=== PATIENT | male | born 1970 ===

== ENCOUNTER 2020-04-12 13:55 | Outpatient (REF) | payer OTHER, SELFPAY ==
[2020-04-12 14:50] LABS: MANUAL DIFF FLAG NO
[2020-04-12 15:10] LABS: Basophils Absolute Auto 0.1 X10*3/uL (0.0-0.2); Basophils Percent Auto 1.5 % (0-2); Eosinophils Absolute Auto 0.2 X10*3/uL (0.0-0.4); Eosinophils Percent Auto 3.7 % (0-4); Hematocrit 50.3 % (42-52); Hemoglobin 16.8 g/dl (14.0-18.0); Imm Gran Abs Auto 0.01 X10*3/uL (0.00-0.03); Imm Gran Pct Auto 0.2 % (0.0-0.4); Lymphocytes Absolute Auto 1.8 X10*3/uL (1.2-4.9); Lymphocytes Percent Auto 34.4 % (20-40); Mean Corpuscular HGB Conc 33.4 g/dl (31.0-36.0); Mean Corpuscular Hemoglobin 29.3 pg (27.0-33.0); Mean Corpuscular Volume 87.6 fL (80-98); Mean Platelet Volume 10.3 fL (9.4-12.4); Monocytes Absolute Auto 0.5 X10*3/uL (0.1-1.2); Neutrophils Absolute Auto 2.6 X10*3/uL (2.0-8.3); Neutrophils Percent Auto 50.2 % (45-73); Platelet Count 242 X10*3/uL (160-400); Red Blood Count 5.74 X10*6/uL (4.60-5.80); Red Cell Distribution Width 12.9 % (11.0-16.0); White Blood Count 5.2 X10*3/uL (4.8-10.8)
[2020-04-12 15:46] LABS: Alanine Aminotransferase 24 U/L (0-40); Albumin Level 4.2 g/dL (3.5-5.0); Alkaline Phosphatase 53 U/L (39-117); Aspartate Amino Transferase 18 U/L (5-37); Bilirubin Direct 0.3 mg/dL (0.0-0.5); Bilirubin Total 0.7 mg/dL (0.0-1.0); Iron 194 mcg/dL (45-160); Percent Iron Saturation 61 % (15-50); Total Iron Binding Capacity 320 mcg/dL (228-428); Total Protein 6.6 g/dL (6.5-8.0); Unsaturated Iron Binding 126 ug/dL
[2020-04-12 16:08] LABS: Ferritin 58 ng/mL (20-250)
== END 2020-04-12 13:56 | disposition home or self-care (01) ==
LOC: HO.BBR 13:55
PROVIDERS: Internal Medicine Gastroenterology; Visit Provider Physician Assistant
DX: E83.110 Hereditary hemochromatosis (principal)
CPT/HCPCS: 36415; 80076; 82728; 83540; 85025

== ENCOUNTER 2020-04-12 14:50 | Outpatient (REF) | payer SELFPAY ==
[2020-04-12 19:21] LABS: Cholesterol 223 mg/dL
== END 2020-04-12 14:51 | disposition home or self-care (01) ==
LOC: HO.LNC 14:50
PROVIDERS: Visit Provider Pathology Anatomic Pathology & Clinical Pathology
DX: Z13.89 Encounter for screening for other disorder (principal)
CPT/HCPCS: 36415; 82465

== ENCOUNTER 2020-09-19 12:17 | Outpatient (REF) | payer OTHER, SELFPAY | END 2020-09-19 12:18 | disposition home or self-care (01) | LOC: HO.BBR 12:17 | PROVIDERS: Visit Provider Physician Assistant | DX: Z13.89 Encounter for screening for other disorder (principal) ==

== ENCOUNTER 2020-12-13 14:31 | Outpatient (REF) | payer OTHER, SELFPAY ==
[2020-12-13 13:11] LABS: MANUAL DIFF FLAG NO
[2020-12-13 13:13] LABS: Basophils Absolute Auto 0.1 X10*3/uL (0.0-0.2); Basophils Percent Auto 1.7 % (0-2); Eosinophils Absolute Auto 0.2 X10*3/uL (0.0-0.4); Eosinophils Percent Auto 3.6 % (0-4); Hematocrit 49.1 % (42-52); Hemoglobin 16.9 g/dl (14.0-18.0); Imm Gran Abs Auto 0.01 X10*3/uL (0.00-0.03); Imm Gran Pct Auto 0.2 % (0.0-0.4); Lymphocytes Absolute Auto 1.5 X10*3/uL (1.2-4.9); Lymphocytes Percent Auto 32.2 % (20-40); Mean Corpuscular HGB Conc 34.4 g/dl (31.0-36.0); Mean Corpuscular Hemoglobin 29.8 pg (27.0-33.0); Mean Corpuscular Volume 86.4 fL (80-98); Mean Platelet Volume 9.8 fL (9.4-12.4); Monocytes Absolute Auto 0.5 X10*3/uL (0.1-1.2); Monocytes Percent Auto 10.8 % (2-11); Neutrophils Absolute Auto 2.4 X10*3/uL (2.0-8.3); Neutrophils Percent Auto 51.5 % (45-73); Platelet Count 200 X10*3/uL (160-400); Red Blood Count 5.68 X10*6/uL (4.60-5.80); White Blood Count 4.7 X10*3/uL (4.8-10.8)
[2020-12-13 14:44] LABS: Appearance Urine CLEAR; Color Urine YELLOW; Glucose Urine UA NEG (NEG); Leukocyte Esterase Urine NEG (NEG); Nitrite Urine NEG (NEG); Specific Gravity - Urine 1.025 (1.005-1.025); Urine Blood NEG (NEG); Urine Ketones NEG (NEG); Urine Protein NEG (NEG-TRACE)
[2020-12-13 14:58] LABS: Alanine Aminotransferase 18 U/L (0-40); Albumin Level 4.3 g/dL (3.5-5.0); Alkaline Phosphatase 52 U/L (39-117); Anion Gap 11 (12-20); Aspartate Amino Transferase 13 U/L (5-37); Bilirubin Direct 0.2 mg/dL (0.0-0.5); Bilirubin Total 0.5 mg/dL (0.0-1.0); Blood Urea Nitrogen 18 mg/dL (9-16); Calcium 9.1 mg/dL (8.4-10.2); Carbon Dioxide 25 mmol/L (22-29); Chloride 109 mmol/L (96-108); Cholesterol 192 mg/dL; Estimated Glomerular Filt Rate > 60; Glucose Random 93 mg/dL (60-115); HDL Cholesterol 37 mg/dL; Iron 87 mcg/dL (45-160); LDL Cholesterol Calculated 144 mg/dl; Percent Iron Saturation 29 % (15-50); Potassium 4.3 mmol/L (3.3-5.1); Sodium 141 mmol/L (135-145); Total Iron Binding Capacity 297 mcg/dL (228-428); Total Protein 6.7 g/dL (6.5-8.0); Triglycerides 56 mg/dL; Unsaturated Iron Binding 210 ug/dL
[2020-12-13 15:11] LABS: Creatinine Urine 214.04 mg/dL; Microalbum/Creatinine Ratio Ur 3.2 ug/mg cr
[2020-12-13 15:19] LABS: Ferritin 51 ng/mL (20-250); Prostate Specific Antigen 2.01 ng/mL (<0.05-4.0); Thyroid Stimulating Hormone 1.34 uIU/mL (0.32-4.0)
== END 2020-12-13 14:32 | disposition home or self-care (01) ==
LOC: HO.BBR 14:31
PROVIDERS: PCP Internal Medicine; Referring Provider Internal Medicine Gastroenterology; Visit Provider Physician Assistant
DX: Z12.5 Encounter for screening for malignant neoplasm of prostate (principal); E83.110 Hereditary hemochromatosis; R79.89 Other specified abnormal findings of blood chemistry; E07.9 Disorder of thyroid, unspecified
CPT/HCPCS: 36415; 80048; 80061; 80076; 81003; 82043; 82728; 83540; 84153; 84443; 85025

== ENCOUNTER → 2021-04-07 15:10 | Outpatient (BNVA) | payer OTHER, SELFPAY | PROVIDERS: PCP Internal Medicine; Visit Provider Hospitalist ==

== ENCOUNTER 2021-04-11 11:44 | Outpatient (REF) | payer OTHER, SELFPAY | END 2021-04-11 11:45 | disposition home or self-care (01) | LOC: HO.BBR 11:44 | PROVIDERS: Visit Provider Internal Medicine Gastroenterology | DX: Z13.89 Encounter for screening for other disorder (principal) ==

== ENCOUNTER 2021-07-03 14:00 | Outpatient (REF) | payer OTHER, SELFPAY ==
[2021-07-03 14:30] LABS: Hematocrit 52.3 % (42.0-52.0); Hemoglobin 17.4 g/dl (14.0-18.0); Mean Corpuscular HGB Conc 33.3 g/dl (31.0-36.0); Mean Corpuscular Volume 87.2 fL (80.0-98.0); Mean Platelet Volume 9.9 fL (9.4-12.4); Platelet Count 230 X10*3/uL (160-400); Red Cell Distribution Width 12.4 % (11.0-16.0)
[2021-07-03 15:01] LABS: Alanine Aminotransferase 32 U/L (0-40); Albumin Level 4.4 g/dL (3.5-5.0); Alkaline Phosphatase 53 U/L (39-117); Anion Gap 11 (12-20); Aspartate Amino Transferase 20 U/L (5-37); Bilirubin Direct 0.2 mg/dL (0.0-0.5); Bilirubin Total 0.6 mg/dL (0.0-1.0); Blood Urea Nitrogen 18 mg/dL (9-16); Calcium 9.5 mg/dL (8.4-10.2); Carbon Dioxide 24 mmol/L (22-29); Chloride 106 mmol/L (96-108); Estimated Glomerular Filt Rate 59; Glucose Random 151 mg/dL (60-115); Iron 56 mcg/dL (45-160); Percent Iron Saturation 14 % (15-50); Potassium 4.4 mmol/L (3.3-5.1); Sodium 137 mmol/L (135-145); Total Iron Binding Capacity 388 mcg/dL (228-428); Total Protein 7.1 g/dL (6.5-8.0); Unsaturated Iron Binding 332 ug/dL
[2021-07-03 15:22] LABS: Ferritin 10 ng/mL (20-250)
[2021-07-03 17:02] LABS: Appearance Urine CLEAR; Color Urine YELLOW; Glucose Urine UA NEG (NEG); Leukocyte Esterase Urine NEG (NEG); Nitrite Urine NEG (NEG); Specific Gravity - Urine 1.015 (1.005-1.025); Urine Blood NEG (NEG); Urine Ketones NEG (NEG); Urine Protein NEG (NEG-TRACE)
[2021-07-04 03:55] LABS: HBsAGNum1 0.19 S/CO (0.00-0.99); Hepatitis B Surface Antigen Negative (Negative); ~HepC Num1 0.09 S/CO (0.00-0.79); ~Hepatitis C Antibody Nonreactive (Nonreactive)
[2021-07-06 13:41] LABS: Anti Nuclear Antibody Screen NEGATIVE (NEGATIVE)
== END 2021-07-03 14:01 | disposition home or self-care (01) ==
LOC: HO.BBR 14:00
PROVIDERS: Visit Provider Internal Medicine Gastroenterology
DX: E83.110 Hereditary hemochromatosis (principal); R94.5 Abnormal results of liver function studies
CPT/HCPCS: 36415; 80048; 80076; 81003; 82728; 83540; 85027; 86038; 86039; 86803; 87340

== ENCOUNTER 2021-07-14 13:54 | Outpatient (REF) | payer OTHER, SELFPAY ==
--- NOTE | ~2021-07-14 | XR_ITS ---
EXAMINATION: XR KNEE, RIGHT CLINICAL INFORMATION: Pain. COMPARISON: None TECHNIQUE: AP, lateral and sunrise views of the right knee. FINDINGS: Bony alignment and mineralization are normal. The lateral, medial patellofemoral joint space compartment are well-maintained. There is minimal peripheral osteophyte formation of the medial joint space compartment, and very mild peripheral osteophyte formation is seen of the lateral joint space compartment. No fracture or dislocation is seen. There is a small left knee joint effusion. No foreign body is seen. XR/XR knee RT 3V IMPRESSION: 1. No fracture or dislocation is seen. 2. There is a small left knee joint effusion. 3. There is very mild osteoarthritic change of the patellofemoral compartment, and minimal osteoarthritic change is seen of the medial joint space compartment. EXAMINATION: XR SACROILIAC JOINTS CLINICAL INFORMATION: Pain. COMPARISON: None TECHNIQUE: AP and bilateral Judet views of the sacroiliac joints FINDINGS: Bones and soft tissues are normal. No fracture. Alignment is anatomic. Sacroiliac joint spaces are well-maintained without erosions or surrounding sclerosis. IMPRESSION: Normal sacroiliac joints.
--- NOTE | ~2021-07-14 | XR_ITS ---
EXAMINATION: XR KNEE, RIGHT CLINICAL INFORMATION: Pain. COMPARISON: None TECHNIQUE: AP, lateral and sunrise views of the right knee. FINDINGS: Bony alignment and mineralization are normal. The lateral, medial patellofemoral joint space compartment are well-maintained. There is minimal peripheral osteophyte formation of the medial joint space compartment, and very mild peripheral osteophyte formation is seen of the lateral joint space compartment. No fracture or dislocation is seen. There is a small left knee joint effusion. No foreign body is seen. XR/XR sacroiliac joint min 3V IMPRESSION: 1. No fracture or dislocation is seen. 2. There is a small left knee joint effusion. 3. There is very mild osteoarthritic change of the patellofemoral compartment, and minimal osteoarthritic change is seen of the medial joint space compartment. EXAMINATION: XR SACROILIAC JOINTS CLINICAL INFORMATION: Pain. COMPARISON: None TECHNIQUE: AP and bilateral Judet views of the sacroiliac joints FINDINGS: Bones and soft tissues are normal. No fracture. Alignment is anatomic. Sacroiliac joint spaces are well-maintained without erosions or surrounding sclerosis. IMPRESSION: Normal sacroiliac joints.
[2021-07-14 16:25] LABS: Baso%MD 1.2 %; Eos%MD 2.2 %; Hematocrit 49.4 % (42.0-52.0); Hemoglobin 16.4 g/dl (14.0-18.0); IG%MD 0.3 %; Lymph%MD 20.4 %; Mean Corpuscular HGB Conc 33.2 g/dl (31.0-36.0); Mean Corpuscular Hemoglobin 28.7 pg (27.0-33.0); Mean Corpuscular Volume 86.5 fL (80.0-98.0); Mono%MD 10.9 %; Platelet Count 310 X10*3/uL (160-400); Red Blood Count 5.71 X10*6/uL (4.60-5.80); Red Cell Distribution Width 11.9 % (11.0-16.0); White Blood Count 9.1 X10*3/uL (4.8-10.8)
[2021-07-14 16:36] LABS: Alanine Aminotransferase 17 U/L (0-40); Albumin Level 4.3 g/dL (3.5-5.0); Alkaline Phosphatase 51 U/L (39-117); Anion Gap 12 (12-20); Aspartate Amino Transferase 13 U/L (5-37); Bilirubin Total 0.6 mg/dL (0.0-1.0); Blood Urea Nitrogen 22 mg/dL (9-16); C Reactive Protein 0.17 mg/dL (< or = 0.50); Calcium 9.9 mg/dL (8.4-10.2); Carbon Dioxide 24 mmol/L (22-29); Chloride 107 mmol/L (96-108); Estimated Glomerular Filt Rate 55; Glucose Random 93 mg/dL (60-115); Potassium 4.7 mmol/L (3.3-5.1); Sodium 138 mmol/L (135-145); Total Protein 7.1 g/dL (6.5-8.0)
[2021-07-14 16:59] LABS: Thyroid Stimulating Hormone 1.28 uIU/mL (0.32-4.0)
[2021-07-14 17:07] LABS: Erythrocyte Sedimentation Rate 2 MM/HR (0-15)
[2021-07-14 18:30] LABS: Band Neutrophils Percent 0 % (3-5); Basophils Abs Manual 0.2 X10*3/uL (0.0-0.2); Basophils Percent Manual 2 % (0-2); Eosinophils Absolute Manual 0.1 X10*3/uL (0.0-0.4); Eosinophils Percent Manual 1 % (0-4); Lymphocytes Absolute Manual 1.5 X10*3/uL (1.2-4.9); Lymphocytes Percent Manual 17 % (20-40); Monocytes Absolute Manual 0.6 X10*3/uL (0.1-1.2); Monocytes Percent Manual 7 % (2-11); Neutrophils Absolute Manual 6.6 X10*3/uL (2.0-8.3); Neutrophils Percent Manual 73 % (45-73); Platelet Estimate NORMAL (NORMAL); RBC Morphology NORMAL
[2021-07-14 18:31] LABS: Platelet Morphology Comment NORMAL
== END 2021-07-14 13:55 | disposition home or self-care (01) ==
LOC: HO.XRAY 13:54
PROVIDERS: PCP Family Medicine; Visit Provider Internal Medicine Rheumatology
DX: M47.812 Spondylosis without myelopathy or radiculopathy, cervical region (principal); M54.50 Low back pain, unspecified; M25.562 Pain in left knee; M25.561 Pain in right knee; M47.816 Spondylosis without myelopathy or radiculopathy, lumbar region; R63.5 Abnormal weight gain
CPT/HCPCS: 36415; 72202; 73562; 80053; 84443; 85007; 85027; 85652; 86140; 99202

== ENCOUNTER 2022-01-07 13:02 | Outpatient (REF) | payer OTHER, SELFPAY | END 2022-01-07 13:03 | disposition home or self-care (01) | LOC: HO.BBR 13:02 | PROVIDERS: Visit Provider Internal Medicine Gastroenterology | DX: Z13.89 Encounter for screening for other disorder (principal) ==

== ENCOUNTER 2022-07-10 11:31 | Outpatient (REF) | payer OTHER, SELFPAY | END 2022-07-10 11:32 | disposition home or self-care (01) | LOC: HO.BBR 11:31 | PROVIDERS: Visit Provider Internal Medicine Gastroenterology | DX: Z13.89 Encounter for screening for other disorder (principal) ==

== ENCOUNTER 2022-12-18 11:46 | Outpatient (REF) | payer OTHER, SELFPAY | END 2022-12-18 11:47 | disposition home or self-care (01) | LOC: HO.BBR 11:46 | PROVIDERS: Visit Provider Internal Medicine Gastroenterology | DX: Z13.89 Encounter for screening for other disorder (principal) ==

== ENCOUNTER 2023-03-16 11:53 | Outpatient (AMB) | payer OTHER, SELFPAY ==
[2023-03-16 11:56] VITALS: BP 142/78; PULSE 68; O2SAT 96; BMI 29.7
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
== END 2023-03-16 12:18 | disposition home or self-care (01) ==
PROVIDERS: PCP Internal Medicine; Visit Provider Hospitalist
DX: R91.8 Other nonspecific abnormal finding of lung field (principal); R05.3 Chronic cough
CPT/HCPCS: 99214

== ENCOUNTER 2023-03-16 12:37 | Outpatient (REF) | payer OTHER, SELFPAY | END 2023-03-16 12:38 | disposition home or self-care (01) | LOC: HO.BBR 12:37 | PROVIDERS: Visit Provider Internal Medicine Gastroenterology | DX: Z13.89 Encounter for screening for other disorder (principal) ==

== ENCOUNTER 2023-06-15 11:51 | Outpatient (REF) | payer OTHER, SELFPAY | END 2023-06-15 11:52 | disposition home or self-care (01) | LOC: HO.BBR 11:51 | PROVIDERS: Visit Provider Internal Medicine Gastroenterology | DX: Z13.89 Encounter for screening for other disorder (principal) ==

== ENCOUNTER 2023-08-18 13:15 | Outpatient (REF) | payer OTHER, SELFPAY | END 2023-08-18 13:16 | disposition home or self-care (01) | LOC: HO.BBR 13:15 | PROVIDERS: PCP Internal Medicine; Visit Provider Internal Medicine Gastroenterology | DX: Z13.89 Encounter for screening for other disorder (principal) ==

== ENCOUNTER 2023-10-08 12:56 | Outpatient (REF) | payer OTHER, SELFPAY ==
[2023-10-08 13:05] LABS: MANUAL DIFF FLAG NO
[2023-10-08 13:21] LABS: Basophils Absolute Auto 0.1 X10*3/uL (0.0-0.2); Basophils Percent Auto 1.6 % (0-2); Eosinophils Absolute Auto 0.4 X10*3/uL (0.0-0.4); Eosinophils Percent Auto 4.6 % (0-4); Hematocrit 51.7 % (42.0-52.0); Hemoglobin 16.8 g/dl (14.0-18.0); Imm Gran Abs Auto 0.03 X10*3/uL (0.00-0.03); Imm Gran Pct Auto 0.4 % (0.0-0.4); Mean Corpuscular HGB Conc 32.5 g/dl (31.0-36.0); Mean Corpuscular Hemoglobin 27.1 pg (27.0-33.0); Mean Corpuscular Volume 83.4 fL (80.0-98.0); Monocytes Percent Auto 12.4 % (2-11); Neutrophils Absolute Auto 4.5 x10*3/uL (2.0-8.3); Platelet Count 236 X10*3/uL (160-400); Red Cell Distribution Width 14.3 % (11.0-16.0); White Blood Count 8.1 X10*3/uL (4.8-10.8)
[2023-10-08 13:56] LABS: Parathyroid Hormone Intact 19.1 pg/mL (8.7-77.1)
[2023-10-08 14:02] LABS: Anion Gap 9 (12-20); Blood Urea Nitrogen 23 mg/dL (9-16); Calcium 9.5 mg/dL (8.4-10.2); Carbon Dioxide 25 mmol/L (22-29); Chloride 107 mmol/L (96-108); Estimated Glomerular Filt Rate 54; Phosphorus 2.5 mg/dL (2.7-4.5); Potassium 4.2 mmol/L (3.3-5.1); Sodium 137 mmol/L (135-145)
[2023-10-08 14:09] LABS: Vitamin D 25-OH Total 44.9 ng/mL (>30)
[2023-10-08 14:10] LABS: Appearance Urine Clear; Color Urine Yellow; Glucose Urine UA Negative (Negative); Leukocyte Esterase Urine Negative (Negative); Nitrite Urine Negative (Negative); PH 6.5 (5.0-9.0); Specific Gravity - Urine 1.015 (1.005-1.025); Urine Blood Negative (Negative); Urine Ketones Negative (Negative); Urine Protein Negative (Neg-Trace)
[2023-10-08 14:51] LABS: Creatinine Urine 82.07 mg/dL; Total Protein Urine Random < 7 mg/dL (<12)
== END 2023-10-08 12:57 | disposition home or self-care (01) ==
LOC: HO.LAB 12:56
PROVIDERS: PCP Internal Medicine; Visit Provider Internal Medicine Nephrology
DX: N18.31 Chronic kidney disease, stage 3a (principal); I10 Essential (primary) hypertension
CPT/HCPCS: 36415; 80051; 81003; 82306; 82310; 82565; 82570; 83970; 84100; 84156; 84520; 85025

== ENCOUNTER 2023-10-14 15:55 | Outpatient (AMB) | payer OTHER, SELFPAY ==
--- NOTE | 2023-10-14 16:20 | HO.NEPHOV ---
Vital Signs 10/14/23 16:22 Height 6 ft 1 in Weight 221 lb 8 oz BMI 29.2 BP 112/80 Blood Pressure Location Lt brachial Position Sitting Pulse 77 Pulse Source Pulse Oximeter Pulse Oximetry (%) 97 Oxygen Delivery Method Room Air Intake Visit Reasons: Continuing care/ Conf Cytology Technologist Required: No Accompanied by: Self / Same As Patient Allergies No Known Allergies Allergy (Verified 10/14/23 16:24) HPI Comments Details: I had the pleasure of seeing Mr. Mcdonald who is 53 years age in follow-up of his CKD and hypertension. 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 He has history of hemochromatosis and undergoes phlebotomy regularly. He has hypertension for long time and has been on benazepril and amlodipine. His blood pressure has been at goal. He does not take any nonsteroidal anti-inflammatory medications and keep himself well hydrated. He is not a diabetic. He does not have any proteinuria or retinopathy. He is also on PPI. He has no history of CAD, CVA, carotid stenosis, CHF, SHIMA or peripheral arterial disease. He has no history of drug use. His last serum creatinine was 1.37 [facility] Medical History (Updated 10/14/23 @ 16:42 by Srinivas Mcdowell MD) Osteoarthritis of lumbar spine Lower back pain Weight gain Cervical osteoarthritis Pain of multiple sites Cough Pulmonary nodules Surgical History (Updated 10/14/23 @ 16:25 by Amber Carranza MA) H/O wrist surgery Hx of shoulder surgery History of nasal surgery History of hand surgery Hx of appendectomy Social History Household Members Other:: staying with a friend Are you a primary healthcare insurance sales agent to a significant other at home: No Do you presently have visiting nurse or other home services: No 75 years or older and lives alone: No Alcohol intake: never Patient Tobacco Use Status: Never used Tobacco e-Cigarette/Vaping Use: Never Used service: Yes Current occupational status: employed 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 Review of Systems Const All systems reviewed & are unremarkable except as noted in HPI and below Physical Exam Vital Signs: Last Vital Signs Pulse 77 10/14/23 16:22 BP 112/80 10/14/23 16:22 Pulse Ox 97 10/14/23 16:22 Oxygen Delivery Method Room Air 10/14/23 16:22 BMI result Body Mass Index 29.2 Const General: comfortable and no acute distress Orientation/consciousness: patient oriented x3 HEENT Head: Yes normocephalic Mouth: Normal oral and palatal mucosa present Eyes EOM: EOMs intact bilaterally Neck Neck: Yes supple Resp Auscultation: clear to auscultation bilaterally Cardio Jugular venous distension: no JVD Rate: regular rate GI Palpation (GI): Soft to palpation Auscultation: normal bowel sounds General: Yes no CVA tenderness Back/Spine/Pelvis Back: no CVA tenderness Skin General skin exam: no rashes or lesions noted Neuro General: patient oriented x3 and moves all extremities Extrem General: Yes no pedal edema Results Reviewed Nephrology Results: Hgb 16.8 g/dl (14.0-18.0) 10/08/23 WBC 8.1 X10*3/uL (4.8-10.8) 10/08/23 Plt Count 236 X10*3/uL (160-400) 10/08/23 Sodium 137 mmol/L (135-145) 10/08/23 Potassium 4.2 mmol/L (3.3-5.1) 10/08/23 Chloride 107 mmol/L (96-108) 10/08/23 Carbon Dioxide 25 mmol/L (22-29) 10/08/23 BUN 23 mg/dL (9-16) H 10/08/23 Creatinine 1.37 mg/dL (0.5-1.4) 10/08/23 Calcium 9.5 mg/dL (8.4-10.2) 10/08/23 Phosphorus 2.5 mg/dL (2.7-4.5) L 10/08/23 PTH Intact 19.1 pg/mL (8.7-77.1) 10/08/23 Urine Protein Negative mg/dL (Neg-Trace) 10/08/23 Urine Creatinine 82.07 mg/dL 10/08/23 Protein/Creatinin Ratio TNP 10/08/23 Assessment & Plan Assessment & Plan (1) CKD stage 3a, GFR 45-59 ml/min: Code(s): N18.31 - Chronic kidney disease, stage 3a Category: Medical (2) Hypertension: Code(s): I10 - Essential (primary) hypertension Category: Medical Qualifiers: Hypertension type: primary hypertension Qualified Code(s): I10 - Essential (primary) hypertension Plan His serum creatinine is 1.37. His highest serum creatinine was 1.6. His blood pressure is at goal. He is on LORA inhibitor. He has no proteinuria , LVH or retinopathy. He should maintain good hydration. He never had renal biopsy. He should avoid nonsteroidal anti-inflammatories. I would not make any medication changes today. I asked him to lose some weight. I ordered follow-up lab work including creatinine clearance. I answered all his questions. Follow-up appointment given. Orders: Orders Creatinine Clearance Urine 24U Today I10 - Essential (primary) hypertension, N18.31 - Chronic kidney disease, stage 3a Electrolytes Today I10 - Essential (primary) hypertension, N18.31 - Chronic kidney disease, stage 3a Blood Urea Nitrogen Today I10 - Essential (primary) hypertension, N18.31 - Chronic kidney disease, stage 3a Creatinine Today I10 - Essential (primary) hypertension, N18.31 - Chronic kidney disease, stage 3a Coding Level of Care Code Est Pt Level 4 (29035) Diagnoses CKD stage 3a, GFR 45-59 ml/min N18.31 Primary hypertension I10 Hypertension type: primary hypertension
[2023-10-14 16:22] VITALS: BP 112/80; PULSE 77; O2SAT 97; BMI 29.2
== END 2023-10-14 16:43 | disposition home or self-care (01) ==
PROVIDERS: Visit Provider Internal Medicine Nephrology
DX: N18.31 Chronic kidney disease, stage 3a (principal); I10 Essential (primary) hypertension
CPT/HCPCS: 99214

== ENCOUNTER → 2023-10-14 15:55 | Outpatient (BNVA) | payer OTHER, SELFPAY | PROVIDERS: Visit Provider Internal Medicine Nephrology ==

== ENCOUNTER 2023-11-09 14:44 | Outpatient (REF) | payer OTHER, SELFPAY | END 2023-11-09 14:45 | disposition home or self-care (01) | LOC: HO.BBR 14:44 | PROVIDERS: Visit Provider Internal Medicine Gastroenterology | DX: Z13.89 Encounter for screening for other disorder (principal) ==

== ENCOUNTER 2024-01-05 11:39 | Outpatient (REF) | payer OTHER, SELFPAY | END 2024-01-05 11:40 | disposition home or self-care (01) | LOC: HO.BBR 11:39 | PROVIDERS: Visit Provider Internal Medicine Gastroenterology | DX: Z13.89 Encounter for screening for other disorder (principal) ==

== ENCOUNTER 2024-04-20 13:28 | Outpatient (REF) | payer OTHER, SELFPAY ==
--- OUTSIDE RECORDS SUMMARY | 2024-04-20 14:26 | XMS_ITS ---
Author Name [facility] Organization [facility] Address [address] [place] [id number] Care Team Providers Care Branding Machine Tender Name Role Phone GAGAN WHITESIDE Primary Care Provider Unavailjose miguel e Insurance Providers: All historical and current Section Date Range: From patient's date of to the date document was created. This section includes the names of all active insurance providers for the patient. Insurance Provider Type of Coverage Plan Name Start of Policy Coverage End of Policy Coverage Group Number Member ID Insurance Provider's Telephone Number Policy Olivares's Name Patient's Relationship to Policy Olivares CAREMARK PRESCRIPT ION [facility] Aug 29, 2022 [id number] ROSSISTEPHANIE ERT PATIENT [employer] ([id number]) PRESCRIPT ION [facility] Aug 29, 2017 [id number] STEPHANIE ROSSI ERT PATIENT [employer] PREFERRED PROVIDER ORGANIZAT ION (PPO) [place] RE STATE INDEM N Mar 01, 2006 [id number] STEPHANIE ROSSI ERT PATIENT [employer] PREFERRED PROVIDER ORGANIZAT ION (PPO) [employer] RE STATE INDEM * Mar 01, 2006 [id number] STEPHANIE ROSSI ERT PATIENT Selected Encounter This section includes the information on record at [place] for the Encounter. Date/Time Encounter Type Encounter Description Reason Pro vider Source Mar 29, 2024 03:00 PM Outpatient Encounter ADMIN PAT ACTIVTIES (MASNONCT) IHE Encounter Template Text not used by [place] Plan of Treatment: Future Appointments (+ 6 months) and Future Tests (+/- 45 days) The Plan of Treatment section includes future care activities for the patient from all [place] [facility]. This section includes future appointments and future orders which are active, pending or scheduled. Future Appointments This section includes appointments that were scheduled to occur 6 months from the date of the Encounter, up to a maximum of 20 appointments. The data comes from all [place] treatment facilities. Appointment Date/Time Appointment Type Appointme nt Facility Name Apr 04, 2024 10:30 AM [facility]INE [facility] Apr 25, 2024 02:30 PM [facility]ULAT[facility] - MEDICINE [place] [facility] [facility] May 02, 2024 12:45 PM [facility] May 15, 2024 03:00 PM [facility] Active, Pending, and Scheduled Orders This section includes a listing of several types of active, pending, and scheduled orders, including clinic medications orders, diagnostic test orders, procedure orders and consult orders; where the start date of the order is 45 days before the date of the Encounter or 45 days after the date of theEncounter. The data comes from all [facility]. Test Date/Time Test Type Test Details Facility Name Mar 02, 2024 04:34 PM Consult Order [facility] Cons [employer] Sales[employer] Choice [facility] Lab Results: +/- 30 days of the encounter This section includes the Chemistry and Hematology Lab Results on record with [place] for the patient. Radiology Reports and Pathology Reports are provided separately, in subsequent sections. Lab Results This section contains the Chemistry/Hematology Results that were resulted 30 days before or 30 daysafter the date of the Encounter. Date/Time Source Result Type Result - Unit Interpretation Reference Range Comment Mar 27, 2024 12:38 PM [facility] LIPID PANEL FASTING Specimen Type: SERUM No comment entered. Ordering Provider: GAGAN WHITESIDE Report Released Date/Time: Mar 17, 2024 02:18 PM Reporting Lab: [address] [address] Performing Lab: [address] [address] CHOLESTEROL 217 mg/dL H TRIGLYCERIDE 58 mg/dL 0-150 LDL calculated 163 mg/dL H 0-129 CHOL/HDL 5.2 HDL CHOLESTEROL 42 mg/dL 40-60 Mar 27, 2024 12:38 PM [facility] LIVER FUNCTION Specimen Type: SERUM No comment entered. Ordering Provider: GAGAN WHITESIDE Report Released Date/Time: Mar 17, 2024 02:18 PM Reporting Lab: [address] [address] Performing Lab: [address] [address] PROTEIN,TOTAL 6.9 g/dL 6.0-8.3 ALBUMIN 4.0 g/dL 3.5-5.0 ALKALINE PHOSPHATASE 42 U/L 40-150 AST 12 U/L 5-34 ALT 16 U/L BILIRUBIN, TOTAL 0.6 mg/dL 0.2-1.2 Mar 27, 2024 12:38 PM [facility] BASIC METABOLIC PANEL (fasting) Specimen Type: SERUM No comment entered. Ordering Provider: GAGAN WHITESIDE Report Released Date/Time: Mar 17, 2024 02:18 PM Reporting Lab: [address] [address] Performing Lab: [address] [address] UREA NITROGEN 23 mg/dL 7-25 GLUCOSE 103 mg/dL H 65-100 SODIUM 137 mmol/L 135-145 POTASSIUM 4.7 mmol/L 3.5-5.0 CHLORIDE 108 mmol/L 100-110 CO2 22 meq/L 20-30 CREATININE, Serum 1.35 mg/dL 0.50-1.40 eGFR(CKD-EPI 2020) 62 mL/min >60 Mar 27, 2024 12:38 PM [facility] PSA Specimen Type: SERUM No comment entered. Ordering Provider: GAGAN WHITESIDE Report Released Date/Time: Mar 17, 2024 02:18 PM Reporting Lab: [address] [address] Performing Lab: [facility] [address] [facility] [address] PSA 2.13 ng/mL 0.00-4.00 Mar 27, 2024 12:38 PM [facility] TSH Specimen Type: SERUM No comment entered. Ordering Provider: GAGAN WHITESIDE Report Released Date/Time: Mar 17, 2024 02:18 PM Reporting Lab: [facility] [address] [facility] [address] Performing Lab: [facility] [address] TSH 1.20 u[IU]/mL 0.35-5.00 Mar 27, 2024 12:38 PM [facility] HEMOGLOBIN A1C PANEL Specimen Type: BLOOD Comment: Values obtained from A1C measurements can vary. For atypical A1C assays, a reported value of 7.0 could actually be between 6.72 and 7.28 if measured by a reference method. A reported value of 9.0 could actually be between 8.73 and 9.27. Ref: http://www.ngs p.org/CAPdata. asp Ordering Provider: GAGAN WHITESIDE Report Released Date/Time: Mar 17, 2024 02:18 PM Reporting Lab: [facility] [address] [address] Performing Lab: [address] [address] HEMOGLOBIN A1C 5.2 4.0-5.6 Mar 27, 2024 12:38 PM [facility] CBC AND DIFF (AUTO) Specimen Type: BLOOD No comment entered. Ordering Provider: GAGAN WHITESIDE Report Released Date/Time: Mar 17, 2024 02:18 PM Reporting Lab: [address] [address] Performing Lab: [address] [address] WBC 6.51 10*3/uL 4.50-11.00 RBC 6.31 10*6/uL H 4.23-5.66 HGB 16.4 g/dL 12.8-17 HCT 51.2 H 39.2-50.4 MCV 81.1 fL L 82-99 MCHC 32.0 g/dL 30.8-35.1 PLT 242 10*3/uL 140-360 RDW-CV 15.0 12.0-16.0 MONO, ABS 0.66 10*3/uL 0.30-1.10 MCH 26.0 pg L 26.2-32.6 NEUT % 58.4 43.7-75.8 LYMPH % 25.8 14.0-42.3 MONO % 10.1 5.1-13.7 EOS % 4.0 0.4-6.8 BASO % 1.4 0.1-2.0 NEUT, ABS 3.80 10*3/uL 2.20-7.60 LYMPH, ABS 1.68 10*3/uL 1.00-3.20 EOS, ABS 0.26 10*3/uL 0.03-0.44 BASO, ABS 0.09 10*3/uL 0.01-0.13 IMMATURE GRAN % 0.3 0.0-0.7 IMMATURE GRAN, ABS 0.02 10*3/uL 0.00-0.06 NRBC % 0.0 0.0-0.0 NRBC, ABS 0.00 10*3/uL 0.00-0.00 Mar 10, 2024 01:52 PM [facility] H PYLORI ANTIBODY Specimen Type: SERUM No comment entered. Ordering Provider: GAGAN WHITESIDE Report Released Date/Time: Mar 10, 2024 12:50 PM Reporting Lab: [facility] [address] [facility] [address] Performing Lab: [facility] [address] [facility] [address] H PYLORI IgG NEGATIVE NEGATIVE Social History: Smoking Status (Most current) and Tobacco Use (All prior to encounter date) This section includes the most current, and the historical, smoking and tobacco- related health factors from the [place] facility where the Encounter took place. Current Smoking Status This section includes the most current smoking, or tobacco-related health factor, from the [place] facility where the Encounter took place. Date/Time Current Smoking Status Comment Facil ity May 16, 2020 04:13 PM VA-TOBACCO NEVER USED [place] [facility] [facility] Advance Directives: All historical and current Section Date Range: From patient's date of to the date document was created. This section includes ALL of a patient's completed or amended VA Advance and Rescinded Directives. The entries below indicate that a directive exists for the patient, but an actual copy is not included with this document. The data comes from all [place] facilities. Date Advance Directives Provider Source Nov 26, 2016 ADVANCE DIRECTIVE TORY [facility] Encounter Notes: All associated encounter notes This section contains the clinical notes associated to the Encounter. Date/Time Encounter Note(s) Provider Source Mar 03, 2024 09:06 AM LETTERS: LOCAL TITLE: PATIENT LETTER (T) STANDARD TITLE: LETTERS DATE OF NOTE: MAR 03, 2024@09:06 ENTRY DATE: MAR 03, 2024@09:06:28 AUTHOR: YENNY CASIANO EXP COSIGNER: URGENCY: STATUS: COMPLETED PATIENT LETTER (T) Has ADDENDA DEPARTMENT OF [facility] Toll Free Number Primary Care Telephone Assistance can be reached at extension [phone] [facility] scheduling can be reached at extension [phone] [facility] scheduling can be reached at ext [phone] MERVIN ROSSI [address] [place] [address], [phone] Dear , The Referral Coordination Team at [facility] has attempted to contact you on 03.03.2024 to discuss a Gastroenterology referral that was requested by your healthcare provider. We would appreciate hearing from you so that we can assist in coordinating this care. Please call MARIE Carrillo,RN-BC at [phone] Ext [phone] at your earliest convenience. It's important that we process this request as soon as possible to make sure you receive the care your provider requested. Unfortunately if you do not hear from you by 03.17.2024 your healthcare provider will be informed and the request may be discontinued. We look forward to your call and thank you for the opportunity to serve you. 03/07/2024 ADDENDUM STATUS: COMPLETED LETTER MAILED TODAY 03/07/2024. Gastro. /christina/ ISMAEL RUTHERFORD Signed: 03/07/2024 10:04 Sincerely, Your Primary Care Team [facility] [address] [facility] [address] [place] [address] [place] [address] [phone] [place] [facility] [address] [place] [address] [place] [address] [facility] [address] [facility] [place] [address] [place] [address] [phone] YENNY CASIANO [place] CN[facility]
--- OUTSIDE RECORDS SUMMARY | 2024-04-20 14:26 | XMS_ITS | Encounter Summary ---
Author Name [facility] Organization [facility] [place] Address [address] [place] [address] Care Team Providers Care Ammunition And Explosives Handler Name Role Phone GAGAN WHITESIDE Primary Care [...] Relationship to Policy Olivares CAREMARK PRESCRIPT ION [facility] Aug 29, 2022 [id number] ROSSISTEPHANIE ERT PATIENT [employer] S[employer]IP[employer] ([id number]) PRESCRIPT ION [facility] Aug 29, 2017 [id number] STEPHANIE ROSSI ERT PATIENT UNICARE PREFERRED PROVIDER ORGANIZAT ION (PPO) [facility] INDEM N Mar 01, 2006 [id number] STEPHANIE ROSSI ERT PATIENT WELLPOINT PREFERRED PROVIDER ORGANIZAT ION (PPO) [facility] [employer] [facility] * Mar 01, 2006 [id number] [phone] STEPHANIE ROSSI ERT PATIENT Selected Encounter This section includes the information on record at CT for the Encounter. Date/Time Encounter Type Encounter Description Reason Pro vider Source Mar 27, 2024 12:43 PM Outpatient Encounter ADMIN PAT ACTIVTIES (MASNONCT) IHE Encounter Template Text not used by CT Plan of Treatment: Future Appointments (+ 6 months) and Future Tests (+/- 45 days) The Plan of Treatment section includes future care activities for the patient [facility] This section includes future appointments and future orders which are active, pending or scheduled. Future Appointments This section includes appointments that were scheduled to occur 6 months from the date of the Encounter, up to a maximum of 20 appointments. The data comes from all CT treatment facilities. Appointment Date/Time Appointment Type Appointme nt Facility Name Apr 04, 2024 10:30 AM AMBULATORY - MEDICINE [facility] Apr 25, 2024 02:30 PM AMBULATORY - MEDIC[facility]L [facility] [place] [facility] May 02, 2024 12:45 PM [facility] May 15, 2024 03:00 PM AMBULATORY - MEDICINE [facility] Active, Pending, and Scheduled Orders This section includes a listing of several types of active, pending, and scheduled orders, including clinic medications orders, diagnostic test orders, procedure orders and consult orders; where the start date of the order is 45 days before the date of the Encounter or 45 days after the date of theEncounter. The data comes from all [facility]. Test Date/Time Test Type Test Details Facility Name Mar 02, 2024 04:34 PM Consult Order [facility]ITY [facility]ARE-GI GENERAL Cons Continuous Yarn Dyeing Machine Operator's Choice [facility] Lab Results: +/- 30 days of the encounter This section includes the Chemistry and Hematology Lab Results on record with CT for the patient. Radiology Reports and Pathology Reports are provided separately, in subsequent sections. Lab Results This section contains the Chemistry/Hematology Results that were resulted 30 days before or 30 daysafter the date of the Encounter. Date/Time Source Result Type Result - Unit Interpretation Reference Range Comment Mar 27, 2024 12:38 PM [facility] LIPID PANEL FASTING Specimen Type: SERUM No comment entered. Ordering Provider: GAGAN WHITESIDE Report Released Date/Time: Mar 17, 2024 02:18 PM Reporting Lab: [address] [address] Performing Lab: [address] [address] CHOLESTEROL 217 mg/dL H TRIGLYCERIDE 58 mg/dL 0-150 LDL calculated 163 mg/dL H 0-129 CHOL/HDL 5.2 HDL CHOLESTEROL 42 mg/dL 40-60 Mar 27, 2024 12:38 PM [facility] LIVER FUNCTION Specimen Type: SERUM No comment entered. Ordering Provider: GAGAN WHITESIDE Report Released Date/Time: Mar 17, 2024 02:18 PM Reporting Lab: [address] [address] Performing Lab: [address] [address] PROTEIN,TOTAL 6.9 g/dL 6.0-8.3 ALBUMIN 4.0 g/dL 3.5-5.0 ALKALINE PHOSPHATASE 42 U/L 40-150 AST 12 U/L 5-34 ALT 16 U/L BILIRUBIN, TOTAL 0.6 mg/dL 0.2-1.2 Mar 27, 2024 12:38 PM [facility] BASIC METABOLIC PANEL (fasting) Specimen Type: SERUM No comment entered. Ordering Provider: GAGAN WHITESIDE Report Released Date/Time: Mar 17, 2024 02:18 PM Reporting Lab: [address] [address] Performing Lab: [address] [address] UREA NITROGEN 23 mg/dL 7-25 GLUCOSE 103 mg/dL H 65-100 SODIUM 137 mmol/L 135-145 POTASSIUM 4.7 mmol/L 3.5-5.0 CHLORIDE 108 mmol/L 100-110 CO2 22 meq/L 20-30 CREATININE, Serum 1.35 mg/dL 0.50-1.40 eGFR(CKD-EPI 2020) 62 mL/min >60 Mar 27, 2024 12:38 PM [facility] PSA Specimen Type: SERUM No comment entered. Ordering Provider: GAGAN WHITESIDE Report Released Date/Time: Mar 17, 2024 02:18 PM Reporting Lab: [address] [address] Performing Lab: [facility] [address] [address] PSA 2.13 ng/mL 0.00-4.00 Mar 27, 2024 12:38 PM [facility] TSH Specimen Type: SERUM No comment entered. Ordering Provider: GAGAN WHITESIDE Report Released Date/Time: Mar 17, 2024 02:18 PM Reporting Lab: [facility] [address] [address] Performing Lab: [facility] [address] TSH 1.20 u[IU]/mL 0.35-5.00 Mar 27, 2024 12:38 PM [facility] HEMOGLOBIN A1C PANEL Specimen Type: BLOOD [...] Mar 17, 2024 02:18 PM Reporting Lab: [facility] [address] [address] Performing Lab: [address] [address] HEMOGLOBIN A1C 5.2 4.0-5.6 Mar 27, 2024 12:38 PM [facility] CBC AND DIFF (AUTO) Specimen Type: BLOOD No comment entered. Ordering Provider: GAGAN WHITESIDE Report Released Date/Time: Mar 17, 2024 02:18 PM Reporting Lab: [address] [address] Performing Lab: [address] [address] WBC 6.51 10*3/uL 4.50-11.00 RBC 6.31 10*6/uL [...] 10*3/uL 0.00-0.00 Mar 10, 2024 01:52 PM [facility] H PYLORI ANTIBODY Specimen Type: SERUM No comment entered. Ordering Provider: GAGAN WHITESIDE Report Released Date/Time: Mar 10, 2024 12:50 PM Reporting Lab: [facility] [address] [address] Performing Lab: [facility] [address] [facility] [address] H PYLORI IgG NEGATIVE NEGATIVE Social History: Smoking Status (Most current) and Tobacco Use (All prior to encounter date) This section includes the most current, and the historical, smoking and tobacco- related health factors from the [place] facility where the Encounter took place. Current Smoking Status This section includes the most current smoking, or tobacco-related health factor, from the [place] facility where the Encounter took place. Date/Time Current Smoking Status Comment Facil ity May 16, 2020 04:13 PM VA-TOBACCO NEVER USED [facility] Advance Directives: All historical and current Section Date Range: From patient's date of to the date document was created. This section includes ALL of a patient's completed or amended CT Advance and Rescinded Directives. The entries below indicate that a directive exists for the patient, but an actual copy is not included with this document. The data comes from all CT facilities. Date Advance Directives Provider Source Nov 26, 2016 ADVANCE DIRECTIVE TORY WONG [facility] Encounter Notes: All associated encounter notes This section contains the clinical notes associated to the Encounter. Date/Time Encounter Note(s) Provider Source Mar 27, 2024 12:43 PM MEDICATION MGT NOT E: LOCAL TITLE: OUTPATIENT MEDICATION REQUEST STANDARD TITLE: MEDICATION MGT NOTE DATE OF NOTE: MAR 27, 2024@12:43 ENTRY DATE: MAR 27, 2024@12:43:42 AUTHOR: ANDREW MALDONADO EXP COSIGNER: URGENCY: STATUS: COMPLETED Medication Request Date of Request: Mar Is this a New Medication? No [id number] CHOLECALCIF 25MCG (D3-1,000UNIT) TAB E 0 03-03-23 04-02-23 QTY: 30 SIG: TAKE ONE TABLET BY MOUTH ONCE DAILY FOR VITAMIN SUPPLEMENTATION The following actions were performed: PACT Team RN and Provider added as additional Signers to this request *Please let patient know that this request may take up to 72 hours to process.* /christina/ ANDREW MALDONADO Signed: 03/27/2024 12:44 Receipt Acknowledged By: 03/27/2024 13:00 /christina/ AZIZA DIEZ RN REGISTERED NURSE 03/28/2024 05:44 /es/ GAGAN WHITESIDE MD Primary Care Physician ANDREW MALDONADO [facility]
--- OUTSIDE RECORDS SUMMARY | 2024-04-20 14:26 | XMS_ITS | Encounter Summary ---
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 [place] [facility] Address [address] [place] [address] Care Team Providers Care Mechanic General Operational Test Name Role Phone RIZWAN WHITESIDEA Primary Care Provider Puneet huber Insurance Providers: All historical and current Section [...] Relationship to Policy Olivares CAREMARK PRESCRIPT ION [facility] Aug 29, 2022 [id number] STEPHANIE ROSSI ERT PATIENT [employer] ([id number]) PRESCRIPT ION [facility] Aug 29, 2017 [id number] STEPHANIE ROSSI ERT PATIENT UNICARE PREFERRED PROVIDER ORGANIZAT ION (PPO) [place] [employer] N Mar 01, 2006 [id number] STEPHANIE ROSSI ERT PATIENT WELLPOINT PREFERRED PROVIDER ORGANIZAT ION (PPO) [place] [employer] * Mar 01, 2006 [id number] ROSSISTEPHANIE ERT PATIENT Selected Encounter This section includes the information on record at [place] for the Encounter. Date/Time Encounter Type Encounter Description Reason Pro vider Source Mar 29, 2024 03:00 PM Outpatient Encounter TELEPHONE/MEDICINE IHE Encounter Template Text not used by [place] Plan of Treatment: Future Appointments (+ 6 months) and Future Tests (+/- 45 days) The Plan of Treatment section includes future care activities for the [facility] This section includes future appointments and future orders which are active, pending or scheduled. Future Appointments This section includes appointments that were scheduled to occur 6 months from the date of the Encounter, up to a maximum of 20 appointments. The data comes from all [facility]. Appointment Date/Time Appointment Type Appointme nt Facility Name Apr 04, 2024 10:30 AM [facility] Apr 25, 2024 02:30 PM AMBULATORY - MEDICINE [facility]L [facility] May 02, 2024 12:45 PM [facility] May 15, 2024 03:00 PM AMBULATORY - MEDICINE [facility] Active, Pending, and Scheduled Orders This section includes a listing of several types of active, pending, and scheduled orders, including clinic medications orders, diagnostic test orders, procedure orders and consult orders; where the start date of the order is 45 days before the date of the Encounter or 45 days after the date of theEncounter. The data comes from all [facility]. Test Date/Time Test Type Test Details Facility Name Mar 02, 2024 04:34 PM Consult Order COMMUNITY CARE-GI GENERAL Cons Rug Touch Up Painter's Choice [facility] Lab Results: +/- 30 days of the encounter This section includes the Chemistry and Hematology Lab Results on record with [place] for the patient. Radiology Reports and Pathology Reports are provided separately, in subsequent sections. Lab Results This section contains the Chemistry/Hematology Results that were resulted 30 days before or 30 daysafter the date of the Encounter. Date/Time Source Result Type Result - Unit Interpretation Reference Range Comment Mar 27, 2024 12:38 PM [facility] LIPID PANEL FASTING Specimen Type: SERUM No comment entered. Ordering Provider: GAGAN WHITESIDE Report Released Date/Time: Mar 17, 2024 02:18 PM Reporting Lab: [address] [address] Performing Lab: [address] [address] CHOLESTEROL 217 mg/dL H TRIGLYCERIDE 58 mg/dL 0-150 LDL calculated 163 mg/dL H 0-129 CHOL/HDL 5.2 HDL CHOLESTEROL 42 mg/dL 40-60 Mar 27, 2024 12:38 PM [facility] LIVER FUNCTION Specimen Type: SERUM No comment entered. Ordering Provider: GAGAN WHITESIDE Report Released Date/Time: Mar 17, 2024 02:18 PM Reporting Lab: [facility] [address] [address] Performing Lab: [address] [address] PROTEIN,TOTAL 6.9 g/dL 6.0-8.3 ALBUMIN 4.0 g/dL 3.5-5.0 ALKALINE PHOSPHATASE 42 U/L 40-150 AST 12 U/L 5-34 ALT 16 U/L BILIRUBIN, TOTAL 0.6 mg/dL 0.2-1.2 Mar 27, 2024 12:38 PM [facility] BASIC METABOLIC PANEL (fasting) Specimen Type: SERUM No comment entered. Ordering Provider: GAGAN WHITESIDE Report Released Date/Time: Mar 17, 2024 02:18 PM Reporting Lab: [address] [address] Performing Lab: [address] [address] UREA NITROGEN 23 mg/dL 7-25 GLUCOSE 103 mg/dL H 65-100 SODIUM 137 mmol/L 135-145 POTASSIUM 4.7 mmol/L 3.5-5.0 CHLORIDE 108 mmol/L 100-110 CO2 22 meq/L 20-30 CREATININE, Serum 1.35 mg/dL 0.50-1.40 eGFR(CKD-EPI 2020) 62 mL/min >60 Mar 27, 2024 12:38 PM [facility] PSA Specimen Type: SERUM No comment entered. Ordering Provider: GAGAN WHITESIDE Report Released Date/Time: Mar 17, 2024 02:18 PM Reporting Lab: [address] [address] Performing Lab: [address] [address] PSA 2.13 ng/mL 0.00-4.00 Mar 27, 2024 12:38 PM [facility] TSH Specimen Type: SERUM No comment entered. Ordering Provider: GAGAN WHITESIDE Report Released Date/Time: Mar 17, 2024 02:18 PM Reporting Lab: [address] [address] Performing Lab: [address] [address] TSH 1.20 u[IU]/mL 0.35-5.00 Mar 27, 2024 12:38 PM [facility] HEMOGLOBIN A1C PANEL Specimen Type: BLOOD Comment: [...] Mar 17, 2024 02:18 PM Reporting Lab: [address] [address] Performing Lab: [address] [address] HEMOGLOBIN A1C 5.2 4.0-5.6 Mar 27, 2024 12:38 PM [facility] CBC AND DIFF (AUTO) Specimen Type: BLOOD No comment entered. Ordering Provider: GAGAN WHITESIDE Report Released Date/Time: Mar 17, 2024 02:18 PM Reporting Lab: [address] [address] Performing Lab: [address] [address] WBC 6.51 10*3/uL 4.50-11.00 RBC 6.31 10*6/uL [...] 10*3/uL 0.00-0.00 Mar 10, 2024 01:52 PM [facility] H PYLORI ANTIBODY Specimen Type: SERUM No comment entered. Ordering Provider: GAGAN WHITESIDE Report Released Date/Time: Mar 10, 2024 12:50 PM Reporting Lab: [facility] [address] [address] Performing Lab: [facility] [address] [facility] [address] H PYLORI IgG NEGATIVE NEGATIVE Social History: Smoking Status (Most current) and Tobacco Use (All prior to encounter date) This section includes the most current, and the historical, smoking and tobacco- related health factors from the [place] facility where the Encounter took place. Current Smoking Status This section includes the most current smoking, or tobacco-related health factor, from the [place] facility where the Encounter took place. Date/Time Current Smoking Status Comment Yair dumont May 16, 2020 04:13 PM VA-TOBACCO NEVER USED [facility] Advance Directives: All historical and current Section Date Range: From patient's date of to the date document was created. This section includes ALL of a patient's completed or amended [place] Advance and Rescinded Directives. The entries below indicate that a directive exists for the patient, but an actual copy is not included with this document. The data comes from all [place] facilities. Date Advance Directives Provider Source Nov 26, 2016 ADVANCE DIRECTIVE TORY WONG Encounter Notes: All associated encounter notes This section contains the clinical notes associated to the Encounter. Date/Time Encounter Note(s) Provider Source Mar 03, 2024 04:06 PM NURSING NOTE: LOCAL TITLE: NURSING NOTE STANDARD TITLE: NURSING NOTE DATE OF NOTE: MAR 03, 2024@16:06 ENTRY DATE: MAR 03, 2024@16:06:39 AUTHOR: YENNY CASIANO COSIGNER: URGENCY: STATUS: COMPLETED RCI Gastroenterology: Care coordination 03.03.2024 reports 1 year history of worsening dysphagia. denies weight loss, denies N/V, denies abdominal or epigastric pain, [place] is taking Famotidine. [place] is avoiding triggers (proteins) adhering to soft diet. [place] is asking for colonoscopy, positive for rectal bleed on toilet paper, denies change of bowel habits, denies rectal pain and denies black stool. [place] denies family history of colon cancer. reports previous colonoscopy long time ago [place] is unsure where colonoscopy was done or clinical indication for endoscopy. System Architect explained options for care. [place] has requested to return to community. System Architect has updated [facility] and alerted [facility] Department of [place] preferences. System Architect requested [facility] expedite request. /christina/ MARIE Page, RN- Referral Coordination Initiative Nurse Signed: 03/03/2024 16:12 YENNY CASIANO [facility]
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
--- OUTSIDE RECORDS SUMMARY | 2024-04-20 14:26 | XMS_ITS | Encounter Summary ---
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 [place] [facility] Address [address] [place] [id number] Care Team Providers Care Director Of Casework Name Role Phone STEVOGAGAN Primary Care Provider Puneet huber Insurance Providers: [...] Relationship to Policy Olivares CAREMARK PRESCRIPT ION [facility] Aug 29, 2022 [id number] ROSSI,STEPHANIE ERT PATIENT [employer] ([id number]) PRESCRIPT ION [facility] Aug 29, 2017 [id number] STEPHANIE ROSSI ERT PATIENT [employer] PREFERRED PROVIDER ORGANIZAT ION (PPO) [facility] N Mar 01, 2006 [id number] STEPHANIE ROSSI ERT PATIENT [employer] PREFERRED PROVIDER ORGANIZAT ION (PPO) [facility] RE [facility] * Mar 01, 2006 [id number] STEPHANIE ROSSI ERT PATIENT Selected Encounter This section includes the information on record at [place] for the Encounter. Date/Time Encounter Type Encounter Description Reason Pro vider Source Mar 24, 2024 04:03 PM Outpatient Encounter PRIMARY CARE/MEDICINE IHE Encounter Template Text not used by [facility] Plan of Treatment: Future Appointments (+ 6 months) and Future Tests (+/- 45 days) The Plan of Treatment section includes [facility] care [facility] This section includes future appointments and future orders which are active, pending or scheduled. Future Appointments This section includes appointments that were scheduled to occur 6 months from the date of the Encounter, up to a maximum of 20 appointments. The data comes from all [facility]. Appointment Date/Time Appointment Type Appointme nt Facility Name Apr 04, 2024 10:30 AM [facility] Apr 25, 2024 02:30 PM [facility] May 02, 2024 12:45 PM [facility] May 15, 2024 03:00 PM [facility] - MEDICINE [facility] Active, Pending, and Scheduled Orders This section includes a listing of several types of active, pending, and scheduled orders, including clinic medications orders, diagnostic test orders, procedure orders and consult orders; where the start date of the order is 45 days before the date of the Encounter or 45 days after the date of theEncounter. The data comes from all [facility]. Test Date/Time Test Type Test Details Facility Name Mar 02, 2024 04:34 PM Consult Order COMMUNITY CARE-GI GENERAL Cons [facility] Lab Results: +/- 30 days of the encounter This section includes the Chemistry and Hematology Lab Results on record with [place] for the patient. Radiology Reports and Pathology Reports are provided separately, in subsequent sections. Lab Results This section contains the Chemistry/Hematology Results that were resulted 30 days before or 30 daysafter the date of the Encounter. Date/Time Source Result Type Result - Unit Interpretation Reference Range Comment Mar 27, 2024 12:38 PM [facility] LIPID PANEL FASTING Specimen Type: SERUM No comment entered. Ordering Provider: GAGAN WHITESIDE Report Released Date/Time: Mar 17, 2024 02:18 PM Reporting Lab: [address] [address] Performing Lab: [address] [address] CHOLESTEROL 217 mg/dL H TRIGLYCERIDE 58 mg/dL 0-150 LDL calculated 163 mg/dL H 0-129 CHOL/HDL 5.2 HDL CHOLESTEROL 42 mg/dL 40-60 Mar 27, 2024 12:38 PM [facility] LIVER FUNCTION Specimen Type: SERUM No comment entered. Ordering Provider: GAGAN WHITESIDE Report Released Date/Time: Mar 17, 2024 02:18 PM Reporting Lab: [address] [address] Performing Lab: [address] [address] PROTEIN,TOTAL 6.9 g/dL 6.0-8.3 ALBUMIN 4.0 g/dL 3.5-5.0 ALKALINE PHOSPHATASE 42 U/L 40-150 AST 12 U/L 5-34 ALT 16 U/L BILIRUBIN, TOTAL 0.6 mg/dL 0.2-1.2 Mar 27, 2024 12:38 PM [facility] BASIC METABOLIC PANEL (fasting) Specimen Type: SERUM No comment entered. Ordering Provider: GAGAN WHITESIDE Report Released Date/Time: Mar 17, 2024 02:18 PM Reporting Lab: [address] [address] Performing Lab: [address] [address] UREA NITROGEN 23 mg/dL 7-25 GLUCOSE 103 mg/dL H 65-100 SODIUM 137 mmol/L 135-145 POTASSIUM 4.7 mmol/L 3.5-5.0 CHLORIDE 108 mmol/L 100-110 CO2 22 meq/L 20-30 CREATININE, Serum 1.35 mg/dL 0.50-1.40 eGFR(CKD-EPI 2020) 62 mL/min >60 Mar 27, 2024 12:38 PM [facility] PSA Specimen Type: SERUM No comment entered. Ordering Provider: GAGAN WHITESIDE Report Released Date/Time: Mar 17, 2024 02:18 PM Reporting Lab: [address] [address] Performing Lab: [address] [address] PSA 2.13 ng/mL 0.00-4.00 Mar 27, 2024 12:38 PM [facility] TSH Specimen Type: SERUM No comment entered. Ordering Provider: GAGAN WHITESIDE Report Released Date/Time: Mar 17, 2024 02:18 PM Reporting Lab: [address] [address] Performing Lab: [address] [address] TSH 1.20 u[IU]/mL 0.35-5.00 Mar 27, 2024 12:38 PM [facility] HEMOGLOBIN A1C PANEL Specimen Type: BLOOD [...] Mar 17, 2024 02:18 PM Reporting Lab: [address] [address] Performing Lab: [address] [address] HEMOGLOBIN A1C 5.2 4.0-5.6 Mar 27, 2024 12:38 PM [facility] CBC AND DIFF (AUTO) Specimen Type: BLOOD No comment entered. Ordering Provider: GAGAN WHITESIDE Report Released Date/Time: Mar 17, 2024 02:18 PM Reporting Lab: [address] [address] Performing Lab: [address] [address] WBC 6.51 10*3/uL 4.50-11.00 RBC 6.31 10*6/uL [...] 10*3/uL 0.00-0.00 Mar 10, 2024 01:52 PM [facility] H PYLORI ANTIBODY Specimen Type: SERUM No comment entered. Ordering Provider: GAGAN WHITESIDE Report Released Date/Time: Mar 10, 2024 12:50 PM Reporting Lab: [facility] [address] [facility] [address] Performing Lab: [facility] [address] [facility] [address] H PYLORI IgG NEGATIVE NEGATIVE Feb 24, 2024 12:00 AM [facility] OCCULT BLOOD FIT X1 SCREEN (MFP ONLY) Specimen Type: FECES No comment entered. Ordering Provider: GAGAN WHITESIDE Report Released Date/Time: Jan 31, 2024 11:07 AM Reporting Lab: [address] [address] Performing Lab: [facility] [address] [facility] [address] OCCULT BLOOD (FIT)#1 OF 1 Negative NEG Social History: Smoking Status (Most current) and Tobacco Use (All prior to encounter date) This section includes the most current, and the historical, smoking and tobacco- related health factors from the [place] facility where the Encounter took place. Current Smoking Status This section includes the most current smoking, or tobacco-related health factor, from the [place] facility where the Encounter took place. Date/Time Current Smoking Status Comment Facil itmichela May 16, 2020 04:13 PM VA-TOBACCO NEVER USED [facility] Advance Directives: All historical and current Section Date Range: From patient's date of to the date document was created. This section includes ALL of a patient's completed or amended [place] Advance and Rescinded Directives. The entries below indicate that a directive exists for the patient, but an actual copy is not included with this document. The data comes from all [place] facilities. Date Advance Directives Provider Source Nov 26, 2016 ADVANCE DIRECTIVE [facility] Encounter Notes: All associated encounter notes This section contains the clinical notes associated to the Encounter. Date/Time Encounter Note(s) Provider Source Mar 24, 2024 04:03 PM PRIMARY CARE TELEP PRABHAKAR ENCOUNTER NOTE: LOCAL TITLE: TELEPHONE NOTE/PRIMARY CARE STANDARD TITLE: PRIMARY CARE TELEPHONE ENCOUNTER NOTE DATE OF NOTE: MAR 24, 2024@16:03 ENTRY DATE: MAR 24, 2024@16:03:37 AUTHOR: JOEL KRAMER COSIGNER: URGENCY: STATUS: COMPLETED This is a reminder call for your upcoming PCP appt with GAGAN WHITESIDE and the need for a lab appointment for bloodwork prior to your upcoming appt. (X)Fasting blood work Action taken: [X] Spoke to /day care home provider to remind them of upcoming appt/bloodwork Upcoming Appointments: 03/29/2024 15:00 CWM/SO/PACT 10 04/04/2024 10:30 COM CARE-GI GENERAL 04/25/2024 14:30 [facility] OPTOMETRY 2 PM 05/02/2024 12:45 [facility] DENTAL RDH 1 PM /es/ JOEL KRAMER [employer]ED [employer] Signed: 03/24/2024 16:04 JOEL KRAMER
--- OUTSIDE RECORDS SUMMARY | 2024-04-20 14:26 | XMS_ITS | Continuity of Care Document ---
Author Organization [facility] [address] [place] [address] Phone [phone] Care Team Providers Care Front Desk Representative Name Role Phone Andrea Christina M.D. Care Team Information Recei justin [phone] Problems Active Problems Provider Date Essential hypertension Eric Craig M.D. O nset: 12/18/2021 Hemochromatosis Eric Craig M.D. Onset: 1 Social History Type Date Description Comments Sex Unknown Tobacco Use Start: Unknown Never Smoked Cigarettes ETOH Use Never used alcohol Allergies and adverse reactions Description No Known Drug Allergies Medications Active Medications SIG Qnty Indications Ordering Provider Date Amlodipine [id number] Tablets 1 by mouth every day Andrea Christina M.D. Vital Signs Date Vital Result Comment 12/18/2021 10:34am BP Systolic 124 mmHg BP Diastolic 84 mmHg Heart Rate 68 /min Height 73 inches 6'1 Weight 225.00 lb BMI (Body Mass Index) 29.7 kg/m2 Results Test Acquired Date Facility Test Result H/L Range Note Laboratory test finding 12/24/2021 [facility] Osmolality, Urine Random 753 MOSM/KG (50-1400 ) Osmolality, Serum 297 MOS/KG High (280-290 ) Basic Metabolic Panel 12/24/2021 [facility] Glucose 87 mg/dL (70-99) BUN 29 mg/dL High (6-20) Creatinine 1.4 mg/dL High (0.7-1.2 ) Sodium 141 mmol/L (133-145 ) Potassium 4.5 mmol/L (3.6-5.2 ) Chloride 103 mmol/L (98-107) Bicarbonate 26 mmol/L (22-29) Anion Gap 12 (4-17) Calcium 9.6 mg/dL (8.6-10. 5) Estimated GFR Creatinine 63 ML/MIN/1.7 3M2 1 Laboratory test finding 12/24/2021 [facility] FSH 2.6 MIU/ML (1.5-12. 4) 2 LH 7.9 MIU/ML (1.5-12. 4) 3 Free Testosterone 12/24/2021 [facility] Testosterone, Total, LC/MS 477.9 4 Percent Free Testosterone 3.27 5 Free Testosterone, Equilibrium 15.63 6 Somatomedin C 12/24/2021 [facility] Somatomedin C 175 NG/ML 7 Z Score 0.5 8 Laboratory test finding 12/24/2021 [facility] Cortisol 10.2 g /dL 9 Free T4 1.19 ng/dL (0.70-1. 80) Laboratory test finding 12/18/2021 Inhouse Glucose Fingerstick 113 1 Creatinine based est imated glomerular filtration (eGFR) in adults is calculated using the National [employer] recommended 2020 CKD-EPI equation. Estimates GFR from serum creatinine, age and sex. 2 Reference Range: Follicular: 3.5-12.5 mIU/mL Ovulation: 4.7-21.5 mIU/mL Luteal: 1.7-7.7 mIU/mL Postmenopausal: 25.8-134.8 mIU/mL 3 Reference Range: Follicular: 2.4-12.6 mIU/mL Ovulation: 14.0-95.6 mIU/mL Luteal: 1.0-11.4 mIU/mL Postmenopausal: 7.7-58.5 mIU/mL 4 Reference range: 264 .0 to 916.0 Unit: ng/dL (NOTE) This [facility] LC/MS-MS method is currently certified by the CDC Hormone Standardization Program (HoSt). Adult male reference interval is based on a population of healthy nonobese males (BMI <30) between 19 and 39 years old. Carol et.al. JCEM 2017,102;4076-7163. PMID: 14460859. This test was developed and its performance characteristics determined by [employer] It has not been cleared or approved by the Food and Drug Administration. 5 Reference range: 1.5 0 to 4.20 Unit: % 6 Reference range: 5.0 0 to 21.00 Unit: ng/dL Test performed at [facility], [address] [place] [address] 7 Reference range: 74 to 255 8 Reference range: NEG 2.0 to +2.0 Unit: S.D. Test performed at [facility], [address] [place] [address] 9 Reference Range: 6-10 am: 6.0-18.4 ug/dL 4-8 pm: 2.7-10.5 ug/dL Procedures Date Code Description Status 04/07/2022 NSHOWOFF No Show Office Visit Complet ed 12/18/2021 [id number] Additional suppl ies, materials, staff time over and above usual Completed Medical Devices Description No Information Available Encounters Type Date Location Provider Dx Diagnosis Office Visit 12/18/2021 10:45a Main Office Eric Craig M.D. 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 12/24/2021 E83.119 Hemochromatosis, unspecified Eric Craig M.D. 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 12/18/2021 E11.9 Type 2 diabetes mellitus without complications Eric Craig M.D. Plan of Treatment No Information Available Functional Status Description No Information Available Mental Status Description No Information Available Referrals Description No Information Available
--- OUTSIDE RECORDS SUMMARY | 2024-04-20 14:26 | XMS_ITS | Continuity of Care Document ---
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 0.02 10*3/uL 0.00 - 0.06 03/27 Specimen Type: BLOOD No comment entered. Ordering Provider: GAGAN WHITESIDE Report Released Date/Time: Mar 17, 2024 02:18 PM Reporting Lab: [facility] [address] [facility] [address] Performing Lab: [facility] [address] [place] [phone] [facility] CBC AND DIFF (AUTO) NRBC % 0.0 0.0 - 0.0 01/27 /2025 Specimen Type: BLOOD No comment entered. Ordering Provider: GAGAN WHITESIDE Report Released Date/Time: Mar 17, 2024 02:18 PM Reporting Lab: [facility]N [facility] [address] [facility] [address] Performing Lab: [facility]RL TRN [facility]ENTERUSEBEL[facility] [address] [facility] [address] [facility]RL [facility]ENTERUSE [facility] CBC AND DIFF (AUTO) NRBC, ABS 0.00 10*3/uL 0.00 - 0.00 03/27 Specimen Type: BLOOD No comment entered. Ordering Provider: GAGAN WHITESIDE Report Released Date/Time: Mar 17, 2024 02:18 PM Reporting Lab: [facility]ITALRUSA [facility]PITALN [facility] [address] [facility] [address] Performing Lab: [facility]ITALR[facility] HOSPITALN [address] [address] [facility] ANTIBODY [facility]ITAL[facility] ER [place]I IGG AB [PRESENCE] IN SERUM NEGATIVE 03/10 Specimen Type: SERUM No comment entered. Ordering Provider: GAGAN WHITESIDE Report Released Date/Time: Mar 10, 2024 12:50 PM Reporting Lab: [facility]ITALR[facility]OSPITALN [facility] [address] [facility] [address] Performing Lab: [facility]ITALR[facility]OSPITALN [facility] [address] [address] [facility]ITALR[facility]OSPITALN [facility]USE [facility] OCCULT BLOOD FIT X1 SCREEN (MFP ONLY) HEMOGLOBIN .GASTROINT ESTINAL.LO WER [PRESENCE] IN STOOL BY IMMUNOASSA Y Negative 02/23 Specimen Type: FECES No comment entered. Ordering Provider: GAGAN WHITESIDE Report Released Date/Time: Jan 31, 2024 11:07 AM Reporting Lab: [facility]OSPITALRDCH [facility] CENTERTRN [facility]ENTERUSEBEL[facility] [address] [facility] [address] Performing Lab: [facility]ITALRUSA [facility]OSPITALN [address] [address] [facility]ITALRUSA [facility]OSPITALN [facility]ENTERUSE [facility] HEPATITI S B SURFACE ANTIBODY (HBsAb)- WH HEPATITIS B VIRUS SURFACE AB [PRESENCE] IN SERUM BY IMMUNOASSA Y REACTIVE 03/23 Specimen Type: SERUM Comment: A 'Reactive' result indicates HBsAb results >/= 12.0 mIU/mL and immunity to HBV infection. Ordering Provider: GAGAN WHITESIDE Report Released Date/Time: Mar 19, 2023 01:13 PM Reporting Lab: [facility] [place] [facility] [address] [facility] [address] Performing Lab: [facility] [place] [facility] [address] [facility] [address] [facility] Encounters Combined list of: 1) Encounters from Department of Veterans Affairs facilities going backup to the last 18 months, not all VA inpatient encounters are included; 2) Encounters from the Department of Defense facilities going backup to 280 months. Location Location Details Encounter Type Encounter Number Reason For Visit Attending Provider ADM Date DC Date Status Disposition Source [facility] Encounter [id number] 10/26 [facility] En[facility] [id number] 10/26 [facility] En[facility] [id number] 10/27 [facility] En[facility] [id number] 12/09 [facility] [id number] 12/09 [facility] [id number] 12/11 [facility] Encounter [id number] 12/25 [facility] [id number] 01/01 [facility]counter [id number] 02/25 [facility] [id number] 03/02 [facility] Encounter [id number] 03/19 [facility] En[facility] [id number] 03/29 [facility] OFFICE O/P EST MOD 30 MIN [id number] Diagnos is: ICD-10- CM E78.5 Hyperli pidemia , unspeci fied RIZWAN WHITESIDE 03/29 [facility] COMPRE OPH EXAM EST PT 1/> [id number] Diagnos is: ICD-10- CM H52.4 Presbyo james TANK HASSAN 04/06 [facility] FIT SPECTACLES MONOFOCAL [id number] Diagnos is: ICD-10- CM Z46.0 Encount er for fit/adj st of spectac les and contact lenses TANK HASSAN 04/06 [facility] Out[facility] Encounter [id number] 04/07 [facility] Encounter [id number] 04/08 [facility] CASE MGMT-ORAL HEALTH LIT [id number] Diagnos is: ICD-10- CM K03.6 Deposit s [accret ions] on teeth MYNOR,HANG RENATA K 04/08 [facility] INTRAORAL PERIAPICAL EA ADD [id number] Diagnos is: ICD-10- CM K08.9 Disorde r of teeth and support ing structu res, unspeci ИВАН Santos 04/08 [facility] Out[facility] Encounter [id number] 04/22 [facility] Out[facility] Encounter [id number] 06/07 [facility] Out[facility] Encounter [id number] 08/29 [facility] Encounter [id number] 09/20 [facility] Encounter [id number] 10/27 [facility] Encounter [id number] 10/27 [facility] Encounter [id number] 11/01 [facility] CASE MGMT-ORAL HEALTH LIT [id number] Diagnos is: ICD-10- CM K03.6 Deposit s [accret ions] on teeth MYNOR,HANG RENATA K 11/02 [facility] Encounter [id number] 12/19 [facility] Encounter [id number]/02 [facility] Encounter [id number] 03/08 [facility]counter [id number] 03/24 [facility] Encounter [id number] 03/27 [facility] Encounter [id number] 03/29 [facility] Encounter [id number] 03/29 [facility] Social History Combined list of available smoking, tobacco, and other social history from Department of Defense and Veterans Affairs facilities. Social History Type Response Date Comment Source Tobacco smoking status [facility] VA-TOBACCO NEVER USED 03/29/2023 [place] History of tobacco use CO-TOBACCO NEVER USED 07/15/2021 [place] History of tobacco use CO-TOBACCO NEVER USED 05/16/2020 [facility] [place] History of tobacco use CO-TOBACCO NEVER USED 02/14/2018 [place] History of tobacco use QUIT TOBACCO USE > 7 YEARS AGO 10/23/2016 quit 20 years ago [place] Plan of Care List of future care activities from [facility] facilities. Additional future care activities may be listed in the Assessment and Plan section. Date/Time Care Activity Care Activity Detail Facili ty 04/25/2024 AMBULATORY - MEDICINE AMBULATORY - MEDICI NE [facility] 05/02/2024 AMBULATORY - NONE AMBULATORY - NONE [facility] 05/15/2024 AMBULATORY - MEDICINE AMBULATORY - MEDICI NE [facility] Advance Directives List of completed, amended, or rescinded Advance Directives on record at [facility] facilities. An actual copy of the Directive is not included. Date Advance Directive Provider Source 11/26/2016 ADVANCE DIRECTIVE TORY WONG
== END 2024-04-20 13:29 | disposition home or self-care (01) ==
LOC: HO.BBR 13:28
PROVIDERS: PCP Internal Medicine; Visit Provider Internal Medicine Gastroenterology
DX: Z13.89 Encounter for screening for other disorder (principal)

== ENCOUNTER 2024-06-13 14:52 | Outpatient (REF) | payer OTHER, SELFPAY ==
--- OUTSIDE RECORDS SUMMARY | 2024-06-13 18:09 | XMS_ITS | Continuity of Care Document ---
Author Organization [facility] [address] [place] [address] Phone [phone] Care Team Providers Care Trust Advisor Name Role Phone Andrea Christina M.D. Care Team Information Recei justin [phone] Problems Active Problems Provider Date Essential hypertension Eric Craig M.D. O nset: 12/18/2021 Hemochromatosis Eric Craig M.D. Onset: 1 Social History Type Date Description Comments Sex Unknown Tobacco Use Start: Unknown Never Smoked Cigarettes ETOH Use Never used alcohol Allergies and adverse reactions Description No Known Drug Allergies Medications Active Medications SIG Qnty Indications Ordering Provider Date Amlodipine [id number] Tablets 1 by mouth every day Andrea Christina M.D. Vital Signs Date Vital Result Comment 12/18/2021 10:34am BP Systolic 124 mmHg BP Diastolic 84 mmHg Heart Rate 68 /min Height 73 inches 6'1 Weight 225.00 lb BMI (Body Mass Index) 29.7 kg/m2 Results Test Acquired Date Facility Test Result H/L Range Note Osmolality, Urine Random 12/24/2021 [facility] Osmolality, Urine Random 753 MOSM/KG (50-1400 ) Osmolality, Serum 12/24/2021 [facility] Osmolality, Serum 297 MOS/KG High (280-290 ) Basic Metabolic Panel 12/24/2021 [facility] Glucose 87 mg/dL (70-99) BUN 29 mg/dL High (6-20) Creatinine 1.4 mg/dL High (0.7-1.2 ) Sodium 141 mmol/L (133-145 ) Potassium 4.5 mmol/L (3.6-5.2 ) Chloride 103 mmol/L (98-107) Bicarbonate 26 mmol/L (22-29) Anion Gap 12 (4-17) Calcium 9.6 mg/dL (8.6-10. 5) Estimated GFR Creatinine 63 ML/MIN/1.7 3M2 1 FSH 12/24/2021 [facility] FSH 2.6 MIU/ML (1.5-12. 4) 2 LH 12/24/2021 [facility] LH 7.9 MIU/ML (1.5-12. 4) 3 Free Testosterone 12/24/2021 [facility] Testosterone, Total, LC/MS 477.9 4 Percent Free Testosterone 3.27 5 Free Testosterone, Equilibrium 15.63 6 [place] C 12/24/2021 [facility] Som[place] C 175 NG/ML 7 Z Score 0.5 8 Cortisol 12/24/2021 [facility] Cortisol 10.2 g /dL 9 Free T4 12/24/2021 [facility] Free T4 1.19 ng/dL (0.70-1. 80) Glucose Fingerstick 12/18/2021 Inhouse Glucose Fingerstick 113 1 Creatinine [...] .0 to 916.0 Unit: ng/dL (NOTE) This [facility] LC/MS-MS method is currently certified by the CDC Hormone Standardization Program (HoSt). Adult male reference interval is based on a population of healthy nonobese males (BMI <30) between 19 and 39 years old. ivy Medina.al. JCEM 2017,102;8262-6836. PMID: 54304974. This test was developed and its performance characteristics determined by [facility]. It has not been cleared or approved by the Food and Drug Administration. 5 Reference range: 1.5 0 to 4.20 Unit: % 6 Reference range: 5.0 0 to 21.00 Unit: ng/dL [place] [address] 7 Reference range: 74 to 255 8 Reference range: NEG 2.0 to +2.0 Unit: S.D. [place] [address] 9 Reference Range: 6-10 am: 6.0-18.4 ug/dL 4-8 pm: 2.7-10.5 ug/dL Procedures Date Code Description Status 04/07/2022 NSHOWOFF No Show Office Visit Complet ed 12/18/2021 [id number] Additional suppl ies, materials, staff time over and above usual Completed Medical Devices Description No Information Available Encounters Type Date Location Provider Dx Diagnosis Office Visit 12/18/2021 10:45a Main Office Eric Craig M.D. 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 12/24/2021 E83.119 Hemochromatosis, unspecified Eric Craig M.D. 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 12/18/2021 E11.9 Type 2 diabetes mellitus without complications Eric Craig M.D. Plan of Treatment No Information Available Functional Status Description No Information Available Mental Status Description No Information Available Referrals Description No Information Available
--- OUTSIDE RECORDS SUMMARY | 2024-06-13 18:09 | XMS_ITS | Clinical Summary ---
Author Organization [facility] Address [address] [place] [address] Phone Care Team Providers Care Value Advisor Name Role Phone Farida Munroe MD Primary Care Provider [phone] Allergies No known active allergies Medications acetaminophen (TYLENOL) 500 mg tablet Take 1 tablet (500 mg total) by mouth every 6 (six) hours if needed. Active fluticasone furoate (Arnuity Ellipta) 50 mcg/actuation [...] mouth 1 (one) time each day. Active famotidine (PEPCID) 20 mg tablet Take 1 tablet (20 mg total) by mouth 2 (two) times a day. 10/28/2023 Active amLODIPine-corrie zepril (LOTREL) 5-10 mg per capsule Take 1 capsule by mouth 1 (one) time each day. 05/08/2024 Active Active Problems Problem Noted Date Diagnosed Date Lower esophageal ring (Schatzki) 05/25/2024 Eosinophilic esophagitis 05/02/2024 Gastroesophageal reflux disease without esophagi tis 05/02/2024 Arthralgia 07/03/2020 Overview (2024): Multiple joints Bilateral pes planus 07/03/2020 Erectile dysfunction 07/03/2020 Esophageal dysphagia 07/03/2020 Essential hypertension 07/03/2020 Hyperlipidemia 07/03/2020 Insomnia 07/03/2020 Plantar fasciitis 07/03/2020 Encounters Date Type Department Care Team Description 05/25/2024 3:15 PM EDT Office Visit Gastroenterology [facility] [address] [phone] Eric Longoria MD Esophageal dysphagia (Primary Dx); Lower esophageal ring (Schatzki) 05/19/2024 Telephone Gastroenterology [facility] [address] [phone] Eric Longoria MD Appointment 05/11/2024 10:31 AM EDT Anesthesia Event [facility] Endoscopy [address] [place] [phone] Augustine Causey MD 05/11/2024 9:33 AM EDT - 05/11/2024 11:59 PM EDT Hospital Encounter [facility] Endoscopy [address] [place] [phone] Eric Longoria MD Couture, Alison, CRNA Spencer, Mark A, MD Esophageal dysphagia Discharge Disposition: Home or Self Care 05/02/2024 11:00 AM EST Consult Gastroenterology [facility] [address] [place] [address] [phone] Eric Longoria MD Esophageal dysphagia (Primary Dx); Eosinophilic esophagitis; Gastroesophageal reflux disease without esophagitis from Last 3 Months Surgical History Surgery Date Site/Laterality Comments APPENDECTOMY SHOULDER SURGERY HAND SURGERY COLOSTOMY Medical History Medical History Date Comments History [...] dysfunction 07/03/2020 DX:Erectile dysfunction Insomnia 07/03/2020 DX:Insomnia Gastroesophageal reflux dise ase without esophagitis 05/02/2024 Family History Medical History Relation Name Comments Blindness Neg Hx Cataracts Neg Hx Glaucoma Neg Hx Macular degeneration Neg Hx Strabismus Neg Hx Social History Tobacco Use Types Packs/Day Years Used Date Smoking Tobacco: Never Alcohol Use Standard Drinks/Week Comments Never 0 (1 standard drink = 0.6 oz pur e alcohol) Interpersonal Safety Answer Date Record ed Physical Abuse 05/11/2024 Verbal Abuse 05/11/2024 Sex and Gender Information Value Date Recorded Sex Assigned at Male 05/10/2024 10:54 AM EDT Legal Sex Male 4:03 PM EST Gender Identity Male 05/10/2024 10:54 AM EDT Sexual Orientation Straight 05/10/2024 10 :56 AM EDT Obstetrics History Last Filed Vital Signs Vital Sign Reading Time Taken Comments Blood Pressure 128/74 05/25/2024 3:07 PM EDT Pulse 76 05/25/2024 3:07 PM EDT Temperature 36.2 ??C (97.1 ??F) 05/11/2024 11:00 AM E DT Respiratory Rate 15 05/11/2024 11:10 AM EDT Oxygen Saturation 99% 05/11/2024 11:10 AM EDT Inhaled Oxygen Concentration - - Weight 101 kg (222 lb) 05/25/2024 3:07 PM EDT Height 185.4 cm (6' 1 ) 05/25/2024 3:07 PM EDT Body Mass Index 29.29 05/25/2024 3:07 PM EDT Plan of Treatment Health Maintenance Due Date Last Done Comments Hepatitis B Vaccines (1 of 3 - 19+ 3-dose series) 1987 Pneumococcal Vaccine: 50+ Years (1 of 1 - PCV) 2018 Zoster Vaccines (1 of 2) 2018 Cholesterol Screening (Lipid Panel) 01/28/2022 Colorectal Cancer Screening: Colonoscopy 01/28/2022 Depression Screening 01/28/2022 HIV Screening 01/28/2022 Hepatitis C Screening 01/28/2022 Social Influencers of Health Screening 01/28/2022 Hypertension/CHF/CAD Annual BMP Blood Test 02/14/2022 COVID-19 Vaccine (1 - 2023-2 5 season) 2023 DTaP,Tdap,and Td Vaccines (3 - Td or Tdap) 03/01/2024 03/01/2014, 07/30/2012 Influenza Vaccine (Season Ended) 2024 HIB Vaccines Aged Out No longer eligi [...] age to complete this topic Meningococcal B Vaccine Aged Out No l onger eligible based on patient's age to complete this topic Pneumococcal Vaccine: Pediatrics (0 to 5 Years) and At-Risk Patients (6 to 64 Years) Aged Out No longer eligible b ased on patient's age to complete this topic RSV Immunization Patients Under 20 months Aged Out No longer eligible b ased on patient's age to complete this topic Varicella Vaccines Aged Out No longer eligible based on patient's age to complete this topic Procedures Procedure Name Priority Date/Time Associated Diagnosis Comments EGD Routine 05/11/2024 10:49 AM EDT Esophageal dysphagia TISSUE EXAM Routine 05/11/2024 10:46 AM EDT Esophageal dysphagia EXTERNAL CLINICAL LAB 04/21/2024 from Last 3 Months Results * EGD Anesthesia - MAC; [facility] END[facility]COPY (05/11/2024 10:49 AM EDT) Anatomical Region Laterality Modality Other 05/11/2024 10:3 4 AM EDT Impressions 05/11/2024 10:51 AM EDT - Small hiatal hernia. ? - Mild Schatzki ring. Biopsied. ? - Mild Schatzki ring. Dilated. Recommendation: ?- Observe patient's clinical course. ? - Await pathology results. Narrative 05/11/2024 10:51 AM EDT [facility] GI Patient Name: Braxton Mcdonald Procedure Date: 05/11/2024 10:34 AM Date of : 1970 Age: 54 Gender: Male Note Status: Finalized Attending MD: Eric Longoria MD, Procedure Date No Time: 05/11/2024 Procedure: ? Upper GI endoscopy Indications: ? Dysphagia, Suspected eosinophilic esophagitis Providers: ? Eric Longoria MD Referring MD: ?Eric Longoria MD Medicines: ? Propofol per Anesthesia Complications: ? No immediate complications. Estimated Blood Loss: ? Estimated blood loss was minimal. Procedure: ? Pre-Anesthesia Assessment: ? - ASA Grade Assessment: II - A patient with mild ? systemic disease. ? After obtaining informed consent, the endoscope was ? passed under direct vision. Throughout the procedure, ? the patient's blood pressure, pulse, and oxygen ? saturations were monitored continuously.The Olympus ? Gastroscope was introduced through the mouth, and ? advanced to the second part of duodenum. The upper GI ? endoscopy was accomplished without difficulty. The ? patient tolerated the procedure well. Findings: ?A small hiatal hernia was present. ? A mild Schatzki ring was found at the gastroesophageal ? junction. Biopsies were taken with a cold forceps for ? histology. Estimated blood loss was minimal. ? A mild Schatzki ring was found at the gastroesophageal ? junction. A TTS dilator was passed through the scope. ? Dilation with an 18-19-20 mm balloon dilator was ? performed to 20 mm. The dilation site was examined ? following endoscope reinsertion and showed mild ? mucosal disruption. Estimated blood loss was minimal. Procedure Code(s): ? --- Professional --- ? 73793, Esophagogastroduodenoscopy, flexible, ? transoral; with transendoscopic balloon dilation of ? esophagus (less than 30 mm diameter) ? 79833, 59, Esophagogastroduodenoscopy, flexible, ? transoral; with biopsy, single or multiple Diagnosis Code(s): ? --- Professional --- ? K44.9, Diaphragmatic hernia without obstruction or ? gangrene ? K22.2, Esophageal obstruction ? R13.10, Dysphagia, unspecified CPT copyright 2020 [employer]. All rights reserved. The codes documented in this report are preliminary and upon elevator serviceman review may be revised to meet current compliance requirements. Eric Longoria MD 05/11/2024 10:50:49 AM This report has been signed electronically.Eric Longoria MD Number of Addenda: 0 Note Initiated On: 05/11/2024 10:34 AM Scope In: Scope Out: ? Endoscopy Department at [facility] - [address] [place] [address], ? [place] [phone] Procedure Note Eric Longoria MD - 05/11/2024 [facility] GI Patient Name: Braxton Mcdonald Procedure Date: 05/11/2024 10:34 AM Date of : 1970 Age: 54 Gender: Male Note Status: Finalized Attending MD: Eric Longoria MD, Procedure Date No Time: 05/11/2024 Procedure: Upper GI endoscopy Indications: Dysphagia, Suspected eosinophilic esophagitis Providers: Eric Longoria MD Referring MD: Eric Longoria MD Medicines: Propofol per Anesthesia Complications: No immediate complications. Estimated Blood Loss: Estimated blood loss was minimal. Procedure: Pre-Anesthesia Assessment: - ASA Grade Assessment: II - A patient with mild systemic disease. After obtaining informed consent, the endoscope was passed under direct vision. Throughout theprocedure, the patient's blood pressure, pulse, and oxygen saturations were monitored continuously.The Olympus Gastroscope was introduced through the mouth, and advanced to the second part of duodenum. The upperGI endoscopy was accomplished without difficulty. The patient tolerated the procedure well. Findings: A small hiatal hernia was present. A mild Schatzki ring was found at thegastroesophageal junction. Biopsies were taken with a cold forcepsfor histology. Estimated blood loss was minimal. A mild Schatzki ring was found at thegastroesophageal junction. A TTS dilator was passed through thescope. Dilation with an 18-19-20 mm balloon dilator was performed to 20 mm. The dilation site was examined following endoscope reinsertion and showed mild mucosal disruption. Estimated blood loss wasminimal. Procedure Code(s): --- Professional --- 52377, Esophagogastroduodenoscopy, flexible, transoral; with transendoscopic balloon dilation of esophagus (less than 30 mm diameter) 64492, 59, Esophagogastroduodenoscopy, flexible, transoral; with biopsy, single or multiple Diagnosis Code(s): --- Professional --- K44.9, Diaphragmatic hernia without obstruction or gangrene K22.2, Esophageal obstruction R13.10, Dysphagia, unspecified CPT copyright 2020 [employer]. All rights reserved. The codes documented in this report are preliminary and upon elevator serviceman reviewmay be revised to meet current compliance requirements. Eric Longoria MD 05/11/2024 10:50:49 AM This report has been signed electronically.Eric Longoria MD Number of Addenda: 0 Note Initiated On: 05/11/2024 10:34 AM Scope In: Scope Out: Endoscopy Department at [facility] - [address] [place] [phone] IMPRESSION: - Small hiatal hernia. - Mild Schatzki ring. Biopsied. - Mild Schatzki ring. Dilated. Recommendation: - Observe patient's clinical course. - Await pathology results. Eric Longoria MD GI~PROCEDURE ORDERABLES Final Re sult * Tissue exam (05/11/2024 10:46 AM EDT) Final Diagnosis A. Esophagus, distal, biopsies: Chronic esophagitis with increased intraepithelial eosinophils (up to 15/hpf) and reactive changes. B. Esophagus, mid, biopsies: Chronic esophagitis with scattered intraepithelial eosinophils (up to 6/hpf) and reactive changes. 05/12/2024 10:39 AM EDT [facility] Comment These findings are nonspecific but are compatible with GERD in the correct clinical setting. 05/12/2024 10:39 AM EDT [facility] Gross Description A. Esophagus, distal biopsies: Labeled distal esophagus . Received in formalin are two irregular pink-white mucosal tissue fragments, each measuring approximately 0.1 cm in greatest dimension, which are wrapped in paper and submitted in toto in one cassette, two pieces, multiple levels on one slide. B. Esophagus, mid biopsies: Labeled midesophagus . Received in formalin are three irregular pink-white mucosal tissue fragments, ranging from less than 0.1 cm to 0.3 cm in greatest dimension, which are wrapped in paper and submitted in toto in one cassette, three pieces, multiple levels on one slide. JOHNSON 05/12/2024 10:39 AM EDT [facility] Disclaimer Unless otherwise specified, all tissue is 10% NB formalin fixed and paraffin embedded. 05/12/2024 10:39 AM EDT [facility] Tissue Esophageal structure / Unknown 05/11/2024 10:46 AM EDT 05/11/2024 12:08 PM EDT Tissue specimen (specimen) Esophageal structure / Unknown 05/11/2024 10:47 AM EDT 05/11/2024 12:08 PM EDT Eric Longoria MD LAB PATHOLOGY ORDERABLES Final R esult [facility] [address] [place] [address], * External clinical lab (04/21/2024) Provider [facility] BLOOD ORDERABLES Fin al Result from Last 3 Months Insurance [facility] Advance Directives * Full Code - Default (Latest Code Status on File) Date Activated Date Inactivated Comments 05/11/2024 10:59 AM 05/15/2024 3:18 AM This is ord er is used when code status has not been discussed with the patient, or code status is otherwise unknown/unconfirmed To update the patient's code status, place a code status order. Do not modify or discontinue any currently active code status orders. Care Teams Value Advisor Relationship Specialty Start Date End Date Farida Munroe MD [address] [place] [address] PCP - General Internal Medicine 03/06/24
--- OUTSIDE RECORDS SUMMARY | 2024-06-13 18:09 | XMS_ITS | Encounter Summary ---
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 [place] [facility] Address [address] [place] [id number] Care Team Providers Care Supervisor Covering And Lining Name Role Phone GAGAN WHITESIDE Primary Care [...] [facility] Aug 29, 2022 [id number] STEPHANIE ROSSI ERT PATIENT [employer] PREFERRED PROVIDER ORGANIZAT ION (PPO) [facility] N Mar 01, 2006 [id number] FOLSTEPHANIE ERT PATIENT [place] PREFERRED PROVIDER ORGANIZAT ION (PPO) [facility] * Mar 01, 2006 [id number] ROSSISTEPHANIE ERT PATIENT Selected Encounter This section includes the information on record at [place] for the Encounter. Date/Time Encounter Type Encounter [...] 10:44 AM SECONDARY Insomnia, unspecified GAGAN WHITESIDE [place] May 31, 2024 10:44 AM SECONDARY Nasal congestion GAGAN WHITESIDE [place] May 31, 2024 10:44 AM SECONDARY Other fatigue GAGAN WHITESIDE [place] May 31, 2024 10:44 AM SECONDARY Pain in unspecified hip GAGAN WHITESIDE [place] Plan of Treatment: Future Appointments (+ 6 months) and Future Tests (+/- 45 days) The Plan of Treatment section includes future care activities for the patient from all [place] [facility]. This section includes future appointments and future orders which are active, pending or scheduled. Future Appointments This section includes appointments that were scheduled to occur 6 months from the date of the Encounter, up to a maximum of 20 appointments. The data comes from all [facility] facilities. Appointment Date/Time Appointment Type Appointme nt Facility Name May 25, 2024 09:00 AM [place] [facility] [place] [facility] July 06, 2024 12:30 PM AMBULATORY - NONE [place] [facility] [place] [facility] July 21, 2024 02:00 PM [place] [facility] [place] [facility] July 27, 2024 10:30 AM [place] [facility] [place] [facility] July 27, 2024 10:31 AM [place] [facility] [place] [facility] Aug 02, 2024 11:00 AM [place] [facility] [place] [facility] Nov 02, 2024 12:45 PM AMBULATORY - NONE [place] [facility] [place] [facility] Nov 14, 2024 03:30 PM [place]ORY [place] [facility] [place] [facility] Active, Pending, and Scheduled Orders This section includes a listing of several types of active, pending, and scheduled orders, including clinic medications orders, diagnostic test orders, procedure orders and consult orders; where the start date of the order is 45 days before the date of the Encounter or 45 days after the date of theEncounter. The data comes from all [facility]. Test Date/Time Test Type Test Details Facility Name May 15, 2024 04:01 PM Consult Order HOME SLEEP STUDY NOX/SPOPC OUTPT Cons Saw Handle Assembler's Choice [place] [facility] [place] [facility] May 15, 2024 04:01 PM Consult Order OTOLARYNGO LOGY/ENT ONE Cons Saw Handle Assembler's Choice [place] [facility] Social History: Smoking Status (Most current) and Tobacco Use (All prior to encounter date) This section includes the most current, and the historical, smoking and tobacco- related health factors from the [place] facility where the Encounter took place. Current Smoking Status This section includes the most current smoking, or tobacco-related health factor, from the [place] facility where the Encounter took place. Date/Time Current Smoking Status Comment Facil ity Mar 29, 2023 03:00 PM VA-TOBACCO NEVER USED [facility] Tobacco Use History This section includes a history of the smoking, or tobacco-related health factors, that were collected on or before the date of the Encounter. The data comes from the [place] facility where the Encounter took place. Date/Time Smoking Status/Tobacco Use Comment F acility July 15, 2021 10:30 AM VA-TOBACCO NEVER USED [facility] [place] Feb 27, 2019 11:50 AM VA-TOBACCO NEVER USED [place] [place] Feb 14, 2018 12:54 PM VA-TOBACCO NEVER USED [facility] [place] Oct 23, 2016 02:25 PM QUIT TOBACCO USE > 7 YEARS AGO quit 20 years ago [facility] Advance Directives: All historical and current Section Date Range: From patient's date of to the date document was created. This section includes ALL of a patient's completed or amended [place] Advance and Rescinded Directives. The entries below indicate that a directive exists for the patient, but an actual copy is not included with this document. The data comes from all [place] facilities. Date Advance Directives Provider Source Nov 26, 2016 ADVANCE DIRECTIVE TORY [facility] Radiology Reports: +/- 30 days of [...] the Encounter. The data comes from all [place] treatment facilities. Date/Time Radiology Report Provider Source May 17, 2024 02:10 PM HIPS BILATERAL(3-4 VIEWS) WITH/WITHOUT PELVI: MERVIN ROSSI [id number] -[id number] M Exm Date: MAY 17, 2024@14:10 Req Phys: GAGAN WHITESIDE Loc: [facility] PACT 10 MD (Req'g Loc) Img Loc: [facility]/BUILDING 1 Service: Unknown [place] [address] (Case [id number] COMPLETE) HIPS BILATERAL(3-4 VIEWS) WITH/WI(RAD Detailed) CPT:51519 Reason for Study: Bilateral Hip pain Clinical History: Report Status: Verified Date Reported: MAY 17, 2024 Date Verified: MAY 17, 2024 Food And Beverage Controller E-Sig:/ES/ANGELA EMERSON JR Report: Study: AP view [...] Primary Interpreting Staff: ANGELA EMERSON JR, Radiologist (Food And Beverage Controller) /ANGELA JACOBS JR [facility] Encounter Notes: All associated encounter notes This section contains the clinical notes associated to the Encounter. Date/Time Encounter Note(s) Provider Source May 15, 2024 02:57 PM PREVENTIVE MEDICIN E NURSING NOTE: LOCAL TITLE: CLINICAL REMINDERS/NURSING STANDARD TITLE: PREVENTIVE MEDICINE NURSING NOTE DATE OF NOTE: MAY 15, 2024@14:57 ENTRY DATE: MAY 15, 2024@14:57:07 AUTHOR: BRENT MONDRAGON COSIGNER: URGENCY: STATUS: COMPLETED Advance Directive Screen MH AD: Patient has an Advance Directive on file at this [facility]. No updates are needed at this time. [...] Not worried about housing near future The reports the following: Within the past 12 [...] you were unable to say no Never ?? The HITS tool (items 1-4 above) is [place] copyright protected by Eyal Gifford MD, and the user has full rights to use it throughout the [place] system. PRIMARY SCREEN RESULT: The Primary Screen [...] observed or identified. /christina/ BRENT MONDRAGON LPN PACNestor 10 Signed: 05/15/2024 14:59 BRENT MONDRAGON May 15, 2024 01:15 PM PHYSICIAN NOTE: LOCAL TITLE: MD NOTE STANDARD TITLE: PHYSICIAN NOTE DATE OF NOTE: MAY 15, 2024@13:15 ENTRY DATE: MAY 15, 2024@13:15:07 AUTHOR: GAGAN WHITESIDE EXP COSIGNER: URGENCY: STATUS: COMPLETED HISTORY OF PRESENT ILLNESS: MERVIN ROSSI is a 54 yo MALE who presents at the [facility] for his annual wellness exam. 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 Insomnia: on [...] FBW prior ========= UPCOMING APPOINTMENTS: 07/06/2024 12:30 [facility] DENTAL DMD 2 11/02/2024 12:45 [facility] DENTAL RDH 1 PM 05/03/2025 15:00 [facility] OPTOMETRY 2 PM No barriers; Patient [...] Remote Allergy/ADR Data available for this patient [place] [facility] [place] [facility] No Known Allergies Med Recon NoGlossary (Tool [...] the patient into personal health records (i.e. [facility]) are NOT included in this list. Non-VA medications documented outside this VA, remote inpatient orders (regardless of status) and remote clinic medications are NOT included in this list. The patient and provider must always discuss medications the patient is taking, regardless of where the medication was dispensed or obtained. ------ OUTPT ACETAMINOPHEN 500MG TAB (Status = ) TAKE TWO TABLETS BY MOUTH THREE TIMES DAILY NEEDED FOR PAIN Rx# [id number] Last Released: 11/02/23 Qty/Days Supply: Rx Expiration Date: 03/29/24 Refills Remainin OUTPT CHOLECALCIF 25MCG (D3-1,000UNIT) TAB (Status = Active) TAKE ONE TABLET BY MOUTH ONCE DAILY FOR VITAMIN SUPPLEMENTATION Rx# [id number] Last Released: 03/30/24 Qty/Days Supply: Rx Expiration Date: 03/29/25 Refills Remainin Indication: FOR SUPPLEMENTATION OUTPT DULOXETINE HCL 60MG EC CAP (Status = ) TAKE ONE CAPSULE BY MOUTH ONCE DAILY Rx# [id number] Last Released: Qt Supply: Rx Expiration Date: 03/29/24 Refills Remainin OUTPT FAMOTIDINE 20MG TAB (Status = Active) TAKE ONE TABLET BY MOUTH TWICE DAILY FOR HEARTBURN Rx# [id number] Last Released: 01/08/24 Qty/Days Supply: Rx Expiration Date: 10/28/24 Refills Remainin Indication: FOR HEARTBURN OUTPT FLUTICASONE PROP 50MCG 120D NASAL INHL (Status = Active) INSTILL 2 SPRAYS INTO EACH NOSTRIL EVERY EVENING FOR NASAL IRRITATION/INFLAMMATION Rx# [id number] Last Released: 12/29/23 Qty/Days Supply: Rx Expiration Date: 08/31/24 Refills Remainin Indication: FOR NASAL IRRITATION/INFLAMMATION OUTPT LIDOCAINE 5% PATCH (Status = Active) APPLY 2 PATCHES TOPICALLY EVERY 24 HOURS NEEDED FOR NERVE PAIN (LEAVE PATCH ON FOR 12 HOURS, THEN REMOVE PATCH) FOR LOWER BACK Rx# [id number] Last Released: 04/11/24 Qty/Days Supply: 60 Rx Expiration Date: 12/28/24 Refills Remainin Indication: FOR NERVE PAIN OUTPT LORATADINE 10MG TAB (Status = ) TAKE ONE TABLET BY MOUTH ONCE DAILY FOR ALLERGY Rx# [id number] Last Released: QtyDays Supply: 90 Rx Expiration Date: 03/29/24 Refills Remainin Indication: FOR ALLERGY OUTPT NAPROXEN 500MG TAB (Status = Active) TAKE ONE TABLET BY MOUTH TWICE DAILY FOR PAIN TAKE WITH FOOD Rx# [id number] Last Released: 02/25/24 Qty/Days Supply: 180 Rx Expiration Date: 12/21/24 Refills Remainin Indication: FOR PAIN OUTPT SILDENAFIL CITRATE 100MG TAB (Status = Active) TAKE ONE TABLET BY MOUTH ONCE DAILY NEEDED TAKE 1 HOUR PRIOR TO SEXUAL ACTIVITY Rx# [id number] Last Released: 04/12/24 Qty/Days Supply: 08/28 Rx Expiration Date: 12/21/24 Refills Remainin OUTPT TRAZODONE HCL 100MG TAB (Status = Active) TAKE ONE AND ONE-HALF TABLETS BY MOUTH AT BEDTIME FOR INSOMNIA ASSOCIATED WITH DEPRESSION Rx# [id number] Last Released: 02/25/24 Qty/Days Supply: 135 Rx [...] MD Primary Care Physician Signed: 05/15/2024 16:03 GAGAN WHITESIDE
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
--- OUTSIDE RECORDS SUMMARY | 2024-06-13 18:09 | XMS_ITS | Continuity of Care Document ---
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 05/11/2024: small hiatal hernia, mild schatzki ring found at the gastroesophageal junction. [facility] Diagnosis: ICD-10-CM F52.21 Male erectile disorder Active Diagnosis [facility] Diagnosis: ICD-10-CM M70.70 Other bursitis of hip, unspecified hip Active Diagnosis [facility] Diagnosis: ICD-10-CM E78.5 Hyperlipidemia, unspecified Active Diagnosis [facility] Diagnosis: ICD-10-CM K03.6 Deposits [accretions] on teeth Active Diagnosis [facility] Diagnosis: ICD-10-CM Z87.820 Personal history of traumatic brain injury [facility] Diagnosis: ICD-10-CM K08.9 Disorder of teeth and supporting structures, unspecified Active [facility] [place] [facility] Diagnosis: ICD-10-CM Z46.0 Encounter for fit/adjst of spectacles and contact lenses [facility] Diagnosis: ICD-10-CM H52.4 Presbyopia Active Diagnosis [facility] Medications Combined list of outpatient medications from [...] TIMES DAILY NEEDED FOR PAIN ORAL 03/29/2024 [id number] TENISHA WHITESIDE SA 2023 200 [place] CARBOXYMETH YLCELLULOSE NA 0.5% SOLN,OPH INSTILL 1 DROP INTO EACH EYE FOUR TIMES A DAY OPHTHA LMIC 08/29/2023 [id number] 4 KSENIA ROTHMAN 2022 45 [facility] CHOLECALCIF VADIM 25MCG (1,000UNIT) TAB TAKE ONE TABLET BY MOUTH ONCE DAILY FOR VITAMIN SUPPLEME NTATION ORAL ACTIVE 03/29/2025 [id number] 5 TENISHA WHITESIDE SA 2024 90 [place] CHOLECALCIF VADIM 25MCG (1,000UNIT) TAB TAKE ONE TABLET BY MOUTH ONCE DAILY FOR VITAMIN SUPPLEME NTATION ORAL 04/02/2023 [id number] 4 TENISHA WHITESIDE SA 2023 30 [place] DULOXETINE HCL 60MG CAP,EC TAKE ONE CAPSULE BY MOUTH ONCE DAILY ORAL 03/29/2024 [id number] 4 TENISHA WHITESIDE SA 2023 90 [place] FAMOTIDINE 20MG TAB TAKE ONE TABLET BY MOUTH TWICE DAILY FOR HEARTBUR N ORAL SUSPEND ED 05/16/2025 [id number] 5 TENISHA WHITESIDE SA 2024 180 [place] FAMOTIDINE 20MG TAB TAKE ONE TABLET BY MOUTH TWICE DAILY FOR HEARTBUR N ORAL DISCONT INUED 10/28/2024 [id number] TENISHA WHITESIDE SA 2023 180 [facility] FLUTICASONE PROPIONATE 50MCG/SPRAY SOLN,NASAL, 16GM INSTILL 2 SPRAYS INTO EACH NOSTRIL EVERY EVENING FOR NASAL IRRITATI ON/INFLA MMATION NASAL ACTIVE 05/16/2025 [id number] 5 TENISHA WHITESIDE SA 2024 3 [place] FLUTICASONE PROPIONATE 50MCG/SPRAY SOLN,NASAL, 16GM INSTILL 2 SPRAYS INTO EACH NOSTRIL EVERY EVENING FOR NASAL IRRITATI ON/INFLA MMATION NASAL DISCONT INUED 08/31/2024 [id number] 4 Ephraim HUDSON 2023 3 [place] FLUTICASONE PROPIONATE 50MCG/SPRAY SOLN,NASAL, 16GM INSTILL 2 SPRAYS INTO EACH NOSTRIL EVERY EVENING FOR NASAL IRRITATI ON/INFLA MMATION NASAL DISCONT INUED 04/27/2024 [id number] 4 TENISHA WHITESIDE SA 2023 3 [place] FLUTICASONE PROPIONATE 50MCG/SPRAY SOLN,NASAL, 16GM INSTILL 2 SPRAYS INTO EACH NOSTRIL EVERY EVENING FOR NASAL IRRITATI ON/INFLA MMATION NASAL DISCONT INUED 03/29/2024 [id number] 4 TENISHA WHITESIDE SA 2023 1 [place] LIDOCAINE 5% PATCH APPLY 2 PATCHES TOPICALL Y EVERY 24 HOURS NEEDED FOR NERVE PAIN (LEAVE PATCH ON FOR 12 HOURS, THEN REMOVE PATCH) FOR LOWER BACK TOPICA L ACTIVE 12/28/2024 [id number] 5 TENISHA WHITESIDE SA 2023 60 [facility] LIDOCAINE 5% PATCH APPLY 2 PATCHES TOPICALL Y EVERY 12 HOURS NEEDED FOR NERVE PAIN (LEAVE PATCH ON FOR 12 HOURS, THEN REMOVE PATCH) FOR LOWER BACK TOPICA L DISCONT INUED 03/29/2024 [id number] 4 TENISHA WHITESIDE SA 2023 60 [place] LIDOCAINE 5% PATCH APPLY 2 PATCHES TOPICALL Y EVERY 12 HOURS NEEDED FOR NERVE PAIN (LEAVE PATCH ON FOR 12 HOURS, THEN REMOVE PATCH) FOR LOWER BACK TOPICA L DISCONT INUED (EDIT) 12/21/2024 [id number] 4 TENISHA WHITESIDE SA 2023 60 [facility] LIDOCAINE 5% PATCH APPLY 1 PATCH TOPICALL Y EVERY 12 HOURS NEEDED (LEAVE PATCH ON FOR 12 HOURS, THEN REMOVE PATCH) FOR LOWER BACK TOPICA L DISCONT INUED (EDIT) 12/10/2023 [id number] 4 TENISHA WHITESIDE SA 2022 30 [facility] LORATADINE 10MG TAB TAKE ONE TABLET BY MOUTH ONCE DAILY FOR ALLERGY ORAL 03/29/2024 [id number] 4 TENISHA WHITESIDE SA 2023 90 [place] NAPROXEN 500MG TAB TAKE ONE TABLET BY MOUTH TWICE DAILY FOR PAIN TAKE WITH FOOD ORAL SUSPEND ED 05/16/2025 [id number] 5 TENISHA WHITESIDE SA 2024 180 [place] NAPROXEN 500MG TAB TAKE ONE TABLET BY MOUTH TWICE DAILY FOR PAIN TAKE WITH FOOD ORAL DISCONT INUED 12/21/2024 [id number] 5 TENISHA WHITESIDE SA 2024 180 [facility] NAPROXEN 500MG TAB TAKE ONE TABLET BY MOUTH TWICE DAILY FOR PAIN TAKE WITH FOOD ORAL DISCONT INUED 08/31/2024 [id number] 4 Ephraim HUDSON 2023 180 [place] NAPROXEN 500MG TAB TAKE ONE TABLET BY MOUTH TWICE DAILY FOR PAIN TAKE WITH FOOD ORAL DISCONT INUED 03/29/2024 [id number] 4 TENISHA WHITESIDE SA 2023 180 [place] OMEPRAZOLE 20MG CAP,EC TAKE ONE CAPSULE BY MOUTH TWICE DAILY FOR HEARTBUR N ORAL DISCONT INUED BY PROVIDE R 08/31/2024 [id number] 4 Ephraim HUDSON 2023 180 [place] OMEPRAZOLE 20MG CAP,EC TAKE ONE CAPSULE BY MOUTH TWICE DAILY FOR HEARTBUR N ORAL DISCONT INUED 03/29/2024 [id number] 4 TENISHA WHITESIDE SA 2023 180 [place] SILDENAFIL CITRATE 100MG TAB TAKE ONE TABLET BY MOUTH ONCE DAILY NEEDED TAKE 1 HOUR PRIOR TO SEXUAL ACTIVITY ORAL DISCONT INUED BY PROVIDE R 12/21/2024 [id number] 5 TENISHA WHITESIDE SA 2023 6 [facility] SILDENAFIL CITRATE 100MG TAB TAKE ONE TABLET BY MOUTH ONCE DAILY NEEDED TAKE 1 HOUR PRIOR TO SEXUAL ACTIVITY ORAL DISCONT INUED 03/29/2024 [id number] 4 TENISHA WHITESIDE SA 2023 6 [place] SODIUM FLUORIDE 1.1% TOOTHPASTE BRUSH SMALL AMOUNT TO TEETH TWICE DAILY FOR TOOTH DECAY PREVENTI ON DENTAL 12/11/2023 [id number] ИВАН CARCAMO 2022 51 [facility] TADALAFIL 10MG TAB TAKE ONE TABLET BY MOUTH ONCE DAILY NEEDED FOR ERECTILE DYSFUNCT ION ORAL ACTIVE 06/02/2025 [id number] 5 TENISHA WHITESIDE SA 2024 18 [place] TAMSULOSIN HCL 0.4MG CAP TAKE ONE CAPSULE BY MOUTH AT BEDTIME FOR ENLARGED PROSTATE ORAL ACTIVE 05/26/2025 [id number] 5 KAMILLA KHAN 2024 90 [facility] TRAZODONE HCL 100MG TAB TAKE TWO TABLETS BY MOUTH AT BEDTIME FOR INSOMNIA ASSOCIAT ED WITH DEPRESSI ON ORAL SUSPEND ED 05/16/2025 [id number] 5 TENISHA WHITESIDE SA 2024 180 [place] TRAZODONE HCL 100MG TAB TAKE ONE AND ONE-HALF TABLETS BY MOUTH AT BEDTIME FOR INSOMNIA ASSOCIAT ED WITH DEPRESSI ON ORAL DISCONT INUED (EDIT) 12/21/2024 [id number] 5 TENISHA WHITESIDE SA 2024 135 [facility] [place] TRAZODONE HCL 100MG TAB TAKE ONE AND ONE-HALF TABLETS BY MOUTH AT BEDTIME FOR INSOMNIA ASSOCIAT ED WITH DEPRESSI ON ORAL DISCONT INUED 08/31/2024 [id number] 4 Ephraim HUDSON 2023 135 [place] TRAZODONE HCL 100MG TAB TAKE ONE AND ONE-HALF TABLETS BY MOUTH AT BEDTIME FOR INSOMNIA ASSOCIAT ED WITH DEPRESSI ON ORAL DISCONT INUED 03/29/2024 [id number] TENISHA WHITESIDE SA 2023 135 [facility] IELD Immunizations Combined list of available immunizations from the Department of Defense and Veterans Affairs facilities. 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 Order Name Results Value Reference Range Date Interpretation Specimen Comments Source PSA PROSTATE SPECIFIC AG [MASS/VOLU ME] IN SERUM OR PLASMA 2.13 ng/mL 0.00 - 4.00 03/27 Specimen Type: SERUM No comment entered. Ordering Provider: GAGAN WHITESIDE Report Released Date/Time: Mar 17, 2024 02:18 PM Reporting Lab: [facility] [place] [employer] [facility] [address] [facility] [address] Performing Lab: [facility] [place] [address] [address] [facility] LIPID PANEL FASTING CHOLESTERO L [MASS/VOLU ME] IN SERUM OR PLASMA 217 mg/dL 03/27 H Specimen Type: SERUM No comment entered. Ordering Provider: GAGAN WHITESIDE Report Released Date/Time: Mar 17, 2024 02:18 PM Reporting Lab: [facility] [place] [facility] [address] [facility] [address] Performing Lab: [facility] [place] [facility] [address] [facility] [address] [facility] [facility] LIPID PANEL FASTING TRIGLYCERI DE [MASS/VOLU ME] IN SERUM OR PLASMA 58 mg/dL 0 - 150 03/27 Specimen Type: SERUM No comment entered. Ordering Provider: GAGAN WHITESIDE Report Released Date/Time: Mar 17, 2024 02:18 PM Reporting Lab: [facility] [place] [facility] [address] [facility] [address] Performing Lab: [facility] [place] [address] [address] [facility] [facility] LIPID PANEL FASTING CHOLESTERO L IN LDL [MASS/VOLU ME] IN SERUM OR PLASMA BY CALCULATIO N 163 mg/dL 0 - 129 03/27 H Specimen Type: SERUM No comment entered. Ordering Provider: GAGAN WHITESIDE Report Released Date/Time: Mar 17, 2024 02:18 PM Reporting Lab: [facility] [place] [address] [address] Performing Lab: [facility] [place] [facility] [address] [facility] [address] [facility] [place] [facility] LIPID PANEL FASTING CHOLESTERO L.TOTAL/CH OLESTEROL IN HDL [MASS RATIO] IN SERUM OR PLASMA 5.2 03/27 Specimen Type: SERUM No comment entered. Ordering Provider: GAGAN WHITESIDE Report Released Date/Time: Mar 17, 2024 02:18 PM Reporting Lab: [facility] [place] [facility] [address] [facility] [address] Performing Lab: [facility] [place] [facility] [address] [facility] [address] [facility] [facility] LIPID PANEL FASTING CHOLESTERO L IN HDL [MASS/VOLU ME] IN SERUM OR PLASMA 42 mg/dL 40 - 60 03/27 Specimen Type: SERUM No comment entered. Ordering Provider: GAGAN WHITESIDE Report Released Date/Time: Mar 17, 2024 02:18 PM Reporting Lab: [facility] [place] [facility] [address] [facility] [address] Performing Lab: [facility] [place] [facility] [address] [facility] [address] [facility] LIVER FUNCTION PROTEIN [MASS/VOLU ME] IN SERUM OR PLASMA 6.9 g/dL 6.0 - 8.3 03/27 Specimen Type: SERUM No comment entered. Ordering Provider: GAGAN WHITESIDE Report Released Date/Time: Mar 17, 2024 02:18 PM Reporting Lab: [facility] [place] [address] [address] Performing Lab: [facility] [place] [facility] [address] [facility] [address] [facility] LIVER FUNCTION ALBUMIN [MASS/VOLU ME] IN SERUM OR PLASMA 4.0 g/dL 3.5 - 5.0 03/27 Specimen Type: SERUM No comment entered. Ordering Provider: GAGAN WHITESIDE Report Released Date/Time: Mar 17, 2024 02:18 PM Reporting Lab: [facility] [place] [address] [address] Performing Lab: [facility] [place] [facility] [address] [facility] [address] [facility] [place] [facility] LIVER FUNCTION ALKALINE PHOSPHATAS E [ENZYMATIC ACTIVITY/V OLUME] IN SERUM OR PLASMA 42 U/L 40 - 150 03/27 Specimen Type: SERUM No comment entered. Ordering Provider: GAGAN WHITESIDE Report Released Date/Time: Mar 17, 2024 02:18 PM Reporting Lab: [facility] [place] [address] [address] Performing Lab: [facility] [place] [facility] [address] [facility] [address] [facility] [place] [facility] LIVER FUNCTION ASPARTATE AMINOTRANS FERASE [ENZYMATIC ACTIVITY/V OLUME] IN SERUM OR PLASMA 12 U/L 5 - 34 03/27 Specimen Type: SERUM No comment entered. Ordering Provider: GAGAN WHITESIDE Report Released Date/Time: Mar 17, 2024 02:18 PM Reporting Lab: [facility] [place] [facility] [address] [facility] [address] Performing Lab: [facility] [place] [facility] [address] [facility] [address] [facility] [place] [facility] LIVER FUNCTION ALANINE AMINOTRANS FERASE [ENZYMATIC ACTIVITY/V OLUME] IN SERUM OR PLASMA 16 U/L 03/27 Specimen Type: SERUM No comment entered. Ordering Provider: GAGAN WHITESIDE Report Released Date/Time: Mar 17, 2024 02:18 PM Reporting Lab: [facility] [place] [facility] [address] [facility] [address] Performing Lab: [facility] [place] [address] [address] [facility] [place] [facility] LIVER FUNCTION BILIRUBIN. TOTAL [MASS/VOLU ME] IN SERUM OR PLASMA 0.6 mg/dL 0.2 - 1.2 03/27 Specimen Type: SERUM No comment entered. Ordering Provider: GAGAN WHITESIDE Report Released Date/Time: Mar 17, 2024 02:18 PM Reporting Lab: [facility] [place] [facility] [address] [facility] [address] Performing Lab: [facility] [place] [facility] [address] [facility] [address] [facility] [place] [facility] BASIC METABOLI C PANEL (fasting ) UREA NITROGEN [MASS/VOLU ME] IN SERUM OR PLASMA 23 mg/dL 7 - 25 03/27 Specimen Type: SERUM No comment entered. Ordering Provider: GAGAN WHITESIDE Report Released Date/Time: Mar 17, 2024 02:18 PM Reporting Lab: [facility] [place] [facility] [address] [facility] [address] Performing Lab: [facility] [place] [facility] [address] [facility] [address] [facility] [place] [facility] BASIC METABOLI C PANEL (fasting ) GLUCOSE [MASS/VOLU ME] IN SERUM OR PLASMA 103 mg/dL 65 - 100 03/27 H Specimen Type: SERUM No comment entered. Ordering Provider: GAGAN WHITESIDE Report Released Date/Time: Mar 17, 2024 02:18 PM Reporting Lab: [facility] [place] [facility] [address] [facility] [address] Performing Lab: [facility] [address] [facility] BASIC METABOLI C PANEL (fasting ) SODIUM [MOLES/VOL UME] IN SERUM OR PLASMA 137 mmol/L 135 - 145 03/27 Specimen Type: SERUM No comment entered. Ordering Provider: GAGAN WHITESIDE Report Released Date/Time: Mar 17, 2024 02:18 PM Reporting Lab: [facility] [place] [address] [address] Performing Lab: [facility] [address] [facility] BASIC METABOLI C PANEL (fasting ) POTASSIUM [MOLES/VOL UME] IN SERUM OR PLASMA 4.7 mmol/L 3.5 - 5.0 03/27 Specimen Type: SERUM No comment entered. Ordering Provider: GAGAN WHITESIDE Report Released Date/Time: Mar 17, 2024 02:18 PM Reporting Lab: [facility] [place] [facility] [address] [facility] [address] Performing Lab: [facility] [address] [address] [facility] BASIC METABOLI C PANEL (fasting ) CHLORIDE [MOLES/VOL UME] IN SERUM OR PLASMA 108 mmol/L 100 - 110 03/27 Specimen Type: SERUM No comment entered. Ordering Provider: GAGAN WHITESIDE Report Released Date/Time: Mar 17, 2024 02:18 PM Reporting Lab: [facility] [place] [facility] [address] [facility] [address] Performing Lab: [facility] [place] [facility] [address] [facility] [address] [facility] [place] [facility] BASIC METABOLI C PANEL (fasting ) CARBON DIOXIDE, TOTAL [MOLES/VOL UME] IN SERUM OR PLASMA 22 meq/L 20 - 30 03/27 Specimen Type: SERUM No comment entered. Ordering Provider: GAGAN WHITESIDE Report Released Date/Time: Mar 17, 2024 02:18 PM Reporting Lab: [facility] [place] [facility] [address] [facility] [address] Performing Lab: [facility] [place] [address] [address] [facility] [place] [facility] BASIC METABOLI C PANEL (fasting ) CREATININE [MASS/VOLU ME] IN SERUM OR PLASMA 1.35 mg/dL 0.50 - 1.40 03/27 Specimen Type: SERUM No comment entered. Ordering Provider: GAGAN WHITESIDE Report Released Date/Time: Mar 17, 2024 02:18 PM Reporting Lab: [facility] [place] [facility] [address] [facility] [address] Performing Lab: [facility] [place] [address] [address] [facility] [place] [facility] BASIC METABOLI C PANEL (fasting ) GLOMERULAR FILTRATION RATE/1.73 SQ M.PREDICTE D [VOLUME RATE/AREA] IN SERUM, PLASMA OR BLOOD BY CREATININE -BASED FORMULA (CKD-EPI 2020) 62 mL/min 60 03/27 Specimen Type: SERUM No comment entered. Ordering Provider: GAGAN WHITESIDE Report Released Date/Time: Mar 17, 2024 02:18 PM Reporting Lab: [facility] [place] [address] [address] Performing Lab: [facility] [place] [address] [address] [facility] TSH THYROTROPI N [UNITS/VOL UME] IN SERUM OR PLASMA 1.20 u[IU]/mL 0.35 - 5.00 03/27 Specimen Type: SERUM No comment entered. Ordering Provider: GAGAN WHITESIDE Report Released Date/Time: Mar 17, 2024 02:18 PM Reporting Lab: [address] [address] Performing Lab: [facility] [address] [address] [facility] HEMOGLOB IN A1C PANEL HEMOGLOBIN A1C/HEMOGL [...] Mar 17, 2024 02:18 PM Reporting Lab: [address] [address] Performing Lab: [address] [address] [facility] CBC AND DIFF (AUTO) LEUKOCYTES [#/VOLUME] IN BLOOD BY AUTOMATED COUNT 6.51 10*3/uL 4.50 - 11.00 03/27 Specimen Type: BLOOD No comment entered. Ordering Provider: GAGAN WHITESIDE Report Released Date/Time: Mar 17, 2024 02:18 PM Reporting Lab: [facility] [address] [facility] [address] Performing Lab: [address] [address] [facility] CBC AND DIFF (AUTO) ERYTHROCYT ES [#/VOLUME] IN BLOOD BY AUTOMATED COUNT 6.31 10*6/uL 4.23 - 5.66 03/27 H Specimen Type: BLOOD No comment entered. Ordering Provider: GAGAN WHITESIDE Report Released Date/Time: Mar 17, 2024 02:18 PM Reporting Lab: [facility] [place] [address] [address] Performing Lab: [facility] [place] [facility] [address] [facility] [address] [facility] [place] [facility] CBC AND DIFF (AUTO) HEMOGLOBIN [MASS/VOLU ME] IN BLOOD 16.4 g/dL 12.8 - 17 03/27 Specimen Type: BLOOD No comment entered. Ordering Provider: GAGAN WHITESIDE Report Released Date/Time: Mar 17, 2024 02:18 PM Reporting Lab: [facility] [place] [address] [address] Performing Lab: [facility] [place] [address] [address] [facility] [place] [facility] CBC AND DIFF (AUTO) HEMATOCRIT [VOLUME FRACTION] OF BLOOD BY AUTOMATED COUNT 51.2 39.2 - 50.4 03/27 H Specimen Type: BLOOD No comment entered. Ordering Provider: GAGAN WHITESIDE Report Released Date/Time: Mar 17, 2024 02:18 PM Reporting Lab: [facility] [place] [address] [address] Performing Lab: [facility] [place] [address] [address] [facility] [place] [facility] CBC AND DIFF (AUTO) MCV [ENTITIC VOLUME] BY AUTOMATED COUNT 81.1 fL 82 - 99 03/27 L Specimen Type: BLOOD No comment entered. Ordering Provider: GAGAN WHITESIDE Report Released Date/Time: Mar 17, 2024 02:18 PM Reporting Lab: [facility] [place] [address] [address] Performing Lab: [facility] [place] [address] [address] [facility] [place] [facility] CBC AND DIFF (AUTO) MCHC [MASS/VOLU ME] BY AUTOMATED COUNT 32.0 g/dL 30.8 - 35.1 03/27 Specimen Type: BLOOD No comment entered. Ordering Provider: GAGAN WHITESIDE Report Released Date/Time: Mar 17, 2024 02:18 PM Reporting Lab: [facility] [place] [facility] [address] [facility] [address] Performing Lab: [facility] [place] [facility] [address] [facility] [address] [facility] [place] [facility] CBC AND DIFF (AUTO) PLATELETS [#/VOLUME] IN BLOOD BY AUTOMATED COUNT 242 10*3/uL 140 - 360 03/27 Specimen Type: BLOOD No comment entered. Ordering Provider: GAGAN WHITESIDE Report Released Date/Time: Mar 17, 2024 02:18 PM Reporting Lab: [facility] [address] [address] Performing Lab: [facility] [facility] [address] [facility] [address] [facility] CBC AND DIFF (AUTO) ERYTHROCYT E DISTRIBUTI ON WIDTH [RATIO] BY AUTOMATED COUNT 15.0 12.0 - 16.0 03/27 Specimen Type: BLOOD No comment entered. Ordering Provider: GAGAN WHITESIDE Report Released Date/Time: Mar 17, 2024 02:18 PM Reporting Lab: [facility] [address] [facility] [address] Performing Lab: [facility] [facility] [address] [facility] [address] [facility] CBC AND DIFF (AUTO) MONOCYTES [#/VOLUME] IN BLOOD BY AUTOMATED COUNT 0.66 10*3/uL 0.30 - 1.10 03/27 Specimen Type: BLOOD No comment entered. Ordering Provider: GAGAN WHITESIDE Report Released Date/Time: Mar 17, 2024 02:18 PM Reporting Lab: [facility] [facility] [address] [facility] [address] Performing Lab: [facility] [address] [facility] [address] [facility] CBC AND DIFF (AUTO) MCH [ENTITIC MASS] BY AUTOMATED COUNT 26.0 pg 26.2 - 32.6 03/27 L Specimen Type: BLOOD No comment entered. Ordering Provider: GAGAN WHITESIDE Report Released Date/Time: Mar 17, 2024 02:18 PM Reporting Lab: [facility] [address] [facility] [address] Performing Lab: [facility] [address] [facility] [address] [facility] CBC AND DIFF (AUTO) NEUTROPHIL S/100 LEUKOCYTES IN BLOOD BY AUTOMATED COUNT 58.4 43.7 - 75.8 03/27 Specimen Type: BLOOD No comment entered. Ordering Provider: GAGAN WHITESIDE Report Released Date/Time: Mar 17, 2024 02:18 PM Reporting Lab: [facility] [address] [facility] [address] Performing Lab: [facility] [address] [facility] [address] [facility] CBC AND DIFF (AUTO) LYMPHOCYTE S/100 LEUKOCYTES IN BLOOD BY AUTOMATED COUNT 25.8 14.0 - 42.3 03/27 Specimen Type: BLOOD No comment entered. Ordering Provider: GAGAN WHITESIDE Report Released Date/Time: Mar 17, 2024 02:18 PM Reporting Lab: [facility] [address] [facility] [address] Performing Lab: [facility] [address] [facility] [address] [facility] CBC AND DIFF (AUTO) MONOCYTES/ 100 LEUKOCYTES IN BLOOD BY AUTOMATED COUNT 10.1 5.1 - 13.7 03/27 Specimen Type: BLOOD No comment entered. Ordering Provider: GAGAN WHITESIDE Report Released Date/Time: Mar 17, 2024 02:18 PM Reporting Lab: [facility] [address] [facility] [address] Performing Lab: [facility] [address] [facility] [address] [facility] CBC AND DIFF (AUTO) EOSINOPHIL S/100 LEUKOCYTES IN BLOOD BY AUTOMATED COUNT 4.0 0.4 - 6.8 03/27 Specimen Type: BLOOD No comment entered. Ordering Provider: GAGAN WHITESIDE Report Released Date/Time: Mar 17, 2024 02:18 PM Reporting Lab: [facility] [address] [facility] [address] Performing Lab: [facility] [address] [facility] [address] [facility] CBC AND DIFF (AUTO) BASOPHILS/ 100 LEUKOCYTES IN BLOOD BY AUTOMATED COUNT 1.4 0.1 - 2.0 03/27 Specimen Type: BLOOD No comment entered. Ordering Provider: GAGAN WHITESIDE Report Released Date/Time: Mar 17, 2024 02:18 PM Reporting Lab: [facility] [address] [address] Performing Lab: [facility] [address] [facility] [address] [facility] CBC AND DIFF (AUTO) NEUTROPHIL S [#/VOLUME] IN BLOOD BY AUTOMATED COUNT 3.80 10*3/uL 2.20 - 7.60 03/27 Specimen Type: BLOOD No comment entered. Ordering Provider: GAGAN WHITESIDE Report Released Date/Time: Mar 17, 2024 02:18 PM Reporting Lab: [facility] [address] [facility] [address] Performing Lab: [facility] [address] [facility] [address] [facility] CBC AND DIFF (AUTO) LYMPHOCYTE S [#/VOLUME] IN BLOOD BY AUTOMATED COUNT 1.68 10*3/uL 1.00 - 3.20 03/27 Specimen Type: BLOOD No comment entered. Ordering Provider: GAGAN WHITESIDE Report Released Date/Time: Mar 17, 2024 02:18 PM Reporting Lab: [facility] [address] [facility] [address] Performing Lab: [facility] [address] [facility] [address] [facility] CBC AND DIFF (AUTO) EOSINOPHIL S [#/VOLUME] IN BLOOD BY AUTOMATED COUNT 0.26 10*3/uL 0.03 - 0.44 03/27 Specimen Type: BLOOD No comment entered. Ordering Provider: GAGAN WHITESIDE Report Released Date/Time: Mar 17, 2024 02:18 PM Reporting Lab: [facility] [address] [facility] [address] Performing Lab: [facility] [address] [facility] [address] [facility] CBC AND DIFF (AUTO) BASOPHILS [#/VOLUME] IN BLOOD BY AUTOMATED COUNT 0.09 10*3/uL 0.01 - 0.13 03/27 Specimen Type: BLOOD No comment entered. Ordering Provider: GAGAN WHITESIDE Report Released Date/Time: Mar 17, 2024 02:18 PM Reporting Lab: [facility] [address] [address] Performing Lab: [facility] [address] [facility] [address] [facility] CBC AND DIFF (AUTO) IMMATURE GRANULOCYT ES/100 LEUKOCYTES IN BLOOD BY AUTOMATED COUNT 0.3 0.0 - 0.7 03/27 Specimen Type: BLOOD No comment entered. Ordering Provider: GAGAN WHITESIDE Report Released Date/Time: Mar 17, 2024 02:18 PM Reporting Lab: [facility] [address] [address] Performing Lab: [facility] [address] [address] [facility] CBC AND DIFF (AUTO) IMMATURE GRANULOCYT ES [#/VOLUME] IN BLOOD 0.02 10*3/uL 0.00 - 0.06 03/27 Specimen Type: BLOOD No comment entered. Ordering Provider: GAGAN WHITESIDE Report Released Date/Time: Mar 17, 2024 02:18 PM Reporting Lab: [facility] [address] [facility] [address] Performing Lab: [facility] [address] [facility] [address] [facility] CBC AND DIFF (AUTO) NRBC % 0.0 0.0 - 0.0 03/27 Specimen Type: BLOOD No comment entered. Ordering Provider: GAGAN WHITESIDE Report Released Date/Time: Mar 17, 2024 02:18 PM Reporting Lab: [facility] [address] [address] Performing Lab: [facility] [address] [address] [facility] CBC AND DIFF (AUTO) NRBC, ABS 0.00 10*3/uL 0.00 - 0.00 03/27 Specimen Type: BLOOD No comment entered. Ordering Provider: GAGAN WHITESIDE Report Released Date/Time: Mar 17, 2024 02:18 PM Reporting Lab: [facility] [address] [address] Performing Lab: [facility] [address] [address] [facility] H PYLORI ANTIBODY HELICOBACT ER PYLORI IGG AB [PRESENCE] IN SERUM NEGATIVE 03/10 Specimen Type: SERUM No comment entered. Ordering Provider: GAGAN WHITESIDE Report Released Date/Time: Mar 10, 2024 12:50 PM Reporting Lab: [facility] [address] [address] Performing Lab: [facility] [address] [facility] [address] [facility] OCCULT BLOOD FIT X1 SCREEN (MFP ONLY) HEMOGLOBIN .GASTROINT ESTINAL.LO WER [PRESENCE] IN STOOL BY IMMUNOASSA Y Negative 02/23 Specimen Type: FECES No comment entered. Ordering Provider: GAGAN WHITESIDE Report Released Date/Time: Jan 31, 2024 11:07 AM Reporting Lab: [facility] [address] [facility] [address] Performing Lab: [facility] [address] [facility] [address] [facility] HEPATITI S B SURFACE ANTIBODY (HBsAb)- WH HEPATITIS B VIRUS SURFACE AB [PRESENCE] IN SERUM BY IMMUNOASSA Y REACTIVE 03/23 Specimen Type: SERUM Comment: A 'Reactive' result indicates HBsAb results >/= 12.0 mIU/mL and immunity to HBV infection. Ordering Provider: GAGAN WHITESIDE Report Released Date/Time: Mar 19, 2023 01:13 PM Reporting Lab: [facility] [address] [facility] [address] Performing Lab: [facility] [address] [facility] [address] [facility] Vital Signs Combined list of inpatient and outpatient Vital Signs from Department of Defense and Veterans Affairs, ranging from 12 months to all on record, depending upon the facility. Vital Sign Value Date Comments Source SYSTOLIC BLOOD PRESSURE 120 05/26/19 09:05:59 [facility] DIASTOLIC BLOOD PRESSURE 70 025 09:05:59 [facility] PAIN 3 05/25/2024 09:05:59 [facility] SYSTOLIC BLOOD PRESSURE 127 05/16/19 25 14:56:27 [facility] DIASTOLIC BLOOD PRESSURE 84 025 14[facility]56:27 [facility] PULSE OXIMETRY 79 05/15/2024 14:56:27 [facility] WEIGHT 226.2 05/15/2024 14:56:27 [facility] BMI 32 kg/m2 05/15/2024 14:56:27 [facility] PAIN 0 05/15/2024 14:56:27 [facility] HEIGHT 71 05/15/2024 14:56:27 [facility] TEMPERATURE 97.9 05/15/2024 14:56:27 [facility] PULSE 63 05/15/2024 14:56:27 [facility] RESPIRATION 18 05/15/2024 14:56:27 [facility] Encounters Combined list of: 1) Encounters from Department of Veterans Affairs facilities going backup to the last 18 months, not all VA inpatient encounters are included; 2) Encounters from the Department of [facility] facilities going backup to 280 months. Location Location Details Encounter Type Encounter Number Reason For Visit Attending Provider ADM Date DC Date Status Disposition Source [facility] Outpatient Encounter [id number] 12/25 [facility] Out[facility]counter [id number] 01/01 [facility] Out[facility]counter [id number] 02/25 [facility] Out[facility]counter [id number] 03/02 [facility] Out[facility]counter [id number] 03/19 [facility] Encounter [id number] 03/29 [facility] LD OFFICE O/P EST MOD 30 MIN [id number] Diagnos is: ICD-10- CM E78.5 Hyperli pidemia , unspeci RIZWAN Sutlana Tiffanie SHEYLA 03/29 [place] [facility] COMPRE OPH EXAM EST PT 1/> [id number] Diagnos is: ICD-10- CM H52.4 Presbyo james TANK HASSAN 04/06 [facility] FIT SPECTACLES MONOFOCAL [id number] Diagnos is: ICD-10- CM Z46.0 Encount er for fit/adj st of spectac les and contact lenses SONYATANK 04/06 [facility] Outpatient Encounter [id number] 04/07 [facility] Out[facility] Encounter [id number] 04/08 [facility] CASE MGMT-ORAL HEALTH LIT [id number] Diagnos is: ICD-10- CM K03.6 Deposit s [accret ions] on teeth MYNOR,HANG RENATA K 04/08 [facility] INTRAORAL PERIAPICAL EA ADD [id number] Diagnos is: ICD-10- CM K08.9 Disorde r of teeth and support ing structu res, unspeci ИВАН Santos 04/08 [facility] Outpatient Encounter [id number] 04/22 [facility] Out[facility] Encounter [id number] 06/07 [facility] Out[facility] Encounter [id number] 08/29 [facility] Out[facility] Encounter [id number] 09/20 [facility] Out[facility] Encounter [id number] 10/27 [facility] Out[facility] Encounter [id number] 10/27 [facility] Outpatient Encounter [id number] 11/01 [facility] CASE MGMT-ORAL HEALTH LIT [id number] Diagnos is: ICD-10- CM K03.6 Deposit s [accret ions] on teeth MYNOR,HANG RENATA K 11/02 [facility] Out[facility] Encounter [id number] 12/19 [facility] Out[facility] Encounter [id number] 03/02 [facility] Out[facility] Encounter [id number] 03/08 [facility] Out[facility] Encounter [id number] 03/24 [facility] Out[facility] Encounter [id number] 03/27 [facility] Out[facility] Encounter [id number] 03/29 [facility] Out[facility] Encounter [id number] [facility] Out[facility] Encounter [id number] 04/04 [facility] OFFICE O/P EST MOD 30 MIN [id number] Diagnos is: ICD-10- CM Z87.820 Persona l history of traumat ic brain injury TANK HASSAN 04/25 [facility] Out[facility] Encounter [id number] 05/01 [facility] Out[facility] Encounter [id number] 05/02 [facility] CASE MGMT-ORAL HEALTH LIT [id number] Diagnos is: ICD-10- CM K03.6 Deposit s [accret ions] on teeth MYNOR,HANG RENATA K 05/02 [facility] DENTAL BITEWING FOUR IMAGES [id number] 1. Diagnos is: ICD-10- CM K03.6 Deposit s [accret ions] on teeth ASHLEY KO 05/02 [facility] Out[facility] Encounter [id number] 05/03 [facility] Outpatient Encounter [id number] [facility] [place] OFFICE O/P EST MOD 30 MIN [id number] 1BY. Diagnos is: ICD-10- CM E78.5 Hyperli pidemia , unspeci fied RIZWAN WHITESIDE 05/15 [place] [facility] Outpatient Encounter [id number] 05/17 [facility] Outpatient Encounter [id number] [facility] OFFICE O/P [place] 60 MIN [id number] Diagnos is: ICD-10- CM M70.70 Other bursiti s of hip, unspeci fied hip Ephraim KHAN 05/25 [facility] Out[facility] Encounter [id number] [facility] Out[facility]counter [id number] 05/25 [facility] Out[facility] Encounter [id number] 05/31 [facility] [place] LD NQHP OL DIG ASSMT&MGMT 5-10 [id number] Diagnos is: ICD-10- CM F52.21 Male erectil e disorde r JAMATABITHA IE 05/31 [facility] [place] Social History Combined list of available smoking, tobacco, and other social history from Department of Defense and Veterans Affairs facilities. Social History Type Response Date Comment Source Tobacco smoking status [facility]-TOBACCO NEVER USED 03/29/2023 [facility] History of tobacco use [facility] NEVER USED 07/15/2021 [facility] History of tobacco use [facility] NEVER USED 05/16/2020 [facility] History of tobacco use MS-TOBACCO NEVER USED 02/27/2019 [facility] History of tobacco use [facility]-TOBACCO NEVER USED 02/14/2018 [facility] History of tobacco use QUIT TOBACCO USE > 7 YEARS AGO 10/23/2016 quit 20 years ago [facility] Plan of Care List of future care activities from [facility] facilities. Additional future care activities may be listed in the Assessment and Plan section. Date/Time Care Activity Care Activity Detail Facili ty 07/06/2024 AMBULATORY - NONE [facility] Advance Directives List of completed, amended, or rescinded Advance Directives on record at Department of Veterans Affairs facilities. An actual copy of the Directive is not included. Date Advance Directive Provider Source 11/26/2016 ADVANCE DIRECTIVE TORY WONG
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
--- OUTSIDE RECORDS SUMMARY | 2024-06-13 18:09 | XMS_ITS ---
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 ([place]) Organization [facility] of [facility] ([place]) Address [address] [place] [address] Care Team Providers Care Transportation Equipment Painter Name Role Phone GAGAN WHITESIDE Primary Care [...] Relationship to Policy Olivares CAREMARK PRESCRIPT ION [facility] Aug 29, 2022 [id number] STEPHANIE ROSSI ERT PATIENT UNICARE PREFERRED PROVIDER ORGANIZAT ION (PPO) UNICA RE STATE INDEM N Mar 01, 2006 [id number] STEPHANIE ROSSI ERT PATIENT WELLPOINT PREFERRED PROVIDER ORGANIZAT ION (PPO) UNICA RE STATE INDEM * Mar 01, 2006 [id number] STEPHANIE ROSSI ERT PATIENT Selected Encounter This section includes the information on record at NH for the Encounter. Date/Time Encounter Type Encounter Description Reason Provider Source May 25, 2024 09:00 AM OFFICE O/P NEW HI 60 MIN PM&RS PHYSICIAN ICD-10-CM M70.70 Other bursitis of hip, unspecified hip CARI SIMS IHE Encounter Template Text not used by NH Assessments - Encounter Diagnoses This section includes the primary and secondary diagnoses documented for the Encounter. Date/Time Primary/Secondary Diagnosis Diagnosis Name Provider Source May 25, 2024 10:31 AM PRIMARY Other bursitis of hip, unspecified hip CARI SIMS [place] [facility] [place] [facility] May 25, 2024 10:31 AM SECONDARY Congenital pes planus, left foot CARI SIMS [facility] [place] [facility] May 25, 2024 10:31 AM SECONDARY Nocturia CARI SIMS [facility] [place] [facility] May 25, 2024 10:31 AM SECONDARY Pain in unspecified joint CARI SIMS [facility] Plan of Treatment: Future Appointments (+ 6 months) and Future Tests (+/- 45 days) The Plan of Treatment section includes future care activities for the patient from all [facility]. This section includes future appointments and future orders which are active, pending or scheduled. Future Appointments This section includes appointments that were scheduled to occur 6 months from the date of the Encounter, up to a maximum of 20 appointments. The data comes from all NH treatment facilities. Appointment Date/Time Appointment Type Appointme nt Facility Name July 06, 2024 12:30 PM AMBULATORY - NONE [facility] [place] [facility] July 21, 2024 02:00 PM AMBULATORY - MEDICINE [facility] [place] [facility] July 27, 2024 10:30 AM AMBULATORY - MEDICINE [facility] [place] [facility] July 27, 2024 10:31 AM AMBULATORY - MEDICINE [facility] [place] [facility] Aug 02, 2024 11:00 AM AMBULATORY - MEDICINE [facility] [place] [facility] Nov 02, 2024 12:45 PM AMBULATORY - NONE [facility] [place] [facility] Nov 14, 2024 03:30 PM AMBULATORY - MEDICINE [place] [facility] [place] [facility] Active, Pending, and Scheduled Orders This section includes a listing of several types of active, pending, and scheduled orders, including clinic medications orders, diagnostic test orders, procedure orders and consult orders; where the start date of the order is 45 days before the date of the Encounter or 45 days after the date of theEncounter. The data comes from all [facility]. Test Date/Time Test Type Test Details Facility Name May 15, 2024 04:01 PM Consult Order HOME SLEEP STUDY NOX/SPOPC OUTPT Cons Physician Gynecologist's Choice [facility] [place] [facility] May 15, 2024 04:01 PM Consult Order OTOLARYNGO LOGY/ENT ONE [facility] Physician Gynecologist's Choice [facility] Vital Signs: All taken on the encounter date This section contains inpatient and outpatient Vital Signs collected on the date of the Encounter. Date/Time Temperature Pulse Blood Pressure Respiratory Rate SP02 Pain Height Weight Body Mass Index Source May 25, 2024 09:05 AM 120/70 3 [facility] Social History: Smoking Status (Most current) and Tobacco Use (All prior to encounter date) This section includes the most current, and the historical, smoking and tobacco- related health factors from the NH facility where the Encounter took place. Current Smoking Status This section includes the most current smoking, or tobacco-related health factor, from the NH facility where the Encounter took place. Date/Time Current Smoking Status Comment Facil ity May 16, 2020 04:13 PM VA-TOBACCO NEVER USED [facility] Advance Directives: All historical and current Section Date Range: From patient's date of to the date document was created. This section includes ALL of a patient's completed or amended VA Advance and Rescinded Directives. The entries below indicate that a directive exists for the patient, but an actual copy is not included with this document. The data comes from all NH facilities. Date Advance Directives Provider Source Nov 26, 2016 ADVANCE DIRECTIVE TORY WONG [facility] Radiology Reports: +/- 30 days of [...] the Encounter. The data comes from all [place] treatment facilities. Date/Time Radiology Report Provider Source May 17, 2024 02:10 PM HIPS BILATERAL(3-4 VIEWS) WITH/WITHOUT PELVI: MERVIN ROSSI [id number] -[id number] M Exm Date: MAY 17, 2024@14:10 Req Phys: GAGAN WHITESIDE Pat Loc: [facility] PACT 10 (Req'g Loc) Img Loc: [facility]/BUILDING 1 Service: Unknown [facility] TORIBIO, TAMRA [address] (Case [id number] COMPLETE) HIPS BILATERAL(3-4 VIEWS) WITH/WI(RAD Detailed) CPT:66378 Reason for Study: Bilateral Hip pain Clinical History: Report Status: Verified Date Reported: MAY 17, 2024 Date Verified: MAY 17, 2024 Hospice Physician E-Sig:/ES/ANGELA EMERSON JR Report: Study: AP view [...] Primary Interpreting Staff: ANGELA EMERSON JR, Radiologist (Hospice Physician) /ANGELA JACOBS JR [facility] Encounter Notes: All associated encounter notes This section contains the clinical notes associated to the Encounter. Date/Time Encounter Note(s) Provider Source May 25, 2024 10:32 AM PHYSICAL MEDICINE REHAB NOTE: LOCAL TITLE: PM&R BACK/JOINT PROCEDURE NOTE STANDARD TITLE: PHYSICAL MEDICINE REHAB NOTE DATE OF NOTE: MAY 25, 2024@10:32 ENTRY DATE: MAY 25, 2024@10:32:14 AUTHOR: JEREMIAS SIMS COSIGNER: URGENCY: STATUS: COMPLETED PROCEDURE: Trochanteric bursa injection INDICATION: Lateral hip pain, trochanteric bursitis, greater trochanteric syndrome. INFORMED CONSENT: Obtained verbally, and through IMED. The procedure as well as potential risks and benefits of trigger point injections were discussed with patient, who agreed to proceed. TIME OUT NOTE TIME:Apr@09:50 [place] correctly stated: [X]Full name: ROSSIMERVIN MEREDITH [X]Last 4 of SS#: [id number] [X]: Mar PROVIDER NAME: Jeremias Sims PA-c STAFF NAME: Yaima Toledo RN PROCEDURE: [...] OF SITES: Site 2: Other: Lot #: [id number] Exp: January 2025 No complications. Scant blood [...] Post-procedure pain level: 03/10 /christina/ JEREMIAS SIMS [facility] Signed: 05/25/2024 10:35 JEREMIAS SIMS [facility] May 25, 2024 09:14 AM PHYSICAL MEDICINE REHAB CONSULT: LOCAL TITLE: CONSULT REPORT/PM&R STANDARD TITLE: PHYSICAL MEDICINE REHAB CONSULT DATE OF NOTE: MAY 25, 2024@09:14 ENTRY DATE: MAY 25, 2024@09:14:17 AUTHOR: JEREMIAS SIMS EXP COSIGNER: URGENCY: STATUS: COMPLETED MAY 25, 2024 MERVIN ROSSI is a 54 y/o RHD DECLINED TO ANSWER MALE, previously in [place] FROM Apr TO Aug from PERIOD OF SERVICE - [facility], who was seen today for [...] has some moderate numbness. 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 Temporary relief. Lidocaine patches applied to [...] Hx: Noncontributory. Soc Hx: MARITAL STATUS - [place] FROM Apr TO Aug Service Connected Disabilities [...] 5.2 Diagnostic Studies: X-rays of the hips NH 05/17/2024 show prominent superior acetabular overhanging bony [...] will also improve discogenic low back pain. [place] has additionally significant nocturia with awakenings 4-5 [...] any medication(s) prescribed today was reviewed with [place]. Patient had many excellent questions, which I answered to the best of my ability and to patient's apparent satisfaction. MDM: 60 minutes which includes reviewing records, evaluating patient, documenting in medical record, educating, counseling and coordinating care. /christina/ JEREMIAS VIDALGrace Signed: 05/25/2024 10:30 JEREMIAS SIMS [facility]
--- OUTSIDE RECORDS SUMMARY | 2024-06-13 18:09 | XMS_ITS ---
Author Name [facility] Organization [facility] Address [address] [place] [address] Care Team Providers Care Network Internship Name Role Phone STEVOGAGAN Primary Care Provider [...] Relationship to Policy Olivares CAREMARK PRESCRIPT ION [facility] Aug 29, 2022 [id number] STEPHANIE ORSSI ERT PATIENT UNICARE PREFERRED PROVIDER ORGANIZAT ION (PPO) UN[place] RE STATE INDEM N Mar 01, 2006 [id number] STEPHANIE ROSSI ERT PATIENT WELLPOINT PREFERRED PROVIDER ORGANIZAT ION (PPO) [employer] RE STATE INDEM * Mar 01, 2006 [id number] STEPHANIE ROSSI ERT PATIENT Selected Encounter This section includes the information on record at ID for the Encounter. Date/Time Encounter Type Encounter Description Reason Pro vider Source Mar 29, 2024 03:00 PM Outpatient Encounter ADMIN PAT ACTIVTIES (MASNONCT) IHE Encounter Template Text not used by ID Plan of Treatment: Future Appointments (+ 6 [...] 20 appointments. The data comes from all ID treatment facilities. Appointment Date/Time Appointment Type Appointme nt Facility Name Apr 25, 2024 02:30 PM AMBULATORY - MEDICINE [facility] [place] [facility] May 02, 2024 11:00 AM AMBULATORY - MEDICINE [facility] [place] [facility] May 02, 2024 12:45 PM AMBULATORY - NONE [facility] [place] [facility] May 02, 2024 01:00 PM AMBULATORY - NONE [facility] [place] [facility] May 15, 2024 03:00 PM AMBULATORY - MEDICINE [facility] [place] [facility] May 25, 2024 09:00 AM AMBULATORY - MEDICINE [facility] [place] [facility] July 06, 2024 12:30 PM AMBULATORY - NONE [facility] [place] [facility] July 21, 2024 02:00 PM AMBULATORY - MEDICINE [place] [facility] [place] [facility] July 27, 2024 10:30 AM AMBULATORY - MEDICINE ID [facility] [facility] July 27, 2024 10:31 AM AMBULATORY - MEDICINE ID [facility] [place] [facility] Aug 02, 2024 11:00 AM AMBULATORY - MEDICINE ID [facility] [place] [facility] Lab Results: +/- 30 days of the encounter This section includes the Chemistry and Hematology Lab Results on record with ID for the patient. Radiology Reports and Pathology Reports are provided separately, in subsequent sections. Lab Results This section contains the Chemistry/Hematology Results that were resulted 30 days before or 30 daysafter the date of the Encounter. Date/Time Source Result Type Result - Unit Interpretation Reference Range Specimen Type Comment Mar 27, 2024 12:38 PM [place] [facility] [place] [facility] PSA SERUM Specimen Type: SERUM No comment entered. Ordering Provider: GAGAN WHITESIDE Report Released Date/Time: Mar 17, 2024 02:18 PM Reporting Lab: [place] [facility] [place] [address] [address] Performing Lab: [facility] [address] [address] PSA 2.13 ng/mL 0.00-4.00 Mar 27, 2024 12:38 PM [facility] LIPID PANEL FASTING SERUM Specimen Type: SERU M No comment entered. Ordering Provider: GAGAN WHITESIDE Report Released Date/Time: Mar 17, 2024 02:18 PM Reporting Lab: [address] [address] Performing Lab: [address] [address] CHOLESTEROL 217 mg/dL H TRIGLYCERIDE 58 mg/dL 0-150 LDL calculated 163 mg/dL H 0-129 CHOL/HDL 5.2 HDL CHOLESTEROL 42 mg/dL 40-60 Mar 27, 2024 12:38 PM [facility] LIVER FUNCTION SERUM Specimen Type: SERUM No comment entered. Ordering Provider: GAGAN WHITESIDE Report Released Date/Time: Mar 17, 2024 02:18 PM Reporting Lab: [address] [address] Performing Lab: [address] [address] PROTEIN,TOTAL 6.9 g/dL 6.0-8.3 ALBUMIN 4.0 g/dL 3.5-5.0 ALKALINE PHOSPHATASE 42 U/L 40-150 AST 12 U/L 5-34 ALT 16 U/L BILIRUBIN, TOTAL 0.6 mg/dL 0.2-1.2 Mar 27, 2024 12:38 PM [facility] BASIC METABOLIC PANEL (fasting) SERUM Specime n Type: SERUM No comment entered. Ordering Provider: GAGAN WHITESIDE Report Released Date/Time: Mar 17, 2024 02:18 PM Reporting Lab: [address] [address] Performing Lab: [address] [address] UREA NITROGEN 23 mg/dL 7-25 GLUCOSE 103 mg/dL H 65-100 SODIUM 137 mmol/L 135-145 POTASSIUM 4.7 mmol/L 3.5-5.0 CHLORIDE 108 mmol/L 100-110 CO2 22 meq/L 20-30 CREATININE, Serum 1.35 mg/dL 0.50-1.40 eGFR(CKD-EPI 2020) 62 mL/min >60 Mar 27, 2024 12:38 PM [facility] TSH SERUM Specimen Type: SERUM No comment entered. Ordering Provider: GAGAN WHITESIDE Report Released Date/Time: Mar 17, 2024 02:18 PM Reporting Lab: [facility] [place] [facility] [address] [facility] [address] Performing Lab: [facility] [address] [facility] [address] TSH 1.20 u[IU]/mL 0.35-5.00 Mar 27, 2024 12:38 PM [facility] HEMOGLOBIN A1C PANEL BLOOD Specimen Type: [...] Mar 17, 2024 02:18 PM Reporting Lab: [facility] [address] [facility] [address] Performing Lab: [facility] [address] [facility] [address] HEMOGLOBIN A1C 5.2 4.0-5.6 Mar 27, 2024 12:38 PM [facility] CBC AND DIFF (AUTO) BLOOD Specimen Type: BLOO D No comment entered. Ordering Provider: GAGAN WHITESIDE Report Released Date/Time: Mar 17, 2024 02:18 PM Reporting Lab: [facility] [address] [facility] [address] Performing Lab: [facility] [address] WBC 6.51 10*3/uL 4.50-11.00 RBC 6.31 10*6/uL [...] 10*3/uL 0.00-0.00 Mar 10, 2024 01:52 PM [facility] H PYLORI ANTIBODY SERUM Specimen Type: SERUM No comment entered. Ordering Provider: GAGAN WHITESIDE Report Released Date/Time: Mar 10, 2024 12:50 PM Reporting Lab: [facility] [address] [facility] [address] Performing Lab: [facility] [address] [facility] [address] H PYLORI IgG NEGATIVE NEGATIVE Social History: Smoking Status (Most current) and Tobacco Use (All prior to encounter date) This section includes the most current, and the historical, smoking and tobacco- related health factors from the ID facility where the Encounter took place. Current Smoking Status This section includes the most current smoking, or tobacco-related health factor, from the ID facility where the Encounter took place. Date/Time Current Smoking Status Comment Yair dumont May 16, 2020 04:13 PM VA-TOBACCO NEVER USED [place] [facility] [place] [facility] Advance Directives: All historical and current Section Date Range: From patient's date of to the date document was created. This section includes ALL of a patient's completed or amended VA Advance and Rescinded Directives. The entries below indicate that a directive exists for the patient, but an actual copy is not included with this document. The data comes from all ID facilities. Date Advance Directives Provider Source Nov 26, 2016 ADVANCE DIRECTIVE TORY WONG [facility] Encounter Notes: All associated encounter notes This section contains the clinical notes associated to the Encounter. Date/Time Encounter Note(s) Provider Source Mar 03, 2024 09:06 AM LETTERS: LOCAL TITLE: PATIENT LETTER (T) STANDARD TITLE: LETTERS DATE OF NOTE: MAR 03, 2024@09:06 ENTRY DATE: MAR 03, 2024@09:06:28 AUTHOR: YENNY CASIANO EXP COSIGNER: URGENCY: STATUS: COMPLETED PATIENT LETTER (T) Has ADDENDA DEPARTMENT [facility] Toll Free Number Primary Care Telephone Assistance can be reached at extension [phone] [facility] scheduling can be reached at extension [phone] [facility] scheduling can be reached at ext [phone] MERVIN ROSSI [address] [place] [address], [address] [place], The Referral Coordination Team at [facility] has attempted to contact you on 03.03.2024 to discuss a Gastroenterology referral that was requested by your healthcare provider. We would appreciate hearing from you so that we can assist in coordinating this care. Please call MARIE Carrillo,RN-BC at [phone] Ext [phone] at your earliest convenience. It's important that [...] 03/07/2024 10:04 Sincerely, Your Primary Care Team [facility] [address] [address] [place] [address] [phone] [facility] [address] [place] [address] [place] [address] [facility] 403 [facility],[address]st Floor [address] [place] [phone] [place] [address] YENNY CASIANO ID [facility]L [facility]
== END 2024-06-13 14:53 | disposition home or self-care (01) ==
LOC: HO.BBR 14:52
PROVIDERS: Visit Provider Internal Medicine Gastroenterology
DX: Z13.89 Encounter for screening for other disorder (principal)

== ENCOUNTER 2024-06-20 15:41 | Outpatient (REF) | payer OTHER, SELFPAY ==
--- OUTSIDE RECORDS SUMMARY | 2024-06-20 18:30 | XMS_ITS | Clinical Summary ---
Author Organization 175 [facility] Address [address] [place] [address] Phone Care Team Providers Care Product Examiner Name Role Phone Farida Munroe MD Primary Care Provider [phone] Allergies No known active allergies Medications acetaminophen [...] 05/25/2024 3:15 PM EDT Office Visit Gastroenterology [facility] [address] [phone] Eric Longoria MD Esophageal dysphagia (Primary Dx); Lower esophageal ring (Schatzki) 05/19/2024 Telephone Gastroenterology [facility] [address] [phone] Eric Longoria MD Appointment 05/11/2024 10:31 AM EDT Anesthesia Event [facility] Endoscopy [address] [place] [phone] Augustine Causey MD 05/11/2024 9:33 AM EDT - 05/11/2024 11:59 PM EDT Hospital Encounter [facility] Endoscopy [address] [place] [phone] Eric Longoria MD Couture, Alison, CRNA Spencer, Mark A, MD Esophageal dysphagia Discharge Disposition: Home or Self Care 05/02/2024 11:00 AM EST Consult Gastroenterology [facility] [address] [place] [address] [address] Eric Longoria MD Esophageal dysphagia [...] Procedure Name Priority Date/Time Associated Diagnosis Comments EXTERNAL CLINICAL LAB 06/13/2024 EGD Routine 05/11/2024 10:49 AM EDT Esophageal dysphagia TISSUE EXAM Routine 05/11/2024 10:46 AM EDT Esophageal dysphagia EXTERNAL CLINICAL LAB 04/21/2024 from Last 3 Months Results * External clinical lab (06/13/2024) Only the most recent of2 resultswithin the time period is included. us Provider [facility] BLOOD ORDERABLES Fin al Result * EGD Anesthesia - MAC; [facility] ENDOSCOPY (05/11/2024 10:49 AM EDT) Anatomical Region Laterality Modality Other 05/11/2024 10:3 4 AM EDT Impressions 05/11/2024 10:51 AM EDT - Small hiatal hernia. ? - Mild Schatzki ring. Biopsied. ? - Mild Schatzki ring. Dilated. Recommendation: ?- Observe patient's clinical course. ? - Await pathology results. Narrative 05/11/2024 10:51 AM EDT [facility] GI Patient Name: Braxton Mcdonald [...] Procedure Code(s): ? --- Professional --- ? 47427, Esophagogastroduodenoscopy, flexible, ? transoral; with transendoscopic balloon dilation of ? esophagus (less than 30 mm diameter) ? 73531, 59, Esophagogastroduodenoscopy, flexible, ? transoral; with biopsy, single or multiple Diagnosis Code(s): ? --- Professional --- ? K44.9, Diaphragmatic hernia without obstruction or ? gangrene ? K22.2, Esophageal obstruction ? R13.10, Dysphagia, unspecified CPT copyright 202 [employer]. All rights reserved. The codes documented in this report are preliminary and upon fire tower keeper review may be revised to meet current compliance requirements. Eric Longoria MD 05/11/2024 10:50:49 AM This report has been signed electronically.Eric Longoria MD Number of Addenda: 0 Note Initiated On: 05/11/2024 10:34 AM Scope In: Scope Out: ? Endoscopy Department at [facility] - [address] [place] [address], ? [place] [address] Procedure Note Eric Longoria MD - 05/11/2024 [facility] GI Patient Name: Braxton Mcdonald [...] loss wasminimal. Procedure Code(s): --- Professional --- 76818, Esophagogastroduodenoscopy, flexible, transoral; with transendoscopic balloon dilation of esophagus (less than 30 mm diameter) 15839, 59, Esophagogastroduodenoscopy, flexible, transoral; with biopsy, single or multiple Diagnosis Code(s): --- Professional --- K44.9, Diaphragmatic hernia without obstruction or gangrene K22.2, Esophageal obstruction R13.10, Dysphagia, unspecified CPT copyright 2020 [employer]. All rights reserved. The codes documented in this report are preliminary and upon fire tower keeper reviewmay be revised to meet current compliance requirements. Eric Longoria MD 05/11/2024 10:50:49 AM This report has been signed electronically.Eric Longoria MD Number of Addenda: 0 Note Initiated On: 05/11/2024 10:34 AM Scope In: Scope Out: Endoscopy Department at [facility] - [address] [place] [phone] IMPRESSION: - Small hiatal hernia. - Mild [...] and reactive changes. 05/12/2024 10:[address] [facility] Comment These findings are nonspecific but are compatible with GERD in the correct clinical setting. 05/12/2024 10:[address] [facility] Gross Description A. Esophagus, distal biopsies: [...] one slide. JOHNSON 05/12/2024 10:[address] [facility] Disclaimer Unless otherwise specified, all tissue is 10% NB formalin fixed and paraffin embedded. 05/12/2024 10:[address] [facility] Tissue Esophageal structure / Unknown 05/11/2024 10:46 AM EDT 05/11/2024 12:08 PM EDT Tissue specimen (specimen) Esophageal structure / Unknown 05/11/2024 10:47 AM EDT 05/11/2024 12:08 PM EDT us Eric Longoria MD LAB PATHOLOGY ORDERABLES Final R esult [facility] [address] [place] [address], from Last 3 Months Insurance [facility] Advance Directives * Full Code - Default [...] currently active code status orders. Care Teams Product Examiner Relationship Specialty Start Date End Date Farida Munroe MD [address] [place] [address] PCP - General Internal Medicine 03/06/24
--- OUTSIDE RECORDS SUMMARY | 2024-06-20 18:30 | XMS_ITS | Continuity of Care Document ---
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 [place] 05/11/2024: small hiatal hernia, mild schatzki ring found at the gastroesophageal junction. [facility] Diagnosis: ICD-10-CM F52.21 Male erectile disorder Active Diagnosis [facility] Diagnosis: ICD-10-CM M70.70 Other bursitis of hip, unspecified hip Active Diagnosis [facility] Diagnosis: ICD-10-CM E78.5 Hyperlipidemia, unspecified Active Diagnosis [facility] Diagnosis: ICD-10-CM K03.6 Deposits [accretions] on teeth Active Diagnosis [facility] Diagnosis: ICD-10-CM Z87.820 Personal history of traumatic brain injury Active [facility] Diagnosis: ICD-10-CM K08.9 Disorder of teeth and supporting structures, unspecified Active [facility] Diagnosis: ICD-10-CM Z46.0 Encounter for fit/adjst of spectacles and contact lenses [facility] Diagnosis: ICD-10-CM H52.4 Presbyopia Active [facility] Medications Combined list of outpatient medications from [...] TIMES DAILY NEEDED FOR PAIN ORAL 03/29/2024 [id number] 4 TENISHA WHITESIDE SA 2023 200 [place] CARBOXYMETH YLCELLULOSE NA 0.5% SOLN,OPH INSTILL 1 DROP INTO EACH EYE FOUR TIMES A DAY OPHTHA LMIC 08/29/2023 [id number] 4 KSENIA ROTHMAN 2022 45 [facility] CHOLECALCIF VADIM 25MCG (1,000UNIT) TAB TAKE ONE TABLET BY MOUTH ONCE DAILY FOR VITAMIN SUPPLEME NTATION ORAL SUSPEND ED 03/29/2025 [id number] 5 TENISHA WHITEISDE SA 2024 90 [place] CHOLECALCIF VADIM 25MCG (1,000UNIT) TAB TAKE ONE TABLET BY MOUTH ONCE DAILY FOR VITAMIN SUPPLEME NTATION ORAL 04/02/2023 [id number] 4 TENISHA WHITESIDE SA 2023 30 [place] DULOXETINE HCL 60MG CAP,EC TAKE ONE CAPSULE BY MOUTH ONCE DAILY ORAL 03/29/2024 [id number] 4 TENISHA WHITESIDE SA 2023 90 [place] FAMOTIDINE 20MG TAB TAKE ONE TABLET BY MOUTH TWICE DAILY FOR HEARTBUR N ORAL SUSPEND ED 05/16/2025 [id number] 5 TENISHA WHITESIDE SA 2024 180 [place] FAMOTIDINE 20MG TAB TAKE ONE TABLET BY MOUTH TWICE DAILY FOR HEARTBUR N ORAL DISCONT INUED 10/28/2024 [id number] 4 TENISHA WHITESIDE SA 2023 180 [facility] FLUTICASONE PROPIONATE 50MCG/SPRAY SOLN,NASAL, 16GM INSTILL 2 SPRAYS INTO EACH NOSTRIL EVERY EVENING FOR NASAL IRRITATI ON/INFLA MMATION NASAL SUSPEND ED 05/16/2025 [id number] 5 TENISHA WHITESIDE SA 2024 3 [place] FLUTICASONE PROPIONATE 50MCG/SPRAY SOLN,NASAL, 16GM INSTILL 2 SPRAYS INTO EACH NOSTRIL EVERY EVENING FOR NASAL IRRITATI ON/INFLA MMATION NASAL DISCONT INUED 08/31/2024 [id number] 4 Ephraim HUDSON 2023 3 [place] FLUTICASONE PROPIONATE 50MCG/SPRAY SOLN,NASAL, 16GM INSTILL 2 SPRAYS INTO EACH NOSTRIL EVERY EVENING FOR NASAL IRRITATI ON/INFLA MMATION NASAL DISCONT INUED 04/27/2024 [id number] TENISHA WHITESIDE SA 2023 3 [place] FLUTICASONE PROPIONATE 50MCG/SPRAY SOLN,NASAL, 16GM INSTILL 2 SPRAYS INTO EACH NOSTRIL EVERY EVENING FOR NASAL IRRITATI ON/INFLA MMATION NASAL DISCONT INUED 03/29/2024 [id number] 4 TENISHA WHITESIDE SA 2023 1 [place] LIDOCAINE 5% PATCH APPLY 2 PATCHES TOPICALL Y EVERY 24 HOURS NEEDED FOR NERVE PAIN (LEAVE PATCH ON FOR 12 HOURS, THEN REMOVE PATCH) FOR LOWER BACK TOPICA L ACTIVE 12/28/2024 [id number] 5 TENISHA WHITESIDE SA 2023 60 [facility] LIDOCAINE 5% PATCH APPLY 2 PATCHES TOPICALL Y EVERY 12 HOURS NEEDED FOR NERVE PAIN (LEAVE PATCH ON FOR 12 HOURS, THEN REMOVE PATCH) FOR LOWER BACK TOPICA L DISCONT INUED 03/29/2024 [id number] 4 TENISHA WHITESIDE SA 2023 60 [place] LIDOCAINE 5% PATCH APPLY 2 PATCHES TOPICALL Y EVERY 12 HOURS NEEDED FOR NERVE PAIN (LEAVE PATCH ON FOR 12 HOURS, THEN REMOVE PATCH) FOR LOWER BACK TOPICA L DISCONT INUED (EDIT) 12/21/2024 [id number] 4 TENISHA WHITESIDE SA 2023 60 [facility] LIDOCAINE 5% PATCH APPLY 1 PATCH TOPICALL Y EVERY 12 HOURS NEEDED (LEAVE PATCH ON FOR 12 HOURS, THEN REMOVE PATCH) FOR LOWER BACK TOPICA L DISCONT INUED (EDIT) 12/10/2023 [id number] 4 TENISHA WHITESIDE SA 2022 30 [facility] LORATADINE 10MG TAB TAKE ONE TABLET BY MOUTH ONCE DAILY FOR ALLERGY ORAL 03/29/2024 [id number] 4 TENISHA WHITESIDE SA 2023 90 [place] NAPROXEN 500MG TAB TAKE ONE TABLET BY MOUTH TWICE DAILY FOR PAIN TAKE WITH FOOD ORAL SUSPEND ED 05/16/2025 [id number] 5 TENISHA WHITESIDE SA 2024 180 [place] NAPROXEN 500MG TAB TAKE ONE TABLET BY MOUTH TWICE DAILY FOR PAIN TAKE WITH FOOD ORAL DISCONT INUED 12/21/2024 [id number] 5 TENISHA WHITESIDE SA 2024 180 [facility] NAPROXEN 500MG TAB TAKE ONE TABLET BY MOUTH TWICE DAILY FOR PAIN TAKE WITH FOOD ORAL DISCONT INUED 08/31/2024 [id number] 4 Ephraim HUDSON 2023 180 [place] NAPROXEN 500MG TAB TAKE ONE TABLET BY MOUTH TWICE DAILY FOR PAIN TAKE WITH FOOD ORAL DISCONT INUED 03/29/2024 [id number] 4 TENISHA WHITESIDE SA 2023 180 [place] OMEPRAZOLE 20MG CAP,EC TAKE ONE CAPSULE BY MOUTH TWICE DAILY FOR HEARTBUR N ORAL DISCONT INUED BY PROVIDE R 08/31/2024 [id number] 4 Ephraim HUDSON 2023 180 [place] OMEPRAZOLE 20MG CAP,EC TAKE ONE CAPSULE BY MOUTH TWICE DAILY FOR HEARTBUR N ORAL DISCONT INUED 03/29/2024 [id number] 4 TENISHA WHITESIDE SA 2023 180 [place] SILDENAFIL CITRATE 100MG TAB TAKE ONE TABLET BY MOUTH ONCE DAILY NEEDED TAKE 1 HOUR PRIOR TO SEXUAL ACTIVITY ORAL DISCONT INUED BY PROVIDE R 12/21/2024 [id number] 5 TENISHA WHITESIDE SA 2023 6 [facility] SILDENAFIL CITRATE 100MG TAB TAKE ONE TABLET BY MOUTH ONCE DAILY NEEDED TAKE 1 HOUR PRIOR TO SEXUAL ACTIVITY ORAL DISCONT INUED 03/29/2024 [id number] 4 TENISHA WHITESIDE SA 2023 6 [place] SODIUM FLUORIDE 1.1% TOOTHPASTE BRUSH SMALL AMOUNT TO TEETH TWICE DAILY FOR TOOTH DECAY PREVENTI ON DENTAL 12/11/2023 [id number] 4 ИВАН CARCAMO 2022 51 [facility] TADALAFIL 10MG TAB TAKE ONE TABLET BY MOUTH ONCE DAILY NEEDED FOR ERECTILE DYSFUNCT ION ORAL SUSPEND ED 06/02/2025 [id number] 5 TENISHA WHITESIDE SA 2024 18 [place] TAMSULOSIN HCL 0.4MG CAP TAKE ONE CAPSULE BY MOUTH AT BEDTIME FOR ENLARGED PROSTATE ORAL SUSPEND ED 05/26/2025 [id number] KAMILLA KHAN 2024 90 [facility] TRAZODONE HCL 100MG TAB TAKE TWO TABLETS BY MOUTH AT BEDTIME FOR INSOMNIA ASSOCIAT ED WITH DEPRESSI ON ORAL SUSPEND ED 05/16/2025 [id number] 5 TENISHA WHITESIDE SA 2024 180 [place] TRAZODONE HCL 100MG TAB TAKE ONE AND ONE-HALF TABLETS BY MOUTH AT BEDTIME FOR INSOMNIA ASSOCIAT ED WITH DEPRESSI ON ORAL DISCONT INUED (EDIT) 12/21/2024 [id number] 5 TENISHA WHITESIDE SA 2024 135 [facility] TRAZODONE HCL 100MG TAB TAKE ONE AND ONE-HALF TABLETS BY MOUTH AT BEDTIME FOR INSOMNIA ASSOCIAT ED WITH DEPRESSI ON ORAL DISCONT INUED 08/31/2024 [id number] 4 Ephraim HUDSON A 2023 135 [place] TRAZODONE HCL 100MG TAB TAKE ONE AND ONE-HALF TABLETS BY MOUTH AT BEDTIME FOR INSOMNIA ASSOCIAT ED WITH DEPRESSI ON ORAL DISCONT INUED 03/29/2024 [id number] 4 TENISHA WHITESIDE SA 2023 135 [place] Immunizations Combined list of available immunizations from the Department of Defense and Veterans Affairs facilities. Immunization Series Date Given Administered By Site Reaction Lot Number CVX Code Drug Command And Control Status Comments Source TDAP 2014 115 complet ed per [facility] TD(ADULT) UNSPECIFIED FORMULATION 2012 139 complet ed emergency room [facility] Results Combined list [...] Mar 17, 2024 02:18 PM Reporting Lab: [facility] [address] [address] Performing Lab: [facility] [address] [address] [facility] [place] [facility] LIPID PANEL FASTING TRIGLYCERI DE [MASS/VOLU ME] IN SERUM OR PLASMA 58 mg/dL 0 - 150 03/27 Specimen Type: SERUM No comment entered. Ordering Provider: GAGAN WHITESIDE Report Released Date/Time: Mar 17, 2024 02:18 PM Reporting Lab: [facility] [place] [facility] [address] [facility] [address] Performing Lab: [facility] [place] [facility] [address] [facility] [address] [facility] [place] [facility] LIPID PANEL FASTING CHOLESTERO L IN LDL [MASS/VOLU ME] IN SERUM OR PLASMA BY CALCULATIO N 163 mg/dL 0 - 129 03/27 H Specimen Type: SERUM No comment entered. Ordering Provider: GAGAN WHITESIDE Report Released Date/Time: Mar 17, 2024 02:18 PM Reporting Lab: [facility] [place] [address] [address] Performing Lab: [facility] [place] [facility] [address] [facility] [address] [facility] [place] [facility] LIPID PANEL FASTING CHOLESTERO L.TOTAL/CH OLESTEROL IN HDL [MASS RATIO] IN SERUM OR PLASMA 5.2 03/27 Specimen Type: SERUM No comment entered. Ordering Provider: GAGAN WHITESIDE Report Released Date/Time: Mar 17, 2024 02:18 PM Reporting Lab: [facility] [place] [address] [address] Performing Lab: [facility] [place] [facility] [address] [facility] [address] [facility] LIPID PANEL FASTING CHOLESTERO L IN HDL [MASS/VOLU ME] IN SERUM OR PLASMA 42 mg/dL 40 - 60 03/27 Specimen Type: SERUM No comment entered. Ordering Provider: GAGAN WHITESIDE Report Released Date/Time: Mar 17, 2024 02:18 PM Reporting Lab: [facility] [place] [facility] [address] [facility] [address] Performing Lab: [facility] [place] [facility] [address] [facility] [address] [facility] PSA PROSTATE SPECIFIC AG [MASS/VOLU ME] IN SERUM OR PLASMA 2.13 ng/mL 0.00 - 4.00 03/27 Specimen Type: SERUM No comment entered. Ordering Provider: GAGAN WHITESIDE Report Released Date/Time: Mar 17, 2024 02:18 PM Reporting Lab: [facility] [place] [facility] [address] [facility] [address] Performing Lab: [facility] [place] [facility] [address] [facility] [address] [place] [facility] [place] [facility] LIVER FUNCTION PROTEIN [MASS/VOLU ME] IN SERUM OR PLASMA 6.9 g/dL 6.0 - 8.3 03/27 Specimen Type: SERUM No comment entered. Ordering Provider: GAGAN WHITESIDE Report Released Date/Time: Mar 17, 2024 02:18 PM Reporting Lab: [facility] [place] [address] [address] Performing Lab: [facility] [place] [facility] [address] [facility] [address] [facility] [place] [facility] LIVER FUNCTION ALBUMIN [MASS/VOLU ME] IN SERUM OR PLASMA 4.0 g/dL 3.5 - 5.0 03/27 Specimen Type: SERUM No comment entered. Ordering Provider: GAGAN WHITESIDE Report Released Date/Time: Mar 17, 2024 02:18 PM Reporting Lab: [facility] [place] [address] [address] Performing Lab: [facility] [place] [address] [address] [facility] [place] [facility] LIVER FUNCTION ALKALINE PHOSPHATAS E [ENZYMATIC ACTIVITY/V OLUME] IN SERUM OR PLASMA 42 U/L 40 - 150 03/27 Specimen Type: SERUM No comment entered. Ordering Provider: GAGAN WHITESIDE Report Released Date/Time: Mar 17, 2024 02:18 PM Reporting Lab: [facility] [place] [address] [address] Performing Lab: [facility] [place] [facility] [address] [facility] [address] [facility] [place] [facility] LIVER FUNCTION ASPARTATE AMINOTRANS FERASE [ENZYMATIC ACTIVITY/V OLUME] IN SERUM OR PLASMA 12 U/L 5 - 34 03/27 Specimen Type: SERUM No comment entered. Ordering Provider: GAGAN WHITESIDE Report Released Date/Time: Mar 17, 2024 02:18 PM Reporting Lab: [facility] [place] [facility] [address] [facility] [address] Performing Lab: [facility] [place] [facility] [address] [facility] [address] [facility] [place] [facility] LIVER FUNCTION ALANINE AMINOTRANS FERASE [ENZYMATIC ACTIVITY/V OLUME] IN SERUM OR PLASMA 16 U/L 03/27 Specimen Type: SERUM No comment entered. Ordering Provider: GAGAN WHITESIDE Report Released Date/Time: Mar 17, 2024 02:18 PM Reporting Lab: [facility] [place] [facility] [address] [facility] [address] Performing Lab: [facility] [place] [facility] [address] [facility] [address] [facility] [place] [facility] LIVER FUNCTION BILIRUBIN. TOTAL [MASS/VOLU ME] IN SERUM OR PLASMA 0.6 mg/dL 0.2 - 1.2 03/27 Specimen Type: SERUM No comment entered. Ordering Provider: GAGAN WHITESIDE Report Released Date/Time: Mar 17, 2024 02:18 PM Reporting Lab: [facility] [place] [facility] [address] [facility] [address] Performing Lab: [facility] [place] [facility] [address] [facility] [address] [facility] [place] [facility] BASIC METABOLI C PANEL (fasting ) UREA NITROGEN [MASS/VOLU ME] IN SERUM OR PLASMA 23 mg/dL 7 - 25 03/27 Specimen Type: SERUM No comment entered. Ordering Provider: AGGAN WHITESIDE Report Released Date/Time: Mar 17, 2024 02:18 PM Reporting Lab: [facility] [place] [facility] [address] [facility] [address] Performing Lab: [facility] [place] [facility] [address] [facility] [address] [facility] [place] [facility] BASIC METABOLI C PANEL (fasting ) GLUCOSE [MASS/VOLU ME] IN SERUM OR PLASMA 103 mg/dL 65 - 100 03/27 H Specimen Type: SERUM No comment entered. Ordering Provider: GAGAN WHITESIDE Report Released Date/Time: Mar 17, 2024 02:18 PM Reporting Lab: [facility] [place] [facility] [address] [facility] [address] Performing Lab: [facility] [place] [facility] [address] [facility] [address] [facility] BASIC METABOLI C PANEL (fasting ) SODIUM [MOLES/VOL UME] IN SERUM OR PLASMA 137 mmol/L 135 - 145 03/27 Specimen Type: SERUM No comment entered. Ordering Provider: GAGAN WHITESIDE Report Released Date/Time: Mar 17, 2024 02:18 PM Reporting Lab: [facility] [place] [facility] [address] [facility] [address] Performing Lab: [facility] [place] [facility] [address] [facility] [address] [facility] BASIC METABOLI C PANEL (fasting ) POTASSIUM [MOLES/VOL UME] IN SERUM OR PLASMA 4.7 mmol/L 3.5 - 5.0 03/27 Specimen Type: SERUM No comment entered. Ordering Provider: GAGAN WHITESIDE Report Released Date/Time: Mar 17, 2024 02:18 PM Reporting Lab: [facility] [place] [facility] [address] [facility] [address] Performing Lab: [facility] [facility] [address] [facility] [address] [facility] [place] [facility] BASIC METABOLI C PANEL (fasting ) CHLORIDE [MOLES/VOL UME] IN SERUM OR PLASMA 108 mmol/L 100 - 110 03/27 Specimen Type: SERUM No comment entered. Ordering Provider: GAGAN WHITESIDE Report Released Date/Time: Mar 17, 2024 02:18 PM Reporting Lab: [facility] [place] [address] [address] Performing Lab: [facility] [facility] [address] [facility] [address] [facility] [facility] BASIC METABOLI C PANEL (fasting ) CARBON DIOXIDE, TOTAL [MOLES/VOL UME] IN SERUM OR PLASMA 22 meq/L 20 - 30 03/27 Specimen Type: SERUM No comment entered. Ordering Provider: GAGAN WHITESIDE Report Released Date/Time: Mar 17, 2024 02:18 PM Reporting Lab: [facility] [place] [address] [address] Performing Lab: [facility] [address] [address] [facility] BASIC METABOLI C PANEL (fasting ) CREATININE [MASS/VOLU ME] IN SERUM OR PLASMA 1.35 mg/dL 0.50 - 1.40 03/27 Specimen Type: SERUM No comment entered. Ordering Provider: GAGAN WHITESIDE Report Released Date/Time: Mar 17, 2024 02:18 PM Reporting Lab: [facility] [place] [address] [address] Performing Lab: [facility] [place] [address] [address] [facility] BASIC METABOLI C PANEL (fasting ) GLOMERULAR FILTRATION RATE/1.73 SQ M.PREDICTE D [VOLUME RATE/AREA] IN SERUM, PLASMA OR BLOOD BY CREATININE -BASED FORMULA (CKD-EPI 2020) 62 mL/min 60 03/27 Specimen Type: SERUM No comment entered. Ordering Provider: GAGAN WHITESIDE Report Released Date/Time: Mar 17, 2024 02:18 PM Reporting Lab: [facility] [place] [address] [address] Performing Lab: [facility] [address] [address] [facility] [place] [facility] TSH THYROTROPI N [UNITS/VOL UME] IN SERUM OR PLASMA 1.20 u[IU]/mL 0.35 - 5.00 03/27 Specimen Type: SERUM No comment entered. Ordering Provider: GAGAN WHITESIDE Report Released Date/Time: Mar 17, 2024 02:18 PM Reporting Lab: [facility] [facility] [address] [facility] [address] Performing Lab: [facility] [place] [facility] [address] [facility] [address] [facility] [place] [facility] HEMOGLOB IN A1C PANEL HEMOGLOBIN A1C/HEMOGL [...] Mar 17, 2024 02:18 PM Reporting Lab: [facility] [address] [facility] [address] Performing Lab: [facility]N [facility] [address] [facility] CBC AND DIFF (AUTO) LEUKOCYTES [#/VOLUME] IN BLOOD BY AUTOMATED COUNT 6.51 10*3/uL 4.50 - 11.00 03/27 Specimen Type: BLOOD No comment entered. Ordering Provider: GAGAN WHITESIDE Report Released Date/Time: Mar 17, 2024 02:18 PM Reporting Lab: [facility] [address] [facility] [address] Performing Lab: [facility]ITALRINFIRMARY WESTN [facility] [address] [facility]ITAL[facility] WESTN [facility] CBC AND DIFF (AUTO) ERYTHROCYT ES [#/VOLUME] IN BLOOD BY AUTOMATED COUNT 6.31 10*6/uL 4.23 - 5.66 03/27 H Specimen Type: BLOOD No comment entered. Ordering Provider: GAGAN WHITESIDE Report Released Date/Time: Mar 17, 2024 02:18 PM Reporting Lab: [facility] [place] [address] [address] Performing Lab: [facility] [place] [facility] [address] [facility] [address] [facility] [place] [facility] CBC AND DIFF (AUTO) HEMOGLOBIN [MASS/VOLU ME] IN BLOOD 16.4 g/dL 12.8 - 17 03/27 Specimen Type: BLOOD No comment entered. Ordering Provider: GAGAN WHITESIDE Report Released Date/Time: Mar 17, 2024 02:18 PM Reporting Lab: [facility] [place] [place] [address] [address] Performing Lab: [place] [facility] [place] [address] [address] [facility] [facility] CBC AND DIFF (AUTO) HEMATOCRIT [VOLUME FRACTION] OF BLOOD BY AUTOMATED COUNT 51.2 39.2 - 50.4 03/27 H Specimen Type: BLOOD No comment entered. Ordering Provider: GAGAN WHITESIDE Report Released Date/Time: Mar 17, 2024 02:18 PM Reporting Lab: [facility] [place] [address] [address] Performing Lab: [place] [facility] [place] [address] [address] [facility] [place] [facility] CBC AND DIFF (AUTO) MCV [ENTITIC VOLUME] BY AUTOMATED COUNT 81.1 fL 82 - 99 03/27 L Specimen Type: BLOOD No comment entered. Ordering Provider: GAGAN WHITESIDE Report Released Date/Time: Mar 17, 2024 02:18 PM Reporting Lab: [facility] [place] [address] [address] Performing Lab: [facility] [place] [facility] [address] [facility] [address] [facility] [place] [facility] CBC AND DIFF (AUTO) MCHC [MASS/VOLU ME] BY AUTOMATED COUNT 32.0 g/dL 30.8 - 35.1 03/27 Specimen Type: BLOOD No comment entered. Ordering Provider: GAGAN WHITESIDE Report Released Date/Time: Mar 17, 2024 02:18 PM Reporting Lab: [facility] [place] [facility] [address] [facility] [address] Performing Lab: [facility] [place] [facility] [address] [facility] [address] [place] [facility] [place] [facility] CBC AND DIFF (AUTO) PLATELETS [#/VOLUME] IN BLOOD BY AUTOMATED COUNT 242 10*3/uL 140 - 360 03/27 Specimen Type: BLOOD No comment entered. Ordering Provider: GAGAN WHITESIDE Report Released Date/Time: Mar 17, 2024 02:18 PM Reporting Lab: [facility] [place] [address] [address] Performing Lab: [facility] [place] [facility] [address] [facility] [address] [place] [facility] [place] [facility] CBC AND DIFF (AUTO) ERYTHROCYT E DISTRIBUTI ON WIDTH [RATIO] BY AUTOMATED COUNT 15.0 12.0 - 16.0 03/27 Specimen Type: BLOOD No comment entered. Ordering Provider: GAGAN WHITESIDE Report Released Date/Time: Mar 17, 2024 02:18 PM Reporting Lab: [facility] [place] [facility] [address] [facility] [address] Performing Lab: [facility] [place] [facility] [address] [facility] [address] [facility] [place] [facility] CBC AND DIFF (AUTO) MONOCYTES [#/VOLUME] IN BLOOD BY AUTOMATED COUNT 0.66 10*3/uL 0.30 - 1.10 03/27 Specimen Type: BLOOD No comment entered. Ordering Provider: GAGAN WHITESIDE Report Released Date/Time: Mar 17, 2024 02:18 PM Reporting Lab: [facility] [place] [facility] [address] [facility] [address] Performing Lab: [facility] [place] [facility] [address] [facility] [address] [facility] [place] [facility] CBC AND DIFF (AUTO) MCH [ENTITIC MASS] BY AUTOMATED COUNT 26.0 pg 26.2 - 32.6 03/27 L Specimen Type: BLOOD No comment entered. Ordering Provider: GAGAN WHITESIDE Report Released Date/Time: Mar 17, 2024 02:18 PM Reporting Lab: [facility] [place] [facility] [address] [facility] [address] Performing Lab: [facility] [place] [facility] [address] [facility] [address] [facility] [place] [facility] CBC AND DIFF (AUTO) NEUTROPHIL S/100 LEUKOCYTES IN BLOOD BY AUTOMATED COUNT 58.4 43.7 - 75.8 03/27 Specimen Type: BLOOD No comment entered. Ordering Provider: GAGAN WHITESIDE Report Released Date/Time: Mar 17, 2024 02:18 PM Reporting Lab: [facility] [place] [facility] [address] [facility] [address] Performing Lab: [facility] [place] [facility] [address] [facility] [address] [facility] [place] [facility] CBC AND DIFF (AUTO) LYMPHOCYTE S/100 LEUKOCYTES IN BLOOD BY AUTOMATED COUNT 25.8 14.0 - 42.3 03/27 Specimen Type: BLOOD No comment entered. Ordering Provider: GAGAN WHITESIDE Report Released Date/Time: Mar 17, 2024 02:18 PM Reporting Lab: [facility] [place] [facility] [address] [facility] [address] Performing Lab: [facility] [place] [facility] [address] [facility] [address] [facility] [place] [facility] CBC AND DIFF (AUTO) MONOCYTES/ 100 LEUKOCYTES IN BLOOD BY AUTOMATED COUNT 10.1 5.1 - 13.7 03/27 Specimen Type: BLOOD No comment entered. Ordering Provider: GAGAN [facility] Report Released Date/Time: Mar 17, 2024 02:18 PM Reporting Lab: [facility] [address] [facility] [address] Performing Lab: [facility] [address] [facility] [address] [facility] CBC AND DIFF (AUTO) EOSINOPHIL S/100 LEUKOCYTES IN BLOOD BY AUTOMATED COUNT 4.0 0.4 - 6.8 03/27 Specimen Type: BLOOD No comment entered. Ordering Provider: GAGAN WHITESIDE Report Released Date/Time: Mar 17, 2024 02:18 PM Reporting Lab: [facility] [address] [facility] [address] Performing Lab: [facility] [address] [facility] [address] [facility] CBC AND DIFF (AUTO) BASOPHILS/ 100 LEUKOCYTES IN BLOOD BY AUTOMATED COUNT 1.4 0.1 - 2.0 03/27 Specimen Type: BLOOD No comment entered. Ordering Provider: GAGAN WHITESIDE Report Released Date/Time: Mar 17, 2024 02:18 PM Reporting Lab: [facility] [address] [facility] [address] Performing Lab: [facility] [address] [facility] [address] [facility] CBC AND DIFF (AUTO) NEUTROPHIL S [#/VOLUME] IN BLOOD BY AUTOMATED COUNT 3.80 10*3/uL 2.20 - 7.60 03/27 Specimen Type: BLOOD No comment entered. Ordering Provider: GAGAN WHITESIDE Report Released Date/Time: Mar 17, 2024 02:18 PM Reporting Lab: [facility] [address] [facility] [address] Performing Lab: [facility] [address] [facility] [address] [facility] CBC AND DIFF (AUTO) LYMPHOCYTE S [#/VOLUME] IN BLOOD BY AUTOMATED COUNT 1.68 10*3/uL 1.00 - 3.20 03/27 Specimen Type: BLOOD No comment entered. Ordering Provider: GAGAN WHITESIDE Report Released Date/Time: Mar 17, 2024 02:18 PM Reporting Lab: [facility] [address] [facility] [address] Performing Lab: [facility] [address] [facility] [address] [facility] CBC AND DIFF (AUTO) EOSINOPHIL S [#/VOLUME] IN BLOOD BY AUTOMATED COUNT 0.26 10*3/uL 0.03 - 0.44 03/27 Specimen Type: BLOOD No comment entered. Ordering Provider: GAGAN [facility]IT[facility]IDE Report Released Date/Time: Mar 17, 2024 02:18 PM Reporting Lab: [facility] [address] [address] Performing Lab: [facility] [address] [facility] [address] [facility] CBC AND DIFF (AUTO) BASOPHILS [#/VOLUME] IN BLOOD BY AUTOMATED COUNT 0.09 10*3/uL 0.01 - 0.13 03/27 Specimen Type: BLOOD No comment entered. Ordering Provider: GAGAN WHITESIDE Report Released Date/Time: Mar 17, 2024 02:18 PM Reporting Lab: [facility] [address] [address] Performing Lab: [facility] [address] [facility] [address] [facility] CBC AND DIFF (AUTO) IMMATURE GRANULOCYT ES/100 LEUKOCYTES IN BLOOD BY AUTOMATED COUNT 0.3 0.0 - 0.7 03/27 Specimen Type: BLOOD No comment entered. Ordering Provider: GAGAN WHITESIDE Report Released Date/Time: Mar 17, 2024 02:18 PM Reporting Lab: [facility] [address] [address] Performing Lab: [facility] [address] [address] [facility] CBC AND DIFF (AUTO) IMMATURE GRANULOCYT ES [#/VOLUME] IN BLOOD 0.02 10*3/uL 0.00 - 0.06 03/27 Specimen Type: BLOOD No comment entered. Ordering Provider: GAGAN WHITESIDE Report Released Date/Time: Mar 17, 2024 02:18 PM Reporting Lab: [facility] [address] [facility] [address] Performing Lab: [facility] [address] [facility] [address] [facility] CBC AND DIFF (AUTO) NRBC % 0.0 0.0 - 0.0 03/27 Specimen Type: BLOOD No comment entered. Ordering Provider: GAGAN WHITESIDE Report Released Date/Time: Mar 17, 2024 02:18 PM Reporting Lab: [facility] [address] [address] Performing Lab: [facility] [address] [address] [facility] CBC AND DIFF (AUTO) NRBC, ABS 0.00 10*3/uL 0.00 - 0.00 03/27 Specimen Type: BLOOD No comment entered. Ordering Provider: GAGAN WHITESIDE Report Released Date/Time: Mar 17, 2024 02:18 PM Reporting Lab: [facility] [address] [address] Performing Lab: [facility] [address] [address] [facility] H PYLORI ANTIBODY HELICOBACT ER PYLORI IGG AB [PRESENCE] IN SERUM NEGATIVE 03/10 Specimen Type: SERUM No comment entered. Ordering Provider: GAGAN WHITESIDE Report Released Date/Time: Mar 10, 2024 12:50 PM Reporting Lab: [facility] [place] [facility] [address] [facility] [address] Performing Lab: [facility] [place] [facility] [address] [facility] [address] [facility] OCCULT BLOOD FIT X1 SCREEN (MFP ONLY) HEMOGLOBIN .GASTROINT ESTINAL.LO WER [PRESENCE] IN STOOL BY IMMUNOASSA Y Negative 02/23 Specimen Type: FECES No comment entered. Ordering Provider: GAGAN WHITESIDE Report Released Date/Time: Jan 31, 2024 11:07 AM Reporting [facility] [place] [facility] [address] [facility] [address] Performing Lab: [facility] [place] [facility] [address] [facility] [address] [place] [facility] HEPATITI S B SURFACE ANTIBODY (HBsAb)- WH HEPATITIS B VIRUS SURFACE AB [PRESENCE] IN SERUM BY IMMUNOASSA Y REACTIVE 03/23 Specimen Type: SERUM Comment: A 'Reactive' result indicates HBsAb results >/= 12.0 mIU/mL and immunity to HBV infection. Ordering Provider: GAGAN WHITESIDE Report Released Date/Time: Mar 19, 2023 01:13 PM Reporting [facility] [place] [facility] [address] [facility] [address] Performing Lab: [facility] [facility] [address] [facility] [address] [facility] [place] [facility] Vital Signs Combined list of inpatient and outpatient Vital Signs from Department of Defense and Veterans Affairs, ranging from 12 months to all on record, depending upon the facility. Vital Sign Value Date Comments Source SYSTOLIC BLOOD PRESSURE 120 05/26/19 25 09:05:59 [facility] DIASTOLIC BLOOD PRESSURE 70 025 09:05:59 [facility] PAIN 3 05/25/2024 09:05:59 [facility] [place] [facility] SYSTOLIC BLOOD PRESSURE 127 05/16/19 25 14:56:27 [facility] DIASTOLIC BLOOD PRESSURE 84 025 14:56:27 [facility] [place] [facility] PULSE OXIMETRY 79 05/15/2024 14:56:27 [facility] [...] included; 2) Encounters from the Department of [facility] facilities going backup to 280 months. Location Location Details Encounter Type Encounter Number Reason For Visit Attending Provider ADM Date DC Date Status Disposition Source [facility] Out[facility]counter [id number] 12/25 [facility]counter [id number] 01/01 [facility] Out[facility] Encounter [id number] 02/25 [facility] Out[facility] Encounter [id number] 03/02 [facility] Out[facility]counter [id number] 03/19 [facility] Out[facility] Encounter [id number] 03/29 [facility] [place] OFFICE O/P EST MOD 30 MIN [id number] Diagnos is: ICD-10- CM E78.5 Hyperli pidemia , unspeci RIZWAN Sultana 03/29 [place] [facility] COMPRE OPH EXAM EST PT 1/> [id number] Diagnos is: ICD-10- CM H52.4 Presbyo james TANK HASSAN 04/06 [facility] FIT SPECTACLES MONOFOCAL [id number] Diagnos is: ICD-10- CM Z46.0 Encount er for fit/adj st of spectac les and contact lenses TANK HASSAN 04/06 [facility] Outpatient Encounter [id number] 04/07 [facility] Outpatient Encounter [id number] 04/08 [facility] CASE MGMT-ORAL HEALTH LIT [id number] Diagnos is: ICD-10- CM K03.6 Deposit s [accret ions] on teeth MYNOR,HANG RENATA K 04/08 [facility] INTRAORAL [place]IAPICAL [place] ADD [id number] Diagnos is: ICD-10- CM K08.9 Disorde r of teeth and support ing structu res, unspeci ИВАН Santos 04/08 [facility] Out[facility] Encounter [id number] 04/22 [facility] Out[facility] Encounter [id number] 06/07 [facility] Encounter [id number] 08/29 [facility] Encounter [id number] 09/20 [facility] Encounter [id number] 10/27 [facility] Out[facility] Encounter [id number] 10/27 [facility] Out[facility] Encounter [id number] 11/01 [facility] CASE MGMT-ORAL HEALTH LIT [id number] Diagnos is: ICD-10- CM K03.6 Deposit s [accret ions] on teeth MYNOR,HANG RENATA K 11/02 [facility] Out[facility] Encounter [id number] 12/19 [facility] Encounter [id number] 03/02 [facility] Out[facility] Encounter [id number] 03/08 [facility] Out[facility] Encounter [id number] 03/24 [facility] Encounter [id number] 03/27 [facility] Out[facility] Encounter [id number] 03/29 [facility] Out[facility] Encounter [id number] [facility] Out[facility] Encounter [id number] 04/04 [facility] OFFICE O/P EST MOD 30 MIN [id number] Diagnos is: ICD-10- CM Z87.820 Persona l history of traumat ic brain injury TANK HASSAN 04/25 [facility] Out[facility] Encounter [id number] 05/01 [facility] Out[facility] Encounter [id number] 05/02 [facility] CASE MGMT-ORAL HEALTH LIT [id number] Diagnos is: ICD-10- CM K03.6 Deposit s [accret ions] on teeth MYNOR,HANG RENATA K 05/02 [facility] DENTAL BITEWING FOUR IMAGES [id number] 1. Diagnos is: ICD-10- CM K03.6 Deposit s [accret ions] on teeth ASHLEY KO 05/02 [facility] Out[facility] Encounter [id number] 05/03 [facility] Out[facility] Encounter [id number] [facility] [place] OFF[place] O/P EST MOD 30 MIN [id number] 1BY. Diagnos is: ICD-10- CM E78.5 Hyperli pidemia , unspeci fied RIZWAN WHITESIDE 05/15 [place] [facility] Out[facility] Encounter [id number] [facility] Out[facility] Encounter [id number] [facility] OFFICE O/P NEW HI 60 MIN [id number] Diagnos is: ICD-10- CM M70.70 Other bursiti s of hip, unspeci fied hip Ephraim KHAN 05/25 [facility] Out[facility] En[facility] [id number] [facility] Out[facility] Encounter [id number] 05/25 [facility] Out[facility] Encounter [id number] 05/31 [facility] [place] [place] NQHP OL DIG ASSMT&MGMT 5-10 [id number] Diagnos is: ICD-10- CM F52.21 Male erectil e disorde r JAMA,TABITHA IE 05/31 [facility] [place] Social History Combined list of available smoking, tobacco, and other social history from Department of Defense and Veterans Affairs facilities. Social History Type Response Date Comment Source Tobacco smoking status [facility] NEVER USED 03/29/2023 [facility] History of tobacco use [facility]TO[facility] NEVER USED 07/15/2021 [facility] History of tobacco use [facility] NEVER USED 05[facility]16[facility] of tobacco use [place] NEVER USED 02/27/2019 [facility] History of tobacco use [facility] NEVER USED 02/14/2018 [facility] History of tobacco use QUIT TOBACCO USE > 7 YEARS AGO 10/23/2016 quit 20 years ago [facility] Plan of Care List of future care activities from [facility] facilities. Additional future care activities may be listed in the Assessment and Plan section. Date/Time Care Activity Care Activity Detail Facili ty 07/06/2024 AMBULAT[facility] - NONE [facility] Advance Directives List of completed, amended, or rescinded Advance Directives on record at [facility] facilities. An actual copy of the Directive is not included. Date Advance Directive Provider Source 11/26/2016 ADVANCE DIRECTIVE TORY WONG
--- OUTSIDE RECORDS SUMMARY | 2024-06-20 18:30 | XMS_ITS | Continuity of Care Document ---
Author Organization [facility] [address] [facility] [address] [place] [address] Phone [phone] Care Team Providers Care Dictating Transcribing Machine Servicer Name Role Phone Andrea Christina M.D. Care Team Information Recei justin [phone] Problems Active Problems Provider Date Essential hypertension Eric Craig M.D. O nset: 12/18/2021 Hemochromatosis Eric Craig M.D. Onset: 1 Social History Type Date Description Comments Sex Unknown Tobacco Use Start: Unknown Never Smoked Cigarettes ETOH Use Never used alcohol Allergies and adverse reactions Description No Known Drug Allergies Medications Active Medications SIG Qnty Indications Ordering Provider Date Amlodipine Jzaztgcs2uf Tablets 1 by mouth every day Andrea Christina M.D. Vital Signs Date Vital Result Comment 12/18/2021 10:34am BP Systolic 124 mmHg BP Diastolic 84 mmHg Heart Rate 68 /min Height 73 inches 6'1 Weight 225.00 lb BMI (Body Mass Index) 29.7 kg/m2 Results Test Acquired Date Facility Test Result H/L Range Note Osmolality, Urine Random 12/24/2021 [facility] Osmolality, Urine Random 753 MOSM/KG (50-1400 ) Osmolality, Serum 12/24/2021 [facility] Osmolality, Serum 297 MOS/KG High (280-290 ) Basic Metabolic Panel 12/24/2021 [facility] Glucose 87 mg/dL (70-99) BUN 29 mg/dL High (6-20) Creatinine 1.4 mg/dL High (0.7-1.2 ) Sodium 141 mmol/L (133-145 ) Potassium 4.5 mmol/L (3.6-5.2 ) Chloride 103 mmol/L (98-107) Bicarbonate 26 mmol/L (22-29) Anion Gap 12 (4-17) Calcium 9.6 mg/dL (8.6-10. 5) Estimated GFR Creatinine 63 ML/MIN/1.7 3M2 1 FSH 12/24/2021 [facility] FSH 2.6 MIU/ML (1.5-12. 4) 2 LH 12/24/2021 [facility] LH 7.9 MIU/ML (1.5-12. 4) 3 Free Testosterone 12/24/2021 [facility] Testosterone, Total, LC/MS 477.9 4 Percent Free Testosterone 3.27 5 Free Testosterone, Equilibrium 15.63 6 Somatomedin C 12/24/2021 [facility] Somatomedin C 175 NG/ML 7 Z Score 0.5 8 Cortisol 12/24/2021 [facility] Cortisol 10.2 g /dL 9 Free T4 12/24/2021 [facility] Free T4 1.19 ng/dL [...] and 37 years old. ivy Medina.al. JCEM 2017,102;6555-2906. PMID: [id number]. This test was developed and its performance characteristics determined by [facility]. It has not been cleared or approved by the Food and Drug Administration. 5 Reference range: 1.5 0 to 4.20 Unit: % 6 Reference range: 5.0 0 to 21.00 Unit: ng/[place] [address] 7 Reference range: 74 to 255 8 Reference range: NEG 2.0 to +2.0 Unit: S.D[place] [address] 9 Reference Range: 6-10 am: 6.0-18.4 ug/dL 4-8 pm: 2.7-10.5 ug/dL Procedures Date Code Description Status 04/07/2022 NSHOWOFF No Show Office Visit Complet ed 12/18/2021 [id number] Additional suppl ies, materials, staff time over [...]
--- OUTSIDE RECORDS SUMMARY | 2024-06-20 18:30 | XMS_ITS | Clinical Summary ---
Author Organization [facility] Address [address] [address] Phone Care Team Providers Care Automotive Starter Repairer Name Role Phone Andrea Christina MD Primary Care Provider Allergies No known active allergies Medications amLODIPine [...] Ended) 2024 Insurance Un[employer]are Un[employer]are Care Teams Automotive Starter Repairer Relationship Specialty Start Date End Date Andrea Christina MD [address] [place] [address] PCP - General Internal Medicine 12/16/21
== END 2024-06-20 15:42 | disposition home or self-care (01) ==
LOC: HO.CT 15:41
PROVIDERS: PCP Internal Medicine; Visit Provider Hospitalist
DX: R91.8 Other nonspecific abnormal finding of lung field (principal)
CPT/HCPCS: 71250

== ENCOUNTER → 2024-06-20 15:43 | Outpatient (BNV) | payer OTHER, SELFPAY | PROVIDERS: PCP Internal Medicine; Visit Provider Radiology Diagnostic Radiology | DX: R91.8 Other nonspecific abnormal finding of lung field (principal) | CPT/HCPCS: 71250 ==

== ENCOUNTER 2024-06-27 14:22 | Outpatient (AMB) | payer OTHER, SELFPAY ==
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
[2024-06-27 14:50] VITALS: BP 120/76; PULSE 100; O2SAT 95; BMI 29.1
--- OUTSIDE RECORDS SUMMARY | 2024-06-27 16:34 | XMS_ITS ---
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 ([place]) Organization [facility] ([place] Address [address] [place] [id number] Care Team Providers Care Blasting Contract Man Name Role Phone GAGAN WHITESIDE Primary Care [...] Relationship to Policy Olivares CAREMARK PRESCRIPT ION [facility] Aug 29, 2022 [id number] STEPHANIE ROSSI ERT PATIENT [employer] PREFERRED PROVIDER ORGANIZAT ION (PPO) [facility] N Mar 01, 2006 [id number] ROSSISTEPHANIE ERT PATIENT WELLPOINT PREFERRED PROVIDER ORGANIZAT ION (PPO) [employer] [employer] [facility] * Mar 01, 2006 [id number] STEPHANIE ROSSI ERT PATIENT Selected Encounter This section includes the information on record at OR for the Encounter. Date/Time Encounter Type Encounter Description Reason Pro vider Source Jun 22, 2024 08:59 AM Outpatient Encounter TELEPHONE TRIAGE IHE Encounter Template Text not used by [...] 20 appointments. The data comes from all OR treatment facilities. Appointment Date/Time Appointment Type Appointme nt Facility Name Jun 23, 2024 10:00 AM AMBULATORY - MEDICINE [place] [facility] [place] [facility] July 06, 2024 12:30 PM AMBULATORY - NONE [facility] [place] [facility] July 21, 2024 02:00 PM AMBULATORY - MEDICINE OR [facility] [place] [facility] July 27, 2024 10:30 AM AMBULATORY - MEDICINE OR [facility] [place] [facility] July 27, 2024 10:31 AM AMBULATORY - MEDICINE OR [facility] [place] [facility] Aug 02, 2024 11:00 AM AMBULATORY - MEDICINE OR [facility] [place] [facility] Nov 02, 2024 12:45 PM AMBULATORY - NONE [facility] [place] [facility] Nov 14, 2024 03:30 PM [facility]UL[facility] Active, Pending, and Scheduled Orders This section includes a listing of several types of active, pending, and scheduled orders, including clinic medications orders, diagnostic test orders, procedure orders and consult orders; where the start date of the order is 45 days before the date of the Encounter or 45 days after the date of theEncounter. The data comes from all [place] treatment facilities. 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 May 15, 2024 04:01 PM Consult Order OTOLARYNGO LOGY/ENT ONE Cons Billiard Table Repairer's [facility] Social History: Smoking Status (Most current) and Tobacco Use (All prior to encounter date) This section includes the most current, and the historical, smoking and tobacco- related health factors from the VA facility where the Encounter took place. Current Smoking Status This section includes the most current smoking, or tobacco-related health factor, from the VA facility where the Encounter took place. Date/Time Current Smoking Status Comment Facil ity May 16, 2020 04:13 PM [facility]TOBACCO [facility] USED [facility] Advance Directives: All historical and current Section Date Range: From patient's date of to the date document was created. This section includes ALL of a patient's completed or amended VA Advance and Rescinded Directives. The entries below indicate that a directive exists for the patient, but an actual copy is not included with this document. The data comes from all OR facilities. Date Advance Directives Provider Source Nov 26, 2016 ADVANCE DIRECTIVE TORY OWNG Encounter Notes: All associated encounter notes This section contains the clinical notes associated to the Encounter. Date/Time Encounter Note(s) Provider Source Jun 22, 2024 08:59 AM RN PROGRESS NOTE: LOCAL TITLE: CCC: CLINICAL TRIAGE STANDARD TITLE: RN PROGRESS NOTE DATE OF NOTE: JUN 22, 2024@08:59:06 ENTRY DATE: JUN 22, 2024@08:59:06 AUTHOR: ROGELIO OLIVARES COSIGNER: URGENCY: STATUS: COMPLETED CCC: CLINICAL TRIAGE Has ADDENDA Caller Verification Caller/Recipient Relation to Patient: Self Caller Name: MERVIN ROSSI Triage Summary Chief Complaint: Cough System WHEN: Within 3 Days Nurse's Recommendation / WHEN: Within 3 Days System WHERE: Clinic Nurse's Recommendation / WHERE: Clinic/[facility] Patient Disposition Patient/Caregiver agrees to plan of care: Yes Nursing Plan and Disposition Referred for [facility] Virtual Clinic Visit Transferred patient to Sched & Admin-VCV Referred Patient for In-Person Appt Transferred patient to Sched & Admin-Apt Other course(s) of action Generated msg to PACT/Provider Provided guidance for worsening symptoms: *Caller/Patient* advised to call facilities OR Clinical Contact Center or seek immediate medical attention for new or worsening symptoms Nurse Summary Nurse Summary: is calling in reporting: Onset 10 days ago of: Tickle in throat, then very sore throat -which is mild today and he reports overall improving Cough productive ,light brown White tongue worried he may have thrush/cannot see the back of his throat to assess for white spots or redness +Sinus, runny nose - clear +PND Grandson had strep recently Nyquil at night helps R Transferred to [facility] for rec scheduling per [facility] Advised CCC is available 21/09 for questions, concerns or new or worsening symptoms Advised if [facility] unable to find any appointment that a note will be forwarded to PACT team for review, recommendations and scheduling Advised to please unblock spam thong if anticipating a call back from OR Clinical Contact Center Codes Clinic/Location: V1 CWM PHONE DONOVAN RN Decision Support System Output: Triage Complete Triage Date: 06/22/2024, 08:53 AM Triage Note: Decision Support Tool Used: TX[facility] Phone Triage Alondra, 22 Jun 2024 12:45:40 +0000 [place] Demographics 54 y/o Male Results CC: Cough Software suggested: Within 3 Days Software suggested follow-up location: Clinic, consider [facility] care Values and Measures Duration of CC: 10 Days Positive Responses HPI: cough, purulent sputum HPI: nasal congestion, duration longer than 2 days HPI: rhinorrhea, yellow or brown HPI: sore throat VS: respiratory rate not taken VS: temperature not taken Negative Responses Denies: HPI: breathing more rapidly than usual Denies: HPI: chest pain, pleuritic Denies: HPI: confusion, new or worsening Denies: HPI: cough, duration longer than 2 weeks Denies: HPI: cough, severe, onset within past 3 hours Denies: HPI: cough, worsening for more than 1 week Denies: HPI: dyspnea, new or worsening Denies: HPI: fever, subjective Denies: HPI: pain, maxillary or frontal sinuses Denies: HPI: sore throat, moderate to severe Denies: HPI: vomiting Denies: HPI: wheezing, new or worsening Denies: MEDS: antibiotic Denies: MEDS: chemotherapy Denies: MEDS: home oxygen Denies: PMH: CHF Denies: PMH: diabetes Denies: PMH: heart disease Denies: PMH: HIV positive Denies: PSH: organ transplant Denies: PSH: spleen removed IMPORTANT: This note was created by [facility] Clinical Contact Center staff. Please do not alert the staff member by adding them as a signer for future communications. Alerts are not monitored by this user. /christina/ ROGELIO REILLY 1 DONOVAN RN Signed: 06/22/2024 08:59 Receipt Acknowledged By: 06/22/2024 09:55 /christina/ BRENT MONDRAGON LPN PACT 10 for LEODAN CORONADOYUMIKO 06/22/2024 09:55 /christina/ BRENT MONDRAGON LPN PACT 10 06/22/2024 ADDENDUM STATUS: COMPLETED Vet has a phone visit booked on 06/23/24 /christina/ MICHAEL GALVEZT 10 Signed: 06/22/2024 09:56 R[facility]IO OLIVARES [facility]
--- OUTSIDE RECORDS SUMMARY | 2024-06-27 16:34 | XMS_ITS | Clinical Summary ---
Author Organization [address] [facility] Address [address] [place] [address] Phone Care Team Providers Care Plate Gauger Name Role Phone Farida Munroe MD Primary Care Provider [phone] Allergies No known active allergies Medications acetaminophen [...] 05/25/2024 3:15 PM EDT Office Visit Gastroenterology [facility] [address] [phone] Eric Longoria MD Esophageal dysphagia (Primary Dx); Lower esophageal ring (Schatzki) 05/19/2024 Telephone Gastroenterology [facility] [address] [phone] Eric Longoria MD Appointment 05/11/2024 10:31 AM EDT Anesthesia Event [facility] Endoscopy [address] [place] [phone] Augustine Causey MD 05/11/2024 9:33 AM EDT - 05/11/2024 11:59 PM EDT Hospital Encounter [facility] Endoscopy [address] [place] [phone] Eric Longoria MD Couture, Alison, CRNA Spencer, Mark A, MD Esophageal dysphagia Discharge Disposition: Home or Self Care 05/02/2024 11:00 AM EST Consult Gastroenterology [facility] [address] [phone] Eric Longoria MD Esophageal dysphagia [...] al Result * EGD Anesthesia - MAC; [facility] ENDOSCOPY (05/11/2024 10:49 AM EDT) Anatomical Region Laterality Modality Other 05/11/2024 10:3 4 AM EDT Impressions 05/11/2024 10:51 AM EDT - Small hiatal hernia. ? - Mild Schatzki ring. Biopsied. ? - Mild Schatzki ring. Dilated. Recommendation: ?- Observe patient's clinical course. ? - Await pathology results. Narrative 05/11/2024 10:51 AM EDT [facility] GI Patient Name: Braxton Mcdonald [...] Procedure Code(s): ? --- Professional --- ? 52300, Esophagogastroduodenoscopy, flexible, ? transoral; with transendoscopic balloon dilation of ? esophagus (less than 30 mm diameter) ? 81929, 59, Esophagogastroduodenoscopy, flexible, ? transoral; with biopsy, single or multiple Diagnosis Code(s): ? --- Professional --- ? K44.9, Diaphragmatic hernia without obstruction or ? gangrene ? K22.2, Esophageal obstruction ? R13.10, Dysphagia, unspecified CPT copyright 202 [employer]. All rights reserved. The codes documented in this report are preliminary and upon installation drafter review may be revised to meet current compliance requirements. Eric Longoria MD 05/11/2024 10:50:49 AM This report has been signed electronically.Eric Longoria MD Number of Addenda: 0 Note Initiated On: 05/11/2024 10:34 AM Scope In: Scope Out: ? Endoscopy Department at [facility] - [address] [place] [address], ? [place] [address] Procedure Note Eric Longoria MD - 05/11/2024 [facility] GI Patient Name: Braxton Mcdonald [...] loss wasminimal. Procedure Code(s): --- Professional --- 05175, Esophagogastroduodenoscopy, flexible, transoral; with transendoscopic balloon dilation of esophagus (less than 30 mm diameter) 46327, 59, Esophagogastroduodenoscopy, flexible, transoral; with biopsy, single or multiple Diagnosis Code(s): --- Professional --- K44.9, Diaphragmatic hernia without obstruction or gangrene K22.2, Esophageal obstruction R13.10, Dysphagia, unspecified CPT copyright 2020 [employer]. All rights reserved. The codes documented in this report are preliminary and upon installation drafter reviewmay be revised to meet current compliance requirements. Eric Longoria MD 05/11/2024 10:50:49 AM This report has been signed electronically.Eric Longoria MD Number of Addenda: 0 Note Initiated On: 05/11/2024 10:34 AM Scope In: Scope Out: Endoscopy Department at [facility] - [address] [place] [phone] IMPRESSION: - Small hiatal hernia. - Mild [...] and reactive changes. 05/12/2024 10:39 AM EDT [facility] Comment These findings are nonspecific but are compatible with GERD in the correct clinical setting. 05/12/2024 10:39 AM EDT [facility] Gross Description A. Esophagus, distal [...] one slide. JOHNSON 05/12/2024 10:39 AM EDT [facility] Disclaimer Unless otherwise specified, all tissue is 10% NB formalin fixed and paraffin embedded. 05/12/2024 10:39 AM EDT [facility] Tissue Esophageal structure / Unknown 05/11/2024 10:46 AM EDT 05/11/2024 12:08 PM EDT Tissue specimen (specimen) Esophageal structure / Unknown 05/11/2024 10:47 AM EDT 05/11/2024 12:08 PM EDT us Eric Longoria MD LAB PATHOLOGY ORDERABLES Final R esult [facility] [address] [place] [address], from Last 3 Months Insurance [facility] Advance Directives * Full Code - Default [...] currently active code status orders. Care Teams Plate Gauger Relationship Specialty Start Date End Date Farida Munroe MD [address] [place] [address] PCP - General Internal Medicine 03/06/24
--- OUTSIDE RECORDS SUMMARY | 2024-06-27 16:34 | XMS_ITS | Clinical Summary ---
Author Organization [facility] Address [address] [phone] Phone Care Team Providers Care Hardness Tester Name Role Phone Andrea Christina MD Primary Care Provider [phone] Allergies No known active allergies Medications amLODIPine [...] Ended) 2024 Insurance [employer] Un[employer] Care Teams Hardness Tester Relationship Specialty Start Date End Date Andrea Christina MD [address] [place] [address] PCP - General Internal Medicine 12/16/21
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
--- OUTSIDE RECORDS SUMMARY | 2024-06-27 16:35 | XMS_ITS | Continuity of Care Document ---
Author Name [facility] Organization [facility] Care Team Providers Care Intensive Care Specialist Name Role Phone [facility] Unavailable Unavailable Problems Combined list of problems [...] HCS [facility] Active Condition [place] Pes planus Active Condition Oct 23 Entered By: GAGAN WHITESIDE Comment: Bilaterally [facility] Primary erectile dysfunction Active Condition [facility] Upper Gi Endoscopy Active Condition May 11, 2024 Entered By: GAGAN WHITESIDE Comment: [facility] Dr. [place] 05/11/2024: small hiatal hernia, mild schatzki ring found at the gastroesophageal junction. [place] Diagnosis: ICD-10-CM R05.3 Chronic cough Active Diagnosis [facility] Diagnosis: ICD-10-CM F52.21 Male erectile disorder Active Diagnosis [place] Diagnosis: ICD-10-CM M70.70 Other bursitis of hip, unspecified hip Active Diagnosis [facility] Diagnosis: ICD-10-CM E78.5 Hyperlipidemia, unspecified Active Diagnosis [place] Diagnosis: ICD-10-CM K03.6 Deposits [accretions] on teeth Active Diagnosis [facility] Diagnosis: ICD-10-CM Z87.820 Personal history of traumatic brain injury Active Diagnosis [facility] Diagnosis: ICD-10-CM K08.9 Disorder of teeth and supporting structures, unspecified Active Diagnosis [facility] Diagnosis: ICD-10-CM Z46.0 Encounter for fit/adjst of spectacles and contact lenses Active [facility] Diagnosis: ICD-10-CM H52.4 Presbyopia Active Diagnosis [facility] Medications Combined list of outpatient medications from [...] TIMES DAILY NEEDED FOR PAIN ORAL 03/29/2024 [id number] TENISHA WHITESIDE SA 2023 200 [place] BENZONATATE 100MG CAP TAKE ONE CAPSULE BY MOUTH EVERY 8 HOURS NEEDED FOR COUGH ORAL ACTIVE 07/23/2024 [id number] DARRICK AKBAR PYRIDINE OPERATOR 2024 30 [facility] CARBOXYMETH YLCELLULOSE NA 0.5% SOLN,OPH INSTILL 1 DROP INTO EACH EYE FOUR TIMES A DAY OPHTHA LMIC 08/29/2023 [id number] ROTHMAN,LAC EY J 2022 45 [facility] CHOLECALCIF VADIM 25MCG (1,000UNIT) TAB TAKE ONE TABLET BY MOUTH ONCE DAILY FOR VITAMIN SUPPLEME NTATION ORAL SUSPEND ED 03/29/2025 [id number] 5 TENISHA WHITESIDE SA 2024 90 [place] CHOLECALCIF VADIM 25MCG (1,000UNIT) TAB TAKE ONE TABLET BY MOUTH ONCE DAILY FOR VITAMIN SUPPLEME NTATION ORAL 04/02/2023 [id number] 4 TENISHA WHITESIDE SA 2023 30 [place] DULOXETINE HCL 60MG CAP,EC TAKE ONE CAPSULE BY MOUTH ONCE DAILY ORAL 03/29/2024 [id number] 4 TENISHA WHITESIDE SA 2023 90 [place] FAMOTIDINE 20MG TAB TAKE ONE TABLET BY MOUTH TWICE DAILY FOR HEARTBUR N ORAL SUSPEND ED 05/16/2025 [id number] 5 TENISHA WHITESIDE SA 2024 180 [place] FAMOTIDINE 20MG TAB TAKE ONE TABLET BY MOUTH TWICE DAILY FOR HEARTBUR N ORAL DISCONT INUED 10/28/2024 [id number] TENISHA WHITESIDE SA 2023 180 [facility] FLUTICASONE PROPIONATE 50MCG/SPRAY SOLN,NASAL, 16GM INSTILL 2 SPRAYS INTO EACH NOSTRIL EVERY EVENING FOR NASAL IRRITATI ON/INFLA MMATION NASAL SUSPEND ED 05/16/2025 [id number] 5 TENISHA WHITESIDE SA 2024 3 [place] FLUTICASONE PROPIONATE 50MCG/SPRAY SOLN,NASAL, 16GM INSTILL 2 SPRAYS INTO EACH NOSTRIL EVERY EVENING FOR NASAL IRRITATI ON/INFLA MMATION NASAL DISCONT INUED 08/31/2024 [id number] 4 Ephraim HUDSON 2023 3 [place] FLUTICASONE PROPIONATE 50MCG/SPRAY SOLN,NASAL, 16GM INSTILL 2 SPRAYS INTO EACH NOSTRIL EVERY EVENING FOR NASAL IRRITATI ON/INFLA MMATION NASAL DISCONT INUED 04/27/2024 [id number] TENISHA WHITESIDE SA 2023 3 [place] FLUTICASONE PROPIONATE 50MCG/SPRAY SOLN,NASAL, 16GM INSTILL 2 SPRAYS INTO EACH NOSTRIL EVERY EVENING FOR NASAL IRRITATI ON/INFLA MMATION NASAL DISCONT INUED 03/29/2024 [id number] TENISHA WHITESIDE SA 2023 1 [place] GUAIFENESIN 600MG TAB,SA TAKE ONE TO TWO TABLET(S ) BY MOUTH EVERY 12 HOURS NEEDED FOR COUGH FOLLOW DOSE WITH FULL GLASS OF WATER ORAL ACTIVE 07/23/2024 [id number] 5 AKBAR,DARRICK PYRIDINE OPERATOR 2024 40 [facility] IPRATROPIUM BR 0.06% SOLN,SPRAY, NASAL INSTILL 2 SPRAYS INTO EACH NOSTRIL EVERY 8 HOURS NEEDED FOR RUNNY NOSE NASAL ACTIVE 07/23/2024 [id number] 5 AKBAR,DARRICK PYRIDINE OPERATOR 2024 15 [facility] LIDOCAINE 5% PATCH APPLY 2 PATCHES TOPICALL Y EVERY 24 HOURS NEEDED FOR NERVE PAIN (LEAVE PATCH ON FOR 12 HOURS, THEN REMOVE PATCH) FOR LOWER BACK TOPICA L ACTIVE 12/28/2024 [id number] 5 TENISHA WHITESIDE SA 2023 60 [facility] LIDOCAINE 5% PATCH APPLY 2 PATCHES TOPICALL Y EVERY 12 HOURS NEEDED FOR NERVE PAIN (LEAVE PATCH ON FOR 12 HOURS, THEN REMOVE PATCH) FOR LOWER BACK TOPICA L DISCONT INUED (EDIT) 12/21/2024 [id number] 4 TENISHA WHITESIDE SA 2023 60 [facility] LIDOCAINE 5% PATCH APPLY 2 PATCHES TOPICALL Y EVERY 12 HOURS NEEDED FOR NERVE PAIN (LEAVE PATCH ON FOR 12 HOURS, THEN REMOVE PATCH) FOR LOWER BACK TOPICA L DISCONT INUED 03/29/2024 [id number] 4 TENISHA WHITESIDE SA 2023 60 [place] LORATADINE 10MG TAB TAKE ONE TABLET BY MOUTH ONCE DAILY NEEDED FOR ALLERGY ORAL ACTIVE 07/23/2024 [id number] DARRICK AKBAR NP 2024 30 [facility] LORATADINE 10MG TAB TAKE ONE TABLET BY MOUTH ONCE DAILY FOR ALLERGY ORAL 03/29/2024 [id number] 4 TENISHA WHITESIDE SA 01/30/ 2024 90 [place] NAPROXEN 500MG TAB TAKE ONE TABLET BY MOUTH TWICE DAILY FOR PAIN TAKE WITH FOOD ORAL SUSPEND ED 05/16/2025 [id number] 5 TENISHA WHITESIDE SA 2024 180 [place] NAPROXEN 500MG TAB TAKE ONE TABLET BY MOUTH TWICE DAILY FOR PAIN TAKE WITH FOOD ORAL DISCONT INUED 12/21/2024 [id number] 5 TENISHA WHITESIDE SA 2024 180 [facility] NAPROXEN 500MG TAB TAKE ONE TABLET BY MOUTH TWICE DAILY FOR PAIN TAKE WITH FOOD ORAL DISCONT INUED 08/31/2024 [id number] 4 Ephraim HUDSON A 2023 180 [facility] [place] NAPROXEN 500MG TAB TAKE ONE TABLET BY MOUTH TWICE DAILY FOR PAIN TAKE WITH FOOD ORAL DISCONT INUED 03/29/2024 [id number] 4 TENISHA WHITESIDE SA 2023 180 [facility] [place] NYSTATIN 121313RTJ/M L SUSP,ORAL TAKE 5ML (1 TEASPOON ) BY MOUTH EVERY 6 HOURS FOR LEE INFECTIO N OF MOUTH ORAL ACTIVE 07/23/2024 [id number] 5 DARRICK AKBAR PYRIDINE OPERATOR 2024 60 [facility] OMEPRAZOLE 20MG CAP,EC TAKE ONE CAPSULE BY MOUTH TWICE DAILY FOR HEARTBUR N ORAL DISCONT INUED BY PROVIDE R 08/31/2024 [id number] 4 Ephraim HUDSON A 2023 180 [place] OMEPRAZOLE 20MG CAP,EC TAKE ONE CAPSULE BY MOUTH TWICE DAILY FOR HEARTBUR N ORAL DISCONT INUED 03/29/2024 [id number] TENISHA WHITESIDE SA 2023 180 [facility] [place] SILDENAFIL CITRATE 100MG TAB TAKE ONE TABLET BY MOUTH ONCE DAILY NEEDED TAKE 1 HOUR PRIOR TO SEXUAL ACTIVITY ORAL DISCONT INUED BY PROVIDE R 12/21/2024 [id number] 5 TENISHA WHITESIDE SA 2023 6 [facility] SILDENAFIL CITRATE 100MG TAB TAKE ONE TABLET BY MOUTH ONCE DAILY NEEDED TAKE 1 HOUR PRIOR TO SEXUAL ACTIVITY ORAL DISCONT INUED 03/29/2024 [id number] 4 TENISHA WHITESIDE SA 2023 6 [place] SODIUM FLUORIDE 1.1% TOOTHPASTE BRUSH SMALL AMOUNT TO TEETH TWICE DAILY FOR TOOTH DECAY PREVENTI ON DENTAL 12/11/2023 [id number] 4 ИВАН CARCAMO 2022 51 [facility] TADALAFIL 10MG TAB TAKE ONE TABLET BY MOUTH ONCE DAILY NEEDED FOR ERECTILE DYSFUNCT ION ORAL SUSPEND ED 06/02/2025 [id number] 5 TENISHA WHITESIDE SA 2024 18 [place] TAMSULOSIN HCL 0.4MG CAP TAKE ONE CAPSULE BY MOUTH AT BEDTIME FOR ENLARGED PROSTATE ORAL SUSPEND ED 05/26/2025 [id number] KAMILLA KHAN 2024 90 [facility] TRAZODONE HCL 100MG TAB TAKE TWO TABLETS BY MOUTH AT BEDTIME FOR INSOMNIA ASSOCIAT ED WITH DEPRESSI ON ORAL SUSPEND ED 05/16/2025 [id number] 5 TENISHA WHITESIDE SA 2024 180 [place] TRAZODONE HCL 100MG TAB TAKE ONE AND ONE-HALF TABLETS BY MOUTH AT BEDTIME FOR INSOMNIA ASSOCIAT ED WITH DEPRESSI ON ORAL DISCONT INUED (EDIT) 12/21/2024 [id number] 5 TENISHA WHITESIDE SA 2024 135 [facility] TRAZODONE HCL 100MG TAB TAKE ONE AND ONE-HALF TABLETS BY MOUTH AT BEDTIME FOR INSOMNIA ASSOCIAT ED WITH DEPRESSI ON ORAL DISCONT INUED 08/31/2024 [id number] 4 Ephraim HUDSON 2023 135 [place] TRAZODONE HCL 100MG TAB TAKE ONE AND ONE-HALF TABLETS BY MOUTH AT BEDTIME FOR INSOMNIA ASSOCIAT ED WITH DEPRESSI ON ORAL DISCONT INUED 03/29/2024 [id number] TENISHA WHITESIDE SA 2023 135 [place] Immunizations Combined list of available immunizations from the Department of Defense and Veterans Affairs facilities. Immunization Series Date Given Administered By Site Reaction Lot Number CVX Code Drug Student Accounts Manager Status Comments Source TDAP 2014 115 complet ed per Vet [facility] TD(ADULT) UNSPECIFIED FORMULATION 2012 139 complet ed emergency [facility] Results Combined list of [...] Mar 17, 2024 02:18 PM Reporting Lab: [facility] [address] [facility] [address] Performing Lab: [facility] [place] [facility] [address] [facility] [address] [facility] LIPID PANEL FASTING TRIGLYCERI DE [MASS/VOLU ME] IN SERUM OR PLASMA 58 mg/dL 0 - 150 03/27 Specimen Type: SERUM No comment entered. Ordering Provider: GAGAN WHITESIDE Report Released Date/Time: Mar 17, 2024 02:18 PM Reporting Lab: [facility] [place] [facility] [address] [facility] [address] Performing Lab: [facility] [place] [facility] [address] [facility] [address] [facility] LIPID PANEL FASTING CHOLESTERO L IN LDL [MASS/VOLU ME] IN SERUM OR PLASMA BY CALCULATIO N 163 mg/dL 0 - 129 03/27 H Specimen Type: SERUM No comment entered. Ordering Provider: GAGAN WHITESIDE Report Released Date/Time: Mar 17, 2024 02:18 PM Reporting Lab: [facility] [facility] [address] [facility] [address] Performing Lab: [facility] [place] [facility] [address] [facility] [address] [place] [facility] LIPID PANEL FASTING CHOLESTERO L.TOTAL/CH OLESTEROL IN HDL [MASS RATIO] IN SERUM OR PLASMA 5.2 03/27 Specimen Type: SERUM No comment entered. Ordering Provider: GAGAN WHITESIDE Report Released Date/Time: Mar 17, 2024 02:18 PM Reporting Lab: [facility] [place] [facility] [address] [facility] [address] Performing Lab: [facility] [place] [facility] [address] [facility] [address] [place] [facility] LIPID PANEL FASTING CHOLESTERO L IN HDL [MASS/VOLU ME] IN SERUM OR PLASMA 42 mg/dL 40 - 60 03/27 Specimen Type: SERUM No comment entered. Ordering Provider: GAGAN WHITESIDE Report Released Date/Time: Mar 17, 2024 02:18 PM Reporting Lab: [facility] [place] [facility] [address] [facility] [address] Performing Lab: [facility] [place] [facility] [address] [facility] [address] [facility] PSA PROSTATE SPECIFIC AG [MASS/VOLU ME] IN SERUM OR PLASMA 2.13 ng/mL 0.00 - 4.00 03/27 Specimen Type: SERUM No comment entered. Ordering Provider: GAGAN WHITESIDE Report Released Date/Time: Mar 17, 2024 02:18 PM Reporting Lab: [facility] [place] [facility] [address] [facility] [address] Performing Lab: [facility] [place] [address] [address] [facility] LIVER FUNCTION PROTEIN [MASS/VOLU ME] IN SERUM OR PLASMA 6.9 g/dL 6.0 - 8.3 03/27 Specimen Type: SERUM No comment entered. Ordering Provider: GAGAN WHITESIDE Report Released Date/Time: Mar 17, 2024 02:18 PM Reporting Lab: [facility] [place] [facility] [address] [facility] [address] Performing Lab: [facility] [place] [facility] [address] [facility] [address] [place] [facility] LIVER FUNCTION ALBUMIN [MASS/VOLU ME] IN SERUM OR PLASMA 4.0 g/dL 3.5 - 5.0 03/27 Specimen Type: SERUM No comment entered. Ordering Provider: GAGAN WHITESIDE Report Released Date/Time: Mar 17, 2024 02:18 PM Reporting Lab: [facility] [place] [facility] [address] [facility] [address] Performing Lab: [facility] [place] [facility] [address] [facility] [address] [facility] LIVER FUNCTION ALKALINE PHOSPHATAS E [ENZYMATIC ACTIVITY/V OLUME] IN SERUM OR PLASMA 42 U/L 40 - 150 03/27 Specimen Type: SERUM No comment entered. Ordering Provider: GAGAN WHITESIDE Report Released Date/Time: Mar 17, 2024 02:18 PM Reporting Lab: [facility] [place] [facility] [address] [facility] [address] Performing Lab: [facility] [place] [facility] [address] [facility] [address] [facility] LIVER FUNCTION ASPARTATE AMINOTRANS FERASE [ENZYMATIC ACTIVITY/V OLUME] IN SERUM OR PLASMA 12 U/L 5 - 34 03/27 Specimen Type: SERUM No comment entered. Ordering Provider: GAGAN WHITESIDE Report Released Date/Time: Mar 17, 2024 02:18 PM Reporting Lab: [facility] [place] [facility] [address] [facility] [address] Performing Lab: [facility] [place] [facility] [address] [facility] [address] [place] [facility] LIVER FUNCTION ALANINE AMINOTRANS FERASE [ENZYMATIC ACTIVITY/V OLUME] IN SERUM OR PLASMA 16 U/L 03/27 Specimen Type: SERUM No comment entered. Ordering Provider: GAGAN WHITESIDE Report Released Date/Time: Mar 17, 2024 02:18 PM Reporting Lab: [facility] [address] [facility] [address] Performing Lab: [facility] [address] [facility] [address] [facility] LIVER FUNCTION BILIRUBIN. TOTAL [MASS/VOLU ME] IN SERUM OR PLASMA 0.6 mg/dL 0.2 - 1.2 03/27 Specimen Type: SERUM No comment entered. Ordering Provider: GAGAN WHITESIDE Report Released Date/Time: Mar 17, 2024 02:18 PM Reporting Lab: [facility] [place] [facility] [address] [facility] [address] Performing Lab: [facility] [place] [facility] [address] [facility] [address] [facility] [place] [facility] TSH THYROTROPI N [UNITS/VOL UME] IN SERUM OR PLASMA 1.20 u[IU]/mL 0.35 - 5.00 03/27 Specimen Type: SERUM No comment entered. Ordering Provider: GAGAN WHITESIDE Report Released Date/Time: Mar 17, 2024 02:18 PM Reporting Lab: [facility] [place] [facility] [address] [facility] [address] Performing Lab: [facility] [place] [facility] [address] [facility] [address] [facility] [place] [facility] BASIC METABOLI C PANEL (fasting ) UREA NITROGEN [MASS/VOLU ME] IN SERUM OR PLASMA 23 mg/dL 7 - 25 03/27 Specimen Type: SERUM No comment entered. Ordering Provider: GAGAN WHITESIDE Report Released Date/Time: Mar 17, 2024 02:18 PM Reporting Lab: [facility] [address] [facility] [address] Performing Lab: [facility] [address] [facility] [address] [facility] [place] [facility] BASIC METABOLI C PANEL (fasting ) GLUCOSE [MASS/VOLU ME] IN SERUM OR PLASMA 103 mg/dL 65 - 100 03/27 H Specimen Type: SERUM No comment entered. Ordering Provider: GAGAN WHITESIDE Report Released Date/Time: Mar 17, 2024 02:18 PM Reporting Lab: [place] [facility] [place] [facility] [address] [facility] [address] Performing Lab: [place] [facility] [address] [facility] [address] [facility] BASIC METABOLI C PANEL (fasting ) SODIUM [MOLES/VOL UME] IN SERUM OR PLASMA 137 mmol/L 135 - 145 03/27 Specimen Type: SERUM No comment entered. Ordering Provider: GAGAN WHITESIDE Report Released Date/Time: Mar 17, 2024 02:18 PM Reporting Lab: [place] [facility] [place] [address] [address] Performing Lab: [place] [facility] [place] [address] [address] [facility] BASIC METABOLI C PANEL (fasting ) POTASSIUM [MOLES/VOL UME] IN SERUM OR PLASMA 4.7 mmol/L 3.5 - 5.0 03/27 Specimen Type: SERUM No comment entered. Ordering Provider: GAGAN WHITESIDE Report Released Date/Time: Mar 17, 2024 02:18 PM Reporting Lab: [place] [facility] [place] [address] [address] Performing Lab: [place] [facility] [place] [facility] [address] [facility] [address] [facility] BASIC METABOLI C PANEL (fasting ) CHLORIDE [MOLES/VOL UME] IN SERUM OR PLASMA 108 mmol/L 100 - 110 03/27 Specimen Type: SERUM No comment entered. Ordering Provider: GAGAN WHITESIDE Report Released Date/Time: Mar 17, 2024 02:18 PM Reporting Lab: [place] [facility] [place] [address] [address] Performing Lab: [place] [facility] [place] [address] [address] [facility] BASIC METABOLI C PANEL (fasting ) CARBON DIOXIDE, TOTAL [MOLES/VOL UME] IN SERUM OR PLASMA 22 meq/L 20 - 30 03/27 Specimen Type: SERUM No comment entered. Ordering Provider: GAGAN WHITESIDE Report Released Date/Time: Mar 17, 2024 02:18 PM Reporting Lab: [address] [address] Performing Lab: [facility] [address] [facility] [address] [facility] BASIC METABOLI C PANEL (fasting ) CREATININE [MASS/VOLU ME] IN SERUM OR PLASMA 1.35 mg/dL 0.50 - 1.40 03/27 Specimen Type: SERUM No comment entered. Ordering Provider: GAGAN WHITESIDE Report Released Date/Time: Mar 17, 2024 02:18 PM Reporting Lab: [address] [address] Performing Lab: [address] [address] [facility] BASIC METABOLI C PANEL (fasting ) GLOMERULAR FILTRATION RATE/1.73 SQ M.PREDICTE D [VOLUME RATE/AREA] IN SERUM, PLASMA OR BLOOD BY CREATININE -BASED FORMULA (CKD-EPI 2020) 62 mL/min 60 03/27 Specimen Type: SERUM No comment entered. Ordering Provider: GAGAN WHITESIDE Report Released Date/Time: Mar 17, 2024 02:18 PM Reporting Lab: [address] [address] Performing Lab: [address] [address] [facility] HEMOGLOB IN A1C PANEL HEMOGLOBIN A1C/HEMOGL OBIN.TOTAL [...] Lab: [facility] [place] [address] [facility] [address] Performing Lab: [facility] [place] [facility] [address] [facility] [address] [facility] [place] [facility] CBC AND DIFF (AUTO) LEUKOCYTES [#/VOLUME] IN BLOOD BY AUTOMATED COUNT 6.51 10*3/uL 4.50 - 11.00 03/27 Specimen Type: BLOOD No comment entered. Ordering Provider: GAGAN WHITESIDE Report Released Date/Time: Mar 17, 2024 02:18 PM Reporting Lab: [facility] [address] [facility] [address] Performing Lab: [facility] [address] [facility] [address] [facility] [place] [facility] CBC AND DIFF (AUTO) ERYTHROCYT ES [#/VOLUME] IN BLOOD BY AUTOMATED COUNT 6.31 10*6/uL 4.23 - 5.66 03/27 H Specimen Type: BLOOD No comment entered. Ordering Provider: GAGAN WHITESIDE Report Released Date/Time: Mar 17, 2024 02:18 PM Reporting Lab: [facility] [address] [facility] [address] Performing Lab: [facility] [address] [facility] [address] [facility] CBC AND DIFF (AUTO) HEMOGLOBIN [MASS/VOLU ME] IN BLOOD 16.4 g/dL 12.8 - 17 03/27 Specimen Type: BLOOD No comment entered. Ordering Provider: GAGAN WHITESIDE Report Released Date/Time: Mar 17, 2024 02:18 PM Reporting Lab: [facility] [place] [facility] [address] [facility] [address] Performing Lab: [place] [facility] [place] [facility] [address] [facility] [address] [place] [facility] [place] [facility] CBC AND DIFF (AUTO) HEMATOCRIT [VOLUME FRACTION] OF BLOOD BY AUTOMATED COUNT 51.2 39.2 - 50.4 03/27 H Specimen Type: BLOOD No comment entered. Ordering Provider: GAGAN WHITESIDE Report Released Date/Time: Mar 17, 2024 02:18 PM Reporting Lab: [place] [facility] [place] [facility] [address] [facility] [address] Performing Lab: [place] [facility] [place] [facility] [address] [facility] [address] [facility] CBC AND DIFF (AUTO) MCV [ENTITIC VOLUME] BY AUTOMATED COUNT 81.1 fL 82 - 99 03/27 L Specimen Type: BLOOD No comment entered. Ordering Provider: GAGAN WHITESIDE Report Released Date/Time: Mar 17, 2024 02:18 PM Reporting Lab: [place] [facility] [place] [facility] [address] [facility] [address] Performing Lab: [place] [facility] [place] [facility] [address] [facility] [address] [facility] [place] CBC AND DIFF (AUTO) MCHC [MASS/VOLU ME] BY AUTOMATED COUNT 32.0 g/dL 30.8 - 35.1 03/27 Specimen Type: BLOOD No comment entered. Ordering Provider: GAGAN WHITESIDE Report Released Date/Time: Mar 17, 2024 02:18 PM Reporting Lab: [place] [facility] [place] [facility] [address] [facility] [address] Performing Lab: [place] [facility] [facility] [address] [facility] [address] [place] [facility] [place] [facility] CBC AND DIFF (AUTO) PLATELETS [#/VOLUME] IN BLOOD BY AUTOMATED COUNT 242 10*3/uL 140 - 360 03/27 Specimen Type: BLOOD No comment entered. Ordering Provider: GAGAN WHITESIDE Report Released Date/Time: Mar 17, 2024 02:18 PM Reporting Lab: [facility] [place] [facility] [address] [facility] [address] Performing Lab: [facility] [place] [facility] [address] [facility] [address] [facility] [place] [facility] CBC AND DIFF (AUTO) ERYTHROCYT E DISTRIBUTI ON WIDTH [RATIO] BY AUTOMATED COUNT 15.0 12.0 - 16.0 03/27 Specimen Type: BLOOD No comment entered. Ordering Provider: GAGAN WHITESIDE Report Released Date/Time: Mar 17, 2024 02:18 PM Reporting Lab: [facility] [place] [facility] [address] [facility] [address] Performing Lab: [facility] [place] [facility] [address] [facility] [address] [facility] [place] [facility] CBC AND DIFF (AUTO) MONOCYTES [#/VOLUME] IN BLOOD BY AUTOMATED COUNT 0.66 10*3/uL 0.30 - 1.10 03/27 Specimen Type: BLOOD No comment entered. Ordering Provider: GAGAN WHITESIDE Report Released Date/Time: Mar 17, 2024 02:18 PM Reporting Lab: [facility] [place] [facility] [address] [facility] [address] Performing Lab: [facility] [place] [facility] [address] [facility] [address] [facility] [place] [facility] CBC AND DIFF (AUTO) MCH [ENTITIC MASS] BY AUTOMATED COUNT 26.0 pg 26.2 - 32.6 03/27 L Specimen Type: BLOOD No comment entered. Ordering Provider: GAGAN WHITESIDE Report Released Date/Time: Mar 17, 2024 02:18 PM Reporting Lab: [facility] [place] [facility] [address] [facility] [address] Performing Lab: [facility] [place] [facility] [address] [facility] [address] [facility] [place] [facility] CBC AND DIFF (AUTO) NEUTROPHIL S/100 LEUKOCYTES IN BLOOD BY AUTOMATED COUNT 58.4 43.7 - 75.8 03/27 Specimen Type: BLOOD No comment entered. Ordering Provider: GAGAN WHITESIDE Report Released Date/Time: Mar 17, 2024 02:18 PM Reporting Lab: [facility] [address] [facility] [address] Performing Lab: [facility] [address] [facility] [address] [facility] CBC AND DIFF (AUTO) LYMPHOCYTE S/100 LEUKOCYTES IN BLOOD BY AUTOMATED COUNT 25.8 14.0 - 42.3 03/27 Specimen Type: BLOOD No comment entered. Ordering Provider: GAGAN WHITESIDE Report Released Date/Time: Mar 17, 2024 02:18 PM Reporting Lab: [facility] [address] [facility] [address] Performing Lab: [facility] [address] [facility] [address] [facility] CBC AND DIFF (AUTO) MONOCYTES/ 100 LEUKOCYTES IN BLOOD BY AUTOMATED COUNT 10.1 5.1 - 13.7 03/27 Specimen Type: BLOOD No comment entered. Ordering Provider: GAGAN WHITESIDE Report Released Date/Time: Mar 17, 2024 02:18 PM Reporting Lab: [facility] [address] [facility] [address] Performing Lab: [facility] [address] [facility] [address] [facility] CBC AND DIFF (AUTO) EOSINOPHIL S/100 LEUKOCYTES IN BLOOD BY AUTOMATED COUNT 4.0 0.4 - 6.8 03/27 Specimen Type: BLOOD No comment entered. Ordering Provider: GAGAN WHITESIDE Report Released Date/Time: Mar 17, 2024 02:18 PM Reporting Lab: [facility] [address] [facility] [address] Performing Lab: [facility] [address] [facility] [address] [facility] CBC AND DIFF (AUTO) BASOPHILS/ 100 LEUKOCYTES IN BLOOD BY AUTOMATED COUNT 1.4 0.1 - 2.0 03/27 Specimen Type: BLOOD No comment entered. Ordering Provider: GAGAN WHITESIDE Report Released Date/Time: Mar 17, 2024 02:18 PM Reporting Lab: [facility] [address] [facility] [address] Performing Lab: [facility] [address] [facility] [address] [facility] CBC AND DIFF (AUTO) NEUTROPHIL S [#/VOLUME] IN BLOOD BY AUTOMATED COUNT 3.80 10*3/uL 2.20 - 7.60 03/27 Specimen Type: BLOOD No comment entered. Ordering Provider: GAGAN WHITESIDE Report Released Date/Time: Mar 17, 2024 02:18 PM Reporting Lab: [facility] [address] [address] Performing Lab: [facility] [facility] [address] [facility] [address] [facility] CBC AND DIFF (AUTO) LYMPHOCYTE S [#/VOLUME] IN BLOOD BY AUTOMATED COUNT 1.68 10*3/uL 1.00 - 3.20 03/27 Specimen Type: BLOOD No comment entered. Ordering Provider: GAGAN WHITESIDE Report Released Date/Time: Mar 17, 2024 02:18 PM Reporting Lab: [facility] [address] [address] Performing Lab: [facility] [facility] [address] [facility] [address] [facility] CBC AND DIFF (AUTO) EOSINOPHIL S [#/VOLUME] IN BLOOD BY AUTOMATED COUNT 0.26 10*3/uL 0.03 - 0.44 03/27 Specimen Type: BLOOD No comment entered. Ordering Provider: GAGAN WHITESIDE Report Released Date/Time: Mar 17, 2024 02:18 PM Reporting Lab: [facility] [address] [address] Performing Lab: [facility] [address] [facility] [address] [facility] CBC AND DIFF (AUTO) BASOPHILS [#/VOLUME] IN BLOOD BY AUTOMATED COUNT 0.09 10*3/uL 0.01 - 0.13 03/27 Specimen Type: BLOOD No comment entered. Ordering Provider: GAGAN WHITESIDE Report Released Date/Time: Mar 17, 2024 02:18 PM Reporting Lab: [facility] [address] [facility] [address] Performing Lab: [facility] [facility] [address] [facility] [address] [facility] CBC AND DIFF (AUTO) IMMATURE GRANULOCYT ES/100 LEUKOCYTES IN BLOOD BY AUTOMATED COUNT 0.3 0.0 - 0.7 03/27 Specimen Type: BLOOD No comment entered. Ordering Provider: GAGAN WHITESIDE Report Released Date/Time: Mar 17, 2024 02:18 PM Reporting Lab: [facility] [facility] [address] [facility] [address] Performing Lab: [facility] [facility] [address] [facility] [address] [place] [facility] CBC AND DIFF (AUTO) IMMATURE GRANULOCYT ES [#/VOLUME] IN BLOOD 0.02 10*3/uL 0.00 - 0.06 03/27 Specimen Type: BLOOD No comment entered. Ordering Provider: GAGAN WHITESIDE Report Released Date/Time: Mar 17, 2024 02:18 PM Reporting Lab: [facility] [address] [facility] [address] Performing Lab: [place] [facility] [place] [facility] [address] [facility] [address] [place] [facility] CBC AND DIFF (AUTO) NRBC % 0.0 0.0 - 0.0 03/27 Specimen Type: BLOOD No comment entered. Ordering Provider: GAGAN WHITESIDE Report Released Date/Time: Mar 17, 2024 02:18 PM Reporting [facility]: [facility] [address] [facility] [address] Performing Lab: [facility] [address] [facility] [address] [facility] CBC AND DIFF (AUTO) NRBC, ABS 0.00 10*3/uL 0.00 - 0.00 03/27 Specimen Type: BLOOD No comment entered. Ordering Provider: GAGAN WHITESIDE Report Released Date/Time: Mar 17, 2024 02:18 PM Reporting Lab: [facility] [address] [facility] [address] Performing Lab: [facility] [address] [facility] [address] [facility] H PYLORI ANTIBODY HELICOBACT ER PYLORI IGG AB [PRESENCE] IN SERUM NEGATIVE 03/10 Specimen Type: SERUM No comment entered. Ordering Provider: GAGAN WHITESIDE Report Released Date/Time: Mar 10, 2024 12:50 PM Reporting Lab: [facility] [address] [facility] [address] Performing Lab: [facility] [address] [facility] [address] [facility] OCCULT BLOOD FIT X1 SCREEN (MFP ONLY) HEMOGLOBIN .GASTROINT ESTINAL.LO WER [PRESENCE] IN STOOL BY IMMUNOASSA Y Negative 02/23 Specimen Type: FECES No comment entered. Ordering Provider: GAGAN WHITESIDE Report Released Date/Time: Jan 31, 2024 11:07 AM Reporting Lab: [facility] [address] [facility] [address] Performing Lab: [facility] [address] [facility] [address] [facility] HEPATITI S B SURFACE ANTIBODY (HBsAb)- WH HEPATITIS B VIRUS SURFACE AB [PRESENCE] IN SERUM BY IMMUNOASSA Y REACTIVE 03/23 Specimen Type: SERUM Comment: A 'Reactive' result indicates HBsAb results >/= 12.0 mIU/mL and immunity to HBV infection. Ordering Provider: GAGAN WHITESIDE Report Released Date/Time: Mar 19, 2023 01:13 PM Reporting Lab: [facility] [address] [facility] [address] Performing Lab: [facility] [address] [facility] [address] [facility] Vital Signs Combined list of inpatient and outpatient Vital Signs from Department of Defense and Veterans Affairs, ranging from 12 months to all on record, depending upon the facility. Vital Sign Value Date Comments Source SYSTOLIC BLOOD PRESSURE 120 05/26/19 09:05:59 [facility] DIASTOLIC BLOOD PRESSURE 70 025 09:05:59 [facility] PAIN 3 05/25/2024 09:05:59 [facility] SYSTOLIC BLOOD PRESSURE 127 05/16/19 14:56:27 [facility] DIASTOLIC BLOOD PRESSURE 84 025 14:56:27 [facility] PULSE OXIMETRY 79 05/15/2024 14:56:27 [facility] [...] to the last 18 months, not all [place] inpatient encounters are included; 2) Encounters from the Department of Defense facilities going backup to 280 months. Location Location Details Encounter Type Encounter Number Reason For Visit Attending Provider ADM Date DC Date Status Disposition Source [facility] Outpatient Encounter [id number] 01/01 [facility]counter [id number] 02/25 [facility] Outpatient Encounter [id number] 03/02 [facility]counter [id number] 03/19 [facility] Outpatient Encounter [id number] 03/29 [facility] [place] OFFICE O/P EST MOD 30 MIN [id number] Diagnos is: ICD-10- CM E78.5 Hyperli pidemia , unspeci fied RIZWAN WHITESIDE 03/29 [place] [facility] COMPRE OPH EXAM EST PT 1/> [id number] Diagnos is: ICD-10- CM H52.4 Presbyo james TANK HASSAN 04/06 [facility] FIT SPECTACLES MONOFOCAL [id number] Diagnos is: ICD-10- CM Z46.0 Encount er for fit/adj st of spectac les and contact lenses TANK HASSAN 04/06 [facility] En[facility] [id number] 04/07 [facility] Encounter [id number] 04/08 [facility] CASE [facility]AL HEALTH LIT [id number] Diagnos is: ICD-10- CM K03.6 Deposit s [accret ions] on teeth MYNOR,HANG RENATA K 04/08 [facility] INTRAORAL PERIAPICAL EA ADD [id number] Diagnos is: ICD-10- CM K08.9 Disorde r of teeth and support ing structu res, unspeci ИВАН Santos 04/08 [facility] Out[facility] Encounter [id number] 04/22 [facility] Out[facility] Encounter [id number] 06/07 [facility] Out[facility] Encounter [id number] 08/29 [facility] Out[facility] Encounter [id number] 09/20 [facility] Encounter [id number] 10/27 [facility] Out[facility] Encounter [id number] 10/27 [facility] Out[facility] Encounter [id number] 11/01 [facility] CASE MGMT-ORAL HEALTH LIT [id number] Diagnos is: ICD-10- CM K03.6 Deposit s [accret ions] on teeth MYNOR,HANG RENATA K 11/02 [facility] Out[facility] Encounter [id number] 12/19 [facility] Encounter [id number] [facility] Encounter [id number] [facility] Out[facility] Encounter [id number] [facility] Out[facility] Encounter [id number] 03/27 [facility] Out[facility] Encounter [id number] 03/29 [facility] Out[facility] Encounter [id number] 03/29 [facility] Out[facility] Encounter [id number] 04/04 [facility] OFFICE O/P EST MOD 30 MIN [id number] Diagnos is: ICD-10- CM Z87.820 Persona l history of traumat ic brain injury TANK HASSAN 04/25 [facility] Out[facility] Encounter [id number] 05/01 [facility] Encounter [id number] 05/02 [facility] CASE MGMT-ORAL HEALTH LIT [id number] Diagnos is: ICD-10- CM K03.6 Deposit s [accret ions] on teeth MYNOR,HANG RENATA K 05/02 [facility] DENTAL BITEWING FOUR IMAGES [id number] Diagnos is: ICD-10- CM K03.6 Deposit s [accret ions] on teeth ASHLEY KO 05/02 [facility] Out[facility] En[facility] [id number] 05/03 [facility] Out[facility] Encounter [id number] [facility] [place] OFFICE O/P EST MOD 30 MIN [id number] 1BY. Diagnos is: ICD-10- CM E78.5 Hyperli pidemia , unspeci fied RIZWAN WHITESIDE 05/15 [place] [facility] Out[facility] Encounter [id number] 05/17 [facility] Outpatient Encounter [id number] [facility] OFFICE O/P [place] 60 MIN [id number] Diagnos is: ICD-10- CM M70.70 Other bursiti s of hip, unspeci fied hip Ephraim KHAN 05/25 [facility] Outpatient Encounter [id number] [facility] Outpatient Encounter [id number] 1.05/25 [facility] Outpatient Encounter [id number] [facility] [place] NQHP OL DIG ASSMT&MGMT 5-10 [id number] Diagnos is: ICD-10- CM F52.21 Male erectil e disorde r JAMA,TABITHA IE 05/31 [place] [facility] Outpatient Encounter [id number] 06/22 [facility] SYNCH AUDIO-ONLY EST LOW 20 [id number] Diagnos is: ICD-10- CM R05.3 Chronic cough 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 Social History Type Response Date Comment Source Tobacco smoking status [facility]-TOBACCO NEVER USED 03/29/2023 [place] History of tobacco use [facility]-TOBACCO NEVER USED 07/15/2021 [place] History of tobacco use [place]-TOBACCO NEVER USED 05/16/2020 [facility] History of tobacco use [facility]-TOBACCO NEVER USED 02/27/2019 [place] History of tobacco use [facility]-TOBACCO NEVER USED 02/14/2018 [place] History of tobacco use QUIT TOBACCO USE > 7 YEARS AGO 10/23/2016 quit 20 years ago [place] Plan of Care List of future care activities from Department of Veterans Affairs facilities. Additional future care activities may be listed in the Assessment and Plan section. Date/Time Care Activity Care Activity Detail Facili ty 07/06/2024 AMBULATORY - NONE AMBULATORY - NONE [facility] Advance Directives List of completed, amended, or rescinded Advance Directives on record at Department of Veterans [facility] facilities. An actual copy of the Directive is not included. Date Advance Directive Provider Source 11/26/2016 ADVANCE DIRECTIVE TORY WONG
--- OUTSIDE RECORDS SUMMARY | 2024-06-27 16:35 | XMS_ITS | Continuity of Care Document ---
Author Organization [facility] [address] [facility] [address] [place] [address] Phone [phone] Care Team Providers Care Corporate Representative Name Role Phone Andrea Christina M.D. Care Team Information Recei justin [phone] Problems Active Problems Provider Date Essential hypertension Eric Craig M.D. O nset: 12/18/2021 Hemochromatosis Eric Craig M.D. Onset: 1 Social History Type Date Description Comments Sex Unknown Tobacco Use Start: Unknown Never Smoked Cigarettes ETOH Use Never used alcohol Allergies and adverse reactions Description No Known Drug Allergies Medications Active Medications SIG Qnty Indications Ordering Provider Date Amlodipine [id number] Tablets 1 by mouth every day Andrea Christina M.D. Vital Signs Date Vital Result Comment 12/18/2021 10:34am BP Systolic 124 mmHg BP Diastolic 84 mmHg Heart Rate 68 /min Height 73 inches 6'1 Weight 225.00 lb BMI (Body Mass Index) 29.7 kg/m2 Results Test Acquired Date Facility Test Result H/L Range Note Osmolality, Urine Random 12/24/2021 [facility] Osmolality, Urine Random 753 MOSM/KG (50-1400 ) Osmolality, Serum 12/24/2021 [facility] Osmolality, Serum 297 MOS/KG High (280-290 ) Basic Metabolic Panel 12/24/2021 [facility] Glucose 87 mg/dL (70-99) BUN 29 mg/dL High (6-20) Creatinine 1.4 mg/dL High (0.7-1.2 ) Sodium 141 mmol/L (133-145 ) Potassium 4.5 mmol/L (3.6-5.2 ) Chloride 103 mmol/L (98-107) Bicarbonate 26 mmol/L (22-29) Anion Gap 12 (4-17) Calcium 9.6 mg/dL (8.6-10. 5) Estimated GFR Creatinine 63 ML/MIN/1.7 3M2 1 FSH 12/24/2021 [facility] FSH 2.6 MIU/ML (1.5-12. 4) 2 LH 12/24/2021 [facility] LH 7.9 MIU/ML (1.5-12. 4) 3 Free Testosterone 12/24/2021 [facility] Testosterone, Total, LC/MS 477.9 4 Percent Free Testosterone 3.27 5 Free Testosterone, Equilibrium 15.63 6 [place] C 12/24/2021 [facility] Som[place] C 175 NG/ML 7 Z Score 0.5 8 Cortisol 12/24/2021 [facility] Cortisol 10.2 g /dL 9 Free T4 12/24/2021 [facility] Free T4 1.19 ng/dL [...] and 37 years old. ivy Medina.al. JCEM 2017,102;9076-5734. PMID: [id number]. This test was developed and its performance characteristics determined by [facility]. It has not been cleared or approved by the Food and Drug Administration. 5 Reference range: 1.5 0 to 4.20 Unit: % 6 Reference range: 5.0 0 to 21.00 Unit: ng/[place] [address] 7 Reference range: 74 to 255 8 Reference range: NEG 2.0 to +2.0 Unit: S.D. [place] [address] 9 Reference Range: 6-10 am: 6.0-18.4 ug/dL 4-8 pm: 2.7-10.5 ug/dL Procedures Date Code Description Status 04/07/2022 NSHOWOFF No Show Office Visit Complet ed 12/18/2021 [id number] Additional suppl ies, materials, staff time over [...]
== END 2024-06-27 15:29 | disposition home or self-care (01) ==
LOC: HO.HPS 14:23
PROVIDERS: PCP Internal Medicine; Referring Provider Internal Medicine; Visit Provider Hospitalist
DX: R91.8 Other nonspecific abnormal finding of lung field (principal); R05.3 Chronic cough
CPT/HCPCS: 99214

== ENCOUNTER 2024-10-19 15:19 | Outpatient (REF) | payer OTHER, SELFPAY ==
[2024-10-20 16:42] LABS: Creatinine, mg/dL 95.28
[2024-10-20 17:15] LABS: Total Volume 24 Hour Urine 2900 mL
[2024-10-20 17:18] LABS: Creatinine (CrCl) 1.30 mg/dL (0.5-1.4)
== END 2024-10-19 15:20 | disposition home or self-care (01) ==
LOC: HO.LNP 15:19
PROVIDERS: Visit Provider Internal Medicine Nephrology
DX: I12.9 Hypertensive chronic kidney disease with stage 1 through stage 4 chronic kidney disease, or unspecified chronic kidney disease (principal); N18.31 Chronic kidney disease, stage 3a
CPT/HCPCS: 82575

== ENCOUNTER 2024-10-20 12:12 | Outpatient (REF) | payer OTHER, SELFPAY ==
--- OUTSIDE RECORDS SUMMARY | 2024-10-11 08:30 | XMS_ITS | Encounter Summary ---
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 Affairs [place] Organization Department of [place] Address [address] [place] [id number] Care Team Providers Care Complaint Operator Name Role Phone GAGAN WHITESIDE Primary Care [...] [facility] Aug 29, 2022 [id number] STEPHANIE ROSSI ERT PATIENT [employer] PREFERRED PROVIDER ORGANIZAT ION (PPO) [facility] RE [facility] N Mar 01, 2008 [id number] STEPHANIE ROSSI ERT PATIENT [employer] PREFERRED PROVIDER ORGANIZAT ION (PPO) UNICA RE [facility] * Mar 01, 2006 [id number] STEPHANIE ROSSI ERT PATIENT Selected Encounter This section includes the information on record at [place] for the Encounter. Date/Time Encounter Type Encounter Description Reason Provider Source Oct 11, 2024 12:30 PM OFFICE O/P EST LOW 20 MIN PRIMARY CARE/MEDICINE ICD-10-CM G47.33 Obstructive sleep apnea (adult) (pediatric) GAGAN WHITESIDE Encounter Template Text not used by CT Assessments - Encounter Diagnoses This section includes the primary and secondary diagnoses documented for the Encounter. Date/Time Primary/Secondary Diagnosis Diagnosis Name Provider Source Oct 11, 2024 12:48 PM PRIMARY Obstructive sleep apnea (adult) (pediatric) GAGAN WHITESIDE Plan of Treatment: Future Appointments (+ 6 months) and Future Tests (+/- 45 days) The Plan of Treatment section includes future care activities for the patient from all [place] [facility]. This section includes future appointments and future orders which are active, pending or scheduled. Future Appointments This section includes appointments that were scheduled to occur 6 months from the date of the Encounter, up to a maximum of 20 appointments. The data comes from all [facility]. Appointment Date/Time Appointment Type Appointme nt Facility Name Nov 02, 2024 12:30 PM AMBULATORY - MEDICINE [facility] Nov 03, 2024 02:00 PM AMBULATORY - NONE [facility] Nov 14, 2024 03:30 PM AMBULATORY - MEDICINE [facility] Jan 18, 2025 02:00 PM AMBULATORY - NONE [facility] Jan 22, 2025 11:00 AM AMBULATORY - NONE [facility] Mar 05, 2025 12:30 PM AMBULATORY - NONE [facility] Active, Pending, and Scheduled Orders This section includes a listing of several types of active, pending, and scheduled orders, including clinic medications orders, diagnostic test orders, procedure orders and consult orders; where the start date of the order is 45 days before the date of the Encounter or 45 days after the date of theEncounter. The data comes from all [facility]. Test Date/Time Test Type Test Details Facility Name Oct 11, 2024 12:51 PM Consult Order DENTAL CON SULT OUTPT Cons Obstetric Anaesthetist's Choice [facility] Nov 15, 2024 12:00 AM Laboratory - Chemi stry Order LIPID PANEL FASTING BLOOD (SST-SERUM) [facility] Nov 15, 2024 12:00 AM Laboratory - Chemi stry Order LIVER FUNCTION BLOOD (SST-SERUM) [facility] Social History: Smoking Status (Most current) [...] 29, 2023 03:00 PM VA-TOBACCO NEVER USED [place] Tobacco Use History This section includes a history of the smoking, or tobacco-related health factors, that were collected on or before the date of the Encounter. The data comes from the [place] facility where the Encounter took place. Date/Time Smoking Status/Tobacco Use Comment F acility July 15, 2021 10:30 AM VA-TOBACCO NEVER USED [place] Feb 27, 2019 11:50 AM VA-TOBACCO NEVER USED [place] Feb 14, 2018 12:54 PM VA-TOBACCO NEVER USED [place] Oct 23, 2016 02:25 PM QUIT TOBACCO USE > 7 YEARS AGO quit 20 years ago [place] Advance Directives: All historical and current Section [...] Encounter. Date/Time Encounter Note(s) Provider Source Oct 11, 2024 08:43 AM TELEPHONE ENCOUNTE R NOTE: LOCAL TITLE: TELEPHONE ADVICE PROGRESS NOTE STANDARD TITLE: TELEPHONE ENCOUNTER NOTE DATE OF NOTE: OCT 11, 2024@08:43 ENTRY DATE: OCT 11, 2024@08:43:51 AUTHOR: GAGAN WHITESIDE EXP COSIGNER: URGENCY: STATUS: COMPLETED Called and spoke to to discuss his home sleep study test which was performed 08/01/24. He would like to trial a dental device first before a CPAP machine. Will place a dental consult in [place]. IMPRESSION - Mild supine-dependent obstructive sleep apnea [...] cmH20. Since the patient receives care through [facility], the referring provider is responsible for placing the CPAP order. - Consider positional therapy with the use of a body positioner (e.g, Zzoma belt, Slumber Bump, or [employer] Knows Side Sleeping Backpack). - Current [employer] recommendations for treatment of obstructive sleep apnea includes 1) positive airway pressure (PAP) as initial therapy, and alternative therapy may include oral appliance therapy, ENT evaluation for upper airway surgery. Treatment also includes weight reduction if BMI is elevated, avoidance of sleeping in the supine position and reduction of alcohol and medications that contribute to upper airway relaxation. /christina/ GAGAN WHITESIDE MD Primary Care Physician Signed: 10/11/2024 12:49 GAGAN WHITESIDEFIELD
--- OUTSIDE RECORDS SUMMARY | 2024-10-20 12:15 | XMS_ITS | Clinical Summary ---
Author Organization [facility] Address [address] [place] [id number] Phone Care Team Providers Care Head Machine Feeder Name Role Phone Edwardo Serna Primary Care Provider [phone] Allergies No known active allergies Medications amLODIPine (NORVASC) 5 MG tablet Take 5 mg by mouth daily. 2 Active carboxymethylce llulose (REFRESH TEARS) 0.5 % Drop 2 Active celecoxib (CELEBREX) 200 MG capsule Take 1 capsule by mouth daily. 2 Active desonide (DESOWEN) 0.05 % cream Apply topically 2 (two) times a day. APPLY TO AFFECTED AREA 2 Active DULoxetine (CYMBALTA) 60 MG capsule Take 1 capsule by mouth daily. 2 Active omeprazole (PRILOSEC) 40 MG capsule Take 1 capsule by mouth daily. 2 Active sildenafiL (VIAGRA) 100 mg tablet 2 Active traZODone (DESYREL) 100 MG tablet Take 150 mg by mouth nightly at bedtime. 2 Active lidocaine (LIDODERM) 5 % Place 1 patch onto the skin daily. Remove & Discard patch within 12 hours or as directed by MD Active cholecalciferol (VITAMIN D3) 25 MCG (1,000 unit) tablet Take 1,000 Units by mouth daily. Active Social History Tobacco Use Types Packs/Day Years Used Date Smoking Tobacco: Never Assessed Education Answer Date Recorded Are you interested in more education? Not on keaton e 06/26/2022 Are you concerned about learning? Not on file 06/26/2022 No 06/26/2022 No 06/26/2022 Digital Access Answer Date Recorded No 07/28/2022 No 07/28/2022 Reliable internet access at home? Not on file 07/28/2022 Device with a working camera? Not on file Sex and Gender Information Value Date Recorded Sex Assigned at Not on file Legal Sex Male 9:45 AM EST Gender Identity Not on file Sexual Orientation Not on file Plan of Treatment Health Maintenance Due Date Last Done Comments Adult Td,Tdap Booster 1968 LIPID PANEL 1968 DEPRESSION SCREENING 1980 SMOKING Hx and SMOKELESS TOB ACCO SCREENING 1981 HEPATITIS C SCREENING 1986 HIV ONE-TIME SCREENING (18-6 5 YEARS) 1986 COLOGUARD 2013 COLONOSCOPY 2013 COLORECTAL CANCER SCREENING 2013 FIT TEST 2013 FOBT 2013 SIGMOIDOSCOPY 2013 VIRTUAL COLONOSCOPY 2013 PNEUMOCOCCAL VACCINES (50+ y ears) (1 of 1 - PCV) 2018 ZOSTER VACCINES (1 of 2) 2018 COVID-19 VACCINE (2023-2 5 season) 2023 HEPATITIS A VACCINES Aged Out No long er eligible based on patient's age to complete this topic HIB VACCINES Aged Out No longer eligi ble based on patient's age to complete this topic MENINGOCOCCAL VACCINES (ACWY) Aged Out No longer eligible based on patient's age to complete this topic MENINGOCOCCAL VACCINES (B) Aged Out N o longer eligible based on patient's age to complete this topic Medical Devices Not on file Insurance [employer] Care Teams Head Machine Feeder Relationship Specialty Start Date End Date Edwardo Serna [address] [place] [address] [place] [address] PCP - General 02/18/21 Additional Source Comments The information contained in this document represents components of the legal health record. It is not the complete legal health record.[facility]
--- OUTSIDE RECORDS SUMMARY | 2024-10-20 12:15 | XMS_ITS | Clinical Summary ---
Author Organization [address] [facility] Address [address] [place] [address] Phone Care Team Providers Care Air Conditioning Installer Supervisor Name Role Phone Farida Munroe MD Primary Care Provider [phone] Allergies No known active allergies Medications acetaminophen (TYLENOL) 500 mg tablet Take 1 tablet (500 mg total) by mouth every 6 (six) hours if needed. Active loratadine (CLARITIN) 10 mg tablet Take 1 tablet (10 mg total) by mouth 1 (one) time each day. Active naproxen (NAPROSYN) 500 mg tablet Take 1 tablet (500 mg total) by mouth 2 (two) times a day with meals. Active sildenafiL (VIAGRA) 100 mg tablet Take 1 tablet (100 mg total) by mouth as needed. Active traZODone (DESYREL) 100 mg tablet Take 1 tablet (100 mg total) by mouth at bedtime. Active celecoxib (CeleBREX) 200 mg capsule Take 1 capsule (200 mg total) by mouth 2 (two) times a day. Active famotidine (PEPCID) 20 mg tablet Take 1 tablet (20 mg total) by mouth 2 (two) times a day. 10/28/2023 Active amLODIPine-corrie zepril (LOTREL) 5-10 mg per capsule Take 1 capsule by mouth 1 (one) time each day. 05/08/2024 Active Active Problems Problem Noted Date Diagnosed Date Lower esophageal ring (Schamaryki) 05/25/2024 Eosinophilic esophagitis 05/02/2024 Gastroesophageal reflux disease without esophagi tis 05/02/2024 Arthralgia 07/03/2020 Overview (2024): Multiple joints Bilateral pes planus 07/03/2020 Erectile dysfunction 07/03/2020 Esophageal dysphagia 07/03/2020 Essential hypertension 07/03/2020 Hyperlipidemia 07/03/2020 Insomnia 07/03/2020 Plantar fasciitis 07/03/2020 Encounters Date Type Department Care Team Description 09/05/2024 Telephone Gastroenterology - [address] [place] [phone] Umberto Alfred MA Results 08/28/2024 Telephone Gastroenterology - [place] [address] [place] [phone] Eric Longoria MD Advice Only 07/27/2024 6:16 PM EDT - 07/27/2024 11:59 PM EDT Hospital Encounter Xray - [facility] [address] [place], [place] [phone] Subacute cough Discharge Disposition: Home or Self Care 07/27/2024 6:00 PM EDT Office Visit [facility] - [facility] [address] [place], [place] [phone] Blanca Collier NP Subacute cough (Primary Dx); Acute non-recurrent maxillary sinusitis from Last 3 Months Surgical History Surgery [...] Sign Reading Time Taken Comments Blood Pressure 119/73 07/27/2024 5:55 PM EDT Pulse 97 07/27/2024 5:55 PM EDT Temperature 37.4 C (99.3 F) 07/27/2024 5:55 PM EDT Respiratory Rate 15 05/11/2024 11:10 AM EDT Oxygen Saturation 95% 07/27/2024 5:55 PM EDT Inhaled Oxygen Concentration - - Weight [...] Panel) 01/28/2022 Colorectal Cancer Screening: Colonoscopy 01/28/2022 HIV Screening 01/28/2022 Hepatitis C Screening 01/28/2022 Social Influencers of Health Screening 01/28/2022 COVID-19 Vaccine (1 - 2023-2 5 season) 2023 DTaP,Tdap,and Td Vaccines (3 - Td or Tdap) 03/01/2024 03/01/2014, 07/30/2012 Depression Screening 03/01/2024 Influenza Vaccine (#1) 2024 Hypertension/CHF/CAD Annual BMP Blood Test 09/04/2025 09/04/2024 HIB Vaccines Aged Out No longer eligi [...] Procedure Name Priority Date/Time Associated Diagnosis Comments CBC WITH AUTO DIFFERENTIAL Routine 09/04/2024 9:12 AM EDT Hemochromatosis, unspecified hemochromatosis type HEPATIC FUNCTION PANEL Routine 09/04/2024 9:12 AM EDT Hemochromatosis, unspecified hemochromatosis type BASIC METABOLIC PANEL Routine 09/04/2024 9:12 AM EDT Hemochromatosis, unspecified hemochromatosis type FERRITIN Routine 09/04/2024 9:12 AM EDT Hemochromatosis, unspecified hemochromatosis type IRON AND TIBC Routine 09/04/2024 9:12 AM EDT Hemochromatosis, unspecified hemochromatosis type CBC AND DIFFERENTIAL Routine 09/04/2024 9:12 AM EDT Hemochromatosis, unspecified hemochromatosis type POC RAPID [id number], MOLECULAR Routine 07/27/2024 6:43 PM EDT Subacute cough XR CHEST 2 VIEWS STAT 07/27/2024 6:21 PM EDT Subacute cough from Last 3 Months Results * (ABNORMAL) CBC auto differential (09/04/2024 9:12 AM EDT) [facility] WBC 8.1 4.8 - 10.8 K/mcL LAB HEMETOLOGY METHOD 09/04/2024 9:27 AM [facility] RBC 6.00(H) 4.50 - 5.50 M/mcL LAB HEMETOLOGY METHOD 09/04/2024 9:27 AM [facility] Hemoglobin 15.8 13.5 - 17.5 g/dL LAB HEMETOLOGY METHOD 09/04/2024 9:27 AM [facility] Hematocrit 49.5 42.0 - 54.0 % LAB HEMETOLOGY METHOD 09/04/2024 9:27 AM [facility] MCV 83.1 79.0 - 98.0 FL LAB HEMETOLOGY METHOD 09/04/2024 9:27 AM [facility] MCH 26.5(L) 27.0 - 32.0 pcg LAB HEMETOLOGY METHOD 09/04/2024 9:27 AM [facility] MCHC 31.9(L) 32.0 - 37.0 g/dL LAB HEMETOLOGY METHOD 09/04/2024 9:27 AM [facility] RDW 15.2(H) 11.0 - 15.0 % LAB HEMETOLOGY METHOD 09/04/2024 9:27 AM [facility] Platelets 250 130 - 400 K/mcL LAB HEMETOLOGY METHOD 09/04/2024 9:27 AM [facility] MPV 10.0 7.0 - 11.0 FL LAB HEMETOLOGY METHOD 09/04/2024 9:27 AM [facility] NRBC 0.0 <1.0 % LAB HEMETOLOGY METHOD 09/04/2024 9:27 AM [facility] NRBC Absolute 0.00 <0.10 K/mcL LAB HEMETOLOGY METHOD 09/04/2024 9:27 AM [facility] Neutrophils Relative 55.6 % LAB HEMETOLOGY METHOD 09/04/2024 9:27 AM [facility] Lymphocytes Relative 25.5 % LAB HEMETOLOGY METHOD 09/04/2024 9:27 AM [facility] Monocytes Relative 14.9 % LAB HEMETOLOGY METHOD 09/04/2024 9:27 AM [facility] Eosinophils Relative 2.7 % LAB HEMETOLOGY METHOD 09/04/2024 9:27 AM [facility] Basophils Relative 1.1 % LAB HEMETOLOGY METHOD 09/04/2024 9:27 AM [facility] Immature Granulocytes Relative 0.2 % LAB HEMETOLOGY METHOD 09/04/2024 9:27 AM [facility] Neutrophils Absolute 4.48 1.50 - 7.00 K/mcL LAB HEMETOLOGY METHOD 09/04/2024 9:27 AM [facility] Lymphocytes Absolute 2.06 1.00 - 5.00 K/mcL LAB HEMETOLOGY METHOD 09/04/2024 9:27 AM [facility] Monocytes Absolute 1.20(H) 0.20 - 1.00 K/mcL LAB HEMETOLOGY METHOD 09/04/2024 9:27 AM [facility] Eosinophils Absolute 0.22 0.00 - 0.50 K/mcL LAB HEMETOLOGY METHOD 09/04/2024 9:27 AM [facility] Basophils Absolute 0.09 0.00 - 0.20 K/mcL LAB HEMETOLOGY METHOD 09/04/2024 9:27 AM [facility] Immature Granulocytes Absolute 0.02 0.00 - 0.03 K/mcL LAB HEMETOLOGY METHOD 09/04/2024 9:27 AM EDT [facility] Blood Venous blood specimen / Unknown Venipuncture / Unknown 09/04/2024 9:12 AM EDT 09/04/2024 9:22 AM EDT us Paul Grant MD LAB BLOOD ORDERABLES Final Re sult Performing Organization Address [facility] Co de Phone Number [facility] [address] [place] [address], [place] [phone] * (ABNORMAL) Iron and TIBC (09/04/2024 9:12 AM EDT) Iron 44(L) 50 - 160 mcg/dL LAB CHEMISTRY METHOD 09/04/2024 10:15 AM EDT [facility] TIBC 396 250 - 450 mcg/dL LAB CHEMISTRY METHOD 09/04/2024 10:15 AM EDT [facility] Iron Saturation 11(L) 20 - 50 % LAB CHEMISTRY METHOD 09/04/2024 10:15 AM EDT [facility] Blood Venous blood specimen / Unknown Venipuncture / Unknown 09/04/2024 9:12 AM EDT 09/04/2024 9:22 AM EDT us Paul Grant MD LAB BLOOD ORDERABLES Final Re sult Performing Organization Address [facility] de Phone Number [facility] [address] [place] [address], [place] [phone] * (ABNORMAL) Ferritin (09/04/2024 9:12 AM EDT) Ferritin 6(L) 26 - 388 ng/mL LAB CHEMISTRY METHOD 09/04/2024 10:19 AM EDT [facility] Blood Venous blood specimen / Unknown Venipuncture / Unknown 09/04/2024 9:12 AM EDT 09/04/2024 9:22 AM EDT us Paul Grnat MD LAB BLOOD ORDERABLES Final Re sult [facility] [address] [place] [address], [place] [phone] * (ABNORMAL) Hepatic function panel (09/04/2024 9:12 AM EDT) Total Protein 6.6 6.0 - 8.0 g/dL LAB CHEMISTRY METHOD 09/04/2024 10:17 AM EDT [facility] Albumin 3.7 3.2 - 5.0 g/dL LAB CHEMISTRY METHOD 09/04/2024 10:17 AM [facility] Total Bilirubin 0.4 0.0 - 1.4 mg/dL LAB CHEMISTRY METHOD 09/04/2024 10:17 AM [facility] Bilirubin, Direct <0.1 0.0 - 0.3 mg/dL LAB CHEMISTRY METHOD 09/04/2024 10:17 AM [facility] Bilirubin, Indirect LAB CHEMISTRY METHOD 09/04/2024 10:17 AM [facility] Comment:Unable to calculate Indirect Bilirubin. ALT (SGPT) 22 10 - 60 unit/L LAB CHEMISTRY METHOD 09/04/2024 10:17 AM [facility] AST (SGOT) 9(L) 10 - 42 unit/L LAB CHEMISTRY METHOD 09/04/2024 10:17 AM [facility] Alkaline Phosphatase 51 42 - 121 unit/L LAB CHEMISTRY METHOD 09/04/2024 10:17 AM [facility] Blood Venous blood specimen / Unknown Venipuncture / Unknown 09/04/2024 9:12 AM EDT 09/04/2024 9:22 AM EDT us Paul Grant MD LAB BLOOD ORDERABLES Final Re sult [facility] [address] [place] [address], * (ABNORMAL) Basic metabolic panel (09/04/2024 9:12 AM EDT) Sodium 137 133 - 145 mmol/L LAB CHEMISTRY METHOD 09/04/2024 10:15 AM [facility] Potassium 4.3 3.5 - 5.5 mmol/L LAB CHEMISTRY METHOD 09/04/2024 10:15 AM [facility] Chloride 107 96 - 110 mmol/L LAB CHEMISTRY METHOD 09/04/2024 10:15 AM [facility] CO2 27 21 - 32 mmol/L LAB CHEMISTRY METHOD 09/04/2024 10:15 AM [facility] Anion Gap 3 3 - 11 LAB CHEMISTRY METHOD 09/04/2024 10:15 AM [facility] Glucose 90 70 - 100 mg/dL LAB CHEMISTRY METHOD 09/04/2024 10:15 AM [facility] BUN 26(H) 5 - 25 mg/dL LAB CHEMISTRY METHOD 09/04/2024 10:15 AM [facility] Creatinine 1.35(H) 0.70 - 1.30 mg/dL LAB CHEMISTRY METHOD 09/04/2024 10:15 AM [facility] eGFR 62 >=60 mL/min/1. 73m2 LAB CHEMISTRY METHOD 09/04/2024 10:15 AM [facility] Comment:Calculation based on the Chronic Kidney Disease Epidemiology Collaboration (CKD-EPI) equation refit without adjustment for race. BUN/Creatinine Ratio 19.3 LAB CHEMISTRY METHOD 09/04/2024 10:15 AM [facility] Calcium 9.3 8.5 - 10.5 mg/dL LAB CHEMISTRY METHOD 09/04/2024 10:15 AM [facility] Blood Venous blood specimen / Unknown Venipuncture / Unknown 09/04/2024 9:12 AM EDT 09/04/2024 9:22 AM EDT Paul Grant MD LAB BLOOD ORDERABLES Final Re sult [facility] [address] [place] [address], [place] [phone] * Poc Rapid [id number], MOLECULAR (07/27/2024 6:43 PM EDT) COVID-19/SARS- COV-2 Rapid POC Negative Negative Swab Nasopharyngeal structure / Unknown 07/27/2024 6:43 PM EDT Blanca Collier NP POINT OF CARE TEST ENTER/EDIT ORDERABLES Final Result * XR Chest 2 Views (07/27/2024 6:21 PM EDT) Anatomical Region Laterality Modality Body Radiographic Anna ging 07/28/2024 9:41 AM EDT Impressions 07/28/2024 9:41 AM EDT No acute cardiopulmonary process. -------- FINAL REPORT -------- Dictated By: Sherly Alegria Dictated Date: 07/28/2024 09:41 ET Assigned Physician: Sherly Alegria Reviewed and Electronically Signed By: Sherly Alegria Signed Date: 07/28/2024 09:41 ET Workstation ID: [id number] Transcribed By: Self Edit Transcribed Date: 07/28/2024 09:41 ET Narrative 07/28/2024 9:41 AM EDT HISTORY: cough TECHNIQUE: PA and lateral radiographs of the chest COMPARISON: None FINDINGS: There is a normal cardiomediastinal silhouette. The lungs are clear. Minimal widening of the right acromioclavicular joint which is partially visualized. Minimal degenerative changes of the thoracic spine. Procedure Note Sherly Alegria MD - 07/28/2024 HISTORY: cough TECHNIQUE: PA and lateral radiographs of the chest COMPARISON: None FINDINGS: There is a normal cardiomediastinal silhouette. The lungs are clear.Minimal widening of the right acromioclavicular joint which is partiallyvisualized. Minimal degenerative changes of the thoracic spine. IMPRESSION: No acute cardiopulmonary process. -------- FINAL REPORT -------- Dictated By: Sherly Alegria Dictated Date: 07/28/2024 09:41 ET Assigned Physician: Sherly Alegria Reviewed and Electronically Signed By: Sherly Alegria Signed Date: 07/28/2024 09:41 ET Workstation ID: [id number] Transcribed By: Self Edit Transcribed Date: 07/28/2024 09:41 ET Blanca Collier LOTTERY CLERK IMG XR PROCEDURES Final Result from Last 3 Months Insurance [facility] Advance Directives * Full Code - [...] currently active code status orders. Care Teams Air Conditioning Installer Supervisor Relationship Specialty Start Date End Date Farida Munroe MD PCP - General Internal Medicine 03/06/24
--- OUTSIDE RECORDS SUMMARY | 2024-10-20 12:15 | XMS_ITS | Continuity of Care Document ---
Author Organization [facility] [employer] [address] [place] [address] Phone [phone] Care Team Providers Care Collar Shaper Operator Name Role Phone Andrea Christina M.D. Care Team Information Recei justin [phone] Problems Active Problems Provider Date Essential hypertension Eric Craig M.D. O nset: 12/18/2021 Hemochromatosis Eric Craig M.D. Onset: 1 Social History Type Date Description Comments Sex Male Sex Unknown Tobacco Use Start: Unknown Never Smoked Cigarettes ETOH Use Never used alcohol Allergies and adverse reactions Description No Known Drug Allergies Medications Active Medications SIG Qnty Indications Ordering Provider Date Amlodipine Fmmmthyq0um Tablets 1 by mouth every day Andrea Christina M.D. Vital Signs Date Vital Result Comment 12/18/2021 10:34am BP Systolic 124 mmHg BP Diastolic 84 mmHg Heart Rate 68 /min Height 73 inches 6'1 Weight 225.00 lb BMI (Body Mass Index) 29.7 kg/m2 Results Test Acquired Date Facility Test Result H/L Range Note Osmolality, Urine Random 12/24/2021 [facility] Osmolality, Urine Random 753 MOSM/KG (50-1400 ) Osmolality, Serum 12/24/2021 [facility] Osmolality, Serum 297 MOS/KG High (280-290 ) Basic Metabolic Panel 12/24/2021 [facility] Glucose 87 mg/dL (70-99) BUN 29 mg/dL High (6-20) Creatinine 1.4 mg/dL High (0.7-1.2 ) Sodium 141 mmol/L (133-145 ) Potassium 4.5 mmol/L (3.6-5.2 ) Chloride 103 mmol/L (98-107) Bicarbonate 26 mmol/L (22-29) Anion Gap 12 (4-17) Calcium 9.6 mg/dL (8.6-10. 5) Estimated GFR Creatinine 63 ML/MIN/1.7 3M2 1 FSH 12/24/2021 [facility] FSH 2.6 MIU/ML (1.5-12. 4) 2 LH 12/24/2021 [facility] LH 7.9 MIU/ML (1.5-12. 4) 3 Free Testosterone 12/24/2021 [facility] Testosterone, Total, LC/MS 477.9 4 Percent Free Testosterone 3.27 5 Free Testosterone, Equilibrium 15.63 6 Somatomedin C 12/24/2021 [facility] Somatomedin C 175 NG/ML 7 Z Score 0.5 8 Cortisol 12/24/2021 [facility] Cortisol 10.2 g/dL 9 Free T4 12/24/2021 [facility] Free T4 1.19 ng/dL [...] and 37 years old. Carol et.al. JCEM 2017,102;[id number]. PMID: [id number]. This test was developed and its performance characteristics determined by [facility]. It has not been cleared or approved by the Food and Drug Administration. 5 Reference range: 1.5 0 to 4.20 Unit: % 6 Reference range: 5.0 0 to 21.00 Unit: ng/dL [place] [address] 7 Reference range: 74 to 255 8 Reference range: NEG 2.0 to +2.0 Unit: S.D. [place] [address] 9 Reference Range: 6-10 am: 6.0-18.4 ug/dL 4-8 pm: 2.7-10.5 ug/dL Procedures Date Code Description Status 04/07/2022 NSHOWOFF No Show Office Visit Complet ed 12/18/2021 [id number] Additional suppl ies, materials, staff time over [...]
--- OUTSIDE RECORDS SUMMARY | 2024-10-20 12:15 | XMS_ITS | Clinical Summary ---
Author Organization [facility] Address [address] [address] Phone Care Team Providers Care Microsoft Application Developer Name Role Phone Andrea Christina MD Primary Care Provider [phone] Allergies No known active allergies Medications amLODIPine [...] Colorectal Cancer Screening: Sigmoidoscopy 2017 Influenza Vaccine (#1) 2024 Insurance [employer] Care Teams Microsoft Application Developer Relationship Specialty Start Date End Date Andrea Christina MD [address] [place] [address] PCP - General Internal Medicine 12/16/21
[2024-10-20 14:49] LABS: Anion Gap 12 (12-20); Blood Urea Nitrogen 27 mg/dL (9-16); Carbon Dioxide 24 mmol/L (22-29); Chloride 108 mmol/L (96-108); Estimated Glomerular Filt Rate 57; Potassium 4.5 mmol/L (3.3-5.1); Sodium 139 mmol/L (135-145)
[2024-10-20 15:22] LABS: Appearance Urine Clear; Glucose Urine UA Negative (Negative); PH 6.0 (5.0-9.0); Specific Gravity - Urine >= 1.030 (1.005-1.025)
[2024-10-20 15:43] LABS: Protein/Creatinine Ratio, Ur 0.07 (<0.2); Total Protein Urine Random 18 mg/dL (<12)
== END 2024-10-20 12:13 | disposition home or self-care (01) ==
LOC: HO.HKASLDS 12:12
PROVIDERS: Visit Provider Internal Medicine Nephrology
DX: I12.0 Hypertensive chronic kidney disease with stage 5 chronic kidney disease or end stage renal disease (principal); N18.31 Chronic kidney disease, stage 3a
CPT/HCPCS: 36415; 80051; 81003; 82565; 82570; 84156; 84520

== ENCOUNTER 2024-10-26 14:18 | Outpatient (AMB) | payer OTHER, SELFPAY ==
--- OUTSIDE RECORDS SUMMARY | 2024-05-15 11:00 | XMS_ITS | Encounter Summary ---
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 ([place]) Organization [facility] Address [address] [place] [id number] Care Team Providers Care Lumber Grader Name Role Phone GAGAN WHITESIDE Primary Care Provider Unavailabl e Insurance Providers: All historical and current [...] Relationship to Policy Olivares [facility] Aug 29, 2022 [id number] STEPHANIE ROSSI ERT PATIENT [employer] PREFERRED PROVIDER ORGANIZAT ION (PPO) [facility] N Mar 01, 2006 [id number] FLOSTEPHANIE ERT PATIENT WELLPOINT PREFERRED PROVIDER ORGANIZAT ION (PPO) [facility] * Mar 01, 2006 [id number] ROSSISTEPHANIE ERT PATIENT Selected Encounter This section includes the information on record at [place] for the Encounter. Date/Time Encounter Type Encounter Description Reason Provider Source May 15, 2024 03:00 PM OFFICE O/P EST MOD 30 MIN PRIMARY CARE/MEDICINE ICD-10-CM E78.5 Hyperlipidemia, unspecified GAGAN WHITESIDE Yue Encounter Template Text not used by [facility] Assessments - Encounter Diagnoses This section includes the primary and secondary diagnoses documented for the Encounter. Date/Time Primary/Secondary Diagnosis Diagnosis Name Provider Source May 31, 2024 10:44 AM PRIMARY Hyperlipidemia, unspecified GAGAN WHITESIDE May 31, 2024 10:44 AM SECONDARY Insomnia, unspecified GAGAN WHITESIDE [place] May 31, 2024 10:44 AM SECONDARY Nasal congestion GAGAN WHITESIDE [place] May 31, 2024 10:44 AM SECONDARY Other fatigue GAGAN WHITESIDE [place] May 31, 2024 10:44 AM SECONDARY Pain in unspecified hip GAGAN WHITESIDE [place] Plan of Treatment: Future Appointments (+ 6 months) and Future Tests (+/- 45 days) The Plan of Treatment section includes future care activities for the patient from all [place] treatmentfacilities. This section includes future appointments and future orders which are active, pending or scheduled. Future Appointments This section includes appointments that were scheduled to occur 6 months from the date of the Encounter, up to a maximum of 20 appointments. The data comes from all [place] treatment facilities. Appointment Date/Time Appointment Type Appointme nt Facility Name May 25, 2024 09:00 AM [facility] Jun 23, 2024 10:00 AM [facility] [place] July 21, 2024 02:00 PM [facility]UL[facility] July 27, 2024 08:15 AM AMBULATORY - MEDICINE [facility] July 27, 2024 10:30 AM [facility] [place] July 27, 2024 10:31 AM [facility] Aug 02, 2024 11:00 AM [facility] Aug 02, 2024 11:15 AM AMBULATORY - NONE [facility] Sep 25, 2024 03:30 PM [facility] Oct 02, 2024 01:00 PM [facility]UL[facility] Oct 11, 2024 12:30 PM [facility] Nov 02, 2024 12:30 PM [facility] Nov 03, 2024 02:00 PM AMBULATORY - NONE [facility] Nov 14, 2024 03:30 PM [facility] Social History: Smoking Status (Most current) and Tobacco Use (All prior to encounter date) This section includes the most current, and the historical, smoking and tobacco- related health factors from the [place] facility where the Encounter took place. Current Smoking Status This section includes the most current smoking, or tobacco-related health factor, from the [place] facility where the Encounter took place. Date/Time Current Smoking Status Comment Yair dumont Mar 29, 2023 03:00 PM VA-TOBACCO NEVER USED [place] Tobacco Use History This section includes a history of the smoking, or tobacco-related health factors, that were collected on or before the date of the Encounter. The data comes from the [place] facility where the Encounter took place. Date/Time Smoking Status/Tobacco Use Comment F acshane July 15, 2021 10:30 AM MI-TOBACCO NEVER USED [place] Feb 27, 2019 11:50 AM MI-TOBACCO NEVER USED [place] Feb 14, 2018 12:54 PM VA-TOBACCO NEVER USED [place] Oct 23, 2016 02:25 PM QUIT TOBACCO USE > 7 YEARS AGO quit 20 years ago [place] Advance Directives: All historical and current Section Date Range: From patient's date of to the date document was created. This section includes ALL of a patient's completed or amended [place] Advance and Rescinded Directives. The entries below indicate that a directive exists for the patient, but an actual copy is not included with this document. The data comes from all [place] facilities. Date Advance Directives Provider Source Nov 26, 2016 ADVANCE DIRECTIVE [facility] Radiology Reports: +/- 30 days of the encounter Radiology Reports For cases when an order for radiology services may have been completed prior to the date of the Encounter, the report list includes the Radiology Reports that were completed up to 30 days before dateof the Encounter. For cases when an order for radiology services may have been completed after the date of the Encounter, the report list also includes the Radiology Reports that were completed up to30 days after date of the Encounter. The data comes from all [place] treatment facilities. Date/Time Radiology Report Provider Source May 17, 2024 02:10 PM HIPS BILATERAL(3-4 VIEWS) WITH/WITHOUT PELVI: MERVIN ROSSI [id number] -[id number] M Exm Date: MAY 17, 2024@14:10 Req Phys: GAGAN WHITESIDE Pat Loc: [facility] PACT 10 (Req'g Loc) Img Loc: [facility]/BUILDING 1 Service: Unknown [facility] [place], [place] [id number] (Case [id number] COMPLETE) HIPS BILATERAL(3-4 VIEWS) WITH/WI(RAD Detailed) CPT:51234 Reason for Study: Bilateral Hip pain Clinical History: Report Status: Verified Date Reported: MAY 17, 2024 Date Verified: MAY 17, 2024 Painter Sign Maintenance E-Sig:/ES/ANGELA EMERSON JR Report: Study: AP view of the pelvis with frogleg lateral view of the left and right hips. Comparison: None. Findings: The bony mineralization is normal. The hip joint spaces are normal and well-maintained. There is prominent superior acetabular overhanging bony overcoverage which can be seen in pincer type femoroacetabular impingement predisposing to early osteoarthritis. Clinical correlation is recommended. The pelvic bones are intact. No suspicious bone lesions are identified. The proximal femurs appear normal. No acute bony abnormality is seen. Impression: No acute bony abnormality identified, as described above. Primary Diagnostic Code: No immediate attention required Primary Interpreting Staff: ANGELA EMERSON JR, Radiologist (Painter Sign Maintenance) /ANGELA JACOBS JR [facility] Encounter Notes: All associated encounter notes This section contains the clinical notes associated to the Encounter. Date/Time Encounter Note(s) Provider Source Oct 04, 2024 06:04 AM ADDENDUM: LOCAL TITLE: Addendum STANDARD TITLE: ADDENDUM DATE OF NOTE: OCT 04, 2024@06:04:40 ENTRY DATE: OCT 04, 2024@06:04:41 AUTHOR: GAAGN WHITESIDE EXP COSIGNER: URGENCY: STATUS: COMPLETED Could you please print the full sleep study report? Thank you /christina/ GAGAN WHITESIDE MD Primary Care Physician Signed: 10/04/2024 06:05 Receipt Acknowledged By: 10/04/2024 08:01 /christina/ BRENT MONDRAGON LPN PACT 10 --- Original Document --- 05/15/24 NOTE: HISTORY OF PRESENT ILLNESS: MERVIN ROSSI is a 54 yo MALE who presents at the [facility] for his annual wellness exam. Labs completed 03/27/24. He maintains a nonVA PCP: Dr Andrea Christina since he was a child. Last OV in 06/2023. He uses the [facility] for all his medical care. Active problems - Computerized Problem List is the source for the followin. Upper Gi Endoscopy 2. Osteoarthritis of cervical spine 3. Osteoarthritis of lumbar spine 4. Primary erectile dysfunction 5. Insomnia 6. Burn of hand 7. Obesity 8. Colonoscopy Screening 9. Hyperlipidemia 10. Pes planus 11. Arthralgia of multiple joints The following VA and Non-VA meds were reconciled with patient: Active Outpatient Medications (including Supplies): Issue Date Status Last Fill Active Outpatient Medications Refills Expiration 1) CHOLECALCIF 25MCG (D3-1,000UNIT) TAB Qty: 90 ACTIVE Issue: 03/28/24 for 90 days Sig: TAKE ONE TABLET BY MOUTH Refills: 3 Last : 03/28/24 ONCE DAILY FOR VITAMIN SUPPLEMENTATION Expr : 03/29/25 Indication: FOR SUPPLEMENTATION 2) FAMOTIDINE 20MG TAB Qty: 180 for 90 days ACTIVE Issue: 10/28/23 Sig: TAKE ONE TABLET BY MOUTH TWICE DAILY Refills: 0 Last : 01/17/24 Indication: FOR HEARTBURN Expr : 10/28/24 3) FLUTICASONE PROP 50MCG 120D NASAL INHL Qty: ACTIVE Issue: 08/31/23 3 for 90 days Sig: INSTILL 2 SPRAYS INTO Refills: 0 Last : 01/02/24 EACH NOSTRIL EVERY EVENING Expr : 08/31/24 Indication: FOR NASAL IRRITATION/INFLAMMATION 4) LIDOCAINE 5% PATCH Qty: 60 for 30 days Sig: ACTIVE Issue: 12/28/23 APPLY 2 PATCHES TOPICALLY EVERY 24 HOURS Refills: 3 Last : 04/07/24 NEEDED (LEAVE PATCH ON FOR 12 HOURS, THEN Expr : 12/28/24 REMOVE PATCH) FOR LOWER BACK Indication: FOR NERVE PAIN 5) NAPROXEN 500MG TAB Qty: 180 for 90 days Sig: ACTIVE Issue: 12/21/23 TAKE ONE TABLET BY MOUTH TWICE DAILY TAKE Refills: 0 Last : 05/23/24 WITH FOOD Expr : 12/21/24 Indication: FOR PAIN 6) SILDENAFIL CITRATE 100MG TAB Qty: 6 for 30 ACTIVE Issue: 12/21/23 days Sig: TAKE ONE TABLET BY MOUTH ONCE Refills: 3 Last : 04/07/24 DAILY NEEDED TAKE 1 HOUR PRIOR TO Expr : 12/21/24 SEXUAL ACTIVITY 7) TRAZODONE HCL 100MG TAB Qty: 135 for 90 days ACTIVE Issue: 12/21/23 Sig: TAKE ONE AND ONE-HALF TABLETS BY MOUTH Refills: 0 Last : 05/23/24 AT BEDTIME Expr : 12/21/24 Indication: FOR INSOMNIA ASSOCIATED WITH DEPRESSION ALLERGIES: ========= Patient has answered NKA LAB HISTORY: CHEM 7 TREND Collection DT Spec GLUCOSE BUN CREATIN Sodium K+/Pot CL CO2 03/27/2024 12:38 SERUM 103 H 23 1.35 137 4.7 108 22 03/23/2023 14:13 SERUM 91 24 1.28 136 4.7 107 22 06/05/2021 13:26 SERUM 91 18 1.27 138 4.8 104 24 05/14/2020 13:40 SERUM 94 24 1.06 138 4.4 106 24 02/28/2019 11:41 SERUM 94 17 1.06 137 4.7 104 26 CBC TREND Collection DT Spec WBC RBC HGB HCT MCV MCH PLT 03/27/2024 12:38 BLOOD 6.51 6.31 H 16.4 51.2 H 81.1 L 26.0 L 242 03/23/2023 14:13 BLOOD 8.89 5.67 H 16.4 49.2 86.8 28.9 238 06/05/2021 13:26 BLOOD 7.20 5.70 H 16.9 50.0 87.7 29.6 277 05/14/2020 13:40 BLOOD 5.07 5.73 H 17.2 H 50.6 H 88.3 30.0 244 02/28/2019 11:41 BLOOD 6.91 5.65 16.8 49.5 87.6 29.7 244 HEMOGLOBIN A1C TREND Collection DT Spec HGBA1c 03/27/2024 12:38 BLOOD 5.2 03/23/2023 14:13 BLOOD 5.0 06/05/2021 13:27 BLOOD 4.9 05/14/2020 13:40 BLOOD 4.8 02/28/2019 11:41 BLOOD 5.2 LIPID PANEL TREND Collection DT Spec CHOL HDL CHO/HDL LDL-c TRIG 03/27/2024 12:38 SERUM 217 H 42 5.2 163 H 58 03/23/2023 14:13 SERUM 201 H 47 4.3 134 H 99 06/05/2021 13:26 SERUM 191 33 L 5.8 140 H 89 05/14/2020 13:40 SERUM 213 H 43 5.0 154 H 81 02/28/2019 11:41 SERUM 225 H 47 4.8 154 H 120 LIVER PANEL TREND Collection DT Spec AST ALT T BILI ALK KARSON T. PROT ALBUMIN 03/27/2024 12:38 SERUM 12 16 0.6 42 6.9 4.0 03/23/2023 14:13 SERUM 12 16 0.6 45 6.9 4.3 06/05/2021 13:26 SERUM 13 13 0.5 46 7.0 4.1 05/14/2020 13:40 SERUM 15 21 0.7 57 6.9 4.1 02/28/2019 11:41 SERUM 18 29 0.5 59 6.9 4.0 Collection DT Spec TSH 03/27/2024 12:38 SERUM 1.20 HISTORY: PERIOD OF SERVICE - [facility] [employer] FROM Apr TO Aug COMBAT SERVICE INDICATED: No VITAL SIGNS: Blood Pressure 127/84 (05/15/2024 14:56) Pulse 63 (05/15/2024 14:56) Respiration 18 (05/15/2024 14:56) Pulse Oximetry 79% (05/15/2024 14:56) Temperature 97.9 F [36.6 C] (05/15/2024 14:56) Pain 0 (05/15/2024 14:56) Height 71 in [180.3 cm] (05/15/2024 14:56) Weight 226.2 lb [102.60 kg] (05/15/2024 14:56) BMI BMI: 31.6 REVIEW OF SYSTEMS: ENT: No sore throat, no cough CARDIOVASCULAR: No chest pain, no palps RESPIRATORY: No SOB, no wheezing GASTROINTESTINAL: No abd pain, no N/V/D MUSCULOSKELETAL: No joint pain PSYCHIATRIC: No anxiety, no depression NEUROLOGIC: No H/A, no weakness EXAMINATION: GENERAL: WD/WN in NAD HEENT: Moist mucosa NECK: Supple, no LN's, no carotid bruits HEART: RRR, S1-S2, no murmurs LUNGS: CTA B/L ABDOMEN: Soft, NT/ND, + BS x 4 Quads PERIPH PULSES: 2+ B/L EXTREMITIES: FROM x 4, no edema NEUROLOGIC: AAO x3, no FF's PSYCHIATRIC: Good eye contact, affect normal ASSESSMENT/PLAN: Adult Annual General Wellness Exam -advised eye exams yearly and dental exams Q6 mths prn -advised heart healthy well balanced diet and lifestyle habits -advised regular CV exercise for 30 mins on most days of the week 1. Mild Hyperlipidemia: advised diet and lifestyle modifications, he wishes to improve his diet and wants to recheck in 6 mths Collection DT Spec CHOL HDL CHO/HDL LDL-c TRIG 03/27/2024 12:38 SERUM 217 H 42 5.2 163 H 58 2. 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), he made it clear that he does not want any form of opioid treatment for his pain, he was sent to rheumatology 4 times and did not respond to outreach attempts, however he responded to the 5th attempt and saw [facility] rheumatology - Dr Dallas Baker on 07/14/21 who performed a very extensive and detailed exam on this (note reviewed) - does not wish to return to him -hips are very bothersome when he sleeps at night - most painful when laying on his side directly over his hips -will order Xrays B/L hips and refer to physiatry for CSI to both hips Xray C-Spine 01/2021 at [facility] showed cervical OA Xray L-Spine 01/2021 at [facility] showed lumbar OA 3. Insomnia: on trazodone 150mg/QHS, will increase to 200mg/QHS 4. Erectile Dysfunction: on sildenafil 100mg/day prn 5. Obesity: BMI ~32, counseled on weight loss 6. Colonoscopy Screening: never, 02/24/24 FIT card negative 8. GERD: on famotidine 20mg/BID 9. 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 Daytime Fatigue: will order a home sleep study FOLLOW UP: 6 mths - Lipids - FBW prior ========= UPCOMING APPOINTMENTS: 07/06/2024 12:30 [facility] DMD 2 11/02/2024 12:45 [facility] RDH 1 PM 05/03/2025 15:00 [facility] OPT[facility] 2 PM No barriers; Patient understands and agrees to current treatment plan. If pt has any questions, concerns, or changes in current health status he/she will call or come in to the VA. Medication Reconciliation: Outpatient: Has the patient been taking medications as documented in the EMLR? YES: The patient has been taking medications as documented in the EMLR. Essential Medication List for Review used to complete this medication reconciliation. INCLUDED IN THIS LIST: Alphabetical list of active outpatient prescriptions dispensed from this VA (local) and dispensed from another VA or DoD facility (remote) as well as inpatient orders (local, pending and active), local clinic medications, locally documented non-VA medications, and local prescriptions that have or been discontinued in the past 90 days. - All changes in medications, including all non-VA/Herbal/OTC medications were entered into CPRS. - If there were any medications the patient should no longer take, they were discontinued. - The patient/caregiver was instructed to update this list, discard old lists, and take this list to the next appointment, whether with a VA or non-VA provider. JLV Link Data on this list may not be complete. Please check JLV. Allergies/ADRs (Tool #5) FACILITY ALLERGY/ADR -------- No Remote Allergy/ADR Data available for this patient [facility] [place] [facility] No Known Allergies Med Recon [place] (Tool #1) INCLUDED IN THIS LIST: Alphabetical list of active outpatient prescriptions dispensed from this VA (local) and dispensed from another VA or DoD facility (remote) as well as inpatient orders (local pending and active), local clinic medications, locally documented non-VA medications, and local prescriptions that have or been discontinued in the past 90 days. Non-VA Meds Last Documented On: Data not found NOTE The display of VA prescriptions dispensed from another VA or DoD facility (remote) is limited to active outpatient prescription entries matched to National Drug File at the originating site and may not include some items such as investigational drugs, compounds, etc. NOT INCLUDED IN THIS LIST: Medications self-entered by the patient into personal health records (i.e. Telespree) are NOT included in this list. Non-VA medications documented outside this [place], remote inpatient orders (regardless of status) and remote clinic medications are NOT included in this list. The patient and provider must always discuss medications the patient is taking, regardless of where the medication was dispensed or obtained. ------ OUTPT ACETAMINOPHEN 500MG TAB (Status = ) TAKE TWO TABLETS BY MOUTH THREE TIMES DAILY NEEDED FOR PAIN Rx# [id number] Last Released: 11/02/23 Qty/ Supply: Rx Expiration Date: 03/29/24 Refills Remainin OUTPT CHOLECALCIF 25MCG (D3-1,000UNIT) TAB (Status = Active) TAKE ONE TABLET BY MOUTH ONCE DAILY FOR VITAMIN SUPPLEMENTATION Rx# [id number] Last Released: 03/30/24 QtDays Supply: Rx Expiration Date: 03/29/25 Refills Remainin Indication: FOR SUPPLEMENTATION OUTPT DULOXETINE HCL 60MG EC CAP (Status = ) TAKE ONE CAPSULE BY MOUTH ONCE DAILY Rx# [id number] Last Released: Supply: Rx Expiration Date: 03/29/24 Refills Remainin OUTPT FAMOTIDINE 20MG TAB (Status = Active) TAKE ONE TABLET BY MOUTH TWICE DAILY FOR HEARTBURN Rx# [id number] Last Released: 01/08/24 Qty/Days Supply: Rx Expiration Date: 10/28/24 Refills Remainin Indication: FOR HEARTBURN OUTPT FLUTICASONE PROP 50MCG 120D NASAL INHL (Status = Active) INSTILL 2 SPRAYS INTO EACH NOSTRIL EVERY EVENING FOR NASAL IRRITATION/INFLAMMATION Rx# [id number] Last Released: 12/29/23 Qty/Days Supply: Rx Expiration Date: 08/31/24 Refills Remainin Indication: FOR NASAL IRRITATION/INFLAMMATION OUTPT LIDOCAINE 5% PATCH (Status = Active) APPLY 2 PATCHES TOPICALLY EVERY 24 HOURS NEEDED FOR NERVE PAIN (LEAVE PATCH ON FOR 12 HOURS, THEN REMOVE PATCH) FOR LOWER BACK Rx# [id number] Last Released: 04/11/24 Qty/Days Supply: 60 Rx Expiration Date: 12/28/24 Refills Remainin Indication: FOR NERVE PAIN OUTPT LORATADINE 10MG TAB (Status = ) TAKE ONE TABLET BY MOUTH ONCE DAILY FOR ALLERGY Rx# [id number] Last Released: Qty/Days Supply: 90 Rx Expiration Date: 03/29/24 Refills Remainin Indication: FOR ALLERGY OUTPT NAPROXEN 500MG TAB (Status = Active) TAKE ONE TABLET BY MOUTH TWICE DAILY FOR PAIN TAKE WITH FOOD Rx# [id number] Last Released: 02/25/24 Qty/Days Supply: 180 Rx Expiration Date: 12/21/24 Refills Remainin Indication: FOR PAIN OUTPT SILDENAFIL CITRATE 100MG TAB (Status = Active) TAKE ONE TABLET BY MOUTH ONCE DAILY NEEDED TAKE 1 HOUR PRIOR TO SEXUAL ACTIVITY Rx# [id number] Last Released: 04/12/24 Qty/Days Supply: 08/28 Rx Expiration Date: 12/21/24 Refills Remainin OUTPT TRAZODONE HCL 100MG TAB (Status = Active) TAKE ONE AND ONE-HALF TABLETS BY MOUTH AT BEDTIME FOR INSOMNIA ASSOCIATED WITH DEPRESSION Rx# [id number] Last Released: 02/25/24 Qty/Days Supply: 135 Rx Expiration Date: 12/21/24 Refills Remainin Indication: FOR INSOMNIA ASSOCIATED WITH DEPRESSION ------ SUPPLIES ------ HIV Screening: Patient has been offered HIV testing and has declined. I have explained that HIV testing is recommended for all adults, even if all risk factors are absent. The patient was educated on the risk of delayed screening. /christina/ GAGAN WHITESIDE MD Primary Care Physician Signed: 05/15/2024 16:03 10/02/2024 ADDENDUM STATUS: COMPLETED Sleep study completed on 08/26/24 results below IMPRESSION - Mild supine-dependent obstructive sleep apnea (ANITRA) based on an PATIENCE-3% of 10/hr. The supine PATIENCE-3% was 75/hr and the non-supine PATIENCE-3% was 4/hr. - The oxygen saturation zan was 85% and mean was 94%. The time spent below 90% was 4.8 minutes or 0.8% of the validated monitoring time. RECOMMENDATIONS - The patient should follow up with their referring provider to discuss symptoms, study results, available therapy options and patient expectations. - If patient is agreeable to a trial of CPAP, consider empiric settings of auto-adjusting CPAP 5-20 cmH20. Since the patient receives care through [facility], the referring provider is responsible for placing the CPAP order. - Consider positional therapy with the use of a body positioner (e.g, Zzoma belt, Slumber Bump, or [place] Knows Side Sleeping Backpack). - Current [place] [employer] recommendations for treatment of obstructive sleep apnea includes 1) positive airway pressure (PAP) as initial therapy, and alternative therapy may include oral appliance therapy, ENT evaluation for upper airway surgery. Treatment also includes weight reduction if BMI is elevated, avoidance of sleeping in the supine position and reduction of alcohol and medications that contribute to upper airway relaxation. /suzanna MONDRAGON LPN PACT 10 Signed: 10/02/2024 07:59 Receipt Acknowledged By: 10/04/2024 06:04 /christina/ GAGAN WHITESIDE MD Primary Care Physician GAGAN WHITESIDE Oct 02, 2024 07:58 AM ADDENDUM: LOCAL TITLE: Addendum STANDARD TITLE: ADDENDUM DATE OF NOTE: OCT 02, 2024@07:58:57 ENTRY DATE: OCT 02, 2024@07:58:58 AUTHOR: BRENT MONDRAGON EXP COSIGNER: URGENCY: STATUS: COMPLETED Sleep study completed on 08/26/24 results below IMPRESSION - Mild supine-dependent obstructive sleep apnea (ANITRA) based on an PATIENCE-3% of 10/hr. The supine PATIENCE-3% was 75/hr and the non-supine PATIENCE-3% was 4/hr. - The oxygen saturation zan was 85% and mean was 94%. The time spent below 90% was 4.8 minutes or 0.8% of the validated monitoring time. RECOMMENDATIONS - The patient should follow up with their referring provider to discuss symptoms, study results, available therapy options and patient expectations. - If patient is agreeable to a trial of CPAP, consider empiric settings of auto-adjusting CPAP 5-20 cmH20. Since the patient receives care through [facility], the referring provider is responsible for placing the CPAP order. - Consider positional therapy with the use of a body positioner (e.g, Zzoma belt, Slumber Bump, or [place] Knows Side Sleeping Backpack). - Current [place] [employer] recommendations for treatment of obstructive sleep apnea includes 1) positive airway pressure (PAP) as initial therapy, and alternative therapy may include oral appliance therapy, ENT evaluation for upper airway surgery. Treatment also includes weight reduction if BMI is elevated, avoidance of sleeping in the supine position and reduction of alcohol and medications that contribute to upper airway relaxation. /christina/ BRENT MONDRAGON LPN PACT 10 Signed: 10/02/2024 07:59 Receipt Acknowledged By: 10/04/2024 06:04 /christina/ GAGAN WHITESIDE MD Primary Care Physician --- Original Document --- 05/15/24 NOTE: HISTORY OF PRESENT ILLNESS: MERVIN VIRI ROSSI is a 54 yo MALE who presents at the [facility] for his annual wellness exam. Labs completed 03/27/24. He maintains a nonVA PCP: Dr Andrea Christina since he was a child. Last OV in 06/2023. He uses the [place] for all his medical care. Active problems - Computerized Problem List is the source for the followin. Upper Gi Endoscopy 2. Osteoarthritis of cervical spine 3. Osteoarthritis of lumbar spine 4. Primary erectile dysfunction 5. Insomnia 6. Burn of hand 7. Obesity 8. Colonoscopy Screening 9. Hyperlipidemia 10. Pes planus 11. Arthralgia of multiple joints The following VA and Non-VA meds were reconciled with patient: Active Outpatient Medications (including Supplies): Issue Date Status Last Fill Active Outpatient Medications Refills Expiration 1) CHOLECALCIF 25MCG (D3-1,000UNIT) TAB Qty: 90 ACTIVE Issue: 03/28/24 for 90 days Sig: TAKE ONE TABLET BY MOUTH Refills: 3 Last : 03/28/24 ONCE DAILY FOR VITAMIN SUPPLEMENTATION Expr : 03/29/25 Indication: FOR SUPPLEMENTATION 2) FAMOTIDINE 20MG TAB Qty: 180 for 90 days ACTIVE Issue: 10/28/23 Sig: TAKE ONE TABLET BY MOUTH TWICE DAILY Refills: 0 Last : 01/17/24 Indication: FOR HEARTBURN Expr : 10/28/24 3) FLUTICASONE PROP 50MCG 120D NASAL INHL Qty: ACTIVE Issue: 08/31/23 3 for 90 days Sig: INSTILL 2 SPRAYS INTO Refills: 0 Last : 01/02/24 EACH NOSTRIL EVERY EVENING Expr : 08/31/24 Indication: FOR NASAL IRRITATION/INFLAMMATION 4) LIDOCAINE 5% PATCH Qty: 60 for 30 days Sig: ACTIVE Issue: 12/28/23 APPLY 2 PATCHES TOPICALLY EVERY 24 HOURS Refills: 3 Last : 04/07/24 NEEDED (LEAVE PATCH ON FOR 12 HOURS, THEN Expr : 12/28/24 REMOVE PATCH) FOR LOWER BACK Indication: FOR NERVE PAIN 5) NAPROXEN 500MG TAB Qty: 180 for 90 days Sig: ACTIVE Issue: 12/21/23 TAKE ONE TABLET BY MOUTH TWICE DAILY TAKE Refills: 0 Last : 05/23/24 WITH FOOD Expr : 12/21/24 Indication: FOR PAIN 6) SILDENAFIL CITRATE 100MG TAB Qty: 6 for 30 ACTIVE Issue: 12/21/23 days Sig: TAKE ONE TABLET BY MOUTH ONCE Refills: 3 Last : 04/07/24 DAILY NEEDED TAKE 1 HOUR PRIOR TO Expr : 12/21/24 SEXUAL ACTIVITY 7) TRAZODONE HCL 100MG TAB Qty: 135 for 90 days ACTIVE Issue: 12/21/23 Sig: TAKE ONE AND ONE-HALF TABLETS BY MOUTH Refills: 0 Last : 05/23/24 AT BEDTIME Expr : 12/21/24 Indication: FOR INSOMNIA ASSOCIATED WITH DEPRESSION ALLERGIES: ========= Patient has answered NKA LAB HISTORY: CHEM 7 TREND Collection DT Spec GLUCOSE BUN CREATIN Sodium K+/Pot CL CO2 03/27/2024 12:38 SERUM 103 H 23 1.35 137 4.7 108 22 03/23/2023 14:13 SERUM 91 24 1.28 136 4.7 107 22 06/05/2021 13:26 SERUM 91 18 1.27 138 4.8 104 24 05/14/2020 13:40 SERUM 94 24 1.06 138 4.4 106 24 02/28/2019 11:41 SERUM 94 17 1.06 137 4.7 104 26 CBC TREND Collection DT Spec WBC RBC HGB HCT MCV MCH PLT 03/27/2024 12:38 BLOOD 6.51 6.31 H 16.4 51.2 H 81.1 L 26.0 L 242 03/23/2023 14:13 BLOOD 8.89 5.67 H 16.4 49.2 86.8 28.9 238 06/05/2021 13:26 BLOOD 7.20 5.70 H 16.9 50.0 87.7 29.6 277 05/14/2020 13:40 BLOOD 5.07 5.73 H 17.2 H 50.6 H 88.3 30.0 244 02/28/2019 11:41 BLOOD 6.91 5.65 16.8 49.5 87.6 29.7 244 HEMOGLOBIN A1C TREND Collection DT Spec HGBA1c 03/27/2024 12:38 BLOOD 5.2 03/23/2023 14:13 BLOOD 5.0 06/05/2021 13:27 BLOOD 4.9 05/14/2020 13:40 BLOOD 4.8 02/28/2019 11:41 BLOOD 5.2 LIPID PANEL TREND Collection DT Spec CHOL HDL CHO/HDL LDL-c TRIG 03/27/2024 12:38 SERUM 217 H 42 5.2 163 H 58 03/23/2023 14:13 SERUM 201 H 47 4.3 134 H 99 06/05/2021 13:26 SERUM 191 33 L 5.8 140 H 89 05/14/2020 13:40 SERUM 213 H 43 5.0 154 H 81 02/28/2019 11:41 SERUM 225 H 47 4.8 154 H 120 LIVER PANEL TREND Collection DT Spec AST ALT T BILI ALK KARSON T. PROT ALBUMIN 03/27/2024 12:38 SERUM 12 16 0.6 42 6.9 4.0 03/23/2023 14:13 SERUM 12 16 0.6 45 6.9 4.3 06/05/2021 13:26 SERUM 13 13 0.5 46 7.0 4.1 05/14/2020 13:40 SERUM 15 21 0.7 57 6.9 4.1 02/28/2019 11:41 SERUM 18 29 0.5 59 6.9 4.0 Collection DT Spec TSH 03/27/2024 12:38 SERUM 1.20 HISTORY: PERIOD OF SERVICE - [facility] [employer] FROM Apr TO Aug COMBAT SERVICE INDICATED: No VITAL SIGNS: Blood Pressure 127/84 (05/15/2024 14:56) Pulse 63 (05/15/2024 14:56) Respiration 18 (05/15/2024 14:56) Pulse Oximetry 79% (05/15/2024 14:56) Temperature 97.9 F [36.6 C] (05/15/2024 14:56) Pain 0 (05/15/2024 14:56) Height 71 in [180.3 cm] (05/15/2024 14:56) Weight 226.2 lb [102.60 kg] (05/15/2024 14:56) BMI BMI: 31.6 REVIEW OF SYSTEMS: ENT: No sore throat, no cough CARDIOVASCULAR: No chest pain, no palps RESPIRATORY: No SOB, no wheezing GASTROINTESTINAL: No abd pain, no N/V/D MUSCULOSKELETAL: No joint pain PSYCHIATRIC: No anxiety, no depression NEUROLOGIC: No H/A, no weakness EXAMINATION: GENERAL: WD/WN in NAD HEENT: Moist mucosa NECK: Supple, no LN's, no carotid bruits HEART: RRR, S1-S2, no murmurs LUNGS: CTA B/L ABDOMEN: Soft, NT/ND, + BS x 4 Quads PERIPH PULSES: 2+ B/L EXTREMITIES: FROM x 4, no edema NEUROLOGIC: AAO x3, no FF's PSYCHIATRIC: Good eye contact, affect normal ASSESSMENT/PLAN: Adult Annual General Wellness Exam -advised eye exams yearly and dental exams Q6 mths prn -advised heart healthy well balanced diet and lifestyle habits -advised regular CV exercise for 30 mins on most days of the week 1. Mild Hyperlipidemia: advised diet and lifestyle modifications, he wishes to improve his diet and wants to recheck in 6 mths Collection DT Spec CHOL HDL CHO/HDL LDL-c TRIG 03/27/2024 12:38 SERUM 217 H 42 5.2 163 H 58 2. 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), he made it clear that he does not want any form of opioid treatment for his pain, he was sent to rheumatology 4 times and did not respond to outreach attempts, however he responded to the 5th attempt and saw [facility] rheumatology - Dr Dallas Baker on 07/14/21 who performed a very extensive and detailed exam on this (note reviewed) - does not wish to return to him -hips are very bothersome when he sleeps at night - most painful when laying on his side directly over his hips -will order Xrays B/L hips and refer to physiatry for CSI to both hips Xray C-Spine 01/2021 at [facility] showed cervical OA Xray L-Spine 01/2021 at [facility] showed lumbar OA 3. Insomnia: on trazodone 150mg/QHS, will increase to 200mg/QHS 4. Erectile Dysfunction: on sildenafil 100mg/day prn 5. Obesity: BMI ~32, counseled on weight loss 6. Colonoscopy Screening: never, 02/24/24 FIT card negative 8. GERD: on famotidine 20mg/BID 9. 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 Daytime Fatigue: will order a home sleep study FOLLOW UP: 6 mths - Lipids - FBW prior ========= UPCOMING APPOINTMENTS: 07/06/2024 12:30 [facility] DMD 2 11/02/2024 12:45 [facility] RDH 1 PM 05/03/2025 15:00 [facility] 2 PM No barriers; Patient understands and agrees to current treatment plan. If pt has any questions, concerns, or changes in current health status he/she will call or come in to the [facility]. Medication Reconciliation: Outpatient: Has the patient been taking medications as documented in the EMLR? YES: The patient has been taking medications as documented in the EMLR. Essential Medication List for Review used to complete this medication reconciliation. INCLUDED IN THIS LIST: Alphabetical list of active outpatient prescriptions dispensed from this [facility] (local) and dispensed from another [place] or DoD facility (remote) as well as inpatient orders (local, pending and active), local clinic medications, locally documented non-VA medications, and local prescriptions that have or been discontinued in the past 90 days. - All changes in medications, including all non-VA/Herbal/OTC medications were entered into CPRS. - If there were any medications the patient should no longer take, they were discontinued. - The patient/caregiver was instructed to update this list, discard old lists, and take this list to the next appointment, whether with a VA or non-VA provider. JLV Link Data on this list may not be complete. Please check JLV. Allergies/ADRs (Tool #5) FACILITY ALLERGY/ADR -------- No Remote Allergy/ADR Data available for this patient [place] [facility] No Known Allergies Med [facility] (Tool #1) INCLUDED IN THIS LIST: Alphabetical list of active outpatient prescriptions dispensed from this [place] (local) and dispensed from another [place] or [facility] facility (remote) as well as inpatient orders (local pending and active), local clinic medications, locally documented non-VA medications, and local prescriptions that have or been discontinued in the past 90 days. Non-VA Meds Last Documented On: Data not found NOTE The display of VA prescriptions dispensed from another [place] or DoD facility (remote) is limited to active outpatient prescription entries matched to National Drug File at the originating site and may not include some items such as investigational drugs, compounds, etc. NOT INCLUDED IN THIS LIST: Medications self-entered by the patient into personal health records (i.e. Telespree) are NOT included in this list. Non-VA medications documented outside this [place], remote inpatient orders (regardless of status) and remote clinic medications are NOT included in this list. The patient and provider must always discuss medications the patient is taking, regardless of where the medication was dispensed or obtained. ------ OUTPT ACETAMINOPHEN 500MG TAB (Status = ) TAKE TWO TABLETS BY MOUTH THREE TIMES DAILY NEEDED FOR PAIN Rx# [id number] Last Released: 11/02/23 Qty/Days Supply: 200/30 Rx Expiration Date: 03/29/24 Refills Remainin OUTPT CHOLECALCIF 25MCG (D3-1,000UNIT) TAB (Status = Active) TAKE ONE TABLET BY MOUTH ONCE DAILY FOR VITAMIN SUPPLEMENTATION Rx# [id number] Last Released: 03/30/24 Qty/Days Supply: Rx Expiration Date: 03/29/25 Refills Remainin Indication: FOR SUPPLEMENTATION OUTPT DULOXETINE HCL 60MG EC CAP (Status = ) TAKE ONE CAPSULE BY MOUTH ONCE DAILY Rx# [id number] Last Released: Qty/Days Supply: Rx Expiration Date: 03/29/24 Refills Remainin OUTPT FAMOTIDINE 20MG TAB (Status = Active) TAKE ONE TABLET BY MOUTH TWICE DAILY FOR HEARTBURN Rx# [id number] Last Released: 01/08/24 Qty/Days Supply: Rx Expiration Date: 10/28/24 Refills Remainin Indication: FOR HEARTBURN OUTPT FLUTICASONE PROP 50MCG 120D NASAL INHL (Status = Active) INSTILL 2 SPRAYS INTO EACH NOSTRIL EVERY EVENING FOR NASAL IRRITATION/INFLAMMATION Rx# [id number] Last Released: 12/29/23 Qty/Days Supply: Rx Expiration Date: 08/31/24 Refills Remainin Indication: FOR NASAL IRRITATION/INFLAMMATION OUTPT LIDOCAINE 5% PATCH (Status = Active) APPLY 2 PATCHES TOPICALLY EVERY 24 HOURS NEEDED FOR NERVE PAIN (LEAVE PATCH ON FOR 12 HOURS, THEN REMOVE PATCH) FOR LOWER BACK Rx# [id number] Last Released: 04/11/24 Qty/Days Supply: 60 Rx Expiration Date: 12/28/24 Refills Remainin Indication: FOR NERVE PAIN OUTPT LORATADINE 10MG TAB (Status = ) TAKE ONE TABLET BY MOUTH ONCE DAILY FOR ALLERGY Rx# [id number] Last Released: Qty/Days Supply: Rx Expiration Date: 03/29/24 Refills Remainin Indication: FOR ALLERGY OUTPT NAPROXEN 500MG TAB (Status = Active) TAKE ONE TABLET BY MOUTH TWICE DAILY FOR PAIN TAKE WITH FOOD Rx# [id number] Last Released: 02/25/24 Qty/Days Supply: Rx Expiration Date: 12/21/24 Refills Remainin Indication: FOR PAIN OUTPT SILDENAFIL CITRATE 100MG TAB (Status = Active) TAKE ONE TABLET BY MOUTH ONCE DAILY NEEDED TAKE 1 HOUR PRIOR TO SEXUAL ACTIVITY Rx# [id number] Last Released: 04/12/24 Qty/Days Supply: 08/28 Rx Expiration Date: 12/21/24 Refills Remainin OUTPT TRAZODONE HCL 100MG TAB (Status = Active) TAKE ONE AND ONE-HALF TABLETS BY MOUTH AT BEDTIME FOR INSOMNIA ASSOCIATED WITH DEPRESSION Rx# [id number] Last Released: 02/25/24 Qty/Days Supply: Rx Expiration Date: 12/21/24 Refills Remainin Indication: FOR INSOMNIA ASSOCIATED WITH DEPRESSION ------ SUPPLIES ------ HIV Screening: Patient has been offered HIV testing and has declined. I have explained that HIV testing is recommended for all adults, even if all risk factors are absent. The patient was educated on the risk of delayed screening. /christina/ GAGAN WHITESIDE MD Primary Care Physician Signed: 05/15/2024 16:03 BRENT MONDRAGON DOVER May 15, 2024 02:57 PM PREVENTIVE MEDICIN E NURSING NOTE: LOCAL TITLE: CLINICAL REMINDERS/NURSING STANDARD TITLE: PREVENTIVE MEDICINE NURSING NOTE DATE OF NOTE: MAY 15, 2024@14:57 ENTRY DATE: MAY 15, 2024@14:57:07 AUTHOR: BRENT MONDRAGON EXP COSIGNER: URGENCY: STATUS: COMPLETED Advance Directive Screen MH AD: Patient has an Advance Directive on file at this [facility]. No updates are needed at this time. The patient received education about Advance Directives and written notification of his/her rights. BMI>30/>24.99 High Risk: Patient declines to discuss weight management. Patient declined weight discussion. Discussed revisiting at a future visit. Homelessness/Food Insecurity Screen: In the past 2 months, have you been living in stable housing that you own, rent, or stay in as part of a household? Yes - Living in stable housing. Are you worried or concerned that in the next 2 months you may NOT have stable housing that you own, rent, or stay in as part of a household? No - Not worried about housing near future [facility] reports the following: Within the past 12 months, you worried whether your food would run out before you got money to buy more. Never true Within the past 12 months, the food you bought just didn't last and you didn't have money to get more. Never true Depression Screening: Perform PHQ-2 A PHQ-2 screen was performed. The score was 0 which is a negative screen for depression. Over the past two weeks, how often have you been bothered by the following problems? 1. Little interest or pleasure in doing things Not at all 2. Feeling down, depressed, or hopeless Not at all Influenza Immunization: Deferral / Refusal The patient declines to receive the recommended dose of seasonal influenza vaccine. Immunization: INFLUENZA, UNSPECIFIED FORMULATION Refusal Reason: PATIENT DECISION Patient refuses all immunization(s) in the FLU group Date Documented: 05/15/24 14:57 Td/Tdap Immunization: The patient declines to receive the recommended dose of Td/Tdap vaccine. Immunization: TD(ADULT) UNSPECIFIED FORMULATION Refusal Reason: PATIENT DECISION Patient refuses all immunization(s) in the Td group Date Documented: 05/15/24 14:57 Alcohol Use Screen (AUDIT-C): Alcohol Screen: SCREEN FOR ALCOHOL (AUDIT-C) An alcohol screening test (AUDIT-C) was negative (score=0). 1. How often did you have a drink containing alcohol in the past year? Consider a drink to be a 12 ounce can or bottle of regular beer, 8 ounces of malt liquor, a 5 ounce glass of table wine, or a 1.5 ounce shot of liquor (like scotch, gin, or vodka). Never 2. How many drinks containing alcohol did you have on a typical day when you were drinking in the past year? Response not required due to responses to other questions. 3. How often did you have six or more drinks on one occasion in the past year? Response not required due to responses to other questions. COVID-19 Immunization: Refused Moderna Monovalent COVID-19 vaccine Immunization: COVID-19 (MODERNA), MRNA, LNP-S, PF, 50 MCG/0.5 ML (AGES 12+ YEARS) Refusal Reason: PATIENT DECISION Patient refuses all immunization(s) in the COVID-19 group Date Documented: 05/15/24 14:58 Herpes Zoster (Shingles) Vaccine: The patient declines to receive the recommended dose of zoster (shingles) vaccine. Immunization: ZOSTER RECOMBINANT Refusal Reason: PATIENT DECISION Patient refuses all immunization(s) in the ZOSTER group Date Documented: 05/15/24 14:58 Sexual Orientation: The patient thinks of their sexual orientation as: Straight or Heterosexual RHS Screen: RHS Screen Session Format: Face to Face Environmental Check Upon inquiry, the individual reports that the environment is safe to proceed. Informed Consent to Screen and Document The individual consents to proceed with screening. The individual consents to documentation of responses. PRIMARY SCREEN: In the past 12 months, how often did a current or former intimate partner (e.g., boyfriend, girlfriend, , , sexual partner): 1. Scream or curse at you Never 2. Insult or talk down to you Never 3. Threaten you with harm Never 4. Physically hurt you Never 5. Force or pressure you to have sexual contact against your will, or when you were unable to say no Never The HITS tool (items 1-4 above) is [place] copyright protected by Eyal Gifford MD, and the user has full rights to use it throughout the [place] system. PRIMARY SCREEN RESULT: The Primary Screen is NEGATIVE. The individual answered never to all forms of IPV above (i.e., answered never to all 5 items) The individual accepts education and/or resources: No EDUCATION: The individual indicated readiness to learn. Education offered during this session as noted above. The individual indicated understanding by asking relevant questions and making appropriate comments. No barriers to learning were observed or identified. /christina/ BRENT MONDRAGON LPN PACT 10 Signed: 05/15/2024 14:59 BRENT MONDRAGON DOVER May 15, 2024 01:15 PM PHYSICIAN NOTE: LOCAL TITLE: MD NOTE STANDARD TITLE: PHYSICIAN NOTE DATE OF NOTE: MAY 15, 2024@13:15 ENTRY DATE: MAY 15, 2024@13:15:07 AUTHOR: GAGAN WHITESIDE EXP COSIGNER: URGENCY: STATUS: COMPLETED NOTE Has ADDENDA HISTORY OF PRESENT ILLNESS: MERVIN VIRI ROSSI is a 54 yo MALE who presents at the [facility] for his annual wellness exam. Labs completed 03/27/24. He maintains a nonVA PCP: Dr Andrea Christina since he was a child. Last OV in 06/2023. [facility] the [facility] for all [facility] medical care. Active problems - Computerized Problem List is the source for the followin. Upper Gi Endoscopy 2. Osteoarthritis of cervical spine 3. Osteoarthritis of lumbar spine 4. Primary erectile dysfunction 5. Insomnia 6. Burn of hand 7. Obesity 8. Colonoscopy Screening 9. Hyperlipidemia 10. Pes planus 11. Arthralgia of multiple joints The following VA and Non-VA meds were reconciled with patient: Active Outpatient Medications (including Supplies): Issue Date Status Last Fill Active Outpatient Medications Refills Expiration 1) CHOLECALCIF 25MCG (D3-1,000UNIT) TAB Qty: 90 ACTIVE Issue: 03/28/24 for 90 days Sig: TAKE ONE TABLET BY MOUTH Refills: 3 Last : 03/28/24 ONCE DAILY FOR VITAMIN SUPPLEMENTATION Expr : 03/29/25 Indication: FOR SUPPLEMENTATION 2) FAMOTIDINE 20MG TAB Qty: 180 for 90 days ACTIVE Issue: 10/28/23 Sig: TAKE ONE TABLET BY MOUTH TWICE DAILY Refills: 0 Last : 01/17/24 Indication: FOR HEARTBURN Expr : 10/28/24 3) FLUTICASONE PROP 50MCG 120D NASAL INHL Qty: ACTIVE Issue: 08/31/23 3 for 90 days Sig: INSTILL 2 SPRAYS INTO Refills: 0 Last : 01/02/24 EACH NOSTRIL EVERY EVENING Expr : 08/31/24 Indication: FOR NASAL IRRITATION/INFLAMMATION 4) LIDOCAINE 5% PATCH Qty: 60 for 30 days Sig: ACTIVE Issue: 12/28/23 APPLY 2 PATCHES TOPICALLY EVERY 24 HOURS Refills: 3 Last : 04/07/24 NEEDED (LEAVE PATCH ON FOR 12 HOURS, THEN Expr : 12/28/24 REMOVE PATCH) FOR LOWER BACK Indication: FOR NERVE PAIN 5) NAPROXEN 500MG TAB Qty: 180 for 90 days Sig: ACTIVE Issue: 12/21/23 TAKE ONE TABLET BY MOUTH TWICE DAILY TAKE Refills: 0 Last : 05/23/24 WITH FOOD Expr : 12/21/24 Indication: FOR PAIN 6) SILDENAFIL CITRATE 100MG TAB Qty: 6 for 30 ACTIVE Issue: 12/21/23 days Sig: TAKE ONE TABLET BY MOUTH ONCE Refills: 3 Last : 04/07/24 DAILY NEEDED TAKE 1 HOUR PRIOR TO Expr : 12/21/24 SEXUAL ACTIVITY 7) TRAZODONE HCL 100MG TAB Qty: 135 for 90 days ACTIVE Issue: 12/21/23 Sig: TAKE ONE AND ONE-HALF TABLETS BY MOUTH Refills: 0 Last : 05/23/24 AT BEDTIME Expr : 12/21/24 Indication: FOR INSOMNIA ASSOCIATED WITH DEPRESSION ALLERGIES: ========= Patient has answered NKA LAB HISTORY: CHEM 7 TREND Collection DT Spec GLUCOSE BUN CREATIN Sodium K+/Pot CL CO2 03/27/2024 12:38 SERUM 103 H 23 1.35 137 4.7 108 22 03/23/2023 14:13 SERUM 91 24 1.28 136 4.7 107 22 06/05/2021 13:26 SERUM 91 18 1.27 138 4.8 104 24 05/14/2020 13:40 SERUM 94 24 1.06 138 4.4 106 24 02/28/2019 11:41 SERUM 94 17 1.06 137 4.7 104 26 CBC TREND Collection DT Spec WBC RBC HGB HCT MCV MCH PLT 03/27/2024 12:38 BLOOD 6.51 6.31 H 16.4 51.2 H 81.1 L 26.0 L 242 03/23/2023 14:13 BLOOD 8.89 5.67 H 16.4 49.2 86.8 28.9 238 06/05/2021 13:26 BLOOD 7.20 5.70 H 16.9 50.0 87.7 29.6 277 05/14/2020 13:40 BLOOD 5.07 5.73 H 17.2 H 50.6 H 88.3 30.0 244 02/28/2019 11:41 BLOOD 6.91 5.65 16.8 49.5 87.6 29.7 244 HEMOGLOBIN A1C TREND Collection DT Spec HGBA1c 03/27/2024 12:38 BLOOD 5.2 03/23/2023 14:13 BLOOD 5.0 06/05/2021 13:27 BLOOD 4.9 05/14/2020 13:40 BLOOD 4.8 02/28/2019 11:41 BLOOD 5.2 LIPID PANEL TREND Collection DT Spec CHOL HDL CHO/HDL LDL-c TRIG 03/27/2024 12:38 SERUM 217 H 42 5.2 163 H 58 03/23/2023 14:13 SERUM 201 H 47 4.3 134 H 99 06/05/2021 13:26 SERUM 191 33 L 5.8 140 H 89 05/14/2020 13:40 SERUM 213 H 43 5.0 154 H 81 02/28/2019 11:41 SERUM 225 H 47 4.8 154 H 120 LIVER PANEL TREND Collection DT Spec AST ALT T BILI ALK KARSON T. PROT ALBUMIN 03/27/2024 12:38 SERUM 12 16 0.6 42 6.9 4.0 03/23/2023 14:13 SERUM 12 16 0.6 45 6.9 4.3 06/05/2021 13:26 SERUM 13 13 0.5 46 7.0 4.1 05/14/2020 13:40 SERUM 15 21 0.7 57 6.9 4.1 02/28/2019 11:41 SERUM 18 29 0.5 59 6.9 4.0 Collection DT Spec TSH 03/27/2024 12:38 SERUM 1.20 HISTORY: PERIOD OF SERVICE - [facility] [employer] FROM Apr TO Aug COMBAT SERVICE INDICATED: No VITAL SIGNS: Blood Pressure 127/84 (05/15/2024 14:56) Pulse 63 (05/15/2024 14:56) Respiration 18 (05/15/2024 14:56) Pulse Oximetry 79% (05/15/2024 14:56) Temperature 97.9 F [36.6 C] (05/15/2024 14:56) Pain 0 (05/15/2024 14:56) Height 71 in [180.3 cm] (05/15/2024 14:56) Weight 226.2 lb [102.60 kg] (05/15/2024 14:56) BMI BMI: 31.6 REVIEW OF SYSTEMS: ENT: No sore throat, no cough CARDIOVASCULAR: No chest pain, no palps RESPIRATORY: No SOB, no wheezing GASTROINTESTINAL: No abd pain, no N/V/D MUSCULOSKELETAL: No joint pain PSYCHIATRIC: No anxiety, no depression NEUROLOGIC: No H/A, no weakness EXAMINATION: GENERAL: WD/WN in NAD HEENT: Moist mucosa NECK: Supple, no LN's, no carotid bruits HEART: RRR, S1-S2, no murmurs LUNGS: CTA B/L ABDOMEN: Soft, NT/ND, + BS x 4 Quads PERIPH PULSES: 2+ B/L EXTREMITIES: FROM x 4, no edema NEUROLOGIC: AAO x3, no FF's PSYCHIATRIC: Good eye contact, affect normal ASSESSMENT/PLAN: Adult Annual General Wellness Exam -advised eye exams yearly and dental exams Q6 mths prn -advised heart healthy well balanced diet and lifestyle habits -advised regular CV exercise for 30 mins on most days of the week 1. Mild Hyperlipidemia: advised diet and lifestyle modifications, he wishes to improve his diet and wants to recheck in 6 mths Collection DT Spec CHOL HDL CHO/HDL LDL-c TRIG 03/27/2024 12:38 SERUM 217 H 42 5.2 163 H 58 2. 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), he made it clear that he does not want any form of opioid treatment for his pain, he was sent to rheumatology 4 times and did not respond to outreach attempts, however he responded to the 5th attempt and saw [facility] rheumatology - Dr Dallas Baker on 07/14/21 who performed a very extensive and detailed exam on this (note reviewed) - does not wish to return to him -hips are very bothersome when he sleeps at night - most painful when laying on his side directly over his hips -will order Xrays B/L hips and refer to physiatry for CSI to both hips Xray C-Spine 01/2021 at [facility] showed cervical OA Xray L-Spine 01/2021 at [facility] showed lumbar OA 3. Insomnia: on trazodone 150mg/QHS, will increase to 200mg/QHS 4. Erectile Dysfunction: on sildenafil 100mg/day prn 5. Obesity: BMI ~32, counseled on weight loss 6. Colonoscopy Screening: never, 02/24/24 FIT card negative 8. GERD: on famotidine 20mg/BID 9. 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 Daytime Fatigue: will order a home sleep study FOLLOW UP: 6 mths - Lipids - FBW prior ========= UPCOMING APPOINTMENTS: 07/06/2024 12:30 [facility] DMD 2 11/02/2024 12:45 [facility] RDH 1 PM 05/03/2025 15:00 [facility] 2 PM No barriers; Patient understands and agrees to current treatment plan. If pt has any questions, concerns, or changes in current health status he/she will call or [facility] the [facility]. Medication Reconciliation: Outpatient: Has the patient been taking medications as documented in the EMLR? YES: The patient has been taking medications as documented in the EMLR. Essential Medication List for Review used to complete this medication reconciliation. INCLUDED IN THIS LIST: Alphabetical list of active outpatient prescriptions dispensed from this [facility] (local) and dispensed from another [place] or [facility] facility (remote) as well as inpatient orders (local, pending and active), local clinic medications, locally documented non-VA medications, and local prescriptions that have or been discontinued in the past 90 days. - All changes in medications, including all non-VA/Herbal/OTC medications were entered into [facility]S. - If there were any medications the patient should no longer take, they were discontinued. - The patient/caregiver was instructed to update this list, discard old lists, and take this list to the next appointment, whether with a VA or non-VA provider. JLV Link Data on this list may not be complete. Please check JLV. Allergies/ADRs (Tool #5) FACILITY ALLERGY/ADR -------- No Remote Allergy/ADR Data available for this patient [place] [facility] [place] [facility] No Known Allergies Med Recon NoGlossary (Tool #1) INCLUDED IN THIS LIST: Alphabetical list of active outpatient prescriptions dispensed from this [facility] (local) and dispensed from another [facility] or [facility]D facility (remote) as well as inpatient orders (local pending and active), local clinic medications, locally documented non-VA medications, and local prescriptions that have or been discontinued in the past 90 days. Non-VA Meds Last Documented On: Data not found NOTE The display of VA prescriptions dispensed from another VA or DoD facility (remote) is limited to active outpatient prescription entries matched to National Drug File at the originating site and may not include some items such as investigational drugs, compounds, etc. NOT INCLUDED IN THIS LIST: Medications self-entered by the patient into personal health records (i.e. T[employer]) are NOT included in this list. Non-VA medications documented outside this [place], remote inpatient orders (regardless of status) and remote clinic medications are NOT included in this list. The patient and provider must always discuss medications the patient is taking, regardless of where the medication was dispensed or obtained. ------ OUTPT ACETAMINOPHEN 500MG TAB (Status = ) TAKE TWO TABLETS BY MOUTH THREE TIMES DAILY NEEDED FOR PAIN Rx# [id number] Last Released: 11/02/23 Qty/Days Supply: Rx Expiration Date: 03/29/24 Refills Remainin OUTPT CHOLECALCIF 25MCG (D3-1,000UNIT) TAB (Status = Active) TAKE ONE TABLET BY MOUTH ONCE DAILY FOR VITAMIN SUPPLEMENTATION Rx# [id number] Last Released: 03/30/24 Qty/Days Supply: Rx Expiration Date: 03/29/25 Refills Remainin Indication: FOR SUPPLEMENTATION OUTPT DULOXETINE HCL 60MG EC CAP (Status = ) TAKE ONE CAPSULE BY MOUTH ONCE DAILY Rx# [id number] Last Released: Qt Supply: Rx Expiration Date: 03/29/24 Refills Remainin OUTPT FAMOTIDINE 20MG TAB (Status = Active) TAKE ONE TABLET BY MOUTH TWICE DAILY FOR HEARTBURN Rx# [id number] Last Released: 01/08/24 Qty/Days Supply: Rx Expiration Date: 10/28/24 Refills Remainin Indication: FOR HEARTBURN OUTPT FLUTICASONE PROP 50MCG 120D NASAL INHL (Status = Active) INSTILL 2 SPRAYS INTO EACH NOSTRIL EVERY EVENING FOR NASAL IRRITATION/INFLAMMATION Rx# [id number] Last Released: 12/29/23 Qty/Days Supply: Rx Expiration Date: 08/31/24 Refills Remainin Indication: FOR NASAL IRRITATION/INFLAMMATION OUTPT LIDOCAINE 5% PATCH (Status = Active) APPLY 2 PATCHES TOPICALLY EVERY 24 HOURS NEEDED FOR NERVE PAIN (LEAVE PATCH ON FOR 12 HOURS, THEN REMOVE PATCH) FOR LOWER BACK Rx# [id number] Last Released: 04/11/24 Qty/Days Supply: 60 Rx Expiration Date: 12/28/24 Refills Remainin Indication: FOR NERVE PAIN OUTPT LORATADINE 10MG TAB (Status = ) TAKE ONE TABLET BY MOUTH ONCE DAILY FOR ALLERGY Rx# [id number] Last Released: Qty/Days Supply: 90 Rx Expiration Date: 03/29/24 Refills Remainin Indication: FOR ALLERGY OUTPT NAPROXEN 500MG TAB (Status = Active) TAKE ONE TABLET BY MOUTH TWICE DAILY FOR PAIN TAKE WITH FOOD Rx# [id number] Last Released: 02/25/24 Qty/Days Supply: 180 Rx Expiration Date: 12/21/24 Refills Remainin Indication: FOR PAIN OUTPT SILDENAFIL CITRATE 100MG TAB (Status = Active) TAKE ONE TABLET BY MOUTH ONCE DAILY NEEDED TAKE 1 HOUR PRIOR TO SEXUAL ACTIVITY Rx# [id number] Last Released: 04/12/24 Qty/Days Supply: 08/28 Rx Expiration Date: 12/21/24 Refills Remainin OUTPT TRAZODONE HCL 100MG TAB (Status = Active) TAKE ONE AND ONE-HALF TABLETS BY MOUTH AT BEDTIME FOR INSOMNIA ASSOCIATED WITH DEPRESSION Rx# [id number] Last Released: 02/25/24 Qty/Days Supply: 135 Rx Expiration Date: 12/21/24 Refills Remainin Indication: FOR INSOMNIA ASSOCIATED WITH DEPRESSION ------ SUPPLIES ------ HIV Screening: Patient has been offered HIV testing and has declined. I have explained that HIV testing is recommended for all adults, even if all risk factors are absent. The patient was educated on the risk of delayed screening. /christina/ GGAAN WHITESIDE MD Primary Care Physician Signed: 05/15/2024 16:03 10/02/2024 ADDENDUM STATUS: COMPLETED Sleep study completed on 08/26/24 results below IMPRESSION - Mild supine-dependent obstructive sleep apnea (ANITRA) based on an PATIENCE-3% of 10/hr. The supine PATIENCE-3% was 75/hr and the non-supine PATIENCE-3% was 4/hr. - The oxygen saturation zan was 85% and mean was 94%. The time spent below 90% was 4.8 minutes or 0.8% of the validated monitoring time. RECOMMENDATIONS - The patient should follow up with their referring provider to discuss symptoms, study results, available therapy options and patient expectations. - If patient is agreeable to a trial of CPAP, consider empiric settings of auto-adjusting CPAP 5-20 cmH20. Since the patient receives care through [facility], the referring provider is responsible for placing the CPAP order. - Consider positional therapy with the use of a body positioner (e.g, Zzoma belt, Slumber Bump, or [place] Knows Side Sleeping Backpack). - Current [employer] recommendations for treatment of obstructive sleep apnea includes 1) positive airway pressure (PAP) as initial therapy, and alternative therapy may include oral appliance therapy, ENT evaluation for upper airway surgery. Treatment also includes weight reduction if BMI is elevated, avoidance of sleeping in the supine position and reduction of alcohol and medications that contribute to upper airway relaxation. /christina/ BRENT MONDRAGON LPN PACT 10 Signed: 10/02/2024 07:59 Receipt Acknowledged By: 10/04/2024 06:04 /christina/ GAGAN WHITESIDE MD Primary Care Physician 10/04/2024 ADDENDUM STATUS: COMPLETED Could you please print the full sleep study report? Thank you /suzanna WHITESIDE MD Primary Care Physician Signed: 10/04/2024 06:05 Receipt Acknowledged By: * AWAITING SIGNATURE * BRENT MONDRAGON LISA ANNE [place]
--- OUTSIDE RECORDS SUMMARY | 2024-05-25 05:00 | XMS_ITS | Encounter Summary ---
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 [place] Organization [facility] [place] Address [address] [place] [id number] Care Team Providers Care Diabetes Education Coordinator Name Role Phone GAGAN WHITESIDE Primary Care Provider Unavailjose miguel huber Insurance Providers: All historical and current [...] Relationship to Policy Olivares CAREMARK PRESCRIPT ION [facility] Aug 29, 2022 [id number] STEPHANIE ROSSI ERT PATIENT [employer] PREFERRED PROVIDER ORGANIZAT ION (PPO) [place] RE STATE INDEM N Mar 01, 2006 [id number] STEPHANIE ROSSI ERT PATIENT WELLPOINT PREFERRED PROVIDER ORGANIZAT ION (PPO) [place] RE STATE INDEM * Mar 01, 2006 [id number] STEPHANIE ROSSI ERT PATIENT Selected Encounter This section includes the information on record at [place] for the Encounter. Date/Time Encounter Type Encounter Description Reason Provider Source May 25, 2024 09:00 AM OFFICE O/P NEW [place] 60 MIN PM&RS PHYSICIAN ICD-10-CM M70.70 Other bursitis of hip, unspecified hip CARI SIMS IHE Encounter Template Text not used by [place] Assessments - Encounter Diagnoses This section includes the primary and secondary diagnoses documented for the Encounter. Date/Time Primary/Secondary Diagnosis Diagnosis Name Provider Source July 04, 2024 02:40 PM PRIMARY Other bursitis of hip, unspecified hip CARI SIMS [facility] [place] July 04, 2024 02:40 PM SECONDARY Congenital pes planus, left foot CARI SIMS [facility] [place] [facility] July 04, 2024 02:40 PM SECONDARY Nocturia CARI SIMS [facility] [place] [facility] July 04, 2024 02:40 PM SECONDARY Pain in unspecified joint CARI SIMS [facility] [place] [facility] Plan of Treatment: Future Appointments (+ 6 months) and Future Tests (+/- 45 days) The Plan of Treatment section includes future care activities for the patient from [facility] [place] [facility] This section includes future appointments and future orders which are active, pending or scheduled. Future Appointments This section includes appointments that were scheduled to occur 6 months from the date of the Encounter, up to a maximum of 20 appointments. The data comes from all [place] treatment facilities. Appointment Date/Time Appointment Type Appointme nt Facility Name Jun 23, 2024 10:00 AM [facility]BULATORY [facility] MEDIC[facility] [place] [facility] July 21, 2024 02:00 PM [facility]BULATORY [facility]IC[facility] [place] [facility] July 27, 2024 08:15 AM AMBULATORY - MEDICINE [facility] July 27, 2024 10:30 AM [facility]ICINE [facility] [place] [facility] July 27, 2024 10:31 AM [facility]IC[facility] [place] Aug 02, 2024 11:00 AM [facility]BULATORY [facility] MEDICINE [facility] [place] Aug 02, 2024 11:15 AM AMBULATORY - NONE [facility] [place] Sep 25, 2024 03:30 PM AMBULATORY [facility] MEDICINE [facility] [place] [facility] Oct 02, 2024 01:00 PM AMBULATORY [facility] MEDICINE [facility] [place] [facility] Oct 11, 2024 12:30 PM AMBULATORY [facility] MEDICINE [facility] [place] Nov 02, 2024 12:30 PM [facility]ULATORY [facility] MEDICINE [facility] [place] Nov 03, 2024 02:00 PM AMBULATORY - NONE [facility] [place] [facility] Nov 14, 2024 03:30 PM AMBULATORY - MEDICINE [facility] [place] [facility] Vital Signs: All taken on the encounter date This section contains inpatient and outpatient Vital Signs collected on the date of the Encounter. Date/Time Temperature Pulse Blood Pressure Respiratory Rate SP02 Pain Height Weight Body Mass Index Source May 25, 2024 09:05 AM 120/70 3 [place] [facility] Social History: Smoking Status (Most current) and Tobacco Use (All prior to encounter date) This section includes the most current, and the historical, smoking and tobacco- related health factors from the [place] facility where the Encounter took place. Current Smoking Status This section includes the most current smoking, or tobacco-related health factor, from the [place] facility where the Encounter took place. Date/Time Current Smoking Status Comment Yair dumont May 16, 2020 04:13 PM VA-TOBACCO [facility] Advance Directives: All historical and current Section Date Range: From patient's date of to the date document was created. This section includes ALL of a patient's completed or amended [place] Advance and Rescinded Directives. The entries below indicate that a directive exists for the patient, but an actual copy is not included with this document. The data comes from all [place] facilities. Date Advance Directives Provider Source Nov 26, 2016 ADVANCE DIRECTIVE TORY WONG [facility] Radiology Reports: +/- 30 days of [...] the Encounter. The data comes from all [place] treatment facilities. Date/Time Radiology Report Provider Source May 17, 2024 02:10 PM HIPS BILATERAL(3-4 VIEWS) WITH/WITHOUT PELVI: MERVIN ROSSI [id number] -[id number] M Exm Date: MAY 17, 2024@14:10 Req Phys: GAGAN WHITESIDE Loc: [facility] PACT 10 (Req'g Loc) Img Loc: [facility]BUILDING 1 Service: Unknown [facility] [place] [address] (Case [id number] COMPLETE) HIPS BILATERAL(3-4 VIEWS) WITH/WI(RAD Detailed) CPT:88443 Reason for Study: Bilateral Hip pain Clinical History: Report Status: Verified Date Reported: MAY 17, 2024 Date Verified: MAY 17, 2024 Material Handler Floorperson E-Sig:/ES/ANGELA EMERSON JR Report: Study: AP view [...] Primary Interpreting Staff: ANGELA EMERSON JR, Radiologist (Material Handler Floorperson) /STEVEND ANGELA EMERSON JR [facility] Encounter Notes: All associated encounter notes This section contains the clinical notes associated to the Encounter. Date/Time Encounter Note(s) Provider Source May 25, 2024 10:32 AM PHYSICAL MEDICINE REHAB NOTE: LOCAL TITLE: PM&R BACK/JOINT PROCEDURE NOTE STANDARD TITLE: PHYSICAL MEDICINE REHAB NOTE DATE OF NOTE: MAY 25, 2024@10:32 ENTRY DATE: MAY 25, 2024@10:32:14 AUTHOR: JEREMIAS SIMS EXP COSIGNER: URGENCY: STATUS: COMPLETED PROCEDURE: Trochanteric bursa injection INDICATION: Lateral hip pain, trochanteric bursitis, greater trochanteric syndrome. INFORMED CONSENT: Obtained verbally, and through IMED. The procedure as well as potential risks and benefits of trigger point injections were discussed with patient, who agreed to proceed. TIME OUT NOTE TIME:Apr@09:50 [place] correctly stated: [X]Full name: MERVIN ROSSI [X]Last 4 of #: [id number] [X]: Mar PROVIDER NAME: Jeremias Smis PA-c STAFF NAME: Yaima Toledo RN PROCEDURE: Trigger point injections LOCATION: As below noted The overlying the right greater trochanter was cleansed with chlorhexidine x 3. 25-gauge 1/2 inch needle was then advanced down to the bone and then slightly withdrawn. Once within the bursa after negative aspiration for heme injected with 20 mg of triamcinolone with 1 cc of 1% lidocaine. Needle was withdrawn and the same procedure was then performed on the left hip. Band-aid applied. Site 1 MUSCLES INJECTED: Trochanteric bursa SIDE: Bilateral # OF SITES: Site 2: Other: Lot #: [id number] Exp: January 2025 No complications. Scant blood loss. The patient tolerated the procedure well without any immediate adverse side effects. Patient was instructed on the use of ice prn, gentle stretching and increased fluid intake to improve hydration. The patient was discharged home with instructions to monitor for any adverse reactions/side effects, and to contact me with any issues. Pre-procedure pain level: 06/08 Post-procedure pain level: 03/10 /christina/ JEREMIAS SIMS [facility] Signed: 05/25/2024 10:35 JEREMIAS SIMS [facility] [place] [facility] May 25, 2024 09:14 AM PHYSICAL MEDICINE REHAB CONSULT: LOCAL TITLE: CONSULT REPORT/PM&R STANDARD TITLE: PHYSICAL MEDICINE REHAB CONSULT DATE OF NOTE: MAY 25, 2024@09:14 ENTRY DATE: MAY 25, 2024@09:14:17 AUTHOR: JEREMIAS SIMS EXP COSIGNER: URGENCY: STATUS: COMPLETED MAY 25, 2024 MERVIN ROSSI is a 54 y/o RHD DECLINED TO ANSWER MALE, previously in [facility] FROM Apr TO Aug from [facility] OF SERVICE - [facility], who was seen today for consultation requested by _ today for chief complaint of pain in the hips sleeping at night time. He has not sought treatment. He is able to walk for 20 minutes. After this the back and feet start bothering him. He gets pain in the bottom of the feet going to the ankles. He has had sciatica right leg(L5) lateral foot and leg for years. The left thigh down to the knee. Right foot has some moderate numbness. He was seeing hr receptionist . Temporary relief. Lidocaine patches applied to the hips without relief. No injections in the past. No epidural injections in the back in the past. He has had surgical opinion which was to avoid surgery. Back pain is manageable. Systemic/Other symptoms: Denies fever, chills, night sweats, weight loss, saddle paresthesia, or bowel/bladder incontinence. Nocturia 4-5 x night, weak stream with incomplete voiding. Daily activities/exercise:walks. Lorene exercises. Pertinent prior procedures and/or imaging: PMHx as obtained from Chart: Active problems - Computerized Problem List is the source for the followin. Upper Gi Endoscopy 2. Osteoarthritis of cervical spine 3. Osteoarthritis of lumbar spine 4. Primary erectile dysfunction 5. Insomnia 6. Burn of hand 7. Obesity 8. Colonoscopy Screening 9. Hyperlipidemia 10. Pes planus 11. Arthralgia of multiple joints PSxHx: Appendix, right thumb. Right bicep. Right shoulder arthroscopy. Fam Hx: Noncontributory. Soc Hx: MARITAL STATUS - [facility] FROM Apr TO Aug Service Connected Disabilities with % Eligibility: SERVICE CONNECTED 50% to 100% VERIFIED Total S/C %: 100 LIMITED FLEXION OF THIGH 10% S/C DEGENERATIVE ARTHRITIS OF THE SPINE 20% S/C TINNITUS 10% S/C FLAT FOOT CONDITION 50% S/C LIMITED FLEXION OF KNEE 10% S/C LIMITED FLEXION OF THIGH 10% S/C LIMITED FLEXION OF KNEE 10% S/C IMPAIRED HEARING 10% S/C PARALYSIS OF ULNAR NERVE 20% S/C SUPERFICIAL SCARS 10% S/C SCARS 0% S/C LOWER LEG CONDITION 0% S/C PARALYSIS OF SCIATIC NERVE 20% S/C MAJOR DEPRESSIVE DISORDER 100% S/C PARALYSIS OF SCIATIC NERVE 20% S/C ALL: Patient has answered NKA MEDS: Active Outpatient Medications (including Supplies): CHOLECALCIF 25MCG (D3-1,000UNIT) TAB TAKE ONE TABLET BY ACTIVE MOUTH ONCE DAILY FOR VITAMIN SUPPLEMENTATION Indication: FOR SUPPLEMENTATION FAMOTIDINE 20MG TAB TAKE ONE TABLET BY MOUTH TWICE DAILY ACTIVE Indication: FOR HEARTBURN FLUTICASONE PROP 50MCG 120D NASAL INHL INSTILL 2 SPRAYS ACTIVE INTO EACH NOSTRIL EVERY EVENING Indication: FOR NASAL IRRITATION/INFLAMMATION LIDOCAINE 5% PATCH APPLY 2 PATCHES TOPICALLY EVERY 24 ACTIVE HOURS NEEDED (LEAVE PATCH ON FOR 12 HOURS, THEN REMOVE PATCH) FOR LOWER BACK Indication: FOR NERVE PAIN NAPROXEN 500MG TAB TAKE ONE TABLET BY MOUTH TWICE DAILY ACTIVE (S) TAKE WITH FOOD Indication: FOR PAIN SILDENAFIL CITRATE 100MG TAB TAKE ONE TABLET BY MOUTH ONCE ACTIVE DAILY NEEDED TAKE 1 HOUR PRIOR TO SEXUAL ACTIVITY TRAZODONE HCL 100MG TAB TAKE TWO TABLETS BY MOUTH AT ACTIVE BEDTIME Indication: FOR INSOMNIA ASSOCIATED WITH DEPRESSION No Active Remote Medications for this patient ROS: Constitutional - Denies fever or chills, night sweats, or unexplained weight loss. Head/Eyes/Ears/Neck- Denies headaches, dizziness, visual changes. Cardiovascular - Denies chest pain/palpitations, lower extremity swelling. Respiratory - Denies shortness of breath, or cough. GI - Denies nausea, vomiting, or loss of bowel fx/control. - Denies urinary difficulties or loss of bladder function.Nocturia 4-5x per night. No dysuria. Weak stream, incomplete voiding Musculoskeletal - See HPI. Neuro - See HPI. Psychiatric - See PMHx. Denies mood swings or change in behavior. Sleep - Denies nocturnal pain or excessive daytime fatigue. Skin/integuments - Denies rashes, lesions, or skin breakdown in the extremities. All other systems reviewed and are negative. PHYSICAL EXAMINATION: Vitals in chart. GEN: WD, WN. Awake, alert, cooperative with exam. In NAD. PSYCH: Good eye contact. Normal mood. Appropriately concerned. CVS: Extremities warm/well perfused. No lower extremity edema appreciated. PULM: Breathing unlabored, no accessory muscle use. ABD: Nondistended. EXTREMITIES: No cyanosis or edema of bilateral upper and lower extremities. SKIN: No rashes, lesions, or skin breakdown over exposed areas. MUSCULOSKELETAL/NEURO EXAM: Exam demonstrates severe pes planus greater on the right than on the left. Valgus alignment to the knees. No significant knee pain is noted with flexion and extension. Hip mobility is slightly limited with external rotation but internal rotation is tolerated well. Negative FADIR. Negative Stinchfield. Tenderness over the gluteus medius as well as in the piriformis. Tightness within the piriformis bilaterally. Tight ITB also identified. Tight hip flexors left greater than right. No irritability about the sacroiliac joint. Tenderness in the lumbosacral region with increased discomfort in forward flexion. Rigid paraspinals. Gait: normal, symmetric, negative Trendelenburg. Able to perform tandem walk and heel/toe walk. Labs: Collection DT Spec WBC HGB HCT PLT K+/Pot Sodium HGBA1c 03/27/2024 12:38 BLOOD 5.2 03/27/2024 12:38 BLOOD 6.51 16.4 51.2 H 242 03/27/2024 12:38 SERUM 4.7 137 03/23/2023 14:13 BLOOD 5.0 03/23/2023 14:13 BLOOD 8.89 16.4 49.2 238 Collection DT Spec GLUCOSE CREATIN AST ALT T BILI ALK KARSON CHOL 03/27/2024 12:38 SERUM 103 H 1.35 12 16 0.6 42 217 H 03/23/2023 14:13 SERUM 91 1.28 12 16 0.6 45 201 H 06/05/2021 13:26 SERUM 91 1.27 13 13 0.5 46 191 05/14/2020 13:40 SERUM 94 1.06 15 21 0.7 57 213 H 02/28/2019 11:41 SERUM 94 1.06 18 29 0.5 59 225 H Collection DT Spec LDL-c HDL TRIG TSH VIT D25 03/27/2024 12:38 SERUM 1.20 03/27/2024 12:38 SERUM 163 H 42 58 03/23/2023 14:13 SERUM 134 H 47 99 1.06 06/05/2021 13:26 SERUM 140 H 33 L 89 1.11 05/14/2020 13:40 SERUM 154 H 43 81 1.59 26 CHEM 7 TREND LAB CUMULATIVE SELECTED Collection DT Spec GLUCOSE BUN CREATIN Sodium K+/Pot CL CO2 03/27/2024 12:38 SERUM 103 H 23 1.35 137 4.7 108 22 03/23/2023 14:13 SERUM 91 24 1.28 136 4.7 107 22 06/05/2021 13:26 SERUM 91 18 1.27 138 4.8 104 24 05/14/2020 13:40 SERUM 94 24 1.06 138 4.4 106 24 02/28/2019 11:41 SERUM 94 17 1.06 137 4.7 104 26 LAB CUMULATIVE SELECTED 2 No selection items chosen for this component. CHEM 7 Results Collection DT Spec Sodium K+/Pot CL CO2 GLUCOSE BUN 03/27/2024 12:38 SERUM 137 4.7 108 22 103 H 23 03/23/2023 14:13 SERUM 136 4.7 107 22 91 24 06/05/2021 13:26 SERUM 138 4.8 104 24 91 18 05/14/2020 13:40 SERUM 138 4.4 106 24 94 24 02/28/2019 11:41 SERUM 137 4.7 104 26 94 17 11/18/2017 10:16 SERUM 139 4.7 105 27 86 32 H 11/12/2016 11:11 SERUM 139 4.3 105 27 92 26 H 01/30/2016 16:03 SERUM 139 4.8 107 26 114 H 25 Liver Function Tests Collection DT Spec AST ALT ALK KARSON ALBUMIN T BILI T. PROT 03/27/2024 12:38 SERUM 12 16 42 4.0 0.6 6.9 HEMOGLOBIN A1C TREND Collection DT Spec HGBA1c 03/27/2024 12:38 BLOOD 5.2 03/23/2023 14:13 BLOOD 5.0 06/05/2021 13:27 BLOOD 4.9 05/14/2020 13:40 BLOOD 4.8 02/28/2019 11:41 BLOOD 5.2 Diagnostic Studies: X-[facility] hips [facility] show prominent superior acetabular overhanging bony overcoverage which can be seen in pincer type femoroacetabular impingement predisposing to early osteoarthritis. Clinical correlation is recommended. The pelvic bones are intact. No suspicious bone lesions are identified. The proximal femurs appear normal. No acute bony abnormality is seen. ASSESSMENT/PLAN: Patient is a 54-year-old with bilateral lower crossed syndrome/trochanteric bursitis. Bilateral trochanteric bursa/trigger point injections provided today. Exercises provided for pelvic stabilization and lower abdominal strengthening, hip flexor lengthening in order to improve pelvic position. Ideally improving lower crossed syndrome will also improve discogenic low back pain. has additionally significant nocturia with awakenings 4-5 times per night. Discussed with PCP and order placed for tamsulosin 0.4 mg to take nightly. Potential risk for hypotension discussed. In reference to pes planus, this is contributing to lower crossed syndrome. Bilateral power step arch supports provided with podiatric O&P consult. Follow-up scheduled in 1 month to determine efficacy. FOLLOW-UP: 1 month. Potential risks and side effects of any medication(s) prescribed today was reviewed with . Patient had many excellent questions, which I answered to the best of my ability and to patient's apparent satisfaction. MDM: 60 minutes which includes reviewing records, evaluating patient, documenting in medical record, educating, counseling and coordinating care. /christina/ JEREMIAS VIDALGrace Signed: 05/25/2024 10:30 JEREMIAS SIMS [place] [facility]
--- OUTSIDE RECORDS SUMMARY | 2024-07-27 04:15 | XMS_ITS | Encounter Summary ---
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 Address [address] [place] [id number] Care Team Providers Care Dishwasher Name Role Phone STEVOGAGAN Primary Care Provider [...] Relationship to Policy Olivares CAREMARK PRESCRIPT ION [facility] Aug 29, 2022 [id number] STEPHANIE ROSSI ERT PATIENT [employer] PREFERRED PROVIDER ORGANIZAT ION (PPO) [employer] N Mar 01, 2006 [id number] FLOSTEPHANIE ERT PATIENT WELLPOINT PREFERRED PROVIDER ORGANIZAT ION (PPO) [employer] * Mar 01, 2006 [id number] ROSSISTEPHANIE ERT PATIENT Selected Encounter This section includes the information on record at [place] for the Encounter. Date/Time Encounter Type Encounter Description Reason Provider Source July 27, 2024 08:15 AM OFF/OP EST JUNE X REQ PHY/QHP PRIMARY CARE/MEDICINE ICD-10-CM R05.9 Cough, unspecified SHORTY,NAHED K IHE Encounter Template Text not used by [facility] Assessments - Encounter Diagnoses This section includes the primary and secondary diagnoses documented for the Encounter. Date/Time Primary/Secondary Diagnosis Diagnosis Name Provider Source Oct 11, 2024 01:32 PM PRIMARY Cough, unspecified SHORTY,NAHED K [place] Plan of Treatment: Future Appointments (+ 6 months) and Future Tests (+/- 45 days) The Plan of Treatment section includes [facility] the [facility] [place] [facility] This section includes future appointments and future orders which are active, pending or scheduled. Future Appointments This section includes appointments that were scheduled to occur 6 months from the date of the Encounter, up to a maximum of 20 appointments. The data comes from all [place] treatment facilities. Appointment Date/Time Appointment Type Appointme nt Facility Name Aug 02, 2024 11:00 AM AMBULATORY - MEDICINE [facility] [place] [facility] Aug 02, 2024 11:15 AM AMBULATORY - NONE [facility] [place] [facility] Sep 25, 2024 03:30 PM AMBULATORY - MEDICINE [facility] [place] [facility] Oct 02, 2024 01:00 PM AMBULATORY - MEDICINE [facility] [place] [facility] Oct 11, 2024 12:30 PM AMBULATORY - MEDICINE [facility] [place] [facility] Nov 02, 2024 12:30 PM AMBULATORY - MEDICINE [facility] [place] [facility] Nov 03, 2024 02:00 PM AMBULATORY - NONE [facility] [place] [facility] Nov 14, 2024 03:30 PM AMBULATORY - MEDICINE [facility] [place] [facility] Jan 18, 2025 02:00 PM AMBULATORY - NONE [facility] [place] [facility] Jan 22, 2025 11:00 AM AMBULATORY - NONE [facility] [place] [facility] Vital Signs: All taken on the encounter date This section contains inpatient and outpatient Vital Signs collected on the date of the Encounter. Date/Time Temperature Pulse Blood Pressure Respiratory Rate SP02 Pain Height Weight Body Mass Index Source July 27, 2024 08:51 AM 98.6 F 96 /min 130/85 mm[Hg] 16 /min 96 % [place] Social History: Smoking Status (Most current) and Tobacco Use (All prior to encounter date) This section includes the most current, and the historical, smoking and tobacco- related health factors from the [place] facility where the Encounter took place. Current Smoking Status This section includes the most current smoking, or tobacco-related health factor, from the [place] facility where the Encounter took place. Date/Time Current Smoking Status Comment Yair dumont Mar 29, 2023 03:00 PM VA-TOBACCO NEVER USED [place] Tobacco Use History This section includes a history of the smoking, or tobacco-related health factors, that were collected on or before the date of the Encounter. The data comes from the [place] facility where the Encounter took place. Date/Time Smoking Status/Tobacco Use Comment F acility July 15, 2021 10:30 AM VA-TOBACCO NEVER USED [place] Feb 27, 2019 11:50 AM VA-TOBACCO NEVER USED [place] Feb 14, 2018 12:54 PM VA-TOBACCO NEVER USED [place] Oct 23, 2016 02:25 PM QUIT TOBACCO USE > 7 YEARS AGO quit 20 years ago [place] Advance Directives: All historical and current Section Date Range: From patient's date of to the date document was created. This section includes ALL of a patient's completed or amended [place] Advance and Rescinded Directives. The entries below indicate that a directive exists for the patient, but an actual copy is not included with this document. The data comes from all [place] facilities. Date Advance Directives Provider Source Nov 26, 2016 ADVANCE DIRECTIVE TORY WONG [facility] Radiology Reports: +/- 30 days of [...] the Encounter. The data comes from all [place] treatment facilities. Date/Time Radiology Report Provider Source Aug 02, 2024 11:[address] MAXILLOFACIAL W /O CONT: ROSSIMERVIN RUSSO VIRI [id number] -[id number] M Exm Date: AUG 02, 2024@11:22 Req Phys: MELISSA FARLEY Loc: [facility] (Req'g Loc) Img Loc: [facility] [place] [address] (Case [id number] COMPLETE) CT MAXILLOFACIAL W/O CONT (CT Detailed) CPT:56916 Proc Modifiers : BILATERAL EXAM Reason for Study: SINUSISITS Clinical History: Report Status: Verified Date Reported: AUG 02, 2024 Date Verified: AUG 02, 2024 Transformation Specialist E-Sig:/ES/ANGELA EMERSON JR Report: Study: CT scan of the sinuses without contrast. Comparison: None. Technique: Noncontrast 3 mm contiguous coronal images are taken through the paranasal sinuses. Bone windows are provided. Findings: Inferior mucoperiosteal thickening is present to the maxillary sinuses bilaterally along with mucoperiosteal thickening scattered throughout multiple bilateral ethmoidal air cells and obstructing the osteomeatal complexes bilaterally. Findings most consistent with chronic rhinosinusitis. No air-fluid levels are identified. Minimal inferior mucoperiosteal thickening also present within the frontal sinuses. The sphenoid sinus is patent and normal. The mastoid air cells are normal. The nasal septum is mildly deviated to the left with no bony nasal septal spurring identified. No bony destruction or abnormality is identified. The globes and orbits appear normal. Impression: Abnormal sinus findings, as described above. Primary Diagnostic Code: No immediate attention required Primary Interpreting Staff: ANGELA EMERSON JR, Radiologist (Transformation Specialist) /ANGELA JACOBS JR [facility] Pathology Reports: +/- 30 days of the encounter Pathology Reports For cases when an order for pathology services may have been completed prior to the date of the Encounter, the report list includes the Pathology Reports that were completed up to 30 days before dateof the Encounter. For cases when an order for pathology services may have been completed after the date of the Encounter, the report list also includes the Pathology Reports that were completed up to30 days after date of the Encounter. The data comes from all [place] treatment facilities. Date/Time Pathology Report Provider Source Aug 02, 2024 11:17 AM LR MICROBIOLOGY RE PORT: Reporting Lab: [facility] [CLIA# [id number]] [address] [place] [id number] Accession [UID]: [id number] [[id number]] Received: Aug 02, 2024@11:25 Collection sample: FUNGAL ISOLATE Collection date: Aug 02, 2024 11:17 Site/Specimen: TONGUE Provider: MELISSA FARLEY Comment on specimen: TONGUE Test(s) ordered: CULTURE,MYCOLOGY (WR)......... completed: Aug 10, 2024 09:19 * MYCOLOGY FINAL REPORT => Aug 10, 2024 09:19 TECH CODE: [id number] Mycology Remark(s): NO YEAST ISOLATED AFTER 7 DAYS =--=--=--=--=--=--=--=-- =--=--=--=--=--=--=--=-- =--=--=--=--=--=--=--=-- =--=-- Performing Laboratory: Mycology Report Performed By: [facility] [CLIA# [id number]] [address] [place] [id number] [facility] FORBES [facility] Encounter Notes: All associated encounter notes This section contains the clinical notes associated to the Encounter. Date/Time Encounter Note(s) Provider Source July 27, 2024 08:53 AM PRIMARY CARE NOTE: LOCAL TITLE: WALK-IN NOTE PRIMARY CARE (T) STANDARD TITLE: PRIMARY CARE NOTE DATE OF NOTE: JULY 27, 2024@08:53 ENTRY DATE: JULY 27, 2024@08:53:51 AUTHOR: NAHED ORO EXP COSIGNER: URGENCY: STATUS: COMPLETED Data: 54year old MALE reports to Primary Care clinic for Walk-In visit. 's PCP is GAGAN WHITESIDE, Domingo Vet walks in to clinic with complaint of Thrush, cough and sinus issues Last recorded Vital Signs are: Temperature:98.6 F [37.0 C] (07/27/2024 08:51) Pulse:96 (07/27/2024 08:51) Blood Pressure:130/85 (07/27/2024 08:51) Respiration:16 (07/27/2024 08:51) Pain:6 (07/21/2024 14:01) Vet reports current allergies are: Remote Allergy Data No Remote Allergy/ADR Data available for this patient Current Medications from Active Med list include: Active Outpatient Medications (including Supplies): Active Outpatient Medications Status ====== 1) CHOLECALCIF 25MCG (D3-1,000UNIT) TAB TAKE ONE TABLET BY ACTIVE (S) MOUTH ONCE DAILY FOR VITAMIN SUPPLEMENTATION Indication: FOR SUPPLEMENTATION 2) CLOTRIMAZOLE 10MG YULIYA DISSOLVE 1 YULIYA BY MOUTH THREE ACTIVE TIMES A DAY Indication: FOR CANDIDIASIS FUNGAL INFECTION 3) FAMOTIDINE 20MG TAB TAKE ONE TABLET BY MOUTH TWICE DAILY ACTIVE Indication: FOR HEARTBURN 4) FLUTICASONE PROP 50MCG 120D NASAL INHL INSTILL 2 SPRAYS INTO ACTIVE EACH NOSTRIL EVERY EVENING Indication: FOR NASAL IRRITATION/INFLAMMATION 5) LIDOCAINE 5% PATCH APPLY 2 PATCHES TOPICALLY EVERY 24 HOURS ACTIVE NEEDED (LEAVE PATCH ON FOR 12 HOURS, THEN REMOVE PATCH) FOR LOWER BACK Indication: FOR NERVE PAIN 6) NAPROXEN 500MG TAB TAKE ONE TABLET BY MOUTH TWICE DAILY ACTIVE (S) TAKE WITH FOOD Indication: FOR PAIN 7) TADALAFIL 10MG TAB TAKE ONE TABLET BY MOUTH ONCE DAILY ACTIVE (S) NEEDED Indication: FOR ERECTILE DYSFUNCTION 8) TAMSULOSIN HCL 0.4MG CAP TAKE ONE CAPSULE BY MOUTH AT ACTIVE (S) BEDTIME Indication: FOR ENLARGED PROSTATE 9) TRAZODONE HCL 100MG TAB TAKE TWO TABLETS BY MOUTH AT BEDTIME ACTIVE Indication: FOR INSOMNIA ASSOCIATED WITH DEPRESSION Action: I have been sick for a month I don't know if it is going to my lungs Reports productive cough, yellow green color +sore throat +dyspnea +fatigue +nasal dish cage decrease taste Denies nausea vomiting or diarrhea. States I took all the medications given to me and I have none left Reports using Flonase daily [place] alert and oriented Speech clear, no increase RR, no accessory muscles needed, able to complete full sentences. lungs clear tongue pink. 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 [place] states he cant wait that long. Advised [place]den to go to urgent care or ER since he says he is getting worse states he cant wait until 08/02/24 for ENT appointment [place] given name of in network urgent care and he plans to go there now Reminders Influenza Immunization Mar 29 Medication Reconciliation DUE NOW Td/Tdap Immunization Mar 01 COVID-19 Immunization DUE NOW Herpes Zoster (Shingles) Vaccine DUE NOW (Optional) Whole Health Documentation DUE NOW Response: /christina/ NAHED ORO RN PRIMARY CARE RN Signed: 07/27/2024 12:24 Receipt Acknowledged By: 07/27/2024 14:21 /christina/ BRENT MONDRAGON LPN PACT 10 NHAED ORO
--- OUTSIDE RECORDS SUMMARY | 2024-08-02 07:00 | XMS_ITS ---
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 [facility] Address [address] [place] [id number] Care Team Providers Care Painter Ski Edge Name Role Phone GAGAN WHITESIDE Primary Care [...] Relationship to Policy Olivares CAREMARK PRESCRIPT ION [facility] Aug 29, 2022 [id number] STEPHANIE ROSSI ERT PATIENT [employer]ARE PREFERRED PROVIDER ORGANIZAT ION (PPO) [place] RE STATE INDEM N Mar 01, 2006 [id number] STEPHANIE ROSSI ERT PATIENT WELLPOINT PREFERRED PROVIDER ORGANIZAT ION (PPO) UN[facility] RE STATE INDEM * Mar 01, 2006 [id number] STEPHANIE ROSSI ERT PATIENT Selected Encounter This section includes the information on [place] at [place] for the Encounter. Date/Time Encounter Type Encounter Description Reason Provider Source Aug 02, 2024 11:00 AM OFFICE O/P NEW MOD 45 MIN OTOLARYNGOLOGY/ENT ICD-10-CM J31.0 Chronic rhinitis MELISSA NAYLOR Encounter Template Text not used by [facility] Assessments - Encounter Diagnoses This section includes the primary and secondary diagnoses documented for the Encounter. Date/Time Primary/Secondary Diagnosis Diagnosis Name Provider Source Oct 12, 2024 07:50 AM PRIMARY Chronic rhinitis MELISSA NAYLOR [place] [facility] [place] [facility] Oct 12, 2024 07:50 AM SECONDARY Cough variant asthma MELISSA NAYLOR [place] [facility] [place] [facility] Oct 12, 2024 07:50 AM SECONDARY Deviated nasal septum MELISSA NAYLOR [place] [facility] [place] [facility] Plan of Treatment: Future Appointments (+ 6 months) and Future Tests (+/- 45 days) The Plan of Treatment section includes future care activities for the patient [facility] [place] [facility] This section includes future appointments and future orders which are active, pending or scheduled. Future Appointments This section includes appointments that were scheduled to occur 6 months from the date of the Encounter, up to a maximum of 20 appointments. The data comes from all [place] treatment facilities. Appointment Date/Time Appointment Type Appointme nt Facility Name Sep 25, 2024 03:30 PM AM[place]UL[place]ORY [place]ICINE [place] [facility] [place] [facility] Oct 02, 2024 01:00 PM AM[place]UL[place] [facility] [place] [facility] Oct 11, 2024 12:30 PM [place] [facility] [place] [facility] Nov 02, 2024 12:30 PM [place] [facility] [place] [facility] Nov 03, 2024 02:00 PM AMBULATORY - NONE [place] [facility] [place] [facility] Nov 14, 2024 03:30 PM AM[place] [facility] [place] [facility] Jan 18, 2025 02:00 PM AMBULATORY - NONE [place] [facility] [place] [facility] Jan 22, 2025 11:00 AM AMBULATORY - NONE [place] [facility] [place] [facility] Vital Signs: All taken on the encounter date This section contains inpatient and outpatient Vital Signs collected on the date of the Encounter. Date/Time Temperature Pulse Blood Pressure Respiratory Rate SP02 Pain Height Weight Body Mass Index Source Aug 02, 2024 11:00 AM 98.1 F 72 /min 134/82 mm[Hg] 16 /min 97 % 4 218.2 lb 30 [place] [facility] [place] [facility] Social History: Smoking Status (Most current) and [...] Encounter took place. Date/Time Current Smoking Status Jessee dumont May 16, 2020 04:13 PM VA-TOBACCO NEVER USED [facility] Advance Directives: All historical and current [...] Nov 26, 2016 ADVANCE DIRECTIVE TORY WONG Radiology Reports: +/- 30 days of the [...] the Encounter. The data comes from all [place] treatment facilities. Date/Time Radiology Report Provider Source Aug 02, 2024 11:[address] MAXILLOFACIAL W /O CONT: MERVIN ROSSI [id number] -[id number] M Exm Date: AUG 02, 2024@11:22 Req Phys: MELISSA NAYLOR Loc: [facility] (Req'g Loc) Img Loc: [facility]/CT Service: [place] [address] (Case [id number] COMPLETE) CT MAXILLOFACIAL W/O CONT (CT Detailed) CPT:93023 Proc Modifiers : BILATERAL EXAM Reason for Study: SINUSISITS Clinical History: Report Status: Verified Date Reported: AUG 02, 2024 Date Verified: AUG 02, 2024 Wildland Firefighter E-Sig:/ES/ANGELA EMERSON JR Report: Study: CT scan [...] immediate attention required Primary Interpreting Staff: ANGELA EMEROSN JR, Radiologist (Wildland Firefighter) /EAD ANGELA EMERSON JR [facility] Pathology Reports: +/- 30 days of [...] the Encounter. The data comes from all [place] treatment facilities. Date/Time Pathology Report Provider Source Aug 02, 2024 11:17 AM LR MICROBIOLOGY RE PORT: Reporting Lab: [facility] [CLIA# [id number]] [address] [place] [id number] Accession [UID]: [id number] [[id number]] Received: Aug 02, 2024@11:25 Collection sample: FUNGAL ISOLATE Collection date: Aug 02, 2024 11:17 Site/Specimen: TONGUE Provider: MELISSA NAYLOR Comment on specimen: TONGUE Test(s) ordered: CULTURE,MYCOLOGY ()......... completed: Aug 10, 2024 09:19 * MYCOLOGY FINAL REPORT => Aug 10, 2024 09:19 TECH CODE: [id number] Mycology Remark(s): NO YEAST ISOLATED AFTER 7 DAYS =--=--=--=--=--=--=--=-- =--=--=--=--=--=--=--=-- =--=--=--=--=--=--=--=-- =--=-- Performing Laboratory: Mycology Report Performed By: [facility] [CLIA# [id number]] [address] [place] [address] GISELLE FORBES [place] [facility] Encounter Notes: All associated encounter notes This section contains the clinical notes associated to the Encounter. Date/Time Encounter Note(s) Provider Source Aug 02, 2024 11:26 AM OTOLARYNGOLOGY CONSULT: LOCAL TITLE: CONSULT REPORT/OTOLARYNGOLOGY STANDARD TITLE: OTOLARYNGOLOGY CONSULT DATE OF NOTE: AUG 02, 2024@11:26 ENTRY DATE: AUG 02, 2024@11:26:41 AUTHOR: MELISSA NAYLOR COSIGNER: URGENCY: STATUS: COMPLETED CONSULT REPORT/OTOLARYNGOLOGY Has ADDENDA CONSULT REQUESTED FROM GAGAN WHITESIDE AUG 02, 2024 ROSSIMERVIN Abernathy is a 54 y/o lifetime non-smoker MALE, previously in [place] FROM Apr TO Aug from PERIOD OF SERVICE - [facility], w/chief complaint of 54-year-old lifetime non-smoker referred secondary to feeling sick for the last 6 weeks as well as longstanding left sided nasal congestion. Patient states that 6 weeks ago he began feeling like he had a tickle in his throat. He had some type of video conference was told he had thrush. He was placed first on nystatin, then clotrimazole atrocious, and then some type of pill. His symptoms worsened. He began coughing a lot with purulent nasal discharge. He went to a clinic and was given a Z-Lukasz. He states that the green and yellow discharge has improved and is now white but he continues to have a significant runny nose, headache, and feels very tired. He feels like he has a lot of pressure in his head and he is constantly coughing. He has no history of asthma or seasonal allergies. He states he very rarely gets sick and certainly never for this length of time. Separate and distinct from this complaint he states that he has left-sided nasal congestion that is worse when he lies supine. Patient states that he probably broke his nose sometime in the past . He also had some kind of nasal surgery, he is not sure what kind though he describes something similar to a septoplasty. He does not use nasal sprays daily or antihistamines. PMHx: Active problems - Computerized Problem List is the source for the followin. Upper Gi Endoscopy 2. Osteoarthritis of cervical spine 3. Osteoarthritis of lumbar spine 4. Primary erectile dysfunction 5. Insomnia 6. Burn of hand 7. Obesity 8. Colonoscopy Screening 9. Hyperlipidemia 10. Pes planus 11. Arthralgia of multiple joints Service Connected Disabilities with % Eligibility: SERVICE CONNECTED 50% to 100% VERIFIED Total S/C %: 100 LIMITED FLEXION OF THIGH 10% S/C FLAT FOOT CONDITION 50% S/C LIMITED FLEXION OF KNEE 10% S/C DEGENERATIVE ARTHRITIS OF THE SPINE 20% S/C LIMITED FLEXION OF THIGH 10% S/C LIMITED FLEXION OF KNEE 10% S/C IMPAIRED HEARING 10% S/C LOWER LEG CONDITION 0% S/C PARALYSIS OF SCIATIC NERVE 20% S/C PARALYSIS OF SCIATIC NERVE 20% S/C MAJOR DEPRESSIVE DISORDER 100% S/C PARALYSIS OF ULNAR NERVE 20% S/C TINNITUS 10% S/C SCARS 0% S/C SUPERFICIAL SCARS 10% S/C MEDS: Active Outpatient Medications (including Supplies): CHOLECALCIF 25MCG (D3-1,000UNIT) TAB TAKE ONE TABLET BY ACTIVE (S) MOUTH ONCE DAILY FOR VITAMIN SUPPLEMENTATION Indication: FOR SUPPLEMENTATION CICLESONIDE 160MCG 60D ORAL INHL INHALE 1 PUFF BY MOUTH PENDING TWICE DAILY (RINSE MOUTH AFTER USE) Indication: FOR ASTHMA CODEINE 10/GG 100MG/5ML (ALC-F/SF) LIQ TAKE 2 TEASPOONSFUL PENDING (10ML) BY MOUTH EVERY 8 HOURS NEEDED Indication: FOR COUGH FAMOTIDINE 20MG TAB TAKE ONE TABLET BY [...] BEDTIME Indication: FOR INSOMNIA ASSOCIATED WITH DEPRESSION ALL: Patient has answered NKA Fam Hx: Non - contributory Soc Hx: LIFETIME NON-SMOKER ROS: Denies any other relavent ROS Vitals Enter at: Aug 02, 2024@11:00:41 BP: 134/82 P: 72 R: 16 T: 98.1 218.2 lb [98.97 kg] (08/02/2024 11:00) BMI: 30.5 CONSTITUTION: GENERAL APPEARANCE:Well developed, well nourished and groomed. No apparent acute or chronic distress. TIRED APPEARING, COUGHING THROUGHOUT THE EXAM, NONPRODUCTIVE HEAD, FACE, SALIVARY GLANDS AND TMJ: Palpation of Parotid and Submandibular glands: Normal. Facial Mobility: Normal. EAR, NOSE, MOUTH AND THROAT: Pinnas - normal. Otoscopic exam: RIGHT EAR: External auditory canal normal, tympanic membrane mobile LEFT EAR: External auditory canal normal, tympanic membrane mobile Nasal Interior: Turbinates and middle meatus - Inferior turbinates normal. +2 DEVIATION TO THE LEFT ANTERIORLY, MODERATE RHINITIS Normal mucosa with no swelling, polyps, active bleeding or evidence of bleeding. SIGNIFICANT CLEAR RHINITIS Lips, Teeth and Gums: Lips normal. Oral Cavity and Oropharynx: Oral mucosa with normal color and moisture. Anterior 2/3rds of tongue normal. Breath quality normal. Hard palate normal. Normal floor of mouth, Posterior pharynx normal. +2 TONSILS, NO ERYTHEMA NECK AND THYROID: Neck: no adenopathy; no neck masses. RESPIRATORY: SIGNIFICANT EXPIRATORY WHEEZE LYMPH NODES: Neck nodes: normal. NEUROLOGIC: Higher integrative functions: Normal orientation, memory, attention span and concentration, language, and fund of knowledge. Cranial nerves: Cranial nerves II-XII grossly intact and symmetrical. PSYCHIATRIC: Mood and affect: normal and appropriate to the situation. CT MAXILLOFACIAL W/O CONT Exm Date: AUG 02, 2024@11:22 Req Phys: MELISSA NAYLOR Loc: [facility] ENT (Req'g Loc) Img Loc: [facility]/[place] [place] [facility] [place] [place] [address] (Case 301 COMPLETE) CT MAXILLOFACIAL W/O CONT (CT Detailed) CPT:33408 Proc Modifiers : BILATERAL EXAM Reason for Study: SINUSISITS Clinical History: Report Status: Verified Date Reported: AUG 02, 2024 Date Verified: AUG 02, 2024 Wildland Firefighter E-Sig:/ES/ANGELA EMERSON JR Report: Study: CT scan [...] Impression: Abnormal sinus findings, as described above. Assessment/Plan AUG 02, 2024: 54-year-old lifetime non-smoker referred secondary to feeling sick for the last 6 weeks as well as longstanding left sided nasal congestion. Patient states that 6 weeks ago he began feeling like he had a tickle in his throat. He had some type of video conference was told he had thrush. He was placed first on nystatin, then clotrimazole atrocious, and then some type of pill. His symptoms worsened. He began coughing a lot with purulent nasal discharge. He went to a clinic and was given a Z-Lukasz. He states that the green and yellow discharge has improved and is now white but he continues to have a significant runny nose, headache, and feels very tired. He feels like he has a lot of pressure in his head and he is constantly coughing. He has no history of asthma or seasonal allergies. He states he very rarely gets sick and certainly never for this length of time. Separate and distinct from this complaint he states that he has left-sided nasal congestion that is worse when he lies supine. Patient states that he probably broke his nose sometime in the past . He also had some kind of nasal surgery, he is not sure what kind though he describes something similar to a septoplasty. He does not use nasal sprays daily or antihistamines. Physical exam shows a tired appearing male coughing throughout the exam. Patient has moderate rhinitis with a +2 anterior deviation to the left. Patient has significant expiratory wheeze on auscultation. 1. Reactive airway as a result of URI -I reviewed the CT of the sinus with the patient. He has only mild evidence of chronic sinusitis. Overall his OMU's patent bilaterally. There is a deviation of the septum to the left with evidence of absent cartilage anteriorly. Overall the patient's cough and wheezing is inflammatory in nature. I have placed him on a steroid inhaler and instructed him on its proper usage as well as the importance of rinsing his mouth. I also prescribed loratadine, Medrol Dosepak, and a cough suppressant. He does have Flonase at home and will begin to use that daily. He will follow- up in 6 weeks. 2. Possible thrush -I cultured the patient's tongue and we will call him with these results. 3. Deviated septum patient does have significant deviation of the septum to the left with the nasal bones also deviated to the left. I do not believe a straightforward revision septoplasty would necessarily cure his symptoms. He may require rhinoplasty with revision. We will discuss this once he is through this acute illness. All questions were answered. Complete encounter includes: Review of past medical records Time spent with patient including obtaining history, physical exam, shared decision making, procedures, counseling and answering questions. Post visit documentation to include but not limited to medication and lab ordering. Total time = Minimum 45 min MEDICATION RECONCILIATION Outpatient: Has the patient been taking medications as documented in the EMLR? YES: The patient has been taking medications as documented in the EMLR. Essential Medication List for Review used to complete this medication reconciliation. INCLUDED IN THIS LIST: Alphabetical list of active outpatient prescriptions dispensed from this [facility] (local) and dispensed from another [place] or [facility] facility (remote) as well as inpatient orders [...] Remote Allergy/ADR Data available for this patient [place] [facility] [place] [facility] No Known Allergies Med Recon NoGlossary (Tool #1) INCLUDED IN THIS LIST: Alphabetical list of active outpatient prescriptions dispensed from this [facility] (local) and dispensed from another [place] or [facility] facility (remote) as well as inpatient orders (local pending and active), local clinic medications, locally documented non-VA medications, and local prescriptions that have or been discontinued in the past 90 days. Non-VA Meds Last Documented On: Data not found NOTE The display of [facility] prescriptions dispensed from another [place] or [facility] facility (remote) is limited to active outpatient prescription entries matched to National Drug File at the originating site and may not include some items such as investigational drugs, compounds, etc. NOT INCLUDED IN THIS LIST: Medications self-entered by the patient into personal health records (i.e. TabUp) are NOT included in this list. Non-VA medications documented outside this [place], remote inpatient orders (regardless of status) and remote clinic medications are NOT included in this list. The patient and provider must always discuss medications the patient is taking, regardless of where the medication was dispensed or obtained. OUTPT BENZONATATE 100MG CAP (Status = ) TAKE ONE CAPSULE BY MOUTH EVERY 8 HOURS NEEDED FOR COUGH Rx# [id number] Last Released: 06/23/24 Qty/Days Supply: 28/12 Rx Expiration Date: 07/23/24 Refills Remainin Indication: FOR COUGH OUTPT CHOLECALCIF 25MCG (D3-1,000UNIT) TAB (Status = Active/Suspended) TAKE ONE TABLET BY MOUTH ONCE DAILY FOR VITAMIN SUPPLEMENTATION Rx# [id number] Last Released: 06/08/24 Qty/Days Supply: Rx Expiration Date: 03/29/25 Refills Remainin Indication: FOR SUPPLEMENTATION OUTPT CICLESONIDE 160MCG 60D ORAL INHL (Status = Pending) INHALE 1 PUFF BY MOUTH TWICE DAILY (RINSE MOUTH AFTER USE) Login Date: 08/02/24 Qty/Days Supply: Refills Ordered: 3 OUTPT CLOTRIMAZOLE 10MG YULIYA (Status = ) DISSOLVE 1 YULIYA BY MOUTH THREE TIMES A DAY FOR CANDIDIASIS FUNGAL INFECTION Rx# [id number] Last Released: 06/28/24 Qty/Days Supply: 42/14 Rx Expiration Date: 07/27/24 Refills Remainin Indication: FOR CANDIDIASIS FUNGAL INFECTION OUTPT CODEINE 10/GG 100MG/5ML (ALC-F/SF) LIQ (Status = Pending) 10/GG 100MG/5ML (ALC-F/SF) LIQ TAKE 2 TEASPOONSFUL (10ML) BY MOUTH EVERY 8 HOURS NEEDED Login Date: 08/02/24 Qty/Days Supply: Refills Ordered: 3 OUTPT FAMOTIDINE 20MG TAB (Status = Discontinued) TAKE ONE TABLET BY MOUTH TWICE DAILY FOR HEARTBURN Rx# [id number] Last Released: 01/08/24 Qty/Days Supply: 180 Rx Expiration Date: 10/28/24 Refills Remainin Indication: FOR HEARTBURN OUTPT FAMOTIDINE 20MG TAB (Status = Active) TAKE ONE TABLET BY MOUTH TWICE DAILY FOR HEARTBURN Rx# [id number] Last Released: 07/26/24 Qty/Days Supply: 180 Rx Expiration Date: 05/16/25 Refills Remainin Indication: FOR HEARTBURN OUTPT FLUTICASONE PROP 50MCG 120D NASAL INHL (Status = Discontinued) INSTILL 2 SPRAYS INTO EACH NOSTRIL EVERY EVENING FOR NASAL IRRITATION/INFLAMMATION Rx# [id number] Last Released: 12/29/23 Qty/Days Supply: Rx Expiration Date: 08/31/24 Refills Remainin Indication: FOR NASAL IRRITATION/INFLAMMATION OUTPT FLUTICASONE PROP 50MCG 120D NASAL INHL (Status = Active) INSTILL 2 SPRAYS INTO EACH NOSTRIL EVERY EVENING FOR NASAL IRRITATION/INFLAMMATION Rx# [id number] Last Released: 07/26/24 Qty/Days Supply: Rx Expiration Date: 05/16/25 Refills Remainin Indication: FOR NASAL IRRITATION/INFLAMMATION OUTPT GUAIFENESIN 600MG SA TAB (Status = ) TAKE ONE TO TWO TABLET(S) BY MOUTH EVERY 12 HOURS NEEDED FOR COUGH FOLLOW DOSE WITH FULL GLASS OF WATER Rx# [id number] Last Released: 06/23/24 Qty/Days Supply: 40/10 Rx Expiration Date: 07/23/24 Refills Remainin Indication: FOR COUGH OUTPT IPRATROPIUM BR 0.06% NASAL SPRAY (Status = ) INSTILL 2 SPRAYS INTO EACH NOSTRIL EVERY 8 HOURS NEEDED FOR RUNNY NOSE Rx# [id number] Last Released: 06/23/24 Qty/Days Supply: Rx Expiration Date: 07/23/24 Refills Remainin Indication: FOR RUNNY NOSE OUTPT LIDOCAINE 5% PATCH (Status = Active) APPLY 2 PATCHES TOPICALLY EVERY 24 HOURS NEEDED FOR NERVE PAIN (LEAVE PATCH ON FOR 12 HOURS, THEN REMOVE PATCH) FOR LOWER BACK Rx# [id number] Last Released: 06/22/24 Qty/Days Supply: Rx Expiration Date: 12/28/24 Refills Remainin Indication: FOR NERVE PAIN OUTPT LORATADINE 10MG TAB (Status = ) TAKE ONE TABLET BY MOUTH ONCE DAILY NEEDED FOR ALLERGY Rx# [id number] Last Released: 06/23/24 Qty/Days Supply: Rx Expiration Date: 07/23/24 Refills Remainin Indication: FOR ALLERGY OUTPT NAPROXEN 500MG TAB (Status = Discontinued) TAKE ONE TABLET BY MOUTH TWICE DAILY FOR PAIN TAKE WITH FOOD Rx# [id number] Last Released: 05/16/24 Qty/Days Supply: Rx Expiration Date: 12/21/24 Refills Remainin Indication: FOR PAIN OUTPT NAPROXEN 500MG TAB (Status = Active/Suspended) TAKE ONE TABLET BY MOUTH TWICE DAILY FOR PAIN TAKE WITH FOOD Rx# [id number] Last Released: Qt/Days Supply: Rx Expiration Date: 05/16/25 Refills Remainin Indication: FOR PAIN OUTPT [place]STATIN [id number] UNT/ML SUSP (Status = Discontinued) TAKE 5ML (1 TEASPOON) BY MOUTH EVERY 6 HOURS FOR LEE INFECTION OF MOUTH Rx# [id number] Last Released: 06/23/24 Qty/Days Supply: Rx Expiration Date: 07/23/24 Refills Remainin Indication: FOR LEE INFECTION OF MOUTH OUTPT SILDENAFIL CITRATE 100MG TAB (Status = Discontinued) TAKE ONE TABLET BY MOUTH ONCE DAILY NEEDED TAKE 1 HOUR PRIOR TO SEXUAL ACTIVITY Rx# [id number] Last Released: 05/29/24 Qty/Days Supply: 08/28 Rx Expiration Date: 12/21/24 Refills Remainin OUTPT TADALAFIL 10MG TAB (Status = Active/Suspended) TAKE ONE TABLET BY MOUTH ONCE DAILY NEEDED FOR ERECTILE DYSFUNCTION Rx# [id number] Last Released: 06/02/24 Qty/Days Supply: Rx Expiration Date: 06/02/25 Refills Remainin Indication: FOR ERECTILE DYSFUNCTION OUTPT TAMSULOSIN HCL 0.4MG CAP (Status = Active/Suspended) TAKE ONE CAPSULE BY MOUTH AT BEDTIME FOR ENLARGED PROSTATE Rx# [id number] Last Released: 05/26/24 Qty/Days Supply: 90 Rx Expiration Date: 05/26/25 Refills Remainin Indication: FOR ENLARGED PROSTATE OUTPT TRAZODONE HCL 100MG TAB (Status = Discontinued) TAKE ONE AND ONE-HALF TABLETS BY MOUTH AT BEDTIME FOR INSOMNIA ASSOCIATED WITH DEPRESSION Rx# [id number] Last Released: 02/25/24 Qty/Days Supply: 135 Rx Expiration Date: 12/21/24 Refills Remainin Indication: FOR INSOMNIA ASSOCIATED WITH DEPRESSION OUTPT TRAZODONE HCL 100MG TAB (Status = Active) TAKE TWO TABLETS BY MOUTH AT BEDTIME FOR INSOMNIA ASSOCIATED WITH DEPRESSION Rx# [id number] Last Released: 07/26/24 Qty/Days Supply: 180 Rx Expiration Date: 05/16/25 Refills Remainin Indication: FOR INSOMNIA ASSOCIATED WITH DEPRESSION SUPPLIES /christina/ Melissa Naylor MD Otolaryngology Signed: 08/02/2024 16:31 08/10/2024 ADDENDUM STATUS: COMPLETED Culture result thus far negative. Called patient and left message on voicemail. No further action necessary at this time. CULTURE,MYCOLOGY () FUNGAL ISOLATE TONGUE SP #[id number] ---- MICROBIOLOGY ---- Reporting Lab: [facility] [CLIA# [id number]] [address] [place] [id number] Accession [UID]: [id number] [[id number]] Received: Aug 02, 2024@11:25 Collection sample: FUNGAL ISOLATE Collection date: Aug 02, 2024 11:17 Site/Specimen: TONGUE Provider: MELISSA NAYLOR Comment on specimen: TONGUE Test(s) ordered: CULTURE,MYCOLOGY ()......... completed: Aug 10, 2024 09:19 * MYCOLOGY FINAL REPORT => Aug 10, 2024 09:19 TECH CODE: [id number] Mycology Remark(s): NO YEAST ISOLATED AFTER 7 DAYS /christina/ Melissa Naylor MD Otolaryngology Signed: 08/10/2024 16:18 MELISSA NAYLOR [facility] Aug 02, 2024 11:22 AM ACCOUNTING OF DISCLOSURES NOTE: LOCAL TITLE: [facility] DRUG MONITORING PROGRAM STANDARD TITLE: ACCOUNTING OF DISCLOSURES NOTE DATE OF NOTE: AUG 02, 2024@11:22:53 ENTRY DATE: AUG 02, 2024@11:22:53 AUTHOR: MELISSA NAYLOR EXP COSIGNER: URGENCY: STATUS: COMPLETED This PDMP query was submitted by Melissa Naylor The clinical justification for this PDMP query is to review controlled substances prescribed outside of the [place], and any additional information that may become available, as an important component of standard clinical care, and in accordance with [facility] policy. Patient information was shared with the PDMP [employer]. No prescription(s) for controlled substances outside the [facility] were found in the last 90 days. /christina/ Melissa Naylor MD Otolaryngology Signed: 08/02/2024 11:26 MELISSA NAYLOR [facility]
--- OUTSIDE RECORDS SUMMARY | 2024-08-31 15:28 | XMS_ITS ---
Author Name [facility] Organization [facility] [place] Address [address] [place] [id number] Care Team Providers Care Entry Level Administrative Assistant Name Role Phone STEVOGAGAN Primary Care Provider [...] Relationship to Policy Olivares CAREMARK PRESCRIPT ION [facility] Aug 29, 2022 [id number] STEPHANIE ROSSI ERT PATIENT [employer]ARE PREFERRED PROVIDER ORGANIZAT ION (PPO) [place] RE STATE INDEM N Mar 01, 2006 [id number] STEPHANIE ROSSI ERT PATIENT WELLPOINT PREFERRED PROVIDER ORGANIZAT ION (PPO) [place] RE STATE INDEM * Mar 01, 2006 [id number] STEPHANIE ROSSI ERT PATIENT Selected Encounter This section includes the information on record at [place] for the Encounter. Date/Time Encounter Type Encounter Description Reason Pro vider Source Aug 31, 2024 07:28 PM Outpatient Encounter ADMIN PAT ACTIVTIES (MASNONCT) IHE Encounter Template Text not used by [place] Plan of Treatment: Future Appointments (+ 6 [...] 20 appointments. The data comes from all [facility]. Appointment Date/Time Appointment Type Appointme nt Facility Name Sep 25, 2024 03:30 PM AMBULATORY - [place]ICINE [place] [facility] Oct 02, 2024 01:00 PM AMBULATORY - [facility]ICINE [facility] [place] [facility] Oct 11, 2024 12:30 PM AMBULATORY - [place]ICINE [place] [facility] Nov 02, 2024 12:30 PM AMBULATORY - [place]ICINE [place] [facility] Nov 03, 2024 02:00 PM [facility] [place] [facility] Nov 14, 2024 03:30 PM AM[place]UL[place]ICINE [place] [facility] Jan 18, 2025 02:00 [facility] Jan 22, 2025 11:00 AM [facility] Active, Pending, and Scheduled Orders This section includes a listing of several types of active, pending, and scheduled orders, including clinic medications orders, diagnostic test orders, procedure orders and consult orders; where the start date of the order is 45 days before the date of the Encounter or 45 days after the date of theEncounter. The data comes from all [facility]. Test Date/Time Test Type Test Details Facility Name Oct 11, 2024 12:51 PM Consult Order DENTAL CON SULT OUTPT Cons Or Scrub Tech's Choice [facility] Social History: Smoking Status (Most current) and Tobacco Use (All prior to encounter date) This section includes the most current, and the historical, smoking and tobacco- related health factors from the [place] facility where the Encounter took place. Current Smoking Status This section includes the most current smoking, or tobacco-related health factor, from the [place] facility where the Encounter took place. Date/Time Current Smoking Status Comment Yair dumont May 16, 2020 04:13 PM VA-TOBACCO NEVER USED [facility] Advance Directives: All historical and current Section Date Range: From patient's date of to the date document was created. This section includes ALL of a patient's completed or amended [place] Advance and Rescinded Directives. The entries below indicate that a directive exists for the patient, but an actual copy is not included with this document. The data comes from all [place] facilities. Date Advance Directives Provider Source Nov 26, 2016 ADVANCE DIRECTIVE TORY WONG [facility] Radiology Reports: +/- 30 days of the [...] the Encounter. The data comes from all [place] treatment facilities. Date/Time Radiology Report Provider Source Aug 02, 2024 11:[address] MAXILLOFACIAL W /O CONT: MERVIN ROSSI [id number] -[id number] M Exm Date: AUG 02, 2024@11:22 Req Phys: MELISSA FARLEY Loc: [facility] MD (Req'g Loc) Img Loc: [facility]/CT Service: [place] [address] (Case [id number] COMPLETE) CT MAXILLOFACIAL W/O CONT (CT Detailed) CPT:69130 Proc Modifiers : BILATERAL EXAM Reason for Study: SINUSISITS Clinical History: Report Status: Verified Date Reported: AUG 02, 2024 Date Verified: AUG 02, 2024 Demand Planning Analyst E-Sig:/ES/ANGELA EMERSON JR Report: Study: CT scan [...] Primary Interpreting Staff: ANGELA EMERSON JR, Radiologist (Demand Planning Analyst) /ANGELA JACOBS JR [facility] Pathology Reports: +/- 30 days of the [...] the Encounter. The data comes from all [place] treatment facilities. Date/Time Pathology Report Provider Source Aug 02, 2024 11:17 AM LR MICROBIOLOGY RE PORT: Reporting Lab: [facility] [CLIA# [id number]] [address] [place] [id number] Accession [UID]: [id number] [[id number]] Received: Aug 02, 2024@11:25 Collection sample: FUNGAL ISOLATE Collection date: Aug 02, 2024 11:17 Site/Specimen: TONGUE Provider: MELISSA FARLEY Comment on specimen: TONGUE Test(s) ordered: CULTURE,MYCOLOGY ()......... completed: Aug 10, 2024 09:19 * MYCOLOGY FINAL REPORT => Aug 10, 2024 09:19 TECH CODE: [id number] Mycology Remark(s): NO YEAST ISOLATED AFTER 7 DAYS =--=--=--=--=--=--=--=-- =--=--=--=--=--=--=--=-- =--=--=--=--=--=--=--=-- =--=-- Performing Laboratory: Mycology Report Performed By: [facility] [CLIA# [id number]] [address] [place] [address] [facility] Encounter Notes: All associated encounter notes This section contains the clinical notes associated to the Encounter. Date/Time Encounter Note(s) Provider Source Aug 31, 2024 07:28 PM PHARMACY NOTE: LOCAL TITLE: V1 PHARMACY CUSTOMER CARE MEDICATION RENEWAL STANDARD TITLE: PHARMACY NOTE DATE OF NOTE: AUG 31, 2024@19:28 ENTRY DATE: AUG 31, 2024@19:28:26 AUTHOR: TRAY THIBODEAUX COSIGNER: URGENCY: STATUS: COMPLETED Date: Aug Division: [place] referred by Pharmacy Call Center for medication renewal: Non-controlled/maintenanc e medication Medications requested: [id number] TAMSULOSIN HCL 0.4MG CAP Defer to specialty clinic To be mailed . Please review and renew if appropriate. *This note was generated by [facility]/[place] Pharmacy Customer Care. If you have any questions or need assistance, do not contact this author. Please refer all questions to your local, on-site pharmacy departments. /suzanna Thibodeaux CPhT Aircraft Sales Representative, [place]/Pharmacy Customer Care Signed: 08/31/2024 19:28 Receipt Acknowledged By: * AWAITING SIGNATURE * KAMILLA KHAN GEORGE I [place] [facility] Aug 31, 2024 07:28 PM PHARMACY NOTE: LOCAL TITLE: V1 PHARMACY CUSTOMER CARE MEDICATION RENEWAL STANDARD TITLE: PHARMACY NOTE DATE OF NOTE: AUG 31, 2024@19:28 ENTRY DATE: AUG 31, 2024@19:28:56 AUTHOR: TRAY THIBODEAUX COSIGNER: URGENCY: STATUS: COMPLETED Date: Aug Division: [place] [facility] referred by Pharmacy Call Center for medication renewal: Non-controlled/maintenanc e medication Medications requested: [id number] TADALAFIL 10MG TAB [id number] FLUTICASONE PROP 50MCG 120D NASAL INHL Defer to primary care provider To be mailed . Please review and renew if appropriate. *This note was generated by [facility]/[place] Pharmacy Customer Care. If you have any questions or need assistance, do not contact this author. Please refer all questions to your local, on-site pharmacy departments. /suzanna Thibodeaux CPhT Aircraft Sales Representative, [place]/Pharmacy Customer Care Signed: 08/31/2024 19:29 Receipt Acknowledged By: 09/01/2024 10:09 /es/ GAGAN WHITESIDE MD Primary Care Physician 09/04/2024 08:10 /es/ Jenny Mariee RN Registered Nurse TRAY THIBODEAUX I [facility]
--- OUTSIDE RECORDS SUMMARY | 2024-09-25 11:30 | XMS_ITS ---
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 ([place] Organization [facility] Address [address] [place] [id number] Care Team Providers Care Tube Heater Name Role Phone GAGAN WHITESIDE Primary Care [...] Relationship to Policy Olivares [facility] Aug 29, 2022 [id number] STEPHANIE ROSSI ERT PATIENT [employer]ARE PREFERRED PROVIDER ORGANIZAT ION (PPO) [facility] RE STATE INDEM N Mar 01, 2006 [id number] STEPHANIE ROSSI ERT PATIENT WELLPOINT PREFERRED PROVIDER ORGANIZAT ION (PPO) [facility] [employer] INDEM * Mar 01, 2006 [id number] STEPHANIE ROSSI ERT PATIENT Selected Encounter This section includes the information on record at [place] for the Encounter. Date/Time Encounter Type Encounter Description Reason Provider Source Sep 25, 2024 03:30 PM OFFICE O/P EST LOW 20 MIN OTOLARYNGOLOGY/ENT ICD-10-CM J34.2 Deviated nasal septum MELISSA NAYLOR uYe Encounter Template Text not used by [facility] Assessments - Encounter Diagnoses This section includes the primary and secondary diagnoses documented for the Encounter. Date/Time Primary/Secondary Diagnosis Diagnosis Name Provider Source Sep 25, 2024 05:08 PM PRIMARY Deviated nasal septum MELISSA NAYLOR [place] [facility] [place] [facility] Sep 25, 2024 05:08 PM SECONDARY Chronic rhinitis [facility]ART[facility]ISSA Pae[facility] Plan of Treatment: Future Appointments (+ 6 months) and Future Tests (+/- 45 days) The Plan of Treatment section includes future care activities for the patient from all [place] [facility]. This section includes future appointments and future orders which are active, pending or scheduled. Future Appointments This section includes appointments that were scheduled to occur 6 months from the date of the Encounter, up to a maximum of 20 appointments. The data comes from all [facility]. Appointment Date/Time Appointment Type Appointme nt Facility Name Oct 02, 2024 01:00 PM AMBULATORY - MEDICINE [place] [facility] [place] [facility] Oct 11, 2024 12:30 PM AMBULATORY [place]IC[place] [facility] [place] [facility] Nov 02, 2024 12:30 PM AMBULATORY - [place]ICINE [place] [facility] [place] [facility] Nov 03, 2024 02:00 PM AMBULATORY - NONE [place] [facility] [place] [facility] Nov 14, 2024 03:30 PM AMBULATORY [place]ICINE [place] [facility] [place] [facility] Jan 18, 2025 02:00 PM AMBULATORY - NONE [place] [facility] [place] [facility] Jan 22, 2025 11:00 AM AMBULATORY - NONE [place] [facility] [place] [facility] Mar 05, 2025 12:30 PM [facility] Active, Pending, and Scheduled Orders This section includes a listing of several types of active, pending, and scheduled orders, including clinic medications orders, diagnostic test orders, procedure orders and consult orders; where the start date of the order is 45 days before the date of the Encounter or 45 days after the date of theEncounter. The data comes from all [facility]. Test Date/Time Test Type Test Details Facility Name Oct 11, 2024 12:51 PM Consult Order DENTAL CON SULT OUTPT Cons [facility] Social History: Smoking Status (Most current) and Tobacco Use (All prior to encounter date) This section includes the most current, and the historical, smoking and tobacco- related health factors from the [facility] facility where the Encounter took place. Current Smoking Status This section includes the most current smoking, or tobacco-related health factor, from the [place] facility where the Encounter took place. Date/Time Current Smoking Status Comment Yair dumont May 16, 2020 04:13 PM VA-TOBACCO NEVER USED [place] [facility] [place] [facility] Advance Directives: All historical and current Section Date Range: From patient's date of to the date document was created. This section includes ALL of a patient's completed or amended VA Advance and Rescinded Directives. The entries below indicate that a directive exists for the patient, but an actual copy is not included with this document. The data comes from all [place] facilities. Date Advance Directives Provider Source Nov 26, 2016 ADVANCE DIRECTIVE TORY WONG Encounter Notes: All associated encounter notes This section contains the clinical notes associated to the Encounter. Date/Time Encounter Note(s) Provider Source Sep 25, 2024 05:01 PM OTOLARYNGOLOGY NOTE: LOCAL TITLE: OTOLARYNGOLOGY CLINIC NOTE STANDARD TITLE: OTOLARYNGOLOGY NOTE DATE OF NOTE: SEP 25, 2024@17:01 ENTRY DATE: SEP 25, 2024@17:01:37 AUTHOR: MELISSA NAYLORIGNER: URGENCY: STATUS: COMPLETED SEP 25, 2024 MERVIN ROSSI is a 54 y/o LIFETIME NON-SMOKER MALE, previously in [facility] FROM Apr TO Aug from PERIOD OF SERVICE - [place], f/u of COUGH, WHEEZING, AND LEFT-SIDED NASAL OBSTRUCTION 54-year-old lifetime non-smoker here for follow-up of his cough, wheezing, and left-sided nasal obstruction. Patient took the Medrol Dosepak, steroid inhaler, loratadine, and cough suppressant as prescribed. He states that his symptoms completely resolved. He felt perfect until 2 days ago when he has noticed that he has a little bit of postnasal drip and he does continue to complain of left- sided nasal obstruction and that when he lies supine he cannot breathe through his nose and his mouth breathing. PV: 54-year-old lifetime non-smoker referred secondary to feeling [...] Pes planus 11. Arthralgia of multiple joints MEDS: Active Outpatient Medications (including Supplies): CHOLECALCIF 25MCG (D3-1,000UNIT) TAB TAKE ONE TABLET BY ACTIVE MOUTH ONCE DAILY FOR VITAMIN SUPPLEMENTATION Indication: FOR SUPPLEMENTATION CICLESONIDE 160MCG 60D ORAL INHL INHALE 1 PUFF BY MOUTH ACTIVE TWICE DAILY (RINSE MOUTH AFTER USE) Indication: FOR ASTHMA CODEINE 10/GG 100MG/5ML (ALC-F/SF) LIQ TAKE 2 TEASPOONSFUL ACTIVE (10ML) BY MOUTH EVERY 8 HOURS NEEDED [...] FOR LOWER BACK Indication: FOR NERVE PAIN LORATADINE 10MG TAB TAKE ONE TABLET BY MOUTH ONCE DAILY ACTIVE Indication: FOR ALLERGY LORATADINE 10MG TAB TAKE ONE TABLET BY MOUTH ONCE DAILY PENDING Indication: FOR ALLERGY NAPROXEN 500MG TAB TAKE ONE TABLET BY MOUTH TWICE DAILY ACTIVE (S) TAKE WITH FOOD Indication: FOR PAIN TADALAFIL 10MG TAB TAKE ONE TABLET BY MOUTH ONCE DAILY ACTIVE (S) NEEDED Indication: FOR ERECTILE DYSFUNCTION TAMSULOSIN HCL 0.4MG CAP TAKE ONE CAPSULE BY MOUTH AT ACTIVE BEDTIME Indication: FOR ENLARGED PROSTATE TRAZODONE HCL [...] groomed. No apparent acute or chronic distress. NO COUGH NO HOARSENESS HEAD, FACE, SALIVARY GLANDS AND TMJ: Palpation of Parotid and Submandibular glands: Normal. Facial Mobility: Normal. EAR, NOSE, MOUTH AND THROAT: Pinnas - normal. Otoscopic exam: RIGHT EAR: External auditory canal normal, tympanic membrane mobile LEFT EAR: External auditory canal normal, tympanic membrane mobile Hearing: Moderate Hearing loss Nasal Interior: Turbinates and middle meatus -+2 ANTERIOR DEVIATION TO THE LEFT, MILD RHINITIS TURBINATES +2 HYPERTROPHY. Normal mucosa with no swelling, polyps, active bleeding or evidence of bleeding. Lips, Teeth and Gums: Lips normal. Oral Cavity and Oropharynx: Oral mucosa with normal color and moisture. Anterior 2/3rds of tongue normal. Breath quality normal. Hard palate normal. Normal floor of mouth, Posterior pharynx normal. NECK AND THYROID: Neck: no adenopathy; no neck masses. Assessment/Plan SEP 25, 2024: 54-year-old lifetime non-smoker here for follow-up of his cough, wheezing, and left-sided nasal obstruction. Patient took the Medrol Dosepak, steroid inhaler, loratadine, and cough suppressant as prescribed. He states that his symptoms completely resolved. He felt perfect until 2 days ago when he has noticed that he has a little bit of postnasal drip and he does continue to complain of left- sided nasal obstruction and that when he lies supine he cannot breathe through his nose and his mouth breathing. Physical exam shows patient looking significantly improved. He is not coughing he has no hoarseness. He has mild rhinitis. He is breathing comfortably without wheezing. He does have a +2 anterior deviation to the left and +2 inferior turbinate hypertrophy. 1. Resolved reactive airway as a result of URI -thankfully the patient responded to treatment well. His symptoms are completely resolved with no further wheezing. 2. Left greater than right nasal obstruction -patient does have a history of having had a septoplasty many years ago. He does have left-sided nasal obstruction with a +2 deviated septum as well as complains of nasal obstruction when lying supine. I recommended that he continue with the loratadine and the fluticasone. He has not been using these for several weeks. I did discuss with him that he could consider revision septoplasty. We discussed that his nasal deviation is not severe. He may require revision septal Rhino. Patient is not interested at this time. He will continue with the fluticasone and loratadine and follow-up as needed. questions answered. Complete encounter includes: Review of past medical records Time spent with patient including obtaining history, physical exam, shared decision making, procedures Counseling and answering questions Post visit documentation to include but not limited to medication and lab ordering. Total time = Minimum 25 min MEDICATION RECONCILIATION Outpatient: Has the patient been taking medications as documented in the EMLR? YES: The patient has been taking medications as documented in the EMLR. Essential Medication List for Review used to complete this medication reconciliation. INCLUDED IN THIS LIST: Alphabetical list of active outpatient prescriptions dispensed from this [facility] (local) and dispensed from another [place] or [facility] facility (remote) as well as [...] Remote Allergy/ADR Data available for this patient [place] [facility] [place] [facility] No Known Allergies Med Recon NoGlossary [...] the patient into personal health records (i.e. [employer]ura[employer]) are NOT included in this list. Non-VA medications documented outside this [place], remote inpatient orders (regardless of status) and remote clinic medications are NOT included in this list. The patient and provider must always discuss medications the patient is taking, regardless of where the medication was dispensed or obtained. OUTPT BENZONATATE 100MG CAP (Status = ) TAKE ONE CAPSULE BY MOUTH EVERY 8 HOURS NEEDED FOR COUGH Rx# [id number] Last Released: 06/23/24 Qty/Days Supply: 28/12 Rx Expiration Date: 07/23/24 Refills Remainin Indication: FOR COUGH OUTPT CHOLECALCIF 25MCG (D3-1,000UNIT) TAB (Status = Active) TAKE ONE TABLET BY MOUTH ONCE DAILY FOR VITAMIN SUPPLEMENTATION Rx# [id number] Last Released: 09/05/24 Qty/Days Supply: Rx Expiration Date: 03/29/25 Refills Remainin Indication: FOR SUPPLEMENTATION OUTPT CICLESONIDE 160MCG 60D ORAL INHL (Status = Active) INHALE 1 PUFF BY MOUTH TWICE DAILY FOR ASTHMA (RINSE MOUTH AFTER USE) Rx# [id number] Last Released: 08/02/24 Qty/Days Supply: 03/30 Rx Expiration Date: 08/03/25 Refills Remainin Indication: FOR ASTHMA OUTPT CLOTRIMAZOLE 10MG YULIYA (Status = ) DISSOLVE 1 YULIYA BY MOUTH THREE TIMES A DAY FOR CANDIDIASIS FUNGAL INFECTION Rx# [id number] Last Released: 06/28/24 Qty/Days Supply: Rx Expiration Date: 07/27/24 Refills Remainin Indication: FOR CANDIDIASIS FUNGAL INFECTION OUTPT CODEINE 10/GG 100MG/5ML (ALC-F/SF) LIQ (Status = Active) TAKE 2 TEASPOONSFUL (10ML) BY MOUTH EVERY 8 HOURS NEEDED FOR COUGH Rx# [id number] Last Released: 08/02/24 Qty/Days Supply: Rx Expiration Date: 02/02/25 Refills Remainin Indication: FOR COUGH OUTPT FAMOTIDINE 20MG TAB (Status = Active/Suspended) TAKE ONE TABLET BY MOUTH TWICE DAILY FOR HEARTBURN Rx# [id number] Last Released: 07/26/24 Qty/Days Supply: Rx Expiration Date: 05/16/25 Refills Remainin Indication: FOR HEARTBURN OUTPT FLUTICASONE PROP 50MCG 120D NASAL INHL (Status = Discontinued) INSTILL 2 SPRAYS INTO EACH NOSTRIL EVERY EVENING FOR NASAL IRRITATION/INFLAMMATION Rx# [id number] Last Released: 07/26/24 Qty/Days Supply: Rx Expiration Date: 05/16/25 Refills Remainin Indication: FOR NASAL IRRITATION/INFLAMMATION OUTPT FLUTICASONE PROP 50MCG 120D NASAL INHL (Status = Active/Suspended) INSTILL 2 SPRAYS INTO EACH NOSTRIL EVERY EVENING FOR NASAL IRRITATION/INFLAMMATION Rx# [id number] Last Released: Qt Supply: Rx Expiration Date: 09/02/25 Refills Remainin Indication: FOR NASAL IRRITATION/INFLAMMATION OUTPT GUAIFENESIN 600MG SA TAB (Status = ) TAKE ONE TO TWO TABLET(S) BY MOUTH EVERY 12 HOURS NEEDED FOR COUGH FOLLOW DOSE WITH FULL GLASS OF WATER Rx# [id number] Last Released: 06/23/24 Qty/Days Supply: 40/ Rx Expiration Date: 07/23/24 Refills Remainin Indication: FOR COUGH OUTPT IPRATROPIUM BR 0.06% NASAL SPRAY (Status = ) INSTILL 2 SPRAYS INTO EACH NOSTRIL EVERY 8 HOURS NEEDED FOR RUNNY NOSE Rx# [id number] Last Released: 06/23/24 Qty/Days Supply: Rx Expiration Date: 07/23/24 Refills Remainin Indication: FOR RUNNY NOSE OUTPT LIDOCAINE 5% PATCH (Status = Active) APPLY 2 PATCHES TOPICALLY EVERY 24 HOURS NEEDED FOR NERVE PAIN (LEAVE PATCH ON FOR 12 HOURS, THEN REMOVE PATCH) FOR LOWER BACK Rx# [id number] Last Released: 08/31/24 Qty/Days Supply: 6030 Rx Expiration Date: 12/28/24 Refills Remainin Indication: FOR NERVE PAIN OUTPT LORATADINE 10MG TAB (Status = ) TAKE ONE TABLET BY MOUTH ONCE DAILY NEEDED FOR ALLERGY Rx# [id number] Last Released: 06/23/24 Qty/Days Supply: Rx Expiration Date: 07/23/24 Refills Remainin Indication: FOR ALLERGY OUTPT LORATADINE 10MG TAB (Status = Active) TAKE ONE TABLET BY MOUTH ONCE DAILY FOR ALLERGY Rx# [id number] Last Released: 08/02/24 Qty/Days Supply: Rx Expiration Date: 08/03/25 Refills Remainin Indication: FOR ALLERGY OUTPT LORATADINE 10MG TAB (Status = Pending) TAKE ONE TABLET BY MOUTH ONCE DAILY FOR ALLERGY Renewed from Rx# [id number] Qty/Days Supply: Login Date: 09/25/24 Refills Ordered: 3 OUTPT METHYLPREDNISOLONE 4MG TAB (Status = ) TAKE SIX TABLETS BY MOUTH ONCE DAILY FOR 1 DAY, THEN TAKE FIVE TABLETS ONCE DAILY FOR 1 DAY, THEN TAKE FOUR TABLETS ONCE DAILY FOR 1 DAY, THEN TAKE THREE TABLETS ONCE DAILY FOR 1 DAY, THEN TAKE TWO TABLETS ONCE DAILY FOR 1 DAY, THEN TAKE ONE TABLET ONCE DAILY FOR 1 DAY Rx# [id number] Last Released: 08/02/24 Qty/Days Supply: 19/08 Rx Expiration Date: 09/01/24 Refills Remainin Indication: FOR ASTHMA OUTPT NAPROXEN 500MG TAB (Status = Active/Suspended) TAKE ONE TABLET BY MOUTH TWICE DAILY FOR PAIN TAKE WITH FOOD Rx# [id number] Last Released: 08/12/24 Qty/Days Supply: 180/ Rx Expiration Date: 05/16/25 Refills Remainin Indication: FOR PAIN OUTPT NYSTATIN [id number] UNT/ML SUSP (Status = Discontinued) TAKE 5ML (1 TEASPOON) BY MOUTH EVERY 6 HOURS FOR LEE INFECTION OF MOUTH Rx# [id number] Last Released: 06/23/24 Qty/Days Supply: 60 Rx Expiration Date: 07/23/24 Refills Remainin Indication: FOR LEE INFECTION OF MOUTH OUTPT TADALAFIL 10MG TAB (Status = Discontinued) TAKE ONE TABLET BY MOUTH ONCE DAILY NEEDED FOR ERECTILE DYSFUNCTION Rx# [id number] Last Released: 08/12/24 Qty/Days Supply: Rx Expiration Date: 06/02/25 Refills Remainin Indication: FOR ERECTILE DYSFUNCTION OUTPT TADALAFIL 10MG TAB (Status = Active/Suspended) TAKE ONE TABLET BY MOUTH ONCE DAILY NEEDED FOR ERECTILE DYSFUNCTION Rx# [id number] Last Released: Qt Supply: Rx Expiration Date: 09/02/25 Refills Remainin Indication: FOR ERECTILE DYSFUNCTION OUTPT TAMSULOSIN HCL 0.4MG CAP (Status = Active) TAKE ONE CAPSULE BY MOUTH AT BEDTIME FOR ENLARGED PROSTATE Rx# [id number] Last Released: 08/07/24 Qty/Days Supply: Rx Expiration Date: 05/26/25 Refills Remainin Indication: FOR ENLARGED PROSTATE OUTPT TRAZODONE HCL 100MG TAB (Status = Active) TAKE TWO TABLETS BY MOUTH AT BEDTIME FOR INSOMNIA ASSOCIATED WITH DEPRESSION Rx# [id number] Last Released: 07/26/24 Qty/Days Supply: Rx Expiration Date: 05/16/25 Refills Remainin Indication: FOR INSOMNIA ASSOCIATED WITH DEPRESSION SUPPLIES /christina/ Melissa Naylor MD Otolaryngology Signed: 09/25/2024 17:08 MELISSA NAYLOR [facility] [place] [facility]
--- OUTSIDE RECORDS SUMMARY | 2024-10-02 09:00 | XMS_ITS ---
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 Affairs ([place]) Organization [facility] ([place] Address [address] [place] [id number] Care Team Providers Care Radiology Technologist Name Role Phone GAGAN WHITESIDE Primary Care [...] Relationship to Policy Olivares CAREMARK PRESCRIPT ION [facility] Aug 29, 2022 [id number] STEPHANIE ROSSI ERT PATIENT [employer] PREFERRED PROVIDER ORGANIZAT ION (PPO) [facility] N Mar 01, 2006 [id number] STEPHANIE ROSSI ERT PATIENT [employer] PREFERRED PROVIDER ORGANIZAT ION (PPO) [facility] * Mar 01, 2006 [id number] STEPHANIE ROSSI ERT PATIENT Selected Encounter This section includes the information on record at [place] for the Encounter. Date/Time Encounter Type Encounter Description Reason Provider Source Oct 02, 2024 01:00 PM OFFICE O/P NEW LOW 30 MIN PM&RS PHYSICIAN ICD-10-CM M47.816 Spondylosis w/o myelopathy or radiculopathy, lumbar region CARI SIMS IHYue Encounter Template Text not used by VA Assessments - Encounter Diagnoses This section includes the primary and secondary diagnoses documented for the Encounter. Date/Time Primary/Secondary Diagnosis Diagnosis Name Provider Source Oct 02, 2024 01:48 PM PRIMARY Spondylosis w/o myelopathy or radiculopathy, lumbar region [facility]I SIMS [facility] [place] [facility] Oct 02, 2024 01:48 PM SECONDARY Calcium deposit in bursa, unspecified hip [facility] Plan of Treatment: Future Appointments (+ 6 months) and Future Tests (+/- 45 days) The Plan of Treatment section includes future care activities for the patient from all [place] [facility]. This section includes future appointments and future orders which are active, pending or scheduled. Future Appointments This section includes appointments that were scheduled to occur 6 months from the date of the Encounter, up to a maximum of 20 appointments. The data comes from all [place] treatment facilities. Appointment Date/Time Appointment Type Appointme nt Facility Name Oct 11, 2024 12:30 PM AMBULATORY - MEDICINE [facility] [place] [facility] Nov 02, 2024 12:30 PM AMBULATORY - MEDICINE [facility] [place] [facility] Nov 03, 2024 02:00 PM AMBULATORY - NONE [facility] [place] [facility] Nov 14, 2024 03:30 PM AMBULATORY - MEDICINE [facility] [place] [facility] Jan 18, 2025 02:00 PM AMBULATORY - NONE [facility] [place] [facility] Jan 22, 2025 11:00 AM AMBULATORY - NONE [facility] [place] [facility] Mar 05, 2025 12:30 PM AMBULATORY - NONE [facility] Active, Pending, and Scheduled Orders This section includes a listing of several types of active, pending, and scheduled orders, including clinic medications orders, diagnostic test orders, procedure orders and consult orders; where the start date of the order is 45 days before the date of the Encounter or 45 days after the date of theEncounter. The data comes from all [facility]. Test Date/Time Test Type Test Details Facility Name Oct 11, 2024 12:51 PM Consult Order DENTAL CON SULT OUTPT Cons Ip/Mosaic Technician's Choice [facility] [place] [facility] Nov 15, 2024 12:00 AM Laboratory - Chemi stry Order LIPID PANEL FASTING BLOOD (SST-SERUM) [facility] Nov 15, 2024 12:00 AM Laboratory - Chemi stry Order LIVER FUNCTION BLOOD (SST-SERUM) [facility] Vital Signs: All taken on the encounter date This section contains inpatient and outpatient Vital Signs collected on the date of the Encounter. Date/Time Temperature Pulse Blood Pressure Respiratory Rate SP02 Pain Height Weight Body Mass Index Source Oct 02, 2024 01:01 PM 130/70 mm[Hg] 7 [facility] Social History: Smoking Status (Most current) and Tobacco Use (All prior to encounter date) This section includes the most current, and the historical, smoking and tobacco- related health factors from the [place] facility where the Encounter took place. Current Smoking Status This section includes the most current smoking, or tobacco-related health factor, from the [place] facility where the Encounter took place. Date/Time Current Smoking Status Comment Facil julia May 16, 2020 04:13 PM VA-TOBACCO NEVER USED [facility] Advance Directives: All historical and current Section Date Range: From patient's date of to the date document was created. This section includes ALL of a patient's completed or amended [place] Advance and Rescinded Directives. The entries below [...] Encounter. Date/Time Encounter Note(s) Provider Source Oct 02, 2024 01:37 PM PHYSICAL MEDICINE REHAB NOTE: LOCAL TITLE: PM&R BACK/JOINT PROCEDURE NOTE STANDARD TITLE: PHYSICAL MEDICINE REHAB NOTE DATE OF NOTE: OCT 02, 2024@13:37 ENTRY DATE: OCT 02, 2024@13:37:58 AUTHOR: JEREMIAS SIMS COSIGNER: URGENCY: STATUS: COMPLETED PROCEDURE: Trigger point injections. INDICATION: Myofascial pain. INFORMED CONSENT: Obtained verbally, and through [facility]. states that he had 3 months of relief after the bilateral trochanteric bursa injections provided in June. Symptoms then began to recur recently. He is having bilateral hip pain and is having difficulty sleeping on the hips. He additionally has difficulties with walking. He notices a fair bit of stiffness in the low back region he is very accustomed to this. This has been long-term. No recent physical therapy. He has pursued acupuncture and finds this to be somewhat helpful. He has been doing the exercises for internal and external rotation of the hips and the strength has improved. His physical exam demonstrates tenderness over the trochanteric bursa region but he has a great deal rigidity in the lumbar spine. Extension as well as flexion aggravates symptoms. Lateral flexion to the right causes pain radiating towards the right hip. He has central pain to palpation. Negative femoral thrust test. Negative posterior displacement test. Mason maneuver is negative. The procedure as well as potential risks and benefits of trigger point injections were discussed with patient, who agreed to proceed. TIME OUT NOTE TIME:Sep@13:25 K[place] correctly stated: [X]Full name: MERVIN ROSSI [X]Last #: [id number] [X]: Mar PROVIDER NAME: Jeremias Sims PA-c STAFF NAME: Yaima Toledo RN PROCEDURE: Trochanteric bursa injection bilaterally as well as his right piriformis injection LOCATION: As below noted K[place]on was initially placed with the right hip exposed. Chlorhexidine x 3 and the areas of tenderness. The areas of trigger points (focal taught mobile bands of muscles that are hyperirritable on palpation) were identified and injected after cleansed with alcohol. A 25G 1.5 needle was used to deliver 1mL of a solution containing 1% lidocaine 30 mg triamcinolone into trochanteric bursa bilaterally. The trigger point the piriformis was with lidocaine only. (locations as below), followed by dry needling locally. The needle was withdrawn and light compression was applied with a 2x2 gauze until bleeding stopped. Band-aid applied. Site 1 MUSCLES INJECTED: trocahnteric bursa SIDE: Bilateral # OF SITES: 2 Site 2: MUSCLES INJECTED: left piriformis SIDE: left # OF SITES: 2 Other: Lot #: [id number] Exp: 02/23 No complications. Scant blood loss. The patient tolerated the procedure well without any immediate adverse side effects. Patient was instructed on the use of ice prn, gentle stretching and increased fluid intake to improve hydration. The patient was discharged home with instructions to monitor for any adverse reactions/side effects, and to contact me with any issues. Pre-procedure pain level:06/08 Post-procedure pain level:03/10 Kempton was sent to physical therapy for facet mobilization and core activation and gluteal activation. If no improvement is noted consideration to facet injections. Medication Reconciliation: Outpatient: Has the patient been taking medications as documented in the EMLR? YES: The patient has been taking medications as documented in the EMLR. Essential Medication List for Review used to complete this medication reconciliation. INCLUDED IN THIS LIST: Alphabetical list of active outpatient prescriptions dispensed from this VA (local) and dispensed from another [place] or DoD facility (remote) as well as [...] list may not be complete. Please check [employer]. Allergies/ADRs (Tool #5) FACILITY ALLERGY/ADR -------- No Remote Allergy/ADR Data available for this patient [place] [facility] [place] [facility] No Known Allergies Med [facility] (Tool #1) INCLUDED IN THIS LIST: Alphabetical list of active outpatient prescriptions dispensed from this VA (local) and dispensed from another [place] or DoD facility (remote) as well as inpatient orders (local pending and active), local clinic medications, locally documented non-VA medications, and local prescriptions that have or been discontinued in the past 90 days. Non-VA Meds Last Documented On: Data not found NOTE The display of VA prescriptions dispensed from another [place] or [facility] facility (remote) is limited to active outpatient prescription entries matched to National Drug File at the originating site and may not include some items such as investigational drugs, compounds, etc. NOT INCLUDED IN THIS LIST: Medications self-entered by the patient into personal health records (i.e. [employer]) are NOT included in this list. Non-VA medications documented outside this DE, remote inpatient orders (regardless of status) and remote clinic medications are NOT included in this list. The patient and provider must always discuss medications the patient is taking, regardless of where the medication was dispensed or obtained. OUTPT AZITHROMYCIN 250MG TAB (Status = Active) TAKE TWO TABLETS BY MOUTH ONCE DAILY FOR INFECTION CAUSED BY BACTERIA Rx# [id number] Last Released: 09/26/24 Qty/Days Supply: 08/01 Rx Expiration Date: 10/26/24 Refills Remainin Indication: FOR INFECTION CAUSED BY BACTERIA OUTPT BENZONATATE 100MG CAP (Status = ) TAKE ONE CAPSULE BY MOUTH EVERY 8 HOURS NEEDED FOR COUGH Rx# [id number] Last Released: 06/23/24 Qty/Days Supply: 28/12 Rx Expiration Date: 07/23/24 Refills Remainin Indication: FOR COUGH OUTPT CHOLECALCIF 25MCG (D3-1,000UNIT) TAB (Status = Active) TAKE ONE TABLET BY MOUTH ONCE DAILY FOR VITAMIN SUPPLEMENTATION Rx# [id number] Last Released: 09/05/24 Qty/Days Supply: Rx Expiration Date: 03/29/25 Refills Remainin Indication: FOR SUPPLEMENTATION OUTPT CICLESONIDE 160MCG 60D ORAL INHL (Status = Active) INHALE 1 PUFF BY MOUTH TWICE DAILY FOR ASTHMA (RINSE MOUTH AFTER USE) Rx# [id number] Last Released: 08/02/24 Qty/Days Supply: 03/30 Rx Expiration Date: 08/03/25 Refills Remainin Indication: FOR ASTHMA OUTPT CLOTRIMAZOLE 10MG YULIYA (Status = ) DISSOLVE 1 YULIYA BY MOUTH THREE TIMES A DAY FOR CANDIDIASIS FUNGAL INFECTION Rx# [id number] Last Released: 06/28/24 Qty/Days Supply: 42/ Rx Expiration Date: 07/27/24 Refills Remainin Indication: FOR CANDIDIASIS FUNGAL INFECTION OUTPT CODEINE 10/GG 100MG/5ML (ALC-F/SF) LIQ (Status = Active) TAKE 2 TEASPOONSFUL (10ML) BY MOUTH EVERY 8 HOURS NEEDED FOR COUGH Rx# [id number] Last Released: 08/02/24 Qty/Days Supply: Rx Expiration Date: 02/02/25 Refills Remainin Indication: FOR COUGH OUTPT FAMOTIDINE 20MG TAB (Status = Active/Suspended) TAKE ONE TABLET BY MOUTH TWICE DAILY FOR HEARTBURN Rx# [id number] Last Released: 07/26/24 Qty/Days Supply: Rx Expiration Date: 05/16/25 Refills Remainin Indication: FOR HEARTBURN OUTPT FLUTICASONE PROP 50MCG 120D NASAL INHL (Status = Discontinued) INSTILL 2 SPRAYS INTO EACH NOSTRIL EVERY EVENING FOR NASAL IRRITATION/INFLAMMATION Rx# [id number] Last Released: 07/26/24 Qty/Days Supply: Rx Expiration Date: 05/16/25 Refills Remainin Indication: FOR NASAL IRRITATION/INFLAMMATION OUTPT FLUTICASONE PROP 50MCG 120D NASAL INHL (Status = Active/Suspended) INSTILL 2 SPRAYS INTO EACH NOSTRIL EVERY EVENING FOR NASAL IRRITATION/INFLAMMATION Rx# [id number] Last Released: Supply: Rx Expiration Date: 09/02/25 Refills Remainin Indication: FOR NASAL IRRITATION/INFLAMMATION OUTPT GUAIFENESIN 600MG SA TAB (Status = ) TAKE ONE TO TWO TABLET(S) BY MOUTH EVERY 12 HOURS NEEDED FOR COUGH FOLLOW DOSE WITH FULL GLASS OF WATER Rx# [id number] Last Released: 06/23/24 Qty/Days Supply: 40/10 Rx Expiration Date: 07/23/24 Refills Remainin Indication: FOR COUGH OUTPT IPRATROPIUM BR 0.06% NASAL SPRAY (Status = ) INSTILL 2 SPRAYS INTO EACH NOSTRIL EVERY 8 HOURS NEEDED FOR RUNNY NOSE Rx# [id number] Last Released: 06/23/24 Qty/Days Supply: Rx Expiration Date: 07/23/24 Refills Remainin Indication: FOR RUNNY NOSE OUTPT LIDOCAINE 5% PATCH (Status = Active) APPLY 2 PATCHES TOPICALLY EVERY 24 HOURS NEEDED FOR NERVE PAIN (LEAVE PATCH ON FOR 12 HOURS, THEN REMOVE PATCH) FOR LOWER BACK Rx# [id number] Last Released: 08/31/24 Qty/Days Supply: Rx Expiration Date: 12/28/24 Refills Remainin Indication: FOR NERVE PAIN OUTPT LORATADINE 10MG TAB (Status = ) TAKE ONE TABLET BY MOUTH ONCE DAILY NEEDED FOR ALLERGY Rx# [id number] Last Released: 06/23/24 Qty/Days Supply: Rx Expiration Date: 07/23/24 Refills Remainin Indication: FOR ALLERGY OUTPT LORATADINE 10MG TAB (Status = Discontinued) TAKE ONE TABLET BY MOUTH ONCE DAILY FOR ALLERGY Rx# [id number] Last Released: 08/02/24 Qty/Days Supply: Rx Expiration Date: 08/03/25 Refills Remainin Indication: FOR ALLERGY OUTPT LORATADINE 10MG TAB (Status = Active) TAKE ONE TABLET BY MOUTH ONCE DAILY FOR ALLERGY Rx# [id number] Last Released: 09/28/24 Qty/Days Supply: Rx Expiration Date: 09/26/25 Refills Remainin Indication: FOR ALLERGY OUTPT METHYLPREDNISOLONE 4MG TAB (Status = ) TAKE SIX TABLETS BY MOUTH ONCE DAILY FOR 1 DAY, THEN TAKE FIVE TABLETS ONCE DAILY FOR 1 DAY, THEN TAKE FOUR TABLETS ONCE DAILY FOR 1 DAY, THEN TAKE THREE TABLETS ONCE DAILY FOR 1 DAY, THEN TAKE TWO TABLETS ONCE DAILY FOR 1 DAY, THEN TAKE ONE TABLET ONCE DAILY FOR 1 DAY Rx# [id number] Last Released: 08/02/24 Qty/Days Supply: 19/08 Rx Expiration Date: 09/01/24 Refills Remainin Indication: FOR ASTHMA OUTPT NAPROXEN 500MG TAB (Status = Active/Suspended) TAKE ONE TABLET BY MOUTH TWICE DAILY FOR PAIN TAKE WITH FOOD Rx# [id number] Last Released: 08/12/24 Qty/Days Supply: Rx Expiration Date: 05/16/25 Refills Remainin Indication: FOR PAIN OUTPT TADALAFIL 10MG TAB (Status = Discontinued) TAKE ONE TABLET BY MOUTH ONCE DAILY NEEDED FOR ERECTILE DYSFUNCTION Rx# [id number] Last Released: 08/12/24 Qty/Days Supply: Rx Expiration Date: 06/02/25 Refills Remainin Indication: FOR ERECTILE DYSFUNCTION OUTPT TADALAFIL 10MG TAB (Status = Active/Suspended) TAKE ONE TABLET BY MOUTH ONCE DAILY NEEDED FOR ERECTILE DYSFUNCTION Rx# [id number] Last Released: Qt Supply: Rx Expiration Date: 09/02/25 Refills Remainin Indication: FOR ERECTILE DYSFUNCTION OUTPT TAMSULOSIN HCL 0.4MG CAP (Status = Active) TAKE ONE CAPSULE BY MOUTH AT BEDTIME FOR ENLARGED PROSTATE Rx# [id number] Last Released: 08/07/24 Qty/Days Supply: Rx Expiration Date: 05/26/25 Refills Remainin Indication: FOR ENLARGED PROSTATE OUTPT TRAZODONE HCL 100MG TAB (Status = Active) TAKE TWO TABLETS BY MOUTH AT BEDTIME FOR INSOMNIA ASSOCIATED WITH DEPRESSION Rx# [id number] Last Released: 07/26/24 Qty/Days Supply: Rx Expiration Date: 05/16/25 Refills Remainin Indication: FOR INSOMNIA ASSOCIATED WITH DEPRESSION SUPPLIES /christina/ JEREMIAS SIMS [facility] Signed: 10/02/2024 13:48 [facility]IAS SIMS [facility]
--- OUTSIDE RECORDS SUMMARY | 2024-10-26 09:56 | XMS_ITS | Continuity of Care Document ---
Author Name [facility] Organization [facility] Care Team Providers Care Artist Manager Name Role Phone [facility] Unavailable Unavailable Problems Combined list of problems [...] Active Condition [facility] Obstructive sleep apnea Active Condition Oct 11, 2024 Entered By: GAGAN WHITESIDE Comment: Home Sleep Study performed 08/01/24 - dxed as MILD supine-dependent [place] Osteoarthritis of cervical spine [facility] of [facility] spine Active Condition [place] Pes planus Active Condition Oct 23 Entered By: GAGAN WHITESIDE Comment: Bilaterally [facility] Primary erectile dysfunction Active Condition [facility] Upper Gi Endoscopy Active Condition May 11, 2024 Entered By: GAGAN WHITESIDE Comment: [facility] Dr. [place] 05/11/2024: small hiatal hernia, mild schatzki ring found at the gastroesophageal junction. [place] Diagnosis: ICD-10-CM G47.33 Obstructive sleep apnea (adult) (pediatric) Active Diagnosis [place] Diagnosis: ICD-10-CM M47.816 Spondylosis w/o myelopathy or radiculopathy, lumbar region Active Diagnosis [facility] Diagnosis: ICD-10-CM J34.2 Deviated nasal septum Active Diagnosis [facility] MARTYQuinn NELSONUSEGHAZALA [facility] Diagnosis: ICD-10-CM G47.30 Sleep apnea, unspecified Active Diagnosis [facility] Diagnosis: ICD-10-CM J31.0 Chronic rhinitis Active Diagnosis [facility] MARTYN LESLIEUSEGHAZALA [facility] Diagnosis: ICD-10-CM R05.9 Cough, unspecified Active Diagnosis [place] Diagnosis: ICD-10-CM R05.3 Chronic cough Active Diagnosis [facility] Diagnosis: ICD-10-CM F52.21 Male erectile disorder Active Diagnosis [place] Diagnosis: ICD-10-CM M70.70 Other bursitis of hip, unspecified hip Active Diagnosis [facility] MARTYN [facility] Diagnosis: ICD-10-CM E78.5 Hyperlipidemia, unspecified Active Diagnosis [place] Diagnosis: ICD-10-CM K03.6 Deposits [accretions] on teeth Active Diagnosis [facility] MARTYQuinn [facility] Diagnosis: ICD-10-CM Z87.820 Personal history of traumatic brain injury Active Diagnosis [facility] Medications Combined list of outpatient medications from [...] TIMES DAILY NEEDED FOR PAIN ORAL 03/29/2024 [id number] TENISHA WHITESIDE SA 2023 200 [facility] AZITHROMYCI N 250MG TAB TAKE TWO TABLETS BY MOUTH ONCE DAILY FOR INFECTIO N CAUSED BY BACTERIA ORAL ACTIVE 10/26/2024 [id number] 5 [facility]ARLEY [facility] BENZONATATE 100MG CAP TAKE ONE CAPSULE BY MOUTH EVERY 8 HOURS NEEDED FOR COUGH ORAL 07/23/2024 [id number] 5 DARRICK AKBAR MARKETING PROJECT SPECIALIST 2024 30 [facility] CHOLECALCIF VADIM 25MCG (1,000UNIT) TAB TAKE ONE TABLET BY MOUTH ONCE DAILY FOR VITAMIN SUPPLEME NTATION ORAL ACTIVE 03/29/2025 [id number] 5 TENISHA WHITESIDE SA 2024 90 [place] CICLESONIDE 160MCG/SPRA Y INHL,ORAL,6 .1GM INHALE 1 PUFF BY MOUTH TWICE DAILY FOR ASTHMA (RINSE MOUTH AFTER USE) RESPIR ATORY (INHAL ATION) ACTIVE 08/03/2025 [id number] 5 AZAEL FARLEY R 2024 1 [facility] CLOTRIMAZOL E 10MG YULIYA DISSOLVE 1 YULIYA BY MOUTH THREE TIMES A DAY FOR CANDIDIA SIS FUNGAL INFECTIO N ORAL 07/27/2024 [id number] 5 TENISHA WHITESIDE SA 2024 42 [place] CODEINE 10MG/GUAIFE NESIN 100MG/5ML (SF & AF) LIQUID TAKE 2 TEASPOON SFUL (10ML) BY MOUTH EVERY 8 HOURS NEEDED FOR COUGH ORAL ACTIVE 02/02/2025 [id number] 5 AZAEL FARLEY R 2024 354 [facility] FAMOTIDINE 20MG TAB TAKE ONE TABLET BY MOUTH TWICE DAILY FOR HEARTBUR N ORAL ACTIVE 05/16/2025 [id number] 5 TENISHA WHITESIDE SA 2024 180 [place] FAMOTIDINE 20MG TAB TAKE ONE TABLET BY MOUTH TWICE DAILY FOR HEARTBUR N ORAL DISCONT INUED 10/28/2024 [id number] 4 TENISHA WHITESIDE SA 2023 180 [facility] FLUTICASONE PROPIONATE 50MCG/SPRAY SOLN,NASAL, 16GM INSTILL 2 SPRAYS INTO EACH NOSTRIL EVERY EVENING FOR NASAL IRRITATI ON/INFLA MMATION NASAL ACTIVE 09/02/2025 [id number] 5 TENISHA WHITESIDE SA 2024 3 [place] FLUTICASONE PROPIONATE 50MCG/SPRAY SOLN,NASAL, 16GM INSTILL 2 SPRAYS INTO EACH NOSTRIL EVERY EVENING FOR NASAL IRRITATI ON/INFLA MMATION NASAL DISCONT INUED 05/16/2025 [id number] 5 TENISHA WHITESIDE SA 2024 3 [place] FLUTICASONE PROPIONATE 50MCG/SPRAY SOLN,NASAL, 16GM INSTILL 2 SPRAYS INTO EACH NOSTRIL EVERY EVENING FOR NASAL IRRITATI ON/INFLA MMATION NASAL DISCONT INUED 08/31/2024 [id number] 4 Ephraim HUDSON 2023 3 [place] GUAIFENESIN 600MG TAB,SA TAKE ONE TO TWO TABLET(S ) BY MOUTH EVERY 12 HOURS NEEDED FOR COUGH FOLLOW DOSE WITH FULL GLASS OF WATER ORAL 07/23/2024 [id number] 5 AKBAR,DARRICK MARKETING PROJECT SPECIALIST 2024 40 [facility] IPRATROPIUM BR 0.06% SOLN,SPRAY, NASAL INSTILL 2 SPRAYS INTO EACH NOSTRIL EVERY 8 HOURS NEEDED FOR RUNNY NOSE NASAL 07/23/2024 [id number] 5 AKBAR,DARRICK MARKETING PROJECT SPECIALIST 2024 15 [facility] LIDOCAINE 5% PATCH APPLY 2 PATCHES TOPICALL Y EVERY 24 HOURS NEEDED FOR NERVE PAIN (LEAVE PATCH ON FOR 12 HOURS, THEN REMOVE PATCH) FOR LOWER BACK TOPICA L ACTIVE 12/28/2024 [id number] 5 TENISHA WHITESIDE SAE 2023 60 [facility] LIDOCAINE 5% PATCH APPLY 2 PATCHES TOPICALL Y EVERY 12 HOURS NEEDED FOR NERVE PAIN (LEAVE PATCH ON FOR 12 HOURS, THEN REMOVE PATCH) FOR LOWER BACK TOPICA L DISCONT INUED 03/29/2024 [id number] 4 TENISHA WHITESIDE SA 2023 60 [place] LIDOCAINE 5% PATCH APPLY 2 PATCHES TOPICALL Y EVERY 12 HOURS NEEDED FOR NERVE PAIN (LEAVE PATCH ON FOR 12 HOURS, THEN REMOVE PATCH) FOR LOWER BACK TOPICA L DISCONT INUED (EDIT) 12/21/2024 [id number] 4 TENISHA WHITESIDE SA 2023 60 [facility] LORATADINE 10MG TAB TAKE ONE TABLET BY MOUTH ONCE DAILY FOR ALLERGY ORAL ACTIVE 09/26/2025 [id number] 5 ORI FARLEYBatsheva CedenoELYN R 2024 90 [facility] LORATADINE 10MG TAB TAKE ONE TABLET BY MOUTH ONCE DAILY FOR ALLERGY ORAL DISCONT INUED 08/03/2025 [id number] 5 MARTINEAZAEL CORTESN R 2024 30 [facility] [place] LORATADINE 10MG TAB TAKE ONE TABLET BY MOUTH ONCE DAILY NEEDED FOR ALLERGY ORAL 07/23/2024 [id number] 5 DARRICK AKBAR NP 2024 30 [facility] METHYLPREDN ISOLONE 4MG TAB TAKE SIX TABLETS BY MOUTH ONCE DAILY FOR 1 DAY, THEN TAKE FIVE TABLETS ONCE DAILY FOR 1 DAY, THEN TAKE FOUR TABLETS ONCE DAILY FOR 1 DAY, THEN TAKE THREE TABLETS ONCE DAILY FOR 1 DAY, THEN TAKE TWO TABLETS ONCE DAILY FOR 1 DAY, THEN TAKE ONE TABLET ONCE DAILY FOR 1 DAY ORAL 09/01/2024 [id number] 5 MARTINEAZAEL DEVI R 2024 21 [facility] NAPROXEN 500MG TAB TAKE ONE TABLET BY MOUTH TWICE DAILY FOR PAIN TAKE WITH FOOD ORAL SUSPEND ED 05/16/2025 [id number] 5 TENISHA WHITESIDE SA 2024 180 [place] NAPROXEN 500MG TAB TAKE ONE TABLET BY MOUTH TWICE DAILY FOR PAIN TAKE WITH FOOD ORAL DISCONT INUED 12/21/2024 [id number] 5 TENISHA WHITESIDE SA 2024 180 [facility] NAPROXEN 500MG TAB TAKE ONE TABLET BY MOUTH TWICE DAILY FOR PAIN TAKE WITH FOOD ORAL DISCONT INUED 08/31/2024 [id number] 4 Ephraim HUDSON 2023 180 [place] NYSTATIN 867114GUK/M L SUSP,ORAL TAKE 5ML (1 TEASPOON ) BY MOUTH EVERY 6 HOURS FOR LEE INFECTIO N OF MOUTH ORAL DISCONT INUED BY PROVIDE R 07/23/2024 [id number] 5 DARRICK AKBAR NP 2024 60 [facility] OMEPRAZOLE 20MG CAP,EC TAKE ONE CAPSULE BY MOUTH TWICE DAILY FOR HEARTBUR N ORAL DISCONT INUED BY PROVIDE R 08/31/2024 [id number] 4 Ephraim HUDSON 2023 180 [place] SILDENAFIL CITRATE 100MG TAB TAKE ONE TABLET BY MOUTH ONCE DAILY NEEDED TAKE 1 HOUR PRIOR TO SEXUAL ACTIVITY ORAL DISCONT INUED BY PROVIDE R 12/21/2024 [id number] 5 TENISHA WHITESIDE SA 2023 6 [facility] SILDENAFIL CITRATE 100MG TAB TAKE ONE TABLET BY MOUTH ONCE DAILY NEEDED TAKE 1 HOUR PRIOR TO SEXUAL ACTIVITY ORAL DISCONT INUED 03/29/2024 [id number] 4 TENISHA WHITESIDE SA 2023 6 [place] TADALAFIL 10MG TAB TAKE ONE TABLET BY MOUTH ONCE DAILY NEEDED FOR ERECTILE DYSFUNCT ION ORAL DISCONT INUED 06/02/2025 [id number] 5 TENISHA WHITESIDE SA 2024 18 [place] TAMSULOSIN HCL 0.4MG CAP TAKE ONE CAPSULE BY MOUTH AT BEDTIME FOR ENLARGED PROSTATE ORAL ACTIVE 05/26/2025 [id number] 5 KAMILLA KHAN 2024 90 [facility] TRAZODONE HCL 100MG TAB TAKE TWO TABLETS BY MOUTH AT BEDTIME FOR INSOMNIA ASSOCIAT ED WITH DEPRESSI ON ORAL ACTIVE 05/16/2025 [id number] 5 TENISHA WHITESIDE SA 2024 180 [place] TRAZODONE HCL 100MG TAB TAKE ONE AND ONE-HALF TABLETS BY MOUTH AT BEDTIME FOR INSOMNIA ASSOCIAT ED WITH DEPRESSI ON ORAL DISCONT INUED (EDIT) 12/21/2024 [id number] 5 TENISHA WHITESIDE SA 2024 135 [facility] TRAZODONE HCL 100MG TAB TAKE ONE AND ONE-HALF TABLETS BY MOUTH AT BEDTIME FOR INSOMNIA ASSOCIAT ED WITH DEPRESSI ON ORAL DISCONT INUED 08/31/2024 [id number] 4 Ephraim HUDSOND A 2023 135 [place] Immunizations Combined list of available immunizations from the Department of Defense and Veterans Affairs facilities. Immunization Series Date Given Administered By Site Reaction Lot Number CVX Code Drug Crab Catcher Status Comments Source TDAP 2014 115 complet ed per Vet [facility] TD(ADULT) UNSPECIFIED FORMULATION 2012 139 complet ed emergency room [facility] Results Combined list [...] Mar 17, 2024 02:18 PM Reporting [facility] [address] [facility] [address] Performing Lab: [facility] [address] [facility] [address] [facility] LIPID PANEL FASTING CHOLESTERO L [MASS/VOLU ME] IN SERUM OR PLASMA 217 mg/dL 03/27 H Specimen Type: SERUM No comment entered. Ordering Provider: GAGAN WHITESIDE Report Released Date/Time: Mar 17, 2024 02:18 PM Reporting Lab: [facility] [place] [facility] [address] [facility] [address] Performing Lab: [facility] [address] [facility] [address] [facility] LIPID PANEL FASTING TRIGLYCERI DE [MASS/VOLU ME] IN SERUM OR PLASMA 58 mg/dL 0 - 150 03/27 Specimen Type: SERUM No comment entered. Ordering Provider: GAGAN WHITESIDE Report Released Date/Time: Mar 17, 2024 02:18 PM Reporting Lab: [facility] [place] [facility] [address] [facility] [address] Performing Lab: [facility] [place] [facility] [address] [facility] [address] [facility] LIPID PANEL FASTING CHOLESTERO L IN LDL [MASS/VOLU ME] IN SERUM OR PLASMA BY CALCULATIO N 163 mg/dL 0 - 129 03/27 H Specimen Type: SERUM No comment entered. Ordering Provider: GAGAN WHITESIDE Report Released Date/Time: Mar 17, 2024 02:18 PM Reporting Lab: [facility] [place] [address] [address] Performing Lab: [facility] [place] [address] [address] [facility] LIPID PANEL FASTING CHOLESTERO L.TOTAL/CH OLESTEROL IN HDL [MASS RATIO] IN SERUM OR PLASMA 5.2 03/27 Specimen Type: SERUM No comment entered. Ordering Provider: GAGAN WHITESIDE Report Released Date/Time: Mar 17, 2024 02:18 PM Reporting Lab: [facility] [place] [address] [address] Performing Lab: [facility] [place] [facility] [address] [facility] [address] [facility] LIPID PANEL FASTING CHOLESTERO L IN HDL [MASS/VOLU ME] IN SERUM OR PLASMA 42 mg/dL 40 - 60 03/27 Specimen Type: SERUM No comment entered. Ordering Provider: GAGAN WHITESIDE Report Released Date/Time: Mar 17, 2024 02:18 PM Reporting Lab: [facility] [place] [facility] [address] [facility] [address] Performing Lab: [facility] [place] [address] [place] [address] [facility] [facility] LIVER FUNCTION PROTEIN [MASS/VOLU ME] IN SERUM OR PLASMA 6.9 g/dL 6.0 - 8.3 03/27 Specimen Type: SERUM No comment entered. Ordering Provider: GAGAN WHITESIDE Report Released Date/Time: Mar 17, 2024 02:18 PM Reporting Lab: [facility] [address] [facility] [address] Performing Lab: [facility] [address] [facility] [address] [facility] [place] [facility] LIVER FUNCTION ALBUMIN [MASS/VOLU ME] IN SERUM OR PLASMA 4.0 g/dL 3.5 - 5.0 03/27 Specimen Type: SERUM No comment entered. Ordering Provider: GAGAN WHITESIDE Report Released Date/Time: Mar 17, 2024 02:18 PM Reporting Lab: [facility] [place] [facility] [address] [facility] [address] Performing Lab: [facility] [place] [facility] [address] [facility] [address] [facility] [place] [facility] LIVER FUNCTION ALKALINE PHOSPHATAS E [ENZYMATIC ACTIVITY/V OLUME] IN SERUM OR PLASMA 42 U/L 40 - 150 03/27 Specimen Type: SERUM No comment entered. Ordering Provider: GAGAN WHITESIDE Report Released Date/Time: Mar 17, 2024 02:18 PM Reporting Lab: [facility] [address] [facility] [address] Performing Lab: [facility] [place] [address] [facility] [address] [facility] [place] [facility] LIVER FUNCTION ASPARTATE AMINOTRANS FERASE [ENZYMATIC ACTIVITY/V OLUME] IN SERUM OR PLASMA 12 U/L 5 - 34 03/27 Specimen Type: SERUM No comment entered. Ordering Provider: GAGAN WHITESIDE Report Released Date/Time: Mar 17, 2024 02:18 PM Reporting Lab: [facility] [place] [facility] [address] [facility] [address] Performing Lab: [facility] [place] [facility] [address] [facility] [address] [facility] LIVER FUNCTION ALANINE AMINOTRANS FERASE [ENZYMATIC ACTIVITY/V OLUME] IN SERUM OR PLASMA 16 U/L 03/27 Specimen Type: SERUM No comment entered. Ordering Provider: GAGAN WHITESIDE Report Released Date/Time: Mar 17, 2024 02:18 PM Reporting Lab: [facility] [place] [facility] [address] [facility] [address] Performing Lab: [facility] [place] [facility] [address] [facility] [address] [facility] TRN [place] [facility] LIVER FUNCTION BILIRUBIN. TOTAL [MASS/VOLU ME] IN SERUM OR PLASMA 0.6 mg/dL 0.2 - 1.2 03/27 Specimen Type: SERUM No comment entered. Ordering Provider: GAGAN WHITESIDE Report Released Date/Time: Mar 17, 2024 02:18 PM Reporting Lab: [facility] [place] [facility] [address] [facility] [address] Performing Lab: [facility] [place] [facility] [address] [facility] [address] [facility]ITALRL TRN [facility]USE [facility] BASIC METABOLI C PANEL (fasting ) UREA NITROGEN [MASS/VOLU ME] IN SERUM OR PLASMA 23 mg/dL 7 - 25 03/27 Specimen Type: SERUM No comment entered. Ordering Provider: GAGAN WHITESIDE Report Released Date/Time: Mar 17, 2024 02:18 PM Reporting Lab: [facility] [place] [facility] [address] [facility] [address] Performing Lab: [facility] [place] [facility] [address] [facility] [address] [facility] [place] [facility] BASIC METABOLI C PANEL (fasting ) GLUCOSE [MASS/VOLU ME] IN SERUM OR PLASMA 103 mg/dL 65 - 100 03/27 H Specimen Type: SERUM No comment entered. Ordering Provider: GAGAN WHITESIDE Report Released Date/Time: Mar 17, 2024 02:18 PM Reporting Lab: [facility] [place] [facility] [address] [facility] [address] Performing Lab: [facility] [place] [facility] [address] [facility] [address] [facility] [place] [facility] BASIC METABOLI C PANEL (fasting ) SODIUM [MOLES/VOL UME] IN SERUM OR PLASMA 137 mmol/L 135 - 145 03/27 Specimen Type: SERUM No comment entered. Ordering Provider: GAGAN WHITESIDE Report Released Date/Time: Mar 17, 2024 02:18 PM Reporting Lab: [facility] [place] [facility] [address] [facility] [address] Performing Lab: [facility] [place] [facility] [address] [facility] [address] [facility] [place] [facility] BASIC METABOLI C PANEL (fasting ) POTASSIUM [MOLES/VOL UME] IN SERUM OR PLASMA 4.7 mmol/L 3.5 - 5.0 03/27 Specimen Type: SERUM No comment entered. Ordering Provider: GAGAN WHITESIDE Report Released Date/Time: Mar 17, 2024 02:18 PM Reporting Lab: [facility] [place] [facility] [address] [facility] [address] Performing Lab: [facility] [place] [facility] [address] [facility] [address] [facility] [place] [facility] BASIC METABOLI C PANEL (fasting ) CHLORIDE [MOLES/VOL UME] IN SERUM OR PLASMA 108 mmol/L 100 - 110 03/27 Specimen Type: SERUM No comment entered. Ordering Provider: GAGAN WHITESIDE Report Released Date/Time: Mar 17, 2024 02:18 PM Reporting Lab: [facility] [place] [facility] [address] [facility] [address] Performing Lab: [facility] [place] [facility] [address] [facility] [address] [facility] [place] [facility] BASIC METABOLI C PANEL (fasting ) CARBON DIOXIDE, TOTAL [MOLES/VOL UME] IN SERUM OR PLASMA 22 meq/L 20 - 30 03/27 Specimen Type: SERUM No comment entered. Ordering Provider: GAGAN WHITESIDE Report Released Date/Time: Mar 17, 2024 02:18 PM Reporting Lab: [facility] [place] [address] [address] Performing Lab: [facility] [address] [address] [facility] BASIC METABOLI C PANEL (fasting ) CREATININE [MASS/VOLU ME] IN SERUM OR PLASMA 1.35 mg/dL 0.50 - 1.40 03/27 Specimen Type: SERUM No comment entered. Ordering Provider: GAGAN WHITESIDE Report Released Date/Time: Mar 17, 2024 02:18 PM Reporting Lab: [facility] [address] [address] Performing Lab: [facility] [address] [address] [facility] [place] [facility] BASIC METABOLI C PANEL (fasting ) GLOMERULAR FILTRATION RATE/1.73 SQ M.PREDICTE D [VOLUME RATE/AREA] IN SERUM, PLASMA OR BLOOD BY CREATININE -BASED FORMULA (CKD-EPI 2020) 62 mL/min 60 03/27 Specimen Type: SERUM No comment entered. Ordering Provider: GAGAN WHITESIDE Report Released Date/Time: Mar 17, 2024 02:18 PM Reporting Lab: [facility] [place] [address] [address] Performing Lab: [facility] [address] [address] [facility] TSH THYROTROPI N [UNITS/VOL UME] IN SERUM OR PLASMA 1.20 u[IU]/mL 0.35 - 5.00 03/27 Specimen Type: SERUM No comment entered. Ordering Provider: GAGAN WHITESIDE Report Released Date/Time: Mar 17, 2024 02:18 PM Reporting Lab: [facility] [address] [address] Performing Lab: [facility] [address] [facility] [address] [facility] HEMOGLOB IN A1C PANEL HEMOGLOBIN A1C/HEMOGL [...] Mar 17, 2024 02:18 PM Reporting Lab: [address] [address] Performing Lab: [address] [address] [facility] CBC AND DIFF (AUTO) LEUKOCYTES [#/VOLUME] IN BLOOD BY AUTOMATED COUNT 6.51 10*3/uL 4.50 - 11.00 03/27 Specimen Type: BLOOD No comment entered. Ordering Provider: GAGAN WHITESIDE Report Released Date/Time: Mar 17, 2024 02:18 PM Reporting Lab: [address] [address] Performing Lab: [address] [address] [facility] CBC AND DIFF (AUTO) ERYTHROCYT ES [#/VOLUME] IN BLOOD BY AUTOMATED COUNT 6.31 10*6/uL 4.23 - 5.66 03/27 H Specimen Type: BLOOD No comment entered. Ordering Provider: GAGAN WHITESIDE Report Released Date/Time: Mar 17, 2024 02:18 PM Reporting Lab: [address] [address] Performing Lab: [address] [address] [facility] [place] CBC AND DIFF (AUTO) HEMOGLOBIN [MASS/VOLU ME] IN BLOOD 16.4 g/dL 12.8 - 17 03/27 Specimen Type: BLOOD No comment entered. Ordering Provider: GAGAN WHITESIDE Report Released Date/Time: Mar 17, 2024 02:18 PM Reporting Lab: [facility] [place] [facility] [address] [facility] [address] Performing Lab: [facility] [place] [facility] [address] [facility] [address] [facility] [place] CBC AND DIFF (AUTO) HEMATOCRIT [VOLUME FRACTION] OF BLOOD BY AUTOMATED COUNT 51.2 39.2 - 50.4 03/27 H Specimen Type: BLOOD No comment entered. Ordering Provider: GAGAN WHITESIDE Report Released Date/Time: Mar 17, 2024 02:18 PM Reporting Lab: [facility] [place] [facility] [address] [facility] [address] Performing Lab: [facility] [place] [facility] [address] [facility] [address] [facility] [place] CBC AND DIFF (AUTO) MCV [ENTITIC VOLUME] BY AUTOMATED COUNT 81.1 fL 82 - 99 03/27 L Specimen Type: BLOOD No comment entered. Ordering Provider: GAGAN WHITESIDE Report Released Date/Time: Mar 17, 2024 02:18 PM Reporting Lab: [facility] [place] [facility] [address] [facility] [address] Performing Lab: [facility] [place] [facility] [address] [facility] [address] [facility] [place] [facility] CBC AND DIFF (AUTO) MCHC [MASS/VOLU ME] BY AUTOMATED COUNT 32.0 g/dL 30.8 - 35.1 03/27 Specimen Type: BLOOD No comment entered. Ordering Provider: GAGAN WHITESIDE Report Released Date/Time: Mar 17, 2024 02:18 PM Reporting Lab: [facility] [place] [facility] [address] [facility] [address] Performing Lab: [facility] [place] [facility] [address] [facility] [address] [facility] [place] [facility] CBC AND DIFF (AUTO) PLATELETS [#/VOLUME] IN BLOOD BY AUTOMATED COUNT 242 10*3/uL 140 - 360 03/27 Specimen Type: BLOOD No comment entered. Ordering Provider: GAAGN WHITESIDE Report Released Date/Time: Mar 17, 2024 02:18 PM Reporting Lab: [facility] [place] [facility] [address] [facility] [address] Performing Lab: [facility] [place] [facility] [address] [facility] [address] [facility] [place] [facility] CBC AND DIFF (AUTO) ERYTHROCYT E DISTRIBUTI ON WIDTH [RATIO] BY AUTOMATED COUNT 15.0 12.0 - 16.0 03/27 Specimen Type: BLOOD No comment entered. Ordering Provider: GAGAN WHITESIDE Report Released Date/Time: Mar 17, 2024 02:18 PM Reporting Lab: [facility] [place] [facility] [address] [facility] [address] Performing Lab: [facility] [place] [facility] [address] [facility] [address] [facility] [place] [facility] CBC AND DIFF (AUTO) MONOCYTES [#/VOLUME] IN BLOOD BY AUTOMATED COUNT 0.66 10*3/uL 0.30 - 1.10 03/27 Specimen Type: BLOOD No comment entered. Ordering Provider: GAGAN WHITESIDE Report Released Date/Time: Mar 17, 2024 02:18 PM Reporting Lab: [facility] [place] [facility] [address] [facility] [address] Performing Lab: [facility] [facility] [address] [facility] [address] [facility] CBC AND DIFF (AUTO) MCH [ENTITIC MASS] BY AUTOMATED COUNT 26.0 pg 26.2 - 32.6 03/27 L Specimen Type: BLOOD No comment entered. Ordering Provider: GAGAN WHITESIDE Report Released Date/Time: Mar 17, 2024 02:18 PM Reporting Lab: [facility] [address] [facility] [address] Performing Lab: [facility] [address] [facility] [address] [facility] CBC AND DIFF (AUTO) NEUTROPHIL S/100 LEUKOCYTES IN BLOOD BY AUTOMATED COUNT 58.4 43.7 - 75.8 03/27 Specimen Type: BLOOD No comment entered. Ordering Provider: GAGAN WHITESIDE Report Released Date/Time: Mar 17, 2024 02:18 PM Reporting Lab: [facility] [address] [facility] [address] Performing Lab: [facility] [address] [facility] [address] [facility] CBC AND DIFF (AUTO) LYMPHOCYTE S/100 LEUKOCYTES IN BLOOD BY AUTOMATED COUNT 25.8 14.0 - 42.3 03/27 Specimen Type: BLOOD No comment entered. Ordering Provider: GAGAN WHITESIDE Report Released Date/Time: Mar 17, 2024 02:18 PM Reporting Lab: [facility] [address] [facility] [address] Performing Lab: [facility] [address] [facility] [address] [facility] CBC AND DIFF (AUTO) MONOCYTES/ 100 LEUKOCYTES IN BLOOD BY AUTOMATED COUNT 10.1 5.1 - 13.7 03/27 Specimen Type: BLOOD No comment entered. Ordering Provider: GAGAN WHITESIDE Report Released Date/Time: Mar 17, 2024 02:18 PM Reporting Lab: [facility] [address] [facility] [address] Performing Lab: [facility] [address] [facility] [address] [facility] CBC AND DIFF (AUTO) EOSINOPHIL S/100 LEUKOCYTES IN BLOOD BY AUTOMATED COUNT 4.0 0.4 - 6.8 03/27 Specimen Type: BLOOD No comment entered. Ordering Provider: GAGAN WHITESIDE Report Released Date/Time: Mar 17, 2024 02:18 PM Reporting Lab: [facility] [address] [facility] [address] Performing Lab: [facility] [address] [facility] [address] [facility] CBC AND DIFF (AUTO) BASOPHILS/ 100 LEUKOCYTES IN BLOOD BY AUTOMATED COUNT 1.4 0.1 - 2.0 03/27 Specimen Type: BLOOD No comment entered. Ordering Provider: GAGAN WHITESIDE Report Released Date/Time: Mar 17, 2024 02:18 PM Reporting Lab: [facility] [address] [facility] [address] Performing Lab: [facility] [address] [facility] [address] [facility] CBC AND DIFF (AUTO) NEUTROPHIL S [#/VOLUME] IN BLOOD BY AUTOMATED COUNT 3.80 10*3/uL 2.20 - 7.60 03/27 Specimen Type: BLOOD No comment entered. Ordering Provider: GAGAN WHITESIDE Report Released Date/Time: Mar 17, 2024 02:18 PM Reporting Lab: [facility] [address] [facility] [address] Performing Lab: [facility] [address] [facility] [address] [facility] CBC AND DIFF (AUTO) LYMPHOCYTE S [#/VOLUME] IN BLOOD BY AUTOMATED COUNT 1.68 10*3/uL 1.00 - 3.20 03/27 Specimen Type: BLOOD No comment entered. Ordering Provider: GAGAN WHITESIDE Report Released Date/Time: Mar 17, 2024 02:18 PM Reporting Lab: [facility] [address] [facility] [address] Performing Lab: [facility] [address] [facility] [address] [facility] CBC AND DIFF (AUTO) EOSINOPHIL S [#/VOLUME] IN BLOOD BY AUTOMATED COUNT 0.26 10*3/uL 0.03 - 0.44 03/27 Specimen Type: BLOOD No comment entered. Ordering Provider: GAGAN WHITESIDE Report Released Date/Time: Mar 17, 2024 02:18 PM Reporting Lab: [facility] [address] [address] Performing Lab: [facility] [address] [address] [facility] CBC AND DIFF (AUTO) BASOPHILS [#/VOLUME] IN BLOOD BY AUTOMATED COUNT 0.09 10*3/uL 0.01 - 0.13 03/27 Specimen Type: BLOOD No comment entered. Ordering Provider: GAGAN WHITESIDE Report Released Date/Time: Mar 17, 2024 02:18 PM Reporting Lab: [facility] [address] [address] Performing Lab: [facility] [address] [address] [facility] CBC AND DIFF (AUTO) IMMATURE GRANULOCYT ES/100 LEUKOCYTES IN BLOOD BY AUTOMATED COUNT 0.3 0.0 - 0.7 03/27 Specimen Type: BLOOD No comment entered. Ordering Provider: GAGAN WHITESIDE Report Released Date/Time: Mar 17, 2024 02:18 PM Reporting Lab: [facility] [address] [address] Performing Lab: [facility] [address] [address] [facility] CBC AND DIFF (AUTO) IMMATURE GRANULOCYT ES [#/VOLUME] IN BLOOD 0.02 10*3/uL 0.00 - 0.06 03/27 Specimen Type: BLOOD No comment entered. Ordering Provider: GAGAN WHITESIDE Report Released Date/Time: Mar 17, 2024 02:18 PM Reporting Lab: [facility] [address] [address] Performing Lab: [facility] [address] [facility] [address] [facility] CBC AND DIFF (AUTO) NRBC % 0.0 0.0 - 0.0 03/27 Specimen Type: BLOOD No comment entered. Ordering Provider: GAGAN WHITESIDE Report Released Date/Time: Mar 17, 2024 02:18 PM Reporting Lab: [facility]ITAL[facility]ENTERN [facility]ENTER[facility]ETS [facility] [address] [facility] [address] Performing Lab: [facility]ITALRGREIL [facility] HOSPITALTRN [facility] CENTERUSETS [facility] [address] [facility] [address] [facility]ENTERUSE [facility] CBC AND DIFF (AUTO) NRBC, ABS 0.00 10*3/uL 0.00 - 0.00 03/27 Specimen Type: BLOOD No comment entered. Ordering Provider: GAGAN WHITESIDE Report Released Date/Time: Mar 17, 2024 02:18 PM Reporting Lab: [facility]ITAL[facility]ENTERN [facility]ENTERUSE[facility] [address] [facility] [address] Performing Lab: [facility]ITALRCARRAW[facility]ENTERN [facility]ENTERUSE[facility] [address] [facility] [address] [facility]USE [facility] H PYLORI ANTIBODY HELICOBACT ER PYLORI IGG AB [PRESENCE] IN SERUM NEGATIVE 03/10 Specimen Type: SERUM No comment entered. Ordering Provider: GAGAN WHITESIDE Report Released Date/Time: Mar 10, 2024 12:50 PM Reporting Lab: [facility]ENTERUSE[facility] [address] [facility] [address] Performing Lab: [facility]ITALRCARRAWAY [facility]ENTERN [facility] CENTERUSETS [facility] [address] [facility] [address] [facility]N [facility]ENTERUSE [facility] OCCULT BLOOD FIT X1 SCREEN (MFP ONLY) HEMOGLOBIN .GASTROINT ESTINAL.LO WER [PRESENCE] IN STOOL BY IMMUNOASSA Y Negative 02/23 Specimen Type: FECES No comment entered. Ordering Provider: GAGAN WHITESIDE Report Released Date/Time: Jan 31, 2024 11:07 AM Reporting Lab: [facility]ITALN [facility]ENTERUSE[facility] [address] [facility] [address] Performing Lab: [facility] [address] [facility] [address] [facility] HEPATITI S B SURFACE ANTIBODY (HBsAb)- WH HEPATITIS B VIRUS SURFACE AB [PRESENCE] IN SERUM BY IMMUNOASSA Y REACTIVE 03/23 Specimen Type: SERUM Comment: A 'Reactive' result indicates HBsAb results >/= 12.0 mIU/mL and immunity to HBV infection. Ordering Provider: GAGAN WHITESIDE Report Released Date/Time: Mar 19, 2023 01:13 PM Reporting Lab: [facility] [address] [facility] [address] Performing Lab: [facility] [address] [address] [facility] Vital Signs Combined list of inpatient and outpatient Vital Signs from Department of Defense and Veterans Affairs, ranging from 12 months to all on record, depending upon the facility. Vital Sign Value Date Comments Source SYSTOLIC BLOOD PRESSURE 130 10/03/19 25 13:01:36 [facility] DIASTOLIC BLOOD PRESSURE 70 025 13:01:36 [facility] PAIN 7 10/02/2024 13:01:36 [facility] SYSTOLIC BLOOD PRESSURE 134 08/03/19 25 11:00:41 [facility] DIASTOLIC BLOOD PRESSURE 82 025 11:00:41 [facility] PULSE OXIMETRY 97 % 08/02/2024 11:00:41 [facility] WEIGHT 218.2 08/02/2024 11:00:41 [facility] BMI 30 kg/m2 08/02/2024 11:00:41 [facility] PAIN 4 08/02/2024 11:00:41 [facility] TEMPERATURE 98.1 08/02/2024 11:00:41 [facility] PULSE 72 08/02/2024 11:00:41 [facility] RESPIRATION 16 08/02/2024 11:00:41 [facility] SYSTOLIC BLOOD PRESSURE 130 07/28/19 08:51:35 [place] DIASTOLIC BLOOD PRESSURE 85 025 08:51:35 [place] PULSE OXIMETRY 96 % 07/27/2024 08:51:35 [place] TEMPERATURE 98.6 07/27/2024 08:51:35 [place] PULSE 96 07/27/2024 08:51:35 [place] RESPIRATION 16 07/27/2024 08:51:35 [place] SYSTOLIC BLOOD PRESSURE 130 07/22/19 14:01:46 [facility] DIASTOLIC BLOOD PRESSURE 70 025 14:01:46 [facility] PAIN 6 07/21/2024 14:01:46 [facility] SYSTOLIC BLOOD PRESSURE 120 05/26/19 25 09:05:59 [facility] DIASTOLIC BLOOD PRESSURE 70 025 09:05:59 [facility] PAIN 3 05/25/2024 09:05:59 [facility] Encounters Combined [...] [facility] [id number] 06/07 [facility] En[facility] [id number] 08/29 [facility] En[facility] [id number] 09/20 [facility] En[facility] [id number] 10/27 [facility] En[facility] [id number] 10/27 [facility] Encounter [id number] 11/01 [facility] CASE [facility] [id number] Diagnos is: ICD-10- CM K03.6 Deposit s [accret ions] on teeth MYNOR,HANG RENATA K 11/02 [facility] En[facility] [id number] 12/19 [facility] En[facility] [id number] [facility] En[facility] [id number] 03/08 [facility] En[facility] [id number] 03/24 [facility] En[facility] [id number] 03/27 [facility] Encounter [id number] 03/29 [facility] En[facility] [id number] 03/29 [facility] Encounter [id number] 04/04 [facility] OFFICE O/P EST MOD 30 MIN [id number] Diagnos is: ICD-10- CM Z87.820 Persona l history of traumat ic brain injury TANK HASSAN 04/25 [facility] En[facility] [id number] 05/01 [facility] En[facility] [id number] 05/02 [facility] [id number] Diagnos is: ICD-10- CM K03.6 Deposit s [accret ions] on teeth MYNOR,HANG RENATA K 05/02 [facility] DENTAL BITEWING FOUR IMAGES [id number] Diagnos is: ICD-10- CM K03.6 Deposit s [accret ions] on teeth HOHREITER, VINCENT 05/02 [facility] Encounter [id number] 05/03 [facility] En[facility] [id number] 05/11 [facility] [place] OFF[place] O/P EST MOD 30 MIN [id number] Diagnos is: ICD-10- CM E78.5 Hyperli pidemia , unspeci fied RIZWAN WHITESIDE 05/[place] [facility] En[facility] [id number] 05/17 [facility] En[facility] [id number] 05/23 [facility] OFFICE O/P NEW [place] 60 MIN [id number] 1. Diagnos is: ICD-10- CM M70.70 Other bursiti s of hip, unspeci fied hip Ephraim KHAN 05/25 [facility] En[facility] [id number] [facility] En[facility] [id number] 1.05/25 [facility] Encounter [id number] [facility] ASS[facility]&MGMT 5-10 [id number] Diagnos is: ICD-10- CM F52.21 Male erectil e disorde r TABITHA YUN IE 05/31 [facility] [place] [facility] En[facility] [id number] 06/22 [facility] SYNCH AUDIO-ONLY EST LOW 20 [id number] Diagnos is: ICD-10- CM R05.3 Chronic cough AKBAR,DARRICK MARKETING PROJECT SPECIALIST 06/23 [facility] Encounter [id number] 07/18 [facility] Encounter [id number] 07/18 [facility] Encounter [id number] 07/19 [facility] Encounter [id number] 07/20 [facility] OFFICE O/P EST LOW 20 MIN [id number] Diagnos is: ICD-10- CM 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, lumbar region Ephraim KHAN 07/21 [facility] En[facility] [id number] [facility] Encounter [id number] 07/27 [facility] [place] OFF/OP EST JUNE X REQ PHY/QHP [id number] Diagnos is: ICD-10- CM R05.9 Cough, unspeci fied SHORTY,ER IC K 07/27 [facility] F[facility] [id number] Diagnos is: ICD-10- CM G47.30 Sleep apnea, unspeci fied Amita VILLALPANDO 07/27 [place] [facility] (631GE) EDU&TRN PT SELF-MGMT NQHP 1 [id number] Diagnos is: ICD-10- CM G47.30 Sleep apnea, unspeci fied BUCK SHIN 07/27 [facility] OFFICE O/P NEW MOD 45 MIN [id number] Diagnos is: ICD-10- CM J31.0 Chronic rhiniti s BONITA FARLEY 08/02 [facility] [place] [place] [facility] SLEEP STUDY UNATT&RESP EFFT [id number] Diagnos is: ICD-10- CM G47.30 Sleep apnea, unspeci fied JAKYDEANDRE 08/26 [facility] Outpatient Encounter [id number] 08/31 [facility] [place] [facility] OFFICE O/P EST LOW 20 MIN [id number] Diagnos is: ICD-10- CM J34.2 Deviate d nasal septum BONITA FARLEY 09/25 [facility] [place] [place] [facility] Outpatient Encounter [id number] 09/26 [facility] [place] [facility] Outpatient Encounter [id number] 09/29 [facility] OFFICE O/P NEW LOW 30 MIN [id number] Diagnos is: ICD-10- CM 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, lumbar region Ephraim KHAN 10/02 [facility] Outpatient Encounter [id number] 10/02 [facility] Outpatient Encounter [id number] 10/03 [facility] [place] OFFICE O/P EST LOW 20 MIN [id number] Diagnos is: ICD-10- CM G47.33 Obstruc tive sleep apnea (adult) ([facility]) RIZWAN WHITESIDE 10/11 [facility] [place] Social History Combined list of available smoking, tobacco, and other social history from Department of Defense and [facility] facilities. Social History Type Response Date Comment Source Tobacco [facility]/2023 [place] [facility] [place] [facility] of [facility]/27[facility]2019 [place] [facility]/14/2018 [place] History of tobacco use QUIT TOBACCO USE > 7 YEARS AGO 10/23/2016 quit 20 years ago [place] Plan of Care List of future care activities from [facility] facilities. Additional future care activities may be listed in the Assessment and Plan section. Date/Time Care Activity Care Activity Detail Facili ty 11/02/2024 AMBULATORY - MEDICINE [facility] Advance Directives List of completed, amended, or rescinded Advance Directives on record at Department [facility] facilities. An actual copy of the Directive is not included. Date Advance Directive Provider Source 11/26/2016 ADVANCE DIRECTIVE TORY WONG
--- NOTE | 2024-10-26 15:04 | HO.NEPHOV ---
Vital Signs 10/26/24 15:05 Height 6 ft 1 in Weight 216 lb BMI 28.5 BP 132/80 Blood Pressure Location Lt brachial Position Sitting Pulse 92 Pulse Source Pulse Oximeter Pulse Oximetry (%) 96 Oxygen Delivery Method Room Air Intake Visit Reasons: 1 yr follow up-Conf Tassel Maker Required: No Accompanied by: Self / Same As Patient Allergies No Known Allergies Allergy (Verified 10/26/24 15:04) HPI Comments Details: Mr. Mcdonald who is 53 years age was in follow-up of his high serum creatinine and hypertension. 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 He has history of hemochromatosis and undergoes phlebotomy regularly. He has hypertension for long time and has been on benazepril and amlodipine. His blood pressure has been at goal. He does not take any nonsteroidal anti-inflammatory medications and keep himself well hydrated. He is not a diabetic. He does not have any proteinuria or retinopathy. He is also on PPI. He has no history of CAD, CVA, carotid stenosis, CHF, SHIMA or peripheral arterial disease. He has no history of drug use. His last serum creatinine was 1.37 [facility] Medical History (Updated 10/26/24 @ 21:59 by Srinvias Mcdowell MD) Osteoarthritis of lumbar spine Lower back pain Weight gain Cervical osteoarthritis Pain of multiple sites Cough Pulmonary nodules Surgical History H/O wrist surgery Hx of shoulder surgery History of nasal surgery History of hand surgery Hx of appendectomy Social History Household Members Other:: staying with a friend Are you a primary career coach to a significant other at home: No Do you presently have visiting nurse or other home services: No 75 years or older and lives alone: No Alcohol intake: never Patient Tobacco Use Status: Never used Tobacco e-Cigarette/Vaping Use: Never Used service: Yes Current occupational status: employed 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 Review of Systems Const All systems reviewed & are unremarkable except as noted in HPI and below Physical Exam Vital Signs: Last Vital Signs Pulse 92 10/26/24 15:05 BP 132/80 10/26/24 15:05 Pulse Ox 96 10/26/24 15:05 Oxygen Delivery Method Room Air 10/26/24 15:05 BMI result Body Mass Index 28.5 Const General: comfortable and no acute distress Orientation/consciousness: patient oriented x3 HEENT Head: Yes normocephalic Mouth: Normal oral and palatal mucosa present Eyes EOM: EOMs intact bilaterally Neck Neck: Yes supple Resp Auscultation: clear to auscultation bilaterally Cardio Jugular venous distension: no JVD Rate: regular rate GI Palpation (GI): Soft to palpation Auscultation: normal bowel sounds General: Yes no CVA tenderness Back/Spine/Pelvis Back: no CVA tenderness Skin General skin exam: no rashes or lesions noted Neuro General: patient oriented x3 and moves all extremities Extrem General: Yes no pedal edema Results Reviewed Nephrology Results: Hgb, (14.0-18.0) 16.8 g/dl 10/08/23 WBC, (4.8-10.8) 8.1 X10*3/uL 10/08/23 Plt Count, (160-400) 236 X10*3/uL 10/08/23 Sodium, (135-145) 139 mmol/L 10/20/24 Potassium, (3.3-5.1) 4.5 mmol/L 10/20/24 Chloride, (96-108) 108 mmol/L 10/20/24 Carbon Dioxide, (22-29) 24 mmol/L 10/20/24 BUN, (9-16) 27 mg/dL H 10/20/24 Creatinine, (0.5-1.4) 1.30 mg/dL 10/20/24 Calcium, (8.4-10.2) 9.5 mg/dL 10/08/23 Phosphorus, (2.7-4.5) 2.5 mg/dL L 10/08/23 PTH Intact, (8.7-77.1) 19.1 pg/mL 10/08/23 Urine Protein, (Neg-Trace) Trace mg/dL 10/20/24 Urine Creatinine 252.63 mg/dL 10/20/24 Protein/Creatinin Ratio, (<0.2) 0.07 10/20/24 Assessment & Plan Assessment & Plan (1) Hypertension: Code(s): I10 - Essential (primary) hypertension Category: Medical Qualifiers: Hypertension type: primary hypertension Qualified Code(s): I10 - Essential (primary) hypertension (2) High serum creatinine: Code(s): R79.89 - Other specified abnormal findings of blood chemistry Category: Medical Plan His serum creatinine is 1.37. His blood pressure is at goal. He is on LORA inhibitor. He has no proteinuria , LVH or retinopathy. He should maintain good hydration. He never had renal biopsy. His creatinine clearance is normal. He should avoid nonsteroidal anti-inflammatories. I would not make any medication changes today. I asked him to lose some weight. I ordered follow-up lab work. I answered all his questions. Follow-up appointment given. Orders: Orders Electrolytes 1 Year I10 - Essential (primary) hypertension Protein Creatinine Ratio, Ur 1 Year I10 - Essential (primary) hypertension Creatinine 1 Year I10 - Essential (primary) hypertension Blood Urea Nitrogen 1 Year I10 - Essential (primary) hypertension Coding Level of Care Code Est Pt Level 4 (83698) Diagnoses Primary hypertension I10 Hypertension type: primary hypertension High serum creatinine R79.89
[2024-10-26 15:05] VITALS: BP 132/80; PULSE 92; O2SAT 96; BMI 28.5
--- OUTSIDE RECORDS SUMMARY | 2024-10-26 15:06 | XMS_ITS | Clinical Summary ---
Author Organization 175 [facility] Address [address] [place] [address] Phone Care Team Providers Care Lead Tinner Name Role Phone Farida Munroe MD Primary Care Provider Allergies No known active allergies Medications acetaminophen [...] [address] [place] [phone] Umberto Alfred MA 08/28/2024 Telephone Gastroenterology - [place] [address] [place] [phone] Eric Longoria MD 07/27/2024 6:16 PM EDT - 07/27/2024 11:59 PM EDT [facility] [address] [place], [place] [phone] Subacute cough Discharge Disposition: Home or Self Care 07/27/2024 6:00 PM EDT Office Visit [facility] [address] [place], [place] [phone] Blanca Collier NP Subacute cough (Primary Dx); [...] EDT Hemochromatosis, unspecified hemochromatosis type POC RAPID [id number], MOLECULAR Routine 07/27/2024 6:43 PM EDT Subacute cough XR CHEST 2 VIEWS STAT 07/27/2024 6:21 PM EDT Subacute cough from Last 3 Months Results * (ABNORMAL) CBC auto differential (09/04/2024 9:12 AM EDT) [facility] WBC 8.1 4.8 - 10.8 K/mcL LAB HEMETOLOGY METHOD 09/04/2024 9:27 AM [facility] RBC 6.00(H) 4.50 - 5.50 M/mcL LAB HEMETOLOGY METHOD 09/04/2024 9:27 AM [facility] Hemoglobin 15.8 13.5 - 17.5 g/dL LAB HEMETOLOGY METHOD 09/04/2024 9:27 AM [facility] Hematocrit 49.5 42.0 - 54.0 % LAB HEMETOLOGY METHOD 09/04/2024 9:27 AM [facility] MCV 83.1 79.0 - 98.0 FL LAB HEMETOLOGY METHOD 09/04/2024 9:27 AM [facility] MCH 26.5(L) 27.0 - 32.0 pcg LAB HEMETOLOGY METHOD 09/04/2024 9:27 AM [facility] MCHC 31.9(L) 32.0 - 37.0 g/dL LAB HEMETOLOGY METHOD 09/04/2024 9:27 AM [facility] RDW 15.2(H) 11.0 - 15.0 % LAB HEMETOLOGY METHOD 09/04/2024 9:27 AM [facility] Platelets 250 130 - 400 K/mcL LAB HEMETOLOGY METHOD 09/04/2024 9:27 AM [facility] MPV 10.0 7.0 - 11.0 FL LAB HEMETOLOGY METHOD 09/04/2024 9:27 AM [facility] NRBC 0.0 <1.0 % LAB HEMETOLOGY METHOD 09/04/2024 9:27 AM [facility] NRBC Absolute 0.00 <0.10 K/mcL LAB HEMETOLOGY METHOD 09/04/2024 9:27 AM [facility] Neutrophils Relative 55.6 % LAB HEMETOLOGY METHOD 09/04/2024 9:27 AM [facility] Lymphocytes Relative 25.5 % LAB HEMETOLOGY METHOD 09/04/2024 9:27 AM [facility] Monocytes Relative 14.9 % LAB HEMETOLOGY METHOD 09/04/2024 9:27 AM [facility] Eosinophils Relative 2.7 % LAB HEMETOLOGY METHOD 09/04/2024 9:27 AM [facility] Basophils Relative 1.1 % LAB HEMETOLOGY METHOD 09/04/2024 9:27 AM [facility] Immature Granulocytes Relative 0.2 % LAB HEMETOLOGY METHOD 09/04/2024 9:27 AM [facility] Neutrophils Absolute 4.48 1.50 - 7.00 K/mcL LAB HEMETOLOGY METHOD 09/04/2024 9:27 AM [facility] Lymphocytes Absolute 2.06 1.00 - 5.00 K/mcL LAB HEMETOLOGY METHOD 09/04/2024 9:27 AM [facility] Monocytes Absolute 1.20(H) 0.20 - 1.00 K/mcL LAB HEMETOLOGY METHOD 09/04/2024 9:27 AM [facility] Eosinophils Absolute 0.22 0.00 - 0.50 K/mcL LAB HEMETOLOGY METHOD 09/04/2024 9:27 AM [facility] Basophils Absolute 0.09 0.00 - 0.20 K/mcL LAB HEMETOLOGY METHOD 09/04/2024 9:27 AM [facility] Immature Granulocytes Absolute 0.02 0.00 - 0.03 K/mcL LAB HEMETOLOGY METHOD 09/04/2024 9:27 AM EDT [facility] Blood Venous blood specimen / Unknown Venipuncture / Unknown 09/04/2024 9:12 AM EDT 09/04/2024 9:22 AM EDT us Paul Grant MD LAB BLOOD ORDERABLES Final Re sult Performing Organization Address [facility]/ZIP Co de Phone Number [facility] [address] [place] [address], [place] [phone] * (ABNORMAL) Iron and TIBC (09/04/2024 9:12 [...] ORDERABLES Final Re sult Performing Organization Address [facility]/ZIP Co de Phone Number [facility] [address] [place] [address], [place] [phone] * (ABNORMAL) Ferritin (09/04/2024 9:12 AM EDT) Ferritin 6(L) 26 - 388 ng/mL LAB CHEMISTRY METHOD 09/04/2024 10:19 AM EDT [facility] Blood Venous blood specimen / Unknown Venipuncture / Unknown 09/04/2024 9:12 AM EDT 09/04/2024 9:22 AM EDT us Paul Grant MD LAB BLOOD ORDERABLES Final Re sult [facility] [address] [place] [address], [place] [phone] * (ABNORMAL) Hepatic function panel (09/04/2024 9:12 AM EDT) Total Protein 6.6 6.0 - 8.0 g/dL LAB CHEMISTRY METHOD 09/04/2024 10:17 AM EDT [facility] Albumin 3.7 3.2 - 5.0 g/dL LAB CHEMISTRY METHOD 09/04/2024 10:17 AM [facility] Total Bilirubin 0.4 0.0 - 1.4 mg/dL LAB CHEMISTRY METHOD 09/04/2024 10:17 AM [facility] Bilirubin, Direct <0.1 0.0 - 0.3 mg/dL LAB CHEMISTRY METHOD 09/04/2024 10:17 AM [facility] Bilirubin, Indirect LAB CHEMISTRY METHOD 09/04/2024 10:17 AM [facility] Comment:Unable to calculate Indirect Bilirubin. ALT (SGPT) 22 10 - 60 unit/L LAB CHEMISTRY METHOD 09/04/2024 10:17 AM [facility] AST (SGOT) 9(L) 10 - 42 unit/L LAB CHEMISTRY METHOD 09/04/2024 10:17 AM [facility] Alkaline Phosphatase 51 42 - 121 unit/L LAB CHEMISTRY METHOD 09/04/2024 10:17 AM [facility] Blood Venous blood specimen / Unknown Venipuncture / Unknown 09/04/2024 9:12 AM EDT 09/04/2024 9:22 AM EDT us Paul Grant MD LAB BLOOD ORDERABLES Final Re sult [facility] [address] [place] [address], * (ABNORMAL) Basic metabolic panel (09/04/2024 9:12 AM EDT) Sodium 137 133 - 145 mmol/L LAB CHEMISTRY METHOD 09/04/2024 10:15 AM T [facility] Potassium 4.3 3.5 - 5.5 mmol/L LAB CHEMISTRY METHOD 09/04/2024 10:15 AM [facility] Chloride 107 96 - 110 mmol/L LAB CHEMISTRY METHOD 09/04/2024 10:15 AM [facility] CO2 27 21 - 32 mmol/L LAB CHEMISTRY METHOD 09/04/2024 10:15 AM [facility] Anion Gap 3 3 - 11 LAB CHEMISTRY METHOD 09/04/2024 10:15 AM [facility] Glucose 90 70 - 100 mg/dL LAB CHEMISTRY METHOD 09/04/2024 10:15 AM [facility] BUN 26(H) 5 - 25 mg/dL LAB CHEMISTRY METHOD 09/04/2024 10:15 AM [facility] Creatinine 1.35(H) 0.70 - 1.30 mg/dL LAB CHEMISTRY METHOD 09/04/2024 10:15 AM [facility] eGFR 62 >=60 mL/min/1. 73m2 LAB CHEMISTRY METHOD 09/04/2024 10:15 AM [facility] Comment:Calculation based on the Chronic Kidney Disease Epidemiology Collaboration (CKD-EPI) equation refit without adjustment for race. BUN/Creatinine Ratio 19.3 LAB CHEMISTRY METHOD 09/04/2024 10:15 AM [facility] Calcium 9.3 8.5 - 10.5 mg/dL LAB CHEMISTRY METHOD 09/04/2024 10:15 AM [facility] Blood Venous blood specimen / Unknown Venipuncture / Unknown 09/04/2024 9:12 AM EDT 09/04/2024 9:22 AM EDT Paul Grant MD LAB BLOOD ORDERABLES Final Re sult [facility] [address] [place] [address], * Poc Rapid [id number], MOLECULAR (07/27/2024 6:43 PM EDT) COVID-19/SARS- COV-2 [...] Signed Date: 07/28/2024 09:41 ET Workstation ID: [id number] Transcribed By: Self Edit Transcribed Date: 07/28/2024 09:41 ET Narrative 07/28/2024 9:41 AM EDT HISTORY: cough TECHNIQUE: PA and lateral radiographs of the chest COMPARISON: None FINDINGS: There is a normal cardiomediastinal silhouette. The lungs are clear. Minimal widening of the right acromioclavicular joint which is partially visualized. Minimal degenerative changes of the thoracic spine. Procedure Note Sehrly Alegria MD - 07/28/2024 HISTORY: cough TECHNIQUE: [...] Signed Date: 07/28/2024 09:41 ET Workstation ID: [id number] Transcribed By: Self Edit Transcribed Date: 07/28/2024 09:41 ET Blanca Collier VACUUM EVAPORATION OPERATOR IMG XR PROCEDURES Final Result from Last 3 Months Insurance [facility] Advance Directives * Full Code - [...] currently active code status orders. Care Teams Lead Tinner Relationship Specialty Start Date End Date Farida Munroe MD PCP - General Internal Medicine 03/06/24
--- OUTSIDE RECORDS SUMMARY | 2024-10-26 15:06 | XMS_ITS | Clinical Summary ---
Author Organization [facility] Address [address] [address] Phone Care Team Providers Care Offline Cutter Name Role Phone Andrea Christina MD Primary Care Provider [phone] Allergies No known active allergies Medications amLODIPine [...] (#1) 2024 Insurance Unicare Unicare Care Teams Offline Cutter Relationship Specialty Start Date End Date Andrea Christina MD [address] [place] [address] PCP - General Internal Medicine 12/16/21
--- OUTSIDE RECORDS SUMMARY | 2024-10-26 15:07 | XMS_ITS | Continuity of Care Document ---
Author Organization [facility] [address] [place] [address] Phone [phone] Care Team Providers Care Machine Cleaner Name Role Phone Andrea Christina M.D. Care Team Information Recei justin [phone] Problems Active Problems Provider Date Essential hypertension Eric Craig M.D. O nset: 12/18/2021 Hemochromatosis Eric Craig M.D. Onset: 1 Social History Type Date Description Comments Sex Male Sex Unknown Tobacco Use Start: Unknown Never Smoked Cigarettes ETOH Use Never used alcohol Allergies and adverse reactions Description No Known Drug Allergies Medications Active Medications SIG Qnty Indications Ordering Provider Date Amlodipine [id number] Tablets 1 by mouth every day Andrea Christina M.D. Vital Signs Date Vital Result Comment 12/18/2021 10:34am BP Systolic 124 mmHg BP Diastolic 84 mmHg Heart Rate 68 /min Height 73 inches 6'1 Weight 225.00 lb BMI (Body Mass Index) 29.7 kg/m2 Results Test Acquired Date Facility Test Result H/L Range Note Osmolality, Urine Random 12/24/2021 [facility] Osmolality, Urine Random 753 MOSM/KG (50-1400 ) Osmolality, Serum 12/24/2021 [facility] Osmolality, Serum 297 MOS/KG High (280-290 ) Basic Metabolic Panel 12/24/2021 [facility] Glucose 87 mg/dL (70-99) BUN 29 mg/dL High (6-20) Creatinine 1.4 mg/dL High (0.7-1.2 ) Sodium 141 mmol/L (133-145 ) Potassium 4.5 mmol/L (3.6-5.2 ) Chloride 103 mmol/L (98-107) Bicarbonate 26 mmol/L (22-29) Anion Gap 12 (4-17) Calcium 9.6 mg/dL (8.6-10. 5) Estimated GFR Creatinine 63 ML/MIN/1.7 3M2 1 FSH 12/24/2021 [facility] FSH 2.6 MIU/ML (1.5-12. 4) 2 LH 12/24/2021 [facility] LH 7.9 MIU/ML (1.5-12. 4) 3 Free Testosterone 12/24/2021 [facility] Testosterone, Total, LC/MS 477.9 4 Percent Free Testosterone 3.27 5 Free Testosterone, Equilibrium 15.63 6 [place] C 12/24/2021 [facility] [place] C 175 NG/ML 7 Z Score 0.5 8 Cortisol 12/24/2021 [facility] Cortisol 10.2 g/dL 9 Free T4 12/24/2021 [facility] Free T4 1.19 ng/dL [...] and 37 years old. Carol et.al. JCEM 2017,102;[id number]. PMID: [id number]. This test was developed and its performance characteristics determined by [facility]. It has not been cleared or approved by the Food and Drug Administration. 5 Reference range: 1.5 0 to 4.20 Unit: % 6 Reference range: 5.0 0 to 21.00 Unit: ng/[place] [address] 7 Reference range: 74 to 255 8 Reference range: NEG 2.0 to +2.0 Unit: [place] [address] 9 Reference Range: 6-10 am: 6.0-18.4 ug/dL 4-8 pm: 2.7-10.5 ug/dL Procedures Date Code Description Status 04/07/2022 NSHOWOFF No Show Office Visit Complet ed 12/18/2021 [id number] Additional suppl ies, materials, staff time over [...] Eric Craig M.D. 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 12/18/2021 E11.9 Type 2 diabetes mellitus without complications Eric Craig M.D. Plan of Treatment No Information Available Functional Status Description No Information Available Mental Status Description No Information Available Referrals Description No Information Available
--- OUTSIDE RECORDS SUMMARY | 2024-10-26 15:07 | XMS_ITS | Clinical Summary ---
Author Organization [facility] Address [address] [place] [phone] Phone Care Team Providers Care Diesel Locomotive Engineer Name Role Phone Edwardo Serna Primary Care Provider [phone] Allergies No known active allergies Medications amLODIPine [...] Medical Devices Not on file Insurance [facility] Care Teams Diesel Locomotive Engineer Relationship Specialty Start Date End Date Edwardo Serna [address] [place] [address] [place] [address] PCP - General 02/18/21 Additional Source Comments The information contained in this document represents components of the legal health record. It is not the complete legal health record.[facility]
== END 2024-10-26 15:15 | disposition home or self-care (01) ==
LOC: HO.HKAS 14:18
PROVIDERS: PCP Internal Medicine; Visit Provider Internal Medicine Nephrology
DX: I10 Essential (primary) hypertension (principal); R79.89 Other specified abnormal findings of blood chemistry
CPT/HCPCS: 99214